=== PATIENT | male | born 1970 | race Caucasian/White ===

== ENCOUNTER 2016-08-07 10:03 | Observation (INO) ==
[2016-08-07 12:00] LABS: Basophils # (Auto) 0.1 K/mcL (0.0-0.3); Basophils % (Auto) 0.4 % (0.0-2.0); Eosinophils # (Auto) 0.2 K/mcL (0.0-0.7); Eosinophils % (Auto) 0.9 % (0.0-7.0); Granulocytes % (Auto) 76.9 % (38.0-78.0); Lymphocytes # (Auto) 2.3 K/mcL (1.5-4.8); Lymphocytes % (Auto) 13.9 % (15.5-49.0); Mean Cell Volume 79.2 fL (80.0-100.0); Mean Corpuscular HGB Conc 33.7 g/dL (31.0-36.0); Mean Corpuscular Hemoglobin 26.7 pg (26.0-34.0); Monocytes # (Auto) 1.3 K/mcL (0.1-0.9); Monocytes % (Auto) 7.9 % (1.0-9.0); Platelet Count 290 K/mcL (140-440); RBC 4.32 M/mcL (4.50-5.90); Red Cell Distribution Width 16.4 % (11.5-14.5)
--- NOTE | 2016-08-07 12:21 | XRay Report ---
CLINICAL INFORMATION: Trauma COMPARISON: None. FINDINGS: Film taken with subtle inspiratory result accentuates the heart size and basal pulmonary vasculature. The heart is mildly enlarged. Mediastinum is normal. Mild patchy airspace disease in both lung bases show slight increase is likely atelectasis. 2.5 are rounded nodular density overlies the left midlung - new from previous study. It is likely rounded atelectasis or pneumonia. No effusions IMPRESSION: Mild cardiomegaly accentuated by suboptimal inspiration. Mild basilar airspace disease is likely atelectasis. There is a 3.5 cm rounded density overlying the left midlung - anterior fourth rib. Suggest standard PA and lateral chest x-ray to evaluate for nodule. Interpreted and Authenticated by: Benigno Foote 08/07/16
[2016-08-07] MEDS ORDERED: VANCOMYCIN 1,000 MG in 0.9 % SODIUM CHLORIDE 250 ML IV ONE (14:28)
[2016-08-07] MEDS ORDERED: cefTRIAXone 1 GM in DEXTROSE 5% IN WATER 50 ML IV ONE (14:28)
[2016-08-07] MEDS ORDERED: cefTRIAXone 1 GM VIAL ONE (14:43)
[2016-08-07] MEDS ORDERED: 0.9 % SODIUM CHLORIDE 1,000 ML IV ONE (15:30)
[2016-08-07 15:32] LABS: Appearance,Urine CLEAR; Bacteria,Urine 0 /hpf (0); Bilirubin,Urine NEG (NEG); Color,Urine YELLOW; Glucose,Urine (UA) NEGATIVE (NEG); Leukocyte Esterase,Urine NEG /uL (NEG); Mucus,Urine FEW /hpf (0); Nitrate,Urine NEG (NEG); Protein,Urine 100 mg/dL (NEG); Specific Gravity,Urine 1.019 (1.000-1.035); Urine Blood 0.03 mg/dL (<0.03); Urine Hyaline Cast 3 /lpf (0-2); Urine RBC 32 /hpf (0-1); Urine Squamous Epithelial Cell < 1 /hpf (0-4); Urine WBC 4 /hpf (0-4); Urobilinogen,Urine NEG (NEG)
[2016-08-07] MEDS ORDERED: traZODone HCL 50 MG TABLET PO PRN (16:19)
[2016-08-07] MEDS ORDERED: IPRATROPIUM/ALBUTEROL 3 ML AMPUL.NEB NEB PRN (16:19)
[2016-08-07] MEDS ORDERED: DEXTROSE 50% 50 ML VIAL IV PRN (16:19)
[2016-08-07] MEDS ORDERED: ACETAMINOPHEN 325 MG TABLET PO PRN (16:19)
[2016-08-07] MEDS ORDERED: POTASSIUM CHLORIDE 20 MEQ PACKET PO PRN (16:19)
[2016-08-07] MEDS ORDERED: guaiFENesin/CODEINE 10 ML UDC PO PRN (16:19)
[2016-08-07] MEDS ORDERED: ONDANSETRON 4 MG/2 ML VIAL IV PRN (16:19)
[2016-08-07] MEDS ORDERED: MAGNESIUM SULFATE 2 GM/50 ML BAG IV PRN (16:19)
[2016-08-07] MEDS: 0.9 % SODIUM CHLORIDE 1,000 ML IV SCH (16:55)
[2016-08-07] MEDS ORDERED: SODIUM CHLORIDE 0.9% IV ONE (17:00)
[2016-08-07] MEDS ORDERED: GENTAMICIN SULFATE IV ONE (17:00)
[2016-08-07] MEDS: INSULIN LISPRO 1 UNIT/0.01 ML UNIT SQ SCH ×2 (17:15→21:25)
--- NOTE | 2016-08-07 17:21 | History and Physical Report ---
DATE OF ADMISSION: 08/07/2016 PRIMARY CARE PHYSICIAN: Ewa Roque MD. REASON FOR ADMISSION: Syncopal episode, weakness and lightheadedness. HISTORY OF CHIEF COMPLAINT: The patient is a 46-year-old diabetic and mentally delayed who receives help from a caregiver 4 to 5 hours a day and has been fairly functional and living alone and managing and has been in his baseline state of health until over the last one week. The patient has noted increasing fever, weakness, chills and had a syncopal episode this morning. Initial workup in the ER was significant for white count over 16,000 and pyuria initial urine dip. Hospitalist Service was consulted in light of deconditioning and high-risk patient in light of complicated UTI and sepsis. At the time of examination, the patient is alert, was able to answer most of the questions. He denies diarrhea, bloody stool, or bloody urine. He further denies weight loss, glandular swelling, ENT symptoms, sick contacts or changes in medications. He denies any precipitating events but endorses to feeling lightheaded, drowsy and a black curtain before the fall. He denies tripping or slipping. He, however, did not lose consciousness or notice any incontinence or seizure-like activity. REVIEW OF SYSTEMS: Ten-point review of system was performed and is negative except the ones discussed above. PAST MEDICAL HISTORY: 1. Obstructive sleep apnea. 2. Morbid obesity. 3. Hypoxia requiring chronic oxygen 4 liters. 4. Diabetes mellitus type 2. 5. Bipolar disorder. 6. Hypertension. 7. Atrial fibrillation. 8. Anticoagulation for CVA prophylaxis. 9. Stasis dermatitis with chronic venous stasis bilateral lymphedema. SOCIAL HISTORY: Active smoker with over 25-tyox-zjaz history of smoking. No history of alcoholism or substance abuse. He receives care from home health services caregiver for 4 to 5 hours a day, lives alone. No family members available. CURRENT MEDICATIONS: List is being verified. 1. Zolpidem 10 mg. 2. Sitagliptin 100 mg. 3. Simvastatin 20 mg. 4. Risperidone 8 mg. 5. Metoprolol 200 mg. 6. Oxybutynin 10 mg. 7. Lisinopril 20 mg. 8. Duloxetine 120 mg. 9. Divalproex extended-release 1000 mg b.i.d. 10. Digoxin 125 mcg. 11. Bupropion 150 mg. 12. Warfarin 6 mg every day alternating with 8 mg Saturday. 13. Spironolactone 25 mg. 14. Furosemide 20 mg. 15. Diltiazem 180 mg b.i.d. 16. Benztropine 0.5 mg b.i.d. FAMILY HISTORY: Reviewed from medical records and noncontributory. The patient unable to provide details. ALLERGIES: 1. PENICILLIN. 2. SULFA. PHYSICAL EXAMINATION: GENERAL: The patient is alert and oriented. BMI 44. Height 6 feet. VITAL SIGNS: Blood pressure 123/80, respiration rate 26, temperature 97.3, pulse 67, sats 94% on 4 liters oxygen nasal cannula. HEENT: Pupils symmetric. Oral cavity is dry. No ear or nose discharge. Head is normocephalic. NECK: No lymphadenopathy. CHEST: S1, S2, irregular rhythm. ESM grade 1. Diminished breath sounds at bases. ABDOMEN: Soft and nontender. LOWER EXTREMITIES: Significant edema, dusky venous changes stasis dermatitis but no cyanosis or clubbing. No joint swelling or erythema. SKIN: No suspicious lesions. PSYCHIATRIC: Alert and cooperative. No anxiety or agitation. NEURO: Moving all four extremities. Limited higher function unremarkable. LABS AND IMAGING: White count 16.8, hemoglobin 11.5, neutrophils 77%, platelets 290. INR 1.9. Sodium 139, potassium 4.4, creatinine 0.9, BUN 9. UA significant for 4 WBCs. Urine cultures pending. X-ray chest: Mild cardiomegaly, basilar airspace disease, 3.5 cm left mid lung density. ASSESSMENT AND PLAN: A 46-year-old with known history of obstructive sleep apnea on oxygen and diabetes admitted with syncopal episode. 1. Syncope. Evaluate with echocardiogram. Admit in telemetry observation. Continue close monitoring. No evidence of hypotension or orthostasis. No evidence of cardiac arrhythmia except for atrial fibrillation, but rate controlled. 2. Systemic inflammatory response syndrome with leukocytosis over 16,800. Continue source evaluation. Empiric antibiotics were instituted, including gentamicin and Rocephin and will deescalate based on culture sensitivity results. 3. Other prior medical issues, including: a. History of atrial fibrillation. Continue digoxin along with anticoagulation on Coumadin for CVA prophylaxis. b. Diabetes mellitus type 2. Continue basal prandial insulin/sitagliptin. c. Hypertension. Continue spironolactone and lisinopril. d. Anxiety disorder. Continue duloxetine. e. Hyperlipidemia. Continue statin. PLAN FOR TODAY: 1. Admit as observation. 2. Telemetry monitoring. 3. Antibiotic coverage. 4. SIRS source evaluation. 5. Syncope workup including echocardiogram and continue telemetry. 6. Preexisting medical condition management as above. Overall high-complexity observation. AA:rosa Job ID: [id number] Doc ID: [id number] Brandan Roque MD [facility]
[2016-08-07 19:35] LABS: Hemoglobin A1C 8.2 % HGB (4.0-6.0)
[2016-08-07] MEDS ORDERED: WARFARIN 3 MG TABLET PO SCH (21:00)
[2016-08-07] MEDS: CYANOCOBALAMIN (VITAMIN B-12) 500 MCG TABLET PO SCH (21:24)
[2016-08-07] MEDS: SENNOSIDES/DOCUSATE SODIUM 1 TAB TABLET PO SCH (21:24)
[2016-08-07] MEDS: HEPARIN 5,000 UNIT/ML VIAL SQ SCH (21:24)
[2016-08-07] MEDS: DOCUSATE SODIUM 100 MG CAPSULE PO SCH (21:24)
[2016-08-07] MEDS: 0.9 % SODIUM CHLORIDE 10 ML SYRINGE IV SCH (21:27)
[2016-08-08] MEDS: 0.9 % SODIUM CHLORIDE 10 ML SYRINGE IV SCH ×3 (04:57→22:35)
[2016-08-08 05:58] LABS: Mean Cell Volume 81.8 fL (80.0-100.0); Mean Corpuscular HGB Conc 32.2 g/dL (31.0-36.0); Mean Corpuscular Hemoglobin 26.3 pg (26.0-34.0); Platelet Count 267 K/mcL (140-440); RBC 4.08 M/mcL (4.50-5.90); Red Cell Distribution Width 17.2 % (11.5-14.5)
[2016-08-08 06:13] LABS: ALT/SGPT 6 U/l (0-40); Albumin 3.1 gm/dL (3.2-5.2); Albumin/Globulin Ratio 0.9 (1.0-2.3); Alkaline Phosphatase 104 U/L (39-117); Bilirubin,Direct < 0.2 mg/dL (0.0-0.3); Blood Urea Nitrogen 10 mg/dl (6-20); Gamma Glutamyl Transpeptidase 32 U/L (8-61); Magnesium 1.4 mg/dL (1.6-2.5); Phosphorous 4.1 mg/dL (2.7-4.5)
[2016-08-08 06:53] LABS: Anisocytosis 2+ (NONE SEEN); Eosinophils % (Manual) 2 % (0-7); Lymphocytes % 17 % (15-49); Monocytes % (Manual) 10 % (1-9); Myelocytes % 1 % (0-0); Platelet Estimate NORMAL (NORMAL); RBC Morphology ABNORM (NORMAL); Segmented Neutrophils % 70 % (38-78)
[2016-08-08] MEDS ORDERED: FLU VACC QS2016-17 36MOS UP/PF 60 MCG/0.5 ML SYRINGE IM ONE (07:45)
[2016-08-08] MEDS: PANTOPRAZOLE 40 MG TABLET PO SCH (07:51)
[2016-08-08] MEDS: INSULIN LISPRO 1 UNIT/0.01 ML UNIT SQ SCH ×4 (07:51→23:01)
[2016-08-08] MEDS: CYANOCOBALAMIN (VITAMIN B-12) 500 MCG TABLET PO SCH ×2 (08:18→20:50)
[2016-08-08] MEDS: sitaGLIPtin 100 MG TABLET PO SCH (08:18)
[2016-08-08] MEDS: MULTIVIT,THER IRON,CA,FA & MIN 1 TABLET PO SCH (08:21)
[2016-08-08] MEDS: FOLIC ACID 1 MG TABLET PO SCH (08:21)
[2016-08-08] MEDS: DOCUSATE SODIUM 100 MG CAPSULE PO SCH ×2 (08:22→20:50)
[2016-08-08] MEDS: HEPARIN 5,000 UNIT/ML VIAL SQ SCH ×2 (08:22→20:50)
--- NOTE | 2016-08-08 09:05 | Emergency Department Note ---
General Adult HPI - General Chief complaint: Fall Stated complaint: Fall this morning, possible syncope, hit head Time Seen by Provider: 08/07/16 10:17 Source: patient, EMS Mode of arrival: EMS Limitations: altered mental status - History of Present Illness HPI Narrative: 46-year-old mentally challenged diabetic male collapsed this morning hitting the back of his head. He is normally somewhat confused and unsteady but he doesn't normally fall. His caregiver gives me some most of the history but was unable from room when he fell from sitting on the bed. No injuries reported loss of consciousness briefly was reported. He is on oxygen 4 L/m 24 hours a day and has been for the last year. Denies fever but does note rhinorrhea and congestion over the last couple weeks - Related Data Home Medications Medication Instructions Recorded Confirmed bupropion HCl XL 150 mg 24 hr 150 mg PO DAILY tab 04/01/15 11/23/15 tablet, extended release digoxin 125 mcg tablet 125 mcg PO DAILY 04/01/15 11/23/15 divalproex ER 500 mg 1,000 mg PO BID tab 04/01/15 11/23/15 tablet,extended release 24 hr duloxetine 60 mg capsule,delayed 120 mg PO QDAY cap 04/01/15 11/23/15 release epinephrine 0.3 mg/0.3 mL 0.3 mg IM PRN PRN 04/01/15 11/23/15 injection, auto-injector lisinopril 20 mg tablet 20 mg PO QDAY 04/01/15 11/23/15 metoprolol succinate ER 200 mg 200 mg PO BID tab 04/01/15 11/23/15 tablet,extended release 24 hr risperidone 4 mg tablet 8 mg PO QHS tab 04/01/15 11/23/15 simvastatin 20 mg tablet 20 mg PO QHS tab 04/01/15 11/23/15 zolpidem 10 mg tablet 10 mg PO HSP PRN 04/01/15 11/23/15 Benztropine [Cogentin] 0.5 mg PO BID 11/23/15 11/23/15 Diltiazem HCl [Cartia Xt] 180 mg PO BID 11/23/15 11/23/15 Warfarin [Coumadin] 6 mg PO SUMOTUTHFRSA 11/23/15 11/23/15 Warfarin [Coumadin] 8 mg PO WE 11/23/15 11/23/15 Previous Rx's Medication Instructions Recorded oxybutynin chloride ER 10 mg 10 mg PO QDAY #30 tab 04/07/15 tablet,extended release 24 hr Clindamycin HCl [Cleocin] 300 mg PO TID #12 capsule 11/26/15 Furosemide [Lasix] 20 mg PO DAILY #30 tablet 11/26/15 Levofloxacin [Levaquin] 750 mg PO DAILY #4 tablet 11/26/15 Spironolactone [Aldactone] 25 mg PO DAILY #30 tablet 11/26/15 sitaGLIPtin [Januvia] 100 mg PO DAILY #60 tablet 11/26/15 Clindamycin HCl [Cleocin] 300 mg PO TID #30 capsule 12/08/15 Levofloxacin [Levaquin] 750 mg PO DAILY #10 tablet 12/08/15 Allergies Allergy/AdvReac Type Severity Reaction Status Date / Time Penicillins Allergy Severe Anaphylaxis Verified 11/23/15 15:08 Sulfa (Sulfonamide Allergy Severe Anaphylaxis Verified 11/23/15 15:08 Antibiotics) sulfamethoxazole Allergy Severe Anaphylaxis Verified 11/23/15 15:08 [From Bactrim] trimethoprim [From Bactrim] Allergy Severe Anaphylaxis Verified 11/23/15 15:08 Review of Systems All systems ED: reviewed and negative except as stated. Past Medical History - Past Medical History Attestation: Yes: The following information was validated with the patient. Medical history: Reports: atrial fibrillation, CHF (iastolic), diabetes, hyperlipidemia, hypertension, other (chronic leg lymphedema, sleep apnea) Psychiatric history: Reports: bipolar - Social History smoking status: Current every day smoker Alcohol use: Reports: None Drug use: Reports: none Physical Exam Obese male no acute distress. Normocephalic/atraumatic. Conjunctiva clear sclerae white and anicteric. No nasal discharge but some audible congestion. Oropharynx is pink and moist. Neck is supple without lymphadenopathy or thyromegaly. Heart is irregularly irregular rhythm. +2 radial pulse. Lungs clear to auscultation bilaterally without wheezes rales rhonchi or respiratory distress. Bilateral +1-2 chronic pedal edema with hyperpigmentation. Alert and oriented but talks very slowly- baseline mentation. Short-term memory issues. I do not see any focal deficits. No tremor dysarthria or facial symmetry. No ataxia Global weakness Course Vital Signs Temperature 97.3 F L 08/07/16 10:05 Pulse Rate 70 08/07/16 10:05 Respiratory Rate 16 08/07/16 10:05 Blood Pressure 118/84 08/07/16 10:05 Pulse Oximetry (%) 94 08/07/16 10:05 Temperature 97.7 F 08/08/16 07:43 Pulse Rate 87 08/08/16 07:44 Respiratory Rate 22 08/08/16 07:43 Blood Pressure 153/91 08/08/16 04:00 Pulse Oximetry (%) 91 08/08/16 07:44 Medical Decision Making - Medical Records Medical records reviewed: Yes I reviewed the patient's medical records. - Lab Data Lab results reviewed: Yes I reviewed the patient's lab results. Result diagrams: 08/08/16 04:50 08/08/16 04:50 Lab Results 08/07/16 08/07/16 08/07/16 Range/Units 11:26 11:26 11:34 WBC 16.8 H (4.5-11.0) K/mcL RBC 4.32 L (4.50-5.90) M/mcL Hgb 11.5 L (13.5-16.5) g/dL Hct 34.2 L (41.0-55.0) % POC Hct 34.0 L (41.0-55.0) % MCV 79.2 L (80.0-100.0) fL MCH 26.7 (26.0-34.0) pg MCHC 33.7 (31.0-36.0) g/dL RDW 16.4 H (11.5-14.5) % Plt Count 290 (140-440) K/mcL MPV 7.1 L (7.4-10.4) fL Gran % 76.9 (38.0-78.0) % Lymph % (Auto) 13.9 L (15.5-49.0) % [place] % (Auto) 7.9 (1.0-9.0) % Eos % (Auto) 0.9 (0.0-7.0) % Baso % (Auto) 0.4 (0.0-2.0) % Gran # 12.9 H (1.8-8.0) K/mcL Lymph # 2.3 (1.5-4.8) K/mcL [place] # 1.3 H (0.1-0.9) K/mcL Eos # 0.2 (0.0-0.7) K/mcL Baso # 0.1 (0.0-0.3) K/mcL PT 22.3 H (11.9-14.5) sec INR 1.9 H (0.9-1.1) POC Sodium 139 (133-145) mmol/L POC Potassium 4.4 (3.3-5.1) mmol/L POC Chloride 98 (96-108) mmol/L POC Total CO2 28 (22-30) mmol/L POC BUN 9 (6-20) mg/dl POC Creatinine 0.9 (0.7-1.2) mg/dl POC Glucose 135 H (70-105) mg/dL Hemoglobin A1c (4.0-6.0) % HGB Estim Average Glucose mg/dL POC WB Ioniz Calcium 1.17 (1.16-1.32) mmol/L Urine Color Urine Appearance Urine pH (5.0-9.0) Ur Specific [place] (1.000-1.035) Urine Protein (NEG) mg/dL Urine Glucose (UA) (NEG) mg/dL Urine Ketones (NEG) mg/dL Urine Occult Blood (<0.03) mg/dL Urine Nitrate (NEG) Urine Bilirubin (NEG) mg/dL Urine Urobilinogen (NEG) mg/dL Ur Leukocyte Esterase (NEG) /uL Urine RBC (0-1) /hpf Urine WBC (0-4) /hpf Ur Squamous Epith Cells (0-4) /hpf Urine Bacteria (0) /hpf Hyaline Casts (0-2) /lpf Urine Mucus (0) /hpf Ur Culture Indicated? 08/07/16 08/07/16 Range/Units 11:34 14:34 WBC (4.5-11.0) K/mcL RBC (4.50-5.90) M/mcL Hgb (13.5-16.5) g/dL Hct (41.0-55.0) % POC Hct (41.0-55.0) % MCV (80.0-100.0) fL MCH (26.0-34.0) pg MCHC (31.0-36.0) g/dL RDW (11.5-14.5) % Plt Count (140-440) K/mcL MPV (7.4-10.4) fL Gran % (38.0-78.0) % Lymph % (Auto) (15.5-49.0) % [place] % (Auto) (1.0-9.0) % Eos % (Auto) (0.0-7.0) % Baso % (Auto) (0.0-2.0) % Gran # (1.8-8.0) K/mcL Lymph # (1.5-4.8) K/mcL [place] # (0.1-0.9) K/mcL Eos # (0.0-0.7) K/mcL Baso # (0.0-0.3) K/mcL PT (11.9-14.5) sec INR (0.9-1.1) POC Sodium (133-145) mmol/L POC Potassium (3.3-5.1) mmol/L POC Chloride (96-108) mmol/L POC Total CO2 (22-30) mmol/L POC BUN (6-20) mg/dl POC Creatinine (0.7-1.2) mg/dl POC Glucose (70-105) mg/dL Hemoglobin A1c 8.2 H (4.0-6.0) % HGB Estim Average Glucose 189 mg/dL POC WB Ioniz Calcium (1.16-1.32) mmol/L Urine Color Yellow Urine Appearance Clear Urine pH 6.0 (5.0-9.0) Ur Specific [place] 1.019 (1.000-1.035) Urine Protein 100 A (NEG) mg/dL Urine Glucose (UA) Negative (NEG) mg/dL Urine Ketones 5/tr A (NEG) mg/dL Urine Occult Blood 0.03 A (<0.03) mg/dL Urine Nitrate Neg (NEG) Urine Bilirubin Neg (NEG) mg/dL Urine Urobilinogen Neg (NEG) mg/dL Ur Leukocyte Esterase Neg (NEG) /uL Urine RBC 32 H (0-1) /hpf Urine WBC 4 (0-4) /hpf Ur Squamous Epith Cells < 1 (0-4) /hpf Urine Bacteria 0 (0) /hpf Hyaline Casts 3 H (0-2) /lpf Urine Mucus Few (0) /hpf Ur Culture Indicated? No rine was straight catheter as he was unable to urinate for us - Radiology Data Radiology results reviewed: Yes I reviewed the patient's radiology results. Chest x-ray without infiltrate. Possible nodule- radiology recommends follow- up 2 view - EKG Data EKG #1 EKG attestation: Yes I reviewed and interpreted this EKG. EKG results narrative: EKG shows atrial fibrillation with a rate of 74 Disposition Clinical Impression: SIRS (systemic inflammatory response syndrome), Syncope and collapse Summary: orthostatics mildly positive but other studies unrevealing as to cause of his leukocytosis. Cultures done and antibiotics started. IV fluids Discussed case with Dr. Coon who agreed to accept patient in transfer for further care and evaluation of syncope and collapse as well as SIRS Disposition: [facility] Condition: Fair
[2016-08-08] MEDS: cefTRIAXone 2 GM in DEXTROSE 5% IN WATER 50 ML IV SCH (09:17)
[2016-08-08] MEDS: THIAMINE 100 MG in 0.9 % SODIUM CHLORIDE 50 ML IV SCH (09:17)
--- NOTE | 2016-08-08 12:12 | Internal Med Progress Note ---
Medical - PN: Subj Patient information: Note initiated : 08/08/16 at 12:12 pm Service Date, if different from initiated Date: [] Patient: Keegan Uribe 46 y/o M admitted on 08/07/16 for Fall This Morning, Possible Syncope, Hit Head. Chief Complaint: [] Interval history: 08/07- patient admitted with systemic inflammatory response syndrome, leukocytosis , syncope. Admitted on telemetry. No infectious etiology identified. On empiric antibiotics. Campbell cultures obtained. 08/08- patient feeling a lot better. Good urine output. No overnight fever chills nausea vomiting or concerns per nursing staff. no family at bedside. Patient agrees for another 24 hours observation. denies active concerns. Denies chest pain shortness of breath - Constitutional Vitals: Vital Signs Temp Pulse Resp BP Pulse Ox 97.6 F 87 20 136/83 90 08/08/16 11:09 08/08/16 07:44 08/08/16 11:09 08/08/16 11:09 08/08/16 11:09 Period Temp Pulse Resp BP Sys/Willis Pulse Ox Last 24 Hr 97.3 F-98.2 F 77-90 16-24 135-153/73-94 90-97 Intake and Output 08/07/16 08/08/16 08/08/16 21:59 05:59 13:59 Intake Total 1890 / 1940 450 / 450 501 / 501 Output Total 1000 / 1000 1000 / 1000 Balance 189 / 0 -550 / -550 -499 / -499 Weight 299 lb Intake & Output: Intake & Output 08/07/16 08/08/16 08/08/16 21:59 05:59 13:59 Intake Total 1890 / 1940 450 / 450 501 / 501 Output Total 1000 / 1000 1000 / 1000 Balance 1890 / 1940 -550 / -550 -499 / -499 Weight 299 lb Intake: IV 1250 / 1250 101 / 101 Sodium Chloride 0.9% 1, 1000 / 1000 000 ml @ Wide Open IV BOLUS ONE Rx#:[id number] Sodium Chloride 0.9% 50 51 / 51 ml @ 50 mls/hr IV DAILY CAROLINE with Vitamin B1 100 mg Rx#:[id number] Sodium Chloride 0.9% 250 250 / 250 ml @ 250 mls/hr IV ONCE ONE with Vancomycin 1,000 mg Rx#:[id number] Dextrose 5% in Water 50 50 / 50 ml @ 100 mls/hr IV Q24H CAROLINE with Rocephin 2 gm Rx #:[id number] Oral 640 / 640 450 / 450 400 / 400 Output: Urine Catheter Amount 1000 / 1000 1000 / 1000 Other: Meal Dinner Breakfast Percent of Meal Consumed 75% 100% Feeding Ability Assist with Tray Set Up Independent General appearance: cooperative, no acute distress Exam: alert oriented nonlabored breathing Nondistended abdomen Foleys draining clear urine no anxiety Medical - PN: Obj Da - Labs CBC & Chem 7: 08/08/16 04:50 08/08/16 04:50 Labs: Abnormal Lab Results 08/08/16 08/08/16 08/08/16 05:50 04:50 04:50 WBC 13.0 H RBC 4.08 L Hgb 10.7 L Hct 33.4 L RDW 17.2 H MPV 6.7 L Monocytes % (Manual) 10 H Myelocytes % 1 H RBC Morphology Abnorm A Anisocytosis 2+ A PT 20.1 H INR 1.7 H Glucose 154 H Magnesium 1.4 L Albumin 3.1 L Albumin/Globulin Ratio 0.9 L Triglycerides 168 H Meds: Medications Acetaminophen (Tylenol) 650 mg PO Q4-6HP PRN PRN Reason: PAIN/FEVER > 101 Albuterol/Ipratropium (Duoneb) 3 ml NEB Q4HP PRN PRN Reason: Shortness Of Breath Cyanocobalamin (Vitamin B-12) 1,000 mcg PO BID [facility] Stop: 08/12/16 09:01 Last Admin: 08/08/16 08:18 Dose: 1,000 mcg Dextrose (Dextrose 50%) 0 ml IV UD PRN PRN Reason: Hypoglycemia Diagnostic Test (Pha) (Accu-Chek) 1 each FS ACHS [facility] Last Admin: 08/08/16 07:50 Dose: 1 each Docusate Sodium (Colace) 100 mg PO BID [facility] Last Admin: 08/08/16 08:22 Dose: 100 mg Folic Acid (Folic Acid) 1 mg PO DAILY [facility] Last Admin: 08/08/16 08:21 Dose: 1 mg Guaifenesin/Codeine Phosphate (Robitussin Ac) 10 ml PO Q4HP PRN PRN Reason: Cough Heparin Sodium (Porcine) (Heparin) 5,000 unit SQ Q12 [facility] Last Admin: 08/08/16 08:22 Dose: 5,000 unit Magnesium Sulfate (Magnesium Sulfate) 2 gm in 50 mls @ 50 mls/hr IV UD PRN PRN Reason: MG = or < 1.7 Sodium Chloride (Sodium Chloride 0.9%) 1,000 mls @ 50 mls/hr IV .Q20H [facility] Stop: 08/10/16 04:18 Last Admin: 08/07/16 16:55 Dose: Not Given Thiamine HCl 100 mg/ Sodium (Chloride) 51 mls @ 50 mls/hr IV DAILY [facility] Stop: 08/10/16 10:02 Last Infusion: 08/08/16 10:37 Dose: Infused Ceftriaxone Sodium 2 gm/ (Dextrose) 50 mls @ 100 mls/hr IV Q24H [facility] Last Infusion: 08/08/16 10:36 Dose: Infused Insulin Human Lispro (Humalog) 0 unit SQ ACHS CAROLINE PRN Reason: Protocol Last Admin: 08/08/16 07:51 Dose: Not Given Iron Carb/Multivit/Filler Room Attendant/Folic Acid (Multivitamin W/Minerals) 1 tab PO DAILY [facility] Last Admin: 08/08/16 08:21 Dose: 1 tab Ondansetron HCl (Zofran) 4 mg IV Q4-6HP PRN PRN Reason: Nausea And Vomiting Pantoprazole Sodium (Protonix) 40 mg PO QAMAC [facility] Last Admin: 08/08/16 07:51 Dose: 40 mg Potassium Chloride (Klor-Con) 40 meq PO DAILYP PRN PRN Reason: K+ < 3.5 Senna/Docusate Sodium (Senna Plus Tablet) 1 tab PO HS [facility] Last Admin: 08/07/16 21:24 Dose: 1 tab Sitagliptin Phosphate (Januvia) 100 mg PO DAILY [facility] Last Admin: 08/08/16 08:18 Dose: 100 mg Sodium Chloride (Saline Flush) 10 ml IV Q8 [facility] Last Admin: 08/08/16 04:57 Dose: 10 ml Trazodone HCl (Desyrel) 50 mg PO HSP PRN PRN Reason: Insomnia Warfarin Sodium (Coumadin) 8 mg PO ONCE@1400 ONE Stop: 08/08/16 14:01 Medical - PN: A/P - Time Spent With Patient Total time spent is greater than 50% in coordination of care (as documented) at patient's floor/unit and/or counseling patient: 15 - 24 minutes (1) SIRS (systemic inflammatory response syndrome) Status: Acute Assessment and plan: * systemic inflammatory response syndrome-clinically improving. White count down from 13.8-13. Cultures negative so far. No etiology identified initiate * Syncope-likely secondary to volume depletion/dehydration. Improving with hydration. No telemetry events. Await echocardiogram to rule out valvular etiology * DM type II on basal prandial insulin * Anxiety disorder on duloxetine/bupropion * A. fib and digoxin/metoprolol * Hypertension on lisinopril/metoprolol/Spironolactone * hyperlipidemia on statin plan * Antibiotic coverage * Telemetry monitoring * pre-existing medical condition management as above * Possible discharge in 24 hours Current Visit: Yes Medical - PN: Qual - Stroke Symptom Onset Unknown: No - VTE Deep Vein Thrombosis/Pulmonary Embolism Present on Admission: Yes
[2016-08-08] MEDS: 0.9 % SODIUM CHLORIDE 1,000 ML IV SCH (12:40)
[2016-08-08] MEDS ORDERED: WARFARIN 4 MG TABLET PO ONE (14:00)
[2016-08-08] MEDS: SENNOSIDES/DOCUSATE SODIUM 1 TAB TABLET PO SCH (20:50)
[2016-08-09] MEDS: 0.9 % SODIUM CHLORIDE 10 ML SYRINGE IV SCH (05:07)
[2016-08-09 05:35] LABS: Mean Cell Volume 82.1 fL (80.0-100.0); Mean Corpuscular HGB Conc 32.1 g/dL (31.0-36.0); Mean Corpuscular Hemoglobin 26.4 pg (26.0-34.0); Platelet Count 247 K/mcL (140-440); RBC 4.19 M/mcL (4.50-5.90); Red Cell Distribution Width 17.1 % (11.5-14.5)
[2016-08-09 06:03] LABS: ALT/SGPT 8 U/l (0-40); Albumin/Globulin Ratio 0.9 (1.0-2.3); Alkaline Phosphatase 114 U/L (39-117); Bilirubin,Direct < 0.2 mg/dL (0.0-0.3); Blood Urea Nitrogen 9 mg/dl (6-20); Gamma Glutamyl Transpeptidase 34 U/L (8-61); Magnesium 1.5 mg/dL (1.6-2.5); Phosphorous 5.1 mg/dL (2.7-4.5); Uric Acid 5.4 mg/dL (2.5-8.0)
[2016-08-09 06:17] LABS: Anisocytosis 1+ (NONE SEEN); Lymphocytes % 22 % (15-49); Monocytes % (Manual) 10 % (1-9); Platelet Estimate NORMAL (NORMAL); RBC Morphology ABN (NORMAL); Segmented Neutrophils % 68 % (38-78)
--- NOTE | 2016-08-09 06:50 | Echocardiogram Report ---
ECHOCARDIOGRAM: 2-D and M-mode echocardiography with cardiac Doppler and color flow imaging were performed with a [employer] Aplio MX. Indication is syncope. Both atria appeared enlarged, the RA mildly so, the LA moderately so. RV and LV cavity size appeared normal. LV wall thickness appeared mildly increased. Systolic performance appeared normal. Estimated ejection fraction is 60%. Aortic root diameter appeared normal. The right appeared sclerotic, notable at age 46. The aortic valve appeared trileaflet and normal. There was no evidence for aortic stenosis or aortic regurgitation by Doppler interrogation. The mitral and tricuspid valves appeared unremarkable. Mitral annular calcification was present. Doppler interrogation of LV inflow disclosed a monophasic spectral dispersion pattern related to absent AV synchrony. There was no evidence for mitral regurgitation. The pulmonic valve was not well visualized. Pulmonary artery acceleration time was difficult to measure. There was no evidence for pulmonic stenosis or pulmonic regurgitation. There was no evidence for tricuspid regurgitation. No intracardiac shunting was appreciated. There was no evidence for pericardial effusion. The IVC was dilated and did not vary with the respiratory cycle indicating raised CVP. Hepatic venous interrogation disclosed ''d'' wave dominance corroborating elevated RA pressure. Atrial fibrillation with a moderate to rapid response was present. CONCLUSION:Aortic root sclerosis. Mild concentric LVH with normal systolic performance. Mitral annular calcification. Moderate LA enlargement. Mild RA enlargement/raised CVP. (See accompanying M-mode and Doppler reports for quantitation.) ECHOCARDIOGRAPHY M-MODE CALCULATIONS: HT: 72'' WT: 299 BSA: 2.53 m2 NORMALS AORTA: AORTIC ROOT 3.3 2.0-3.7 cm LEFT ATRIUM 3.7 1.9-4.0 cm MITRAL VALVE: EXCURSION 2.2 1.9-2.7 cm EPSS 0.4 <0.5 cm LT VENTRICLE: LVID (ED) 5.0 3.5-5.7 cm LVID (ES) 3.8 SEPTAL THICKNESS 1.2 0.6-1.1 cm SEPTAL EXCURSION 0.4 0.3-0.8 cm LVPW THICKNESS 1.2 0.6-1.1 cm LVPW EXCURSION 1.1 0.9-1.4 cm MINOR AXIS FS 2.4 25%-40% RT VENTRICLE: RVID (ED) -- 0.9-2.6 cm(up to 3cm if LLD) QUALITATIVE DOPPLER FLOW STUDIES MITRAL VALVE -- AORTIC VALVE -- TRICUSPID VALVE -- PULMONIC VALVE -- QUANTITATIVE DOPPLER FLOW STUDIES SAMPLE SITES VELOCITIES PEAK PRESSURE VALVE AREA and/or VALVE WINDOW (PEAK,M/SEC) DROP (GRADIENT) PRESSURE HALF-TIME MV (Diastole) 1.1 -- -- MV (Systole) -- -- -- AO (Diastole) -- -- -- AO (Systole) 1.5 -- -- TV (Systole) -- -- -- PV (Systole) 0.8 -- -- PV (Diastole) -- LWG:senthil Job ID: [id number] Doc ID: [id number] Felipe Zhou MD
[2016-08-09] MEDS: PANTOPRAZOLE 40 MG TABLET PO SCH (07:33)
[2016-08-09] MEDS: CYANOCOBALAMIN (VITAMIN B-12) 500 MCG TABLET PO SCH (07:34)
[2016-08-09] MEDS: DOCUSATE SODIUM 100 MG CAPSULE PO SCH (08:03)
[2016-08-09] MEDS: FOLIC ACID 1 MG TABLET PO SCH (08:03)
[2016-08-09] MEDS: MULTIVIT,THER IRON,CA,FA & MIN 1 TABLET PO SCH (08:03)
[2016-08-09] MEDS: HEPARIN 5,000 UNIT/ML VIAL SQ SCH (08:03)
[2016-08-09] MEDS: INSULIN LISPRO 1 UNIT/0.01 ML UNIT SQ SCH (08:04)
[2016-08-09] MEDS: sitaGLIPtin 100 MG TABLET PO SCH (08:09)
[2016-08-09] MEDS: cefTRIAXone 2 GM in DEXTROSE 5% IN WATER 50 ML IV SCH (08:18)
[2016-08-09] MEDS: THIAMINE 100 MG in 0.9 % SODIUM CHLORIDE 50 ML IV SCH (08:23)
--- NOTE | 2016-08-09 09:58 | Discharge Summary ---
Discharge Plan - Patient/Caregiver Discharge Instructions Discharge Summary: DISCHARGE DIAGNOSIS * Systemic inflammatory response syndrome-clinically resolved. No source of infection identified.feels at baseline requesting discharge * Syncope-likely secondary to volume depletion/dehydration. echo unremarkable for valvular etiology. No arrhythmia on telemetry. No further lightheadedness dizziness or symptoms over the last 48 hours. Patient feels and baseline and requesting discharge. * DM type II on basal prandial insulin * Anxiety disorder on duloxetine/bupropion * A. fib and digoxin/metoprolol * Hypertension on lisinopril/metoprolol/Spironolactone * hyperlipidemia on statin Brief hospital course 08/07- patient admitted with systemic inflammatory response syndrome, leukocytosis , syncope. Admitted on telemetry. No infectious etiology identified. On empiric antibiotics. Campbell cultures obtained. 08/08- patient feeling a lot better. Good urine output. No overnight fever chills nausea vomiting or concerns per nursing staff. no family at bedside. Patient agrees for another 24 hours observation. denies active concerns. Denies chest pain shortness of breath 08/09 patient doing well. No overnight events. No concerns per staff. No fever chills nausea vomiting. Feels at baseline without any chest pain shortness of breath and lightheadedness or dizziness. Tolerating physical therapy and diet. Requesting discharge home. Labs and imaging reviewed with no focus of infection identified. Discontinue antibiotics. Activity: as per physical therapy Diet: Regular Diet - Follow up Plan Follow up with: Ewa Roque MD [Primary Care Provider] - 08/15/16 11:35 am Disposition: Home, Self-Care Prognosis: Fair Rehab Potential: Fair I certify that the patient requires SNF services.: No Overall status at discharge: patient is progressing back to baseline
[2016-08-09] MEDS ORDERED: DILTIAZEM 180 MG CAP.XL.24H PO ONE (10:19)
[2016-08-09] MEDS ORDERED: WARFARIN 3 MG TABLET PO ONE (14:00)
== END 2016-08-09 13:00 | disposition home or self-care (01) ==
LOC: ED 10:03 → ICU 10:03
PROVIDERS: ADMIT Internal Medicine; ATTEND Internal Medicine

== ENCOUNTER 2017-02-07 08:27 | Inpatient (IN) ==
[2017-02-07] MEDS ORDERED: 0.9 % SODIUM CHLORIDE 500 ML IV ONE (08:48)
--- NOTE | 2017-02-07 09:08 | Emergency Department Note ---
Weakness HPI - General Chief complaint: Weakness Stated complaint: Weakness Time Seen by Provider: 02/07/17 08:41 Source: EMS Mode of arrival: EMS Limitations: no limitations - History of Present Illness HPI Narrative: Pt is a 46 y/o M who presents today for dehydration. He is mentally delayed, has diabetes and heart failure. He is saying he is weaker than baseline, and that he has not been drinking water lately. He denies increased urinary frequency, burning with urination, but admits to frequent urinary incontinence. - Related Data Home Medications Medication Instructions Recorded Confirmed bupropion HCl XL 150 mg 24 hr 150 mg PO DAILY tab 04/01/15 08/09/16 tablet, extended release digoxin 125 mcg tablet 125 mcg PO DAILY 04/01/15 08/09/16 divalproex ER 500 mg 1,000 mg PO BID tab 04/01/15 08/09/16 tablet,extended release 24 hr duloxetine 60 mg capsule,delayed 120 mg PO QDAY cap 04/01/15 08/09/16 release epinephrine 0.3 mg/0.3 mL 0.3 mg IM PRN PRN 04/01/15 08/09/16 injection, auto-injector lisinopril 20 mg tablet 20 mg PO QDAY 04/01/15 08/09/16 metoprolol succinate ER 200 mg 200 mg PO BID tab 04/01/15 08/09/16 tablet,extended release 24 hr risperidone 4 mg tablet 8 mg PO QHS tab 04/01/15 08/09/16 simvastatin 20 mg tablet 20 mg PO QHS tab 04/01/15 08/09/16 zolpidem 10 mg tablet 10 mg PO HS 04/01/15 08/09/16 Benztropine [Cogentin] 0.5 mg PO BID 11/23/15 08/09/16 Diltiazem HCl [Cartia Xt] 180 mg PO BID 11/23/15 08/09/16 Warfarin [Coumadin] 6 mg PO EMILYTUTHFRSA 11/23/15 08/09/16 Warfarin [Coumadin] 8 mg PO WE 11/23/15 08/09/16 traZODone HCL [Trazodone HCl] 100 mg PO DAILY 02/07/17 02/07/17 Previous Rx's Medication Instructions Recorded oxybutynin chloride ER 10 mg 10 mg PO QDAY #30 tab 04/07/15 tablet,extended release 24 hr sitaGLIPtin [Januvia] 100 mg PO DAILY #60 tablet 11/26/15 Allergies Allergy/AdvReac Type Severity Reaction Status Date / Time Penicillins Allergy Severe Anaphylaxis Verified 02/07/17 08:32 Sulfa (Sulfonamide Allergy Severe Anaphylaxis Verified 02/07/17 08:32 Antibiotics) sulfamethoxazole Allergy Severe Anaphylaxis Verified 02/07/17 08:32 [From Bactrim] trimethoprim [From Bactrim] Allergy Severe Anaphylaxis Verified 02/07/17 08:32 Review of Systems Constitutional: Denies: fever, chills Past Medical History - Past Medical History Medical history: Reports: atrial fibrillation, CHF (iastolic), diabetes, hyperlipidemia, hypertension, other (chronic leg lymphedema, sleep apnea) Psychiatric history: Reports: bipolar - Social History Alcohol use: Reports: None Drug use: Reports: marijuana Physical Exam - General Limitations: no limitations General appearance: alert, other (Poor hygene, obese body habitus, appears much older than stated age) - Head Head exam: atraumatic, normocephalic - Eye Eye exam: Present: normal appearance, PERRL. Absent: scleral icterus, conjunctival injection - ENT ENT exam: mucous membranes dry, other (Lips are starting to crack, ) - Neck Neck exam: Present: trachea midline. Absent: lymphadenopathy - Chest Chest inspection: Present: symmetric chest wall rise - Respiratory Respiratory exam: Present: normal lung sounds bilaterally. Absent: respiratory distress, wheezes - Cardiovascular Cardiovascular exam: Present: tachycardia, irregular rhythm. Absent: systolic murmur, diastolic murmur, rubs, gallop, clicks, JVD - Abdominal Exam Abdominal exam: Present: soft, normal bowel sounds, organomegaly, other Abdominal tenderness: Present: LUQ, LLQ, mild (with deep palpation) - Neurological Exam Neurological exam: Present: alert, oriented X3 - Skin Skin exam: Present: other (Pt skin is dirty, wih excoriations and signs of correction poor hygiene, he has a small ulcer on his left dorsal foot and on his left second toe, both with clean dressings) Course Vital Signs Temperature 96.9 F L 02/07/17 08:28 Pulse Rate 100 H 02/07/17 08:28 Respiratory Rate 14 02/07/17 08:28 Blood Pressure 149/93 02/07/17 08:28 Pulse Oximetry (%) 100 02/07/17 08:28 Temperature 96.9 F L 02/07/17 08:28 Pulse Rate 104 H 02/07/17 13:03 Respiratory Rate 16 02/07/17 13:03 Blood Pressure 110/74 02/07/17 13:01 Pulse Oximetry (%) 100 02/07/17 13:03 Weakness - MDM Narrative Medical decision making narrative: Patient's vitals meet SIRS criteria with white cells elevated as well, his chest x-ray is negative, his urinalysis is equivocal, he is not complaining of abdominal pain, but he is weak, his labs demonstrate inconsistencies in taking his medication and his living conditions are poor. I spoke with the hospitalist who agreed to admit for weakness, and look at placement on discharge. - Lab Data Result diagrams: 02/07/17 08:55 02/07/17 08:55 Lab Results 02/07/17 02/07/17 02/07/17 Range/Units 08:55 08:55 08:55 WBC 15.7 H (4.5-11.0) K/mcL RBC 3.18 L (4.50-5.90) M/mcL Hgb 9.0 L (13.5-16.5) g/dL Hct 26.5 L (41.0-55.0) % MCV 83.2 (80.0-100.0) fL MCH 28.4 (26.0-34.0) pg MCHC 34.1 (31.0-36.0) g/dL RDW 14.4 (11.5-14.5) % Plt Count 254 (140-440) K/mcL MPV 6.7 L (7.4-10.4) fL Gran % 85.3 H (38.0-78.0) % Lymph % (Auto) 7.6 L (15.5-49.0) % [place] % (Auto) 5.9 (1.0-12.0) % Eos % (Auto) 0.3 (0.0-7.0) % Baso % (Auto) 0.9 (0.0-2.0) % Gran # 13.5 H (1.8-8.0) K/mcL Lymph # (Auto) 1.2 L (1.5-4.8) K/mcL [place] # (Auto) 0.9 (0.1-0.9) K/mcL Eos # (Auto) 0 (0.0-0.7) K/mcL Baso # (Auto) 0.1 (0.0-0.3) K/mcL Total Counted Seg Neutrophils % (38-78) % Band Neutrophils % (0-10) % Lymphocytes % (15-49) % Monocytes % (Manual) (1-12) % Platelet Estimate (NORMAL) RBC Morphology (NORMAL) PT (11.9-14.5) sec INR (0.9-1.1) VBG Lactic Acid (0.5-2.2) mmol/L Sodium 130 L (133-145) mmol/L Potassium 4.7 (3.3-5.1) mmol/L Chloride 90 L (96-108) mmol/L Carbon Dioxide 26 (22-30) mmol/L Anion Gap 14.0 (8-16) BUN 21 H (6-20) mg/dl Creatinine 0.7 (0.7-1.2) mg/dl GFR Calculation 113 Glucose 154 H (70-105) mg/dL Calcium 9.2 (8.6-10.4) mg/dl Total Bilirubin 0.4 (0.0-1.0) mg/dL AST 11 (0-37) U/l ALT 7 (0-40) U/l Alkaline Phosphatase 123 H (39-117) U/L NT-Pro-B Natriuret Pep 1127.0 H (0-125) pg/ml Total Protein 7.4 (5.9-8.4) gm/dL Albumin 3.4 (3.2-5.2) gm/dL Globulin 4.0 H (2.2-3.7) gm/dL Albumin/Globulin Ratio 0.9 L (1.0-2.3) Digoxin (0.5-0.8) ng/ml Digoxin Dose Digox Last Dose Time 02/07/17 02/07/17 02/07/17 Range/Units 08:55 08:55 08:55 WBC (4.5-11.0) K/mcL RBC (4.50-5.90) M/mcL Hgb (13.5-16.5) g/dL Hct (41.0-55.0) % MCV (80.0-100.0) fL MCH (26.0-34.0) pg MCHC (31.0-36.0) g/dL RDW (11.5-14.5) % Plt Count (140-440) K/mcL MPV (7.4-10.4) fL Gran % (38.0-78.0) % Lymph % (Auto) (15.5-49.0) % [place] % (Auto) (1.0-12.0) % Eos % (Auto) (0.0-7.0) % Baso % (Auto) (0.0-2.0) % Gran # (1.8-8.0) K/mcL Lymph # (Auto) (1.5-4.8) K/mcL [place] # (Auto) (0.1-0.9) K/mcL Eos # (Auto) (0.0-0.7) K/mcL Baso # (Auto) (0.0-0.3) K/mcL Total Counted 200 Seg Neutrophils % 83 H (38-78) % Band Neutrophils % 1 (0-10) % Lymphocytes % 5 L (15-49) % Monocytes % (Manual) 11 (1-12) % Platelet Estimate Normal (NORMAL) RBC Morphology Normal (NORMAL) PT 93.8 H (11.9-14.5) sec INR 11.4 H* (0.9-1.1) VBG Lactic Acid (0.5-2.2) mmol/L Sodium (133-145) mmol/L Potassium (3.3-5.1) mmol/L Chloride (96-108) mmol/L Carbon Dioxide (22-30) mmol/L Anion Gap (8-16) BUN (6-20) mg/dl Creatinine (0.7-1.2) mg/dl GFR Calculation Glucose (70-105) mg/dL Calcium (8.6-10.4) mg/dl Total Bilirubin (0.0-1.0) mg/dL AST (0-37) U/l ALT (0-40) U/l Alkaline Phosphatase (39-117) U/L NT-Pro-B Natriuret Pep (0-125) pg/ml Total Protein (5.9-8.4) gm/dL Albumin (3.2-5.2) gm/dL Globulin (2.2-3.7) gm/dL Albumin/Globulin Ratio (1.0-2.3) Digoxin < 0.3 L (0.5-0.8) ng/ml Digoxin Dose Not Reportable Digox Last Dose Time Not Reportable 02/07/17 Range/Units 09:10 WBC (4.5-11.0) K/mcL RBC (4.50-5.90) M/mcL Hgb (13.5-16.5) g/dL Hct (41.0-55.0) % MCV (80.0-100.0) fL MCH (26.0-34.0) pg MCHC (31.0-36.0) g/dL RDW (11.5-14.5) % Plt Count (140-440) K/mcL MPV (7.4-10.4) fL Gran % (38.0-78.0) % Lymph % (Auto) (15.5-49.0) % [place] % (Auto) (1.0-12.0) % Eos % (Auto) (0.0-7.0) % Baso % (Auto) (0.0-2.0) % Gran # (1.8-8.0) K/mcL Lymph # (Auto) (1.5-4.8) K/mcL [place] # (Auto) (0.1-0.9) K/mcL Eos # (Auto) (0.0-0.7) K/mcL Baso # (Auto) (0.0-0.3) K/mcL Total Counted Seg Neutrophils % (38-78) % Band Neutrophils % (0-10) % Lymphocytes % (15-49) % Monocytes % (Manual) (1-12) % Platelet Estimate (NORMAL) RBC Morphology (NORMAL) PT (11.9-14.5) sec INR (0.9-1.1) VBG Lactic Acid 1.1 (0.5-2.2) mmol/L Sodium (133-145) mmol/L Potassium (3.3-5.1) mmol/L Chloride (96-108) mmol/L Carbon Dioxide (22-30) mmol/L Anion Gap (8-16) BUN (6-20) mg/dl Creatinine (0.7-1.2) mg/dl GFR Calculation Glucose (70-105) mg/dL Calcium (8.6-10.4) mg/dl Total Bilirubin (0.0-1.0) mg/dL AST (0-37) U/l ALT (0-40) U/l Alkaline Phosphatase (39-117) U/L NT-Pro-B Natriuret Pep (0-125) pg/ml Total Protein (5.9-8.4) gm/dL Albumin (3.2-5.2) gm/dL Globulin (2.2-3.7) gm/dL Albumin/Globulin Ratio (1.0-2.3) Digoxin (0.5-0.8) ng/ml Digoxin Dose Digox Last Dose Time Disposition Pt seen by SENIOR SUSTAINABILITY CONSULTANT/PA only: No Clinical Impression: Elevated INR, Weakness Disposition: Xfer As Inpt ([facility]) Condition: Fair Referrals: Ewa Roque MD [Primary Care Provider] -
[2017-02-07 09:23] LABS: Basophils # (Auto) 0.1 K/mcL (0.0-0.3); Basophils % (Auto) 0.9 % (0.0-2.0); Eosinophils # (Auto) 0 K/mcL (0.0-0.7); Eosinophils % (Auto) 0.3 % (0.0-7.0); Granulocytes % (Auto) 85.3 % (38.0-78.0); Lymphocytes # (Auto) 1.2 K/mcL (1.5-4.8); Lymphocytes % (Auto) 7.6 % (15.5-49.0); Mean Cell Volume 83.2 fL (80.0-100.0); Mean Corpuscular HGB Conc 34.1 g/dL (31.0-36.0); Mean Corpuscular Hemoglobin 28.4 pg (26.0-34.0); Monocytes # (Auto) 0.9 K/mcL (0.1-0.9); Monocytes % (Auto) 5.9 % (1.0-12.0); Platelet Count 254 K/mcL (140-440); RBC 3.18 M/mcL (4.50-5.90); Red Cell Distribution Width 14.4 % (11.5-14.5)
[2017-02-07] MEDS: 0.9 % SODIUM CHLORIDE 1,000 ML IV SCH ×4 (09:44→15:33)
[2017-02-07 09:50] LABS: ALT/SGPT 7 U/l (0-40); Albumin 3.4 gm/dL (3.2-5.2); Albumin/Globulin Ratio 0.9 (1.0-2.3); Alkaline Phosphatase 123 U/L (39-117); Blood Urea Nitrogen 21 mg/dl (6-20)
[2017-02-07 11:31] LABS: Band Neutrophils % 1 % (0-10); Lymphocytes % 5 % (15-49); Monocytes % (Manual) 11 % (1-12); Platelet Estimate NORMAL (NORMAL); RBC Morphology NORMAL (NORMAL); Segmented Neutrophils % 83 % (38-78)
--- NOTE | 2017-02-07 11:47 | XRay Report ---
CLINICAL INFORMATION: Heart failure COMPARISON: None. FINDINGS: Heart size, mediastinum and pulmonary vessels are normal. There is minor bibasilar atelectasis. No effusions. IMPRESSION: No evidence of CHF. Minor bibasilar atelectasis Interpreted and Authenticated by: Benigno Foote 02/07/17
[2017-02-07] MEDS ORDERED: PHYTONADIONE 5 MG TABLET PO ONE (11:54)
[2017-02-07] MEDS ORDERED: LEVOFLOXACIN 750 MG/150 ML BAG IV ONE (13:28)
[2017-02-07 13:30] LABS: Appearance,Urine HAZY; Bacteria,Urine 0 /hpf (0); Bilirubin,Urine NEG (NEG); Color,Urine YELLOW; Glucose,Urine (UA) NEGATIVE (NEG); Leukocyte Esterase,Urine 75 /uL (NEG); Mucus,Urine FEW /hpf (0); Nitrate,Urine NEG (NEG); Protein,Urine 100 mg/dL (NEG); Specific Gravity,Urine 1.019 (1.000-1.035); Urine Blood 0.2 mg/dL (<0.03); Urine RBC 1 /hpf (0-1); Urine Squamous Epithelial Cell 0 /hpf (0-4); Urine WBC 2 /hpf (0-4); Urobilinogen,Urine NEG (NEG)
[2017-02-07] MEDS ORDERED: LEVOFLOXACIN 750 MG/150 ML BAG IV SCH (13:30)
--- NOTE | 2017-02-07 13:47 | Emergency Department Note ---
ED Note Addendum Note Addendum: have examined the patient AND LAB. and discussed diagnosis a nd treatment with patient. Dr Graf contacted and patient to be admitted
[2017-02-07] MEDS ORDERED: ONDANSETRON 4 MG/2 ML VIAL IV ONE (14:26)
[2017-02-07] MEDS ORDERED: NALOXONE HCL 0.4 MG/ML VIAL IV PRN (15:25)
[2017-02-07] MEDS ORDERED: ONDANSETRON 4 MG/2 ML VIAL IV PRN (15:25)
[2017-02-07] MEDS ORDERED: MAGNESIUM HYDROXIDE 30 ML ORAL.SUSP PO PRN (15:25)
[2017-02-07] MEDS: 0.9 % SODIUM CHLORIDE 10 ML SYRINGE IV SCH ×2 (15:34→23:23)
[2017-02-07] MEDS: IPRATROPIUM/ALBUTEROL 3 ML AMPUL.NEB NEB SCH ×3 (16:22→23:27)
--- NOTE | 2017-02-07 16:24 | Internal Med History&Physical ---
Medical - H&P: HPI Patient information: Note initiated : 02/07/17 at 4:19 pm Service Date, if different from initiated Date: [] Patient: Keegan Uribe 46 y/o M admitted on 02/07/17 for Weakness. Chief Complaint: [] History of present illness: Mr. Uribe is a 46 year old Male presents to the ER with complaints of weakness going on for the last 1 day. According to the patient, he woke up this morning and was trying to sit outside, while getting back inside the house. He noted that he was very weak, fell down,and was unable to get up. His friend, therefore, 911 to get into the hospital. According to the patient, he was feeling better yesterday. The patient denies any chest pain, palpitations, admits to having some dizziness, denies any syncope or presyncope , denies any head injury. the patient notes that he has not been drinking very well and he is dehydrated, on probing this question further. He is unable to tell me why he is not drinking enough fluids. the patient admits that he has been having abdominal pain going on for the last 3 days, abdominal pain is predominantly in the epigastric and periumbilical region, nonradiating, sharp in nature worse with going outside in the heat better by coming inside inside the house and drinking cold water. The patient admits to having some nausea but no vomiting. He denies any bleeding from any site I was not able to a certain if he was compliant with his medications, but it seems he is taking some. His Coumadin level was supratherapeutic on presentation. He notes that he was unable to have his last INR check. Because of some confusion with his appointment. 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 He has chronic wounds which are managed by the wound care clinic, In the emergency room, the patient was evaluated. History of rib discomfort was elevated, he had low sodium at 130, this is chronically low for him, INR of 11.4, hemoglobin of 9,his labs are near baseline, except for elevated INR. His digoxin level is less than 0.03. A chest x-ray was reported as negative, urine analysis shows mild leukocyte esterase but no bacteria, or white blood cells. Given that the patient is in very poor living conditions, has an elevated white count, decreased by mouth intake associated with fatigue. He was admitted to the hospital for further evaluation and management. All systems: reviewed and no additional remarkable complaints except as stated ( as per HPI) Medical - H&P: [facility] Medical history: Medical History (Last Updated 02/07/17 @ 13:50 by Pete Krueger) Dehydration (Acute) Acute respiratory failure with hypoxia (Acute) Contusion of right hip (Acute) SIRS (systemic inflammatory response syndrome) (Acute) Syncope and collapse (Acute) Medication side effects (Acute) Leukocytosis (Chronic) Ulcer of lower extremity (Chronic) Edema (Chronic) Hypoxemia (Chronic) Anemia (Chronic) Congestive heart failure (Chronic) Atrial fibrillation (Chronic) Mixed bipolar I disorder (Chronic) Hyperlipidemia (Chronic) Diabetes mellitus type 2, uncontrolled (Chronic) Essential hypertension (Chronic) 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 Mother had some sort of cancer. She does not sure what Social history: lives by himself, was likely in a rehabilitation facility or a halfway in the past. He is an active smoker with [id number] history of smoking. Says he's cut down recently because this to hot outside and smoke. Things to 3 beers a week. Smokes marijuana on a regular basis, likely daily. Denies any other recreational drug use. Medical - H&P: Meds Home Medications Medication Instructions Recorded Confirmed Type bupropion HCl XL 150 mg 24 hr 150 mg PO DAILY tab 04/01/15 02/07/17 History tablet, extended release digoxin 125 mcg tablet 125 mcg PO DAILY 04/01/15 02/07/17 History divalproex ER 500 mg 1,000 mg PO BID tab 04/01/15 02/07/17 History tablet,extended release 24 hr duloxetine 60 mg capsule,delayed 120 mg PO QDAY cap 04/01/15 02/07/17 History release epinephrine 0.3 mg/0.3 mL 0.3 mg IM PRN PRN 10/02/15 08/10/17 History injection, auto-injector lisinopril 20 mg tablet 20 mg PO QDAY 04/01/15 02/07/17 History metoprolol succinate ER 200 mg 200 mg PO BID tab 04/01/15 02/07/17 History tablet,extended release 24 hr risperidone 4 mg tablet 8 mg PO QHS tab 04/01/15 02/07/17 History simvastatin 20 mg tablet 20 mg PO QHS tab 04/01/15 02/07/17 History zolpidem 10 mg tablet 10 mg PO HS 04/01/15 02/07/17 History oxybutynin chloride ER 10 mg 10 mg PO QDAY #30 tab 04/07/15 02/07/17 Rx tablet,extended release 24 hr Benztropine [Cogentin] 0.5 mg PO BID 11/23/15 02/07/17 History Diltiazem HCl [Cartia Xt] 180 mg PO BID 11/23/15 02/07/17 History Warfarin [Coumadin] 6 mg PO SUMOTUWETHFRSA 11/23/15 02/07/17 History Warfarin [Coumadin] 8 mg PO .FRANCOISE 11/23/15 02/07/17 History sitaGLIPtin [Januvia] 100 mg PO DAILY #60 tablet 11/26/15 02/07/17 Rx traZODone HCL [Trazodone HCl] 100 mg PO DAILY 02/07/17 02/07/17 History Allergies Allergy/AdvReac Type Severity Reaction Status Date / Time Penicillins Allergy Severe Anaphylaxis Verified 02/07/17 08:32 Sulfa (Sulfonamide Allergy Severe Anaphylaxis Verified 02/07/17 08:32 Antibiotics) sulfamethoxazole Allergy Severe Anaphylaxis Verified 02/07/17 08:32 [From Bactrim] trimethoprim [From Bactrim] Allergy Severe Anaphylaxis Verified 02/07/17 08:32 Medical - H&P: Exam - Constitutional Vitals: Temp Pulse Resp BP Pulse Ox 97.0 F 118 H 18 142/86 98 02/07/17 15:25 02/07/17 15:00 02/07/17 15:25 02/07/17 15:25 02/07/17 15:25 Exam: GENERAL: The patient is a well-developed, well-nourished in no apparent distress. Is alert and oriented x3.morbidly obese VITAL SIGNS: Reviewed and as noted elsewhere. HEENT: Head is normocephalic and atraumatic. Extraocular muscles are intact. Pupils are equal, round, and reactive to light. Nares appeared normal. Mouth appears any without lesions. Mucous membranes are dry NECK: Normal to inspection, Supple, No lymphadenopathy or thyromegaly. LUNGS: Air entry equal on both sides, no wheezing, crackles or rhonchi noted. No accessory muscles of respiration HEART: Regular rate but tachycardic and rhythm irregular , S1 and S2 heard, no Gallop, S3 or Rub Noted, No Gross murmur heard. ABDOMEN: Soft, Tenderness in the periapical region in the left upper quadrant. Bowel sounds are present, abdomen is large , preventing better exam, o gross organomegaly noted EXTREMITIES: No cyanosis, clubbing, bilateral lower extremity venous stasis, chronic. No evidence of infection. Edema present NEUROLOGIC: Cranial nerves II through XII are grossly intact. Motor and Sensory System Grossly Intact PSYCHIATRIC: patient has flat affect, poor eye contact, speech is slow. SKIN: No ulceration, hronic wound on the left leg. pictures on file. Medical - H&P: Reslt - Labs CBC & Chem 7: 02/07/17 08:55 02/07/17 08:55 Medical - H&P: A/P - Narrative A/P Narrative: a/P SIRS: Etiology uncertain, chest x ray is neg, ua is negative, e does have an elevated white count, he has received levofloxacin in the ER, will check a calcitonin level. Check CT abdomen and pelvis given the history of abdominal pain. Abdominal pain- likely reflux gastritis, treated with Prilosec for now. Await CT scan results. Hypercogulation: on Coumadin. INR supratherapeutic. By mouth vitamin K given in the ER. No evidence of bleed. Monitor. Afib: heart rate elevated, on beta blockers, Cardizem as well as digoxin. Not sure regarding the compliance, resume home meds. Monitor heart rate on telemetry adjustments as necessary HTN: resume home meds Bipolar disorder resume home meds. I'm not sure what the patient's baseline status is but presently does not seem to be aggressive. DM sliding scale insulin for now Chr wound patient follows with the wound care clinic, wounds looked clean, noninfected. Weakness/ Debility: etiology due to poor nutritional status, likely as well as her hydration status. Not sure if infection is playing a role. Get urine drug screen. It seems that the patient is a chronic user of marijuana Anemia: hemoglobin is 9. Given his supratherapeutic INR. Concern for bleed. However, no obvious signs of bleeding. Monitor closely for now. Transfuse if necessary. DVT supratherapeutic INR Diet Cardiac, carb consistent. Medical - H&P: Qual - VTE Deep Vein Thrombosis/Pulmonary Embolism Present on Admission: No
[2017-02-07 16:41] LABS: Amylase 9 U/L (28-100); Lipase 9 U/L (7-60)
[2017-02-07 17:05] LABS: Amphetamine Screen,Urine SUSPECT POSITIVE (NONDETECTED); Benzodiazepines Screen,Urine NONE DETECTED (NONDETECTED); Cocaine Screen,Urine NONE DETECTED (NONDETECTED); Opiate Screen,Urine NONE DETECTED (NONDETECTED); Oxycodone, Urine Screen NONE DETECTED (NONDETECTED)
[2017-02-07] MEDS ORDERED: IOPAMIDOL 100 ML BOTTLE IV ONE (17:45)
[2017-02-07] MEDS ORDERED: PHYTONADIONE 10 MG/ML AMPUL SQ ONE (18:07)
[2017-02-07 18:14] LABS: Ferritin 259.8 ng/ml (30-400)
[2017-02-07] MEDS ORDERED: AZITHROMYCIN 500 MG in DEXTROSE 5% IN WATER 250 ML IV SCH (18:15)
[2017-02-07] MEDS ORDERED: 0.9 % SODIUM CHLORIDE 250 ML IV SCH ×2 (18:15→19:30)
[2017-02-07] MEDS ORDERED: cefTRIAXone 2 GM in DEXTROSE 5% IN WATER 50 ML IV SCH (18:15)
--- NOTE | 2017-02-07 18:16 | Cat Scan Report ---
CLINICAL INFORMATION: Left-sided abdominal pain COMPARISON: None. TECHNIQUE: Following enteric contrast, 80 cc of Isovue-300 were injected intravenously, and 60 seconds later, 2.5 mm helical slices were obtained from the mid heart through the subtrochanteric regions. Following reconstruction, 2.5 mm sagittal, coronal and axial reformatted images were processed and reviewed at bone, lung and soft tissue windows. Five minutes later, 5 mm helical slices were obtained from the mid heart through the kidneys and viewed at soft tissue windows. FINDINGS: Lung bases show small left pleural effusion and minimal patchy infiltrate or atelectasis in both posterior lower lobes. The heart is mildly enlarged and there is extraordinarily heavy fibrofatty calcific plaque within the distal left main and LAD coronary arteries and moderate amount in the right and circumflex coronary arteries. Images through the abdomen show the liver, gallbladder and bile ducts, both kidneys, adrenal glands, spleen pancreas and aorta, including aortic branches, are normal in size, configuration and attenuation without focal lesion. There is a large fluid collection enlarging the left psoas muscle which spans 24 x 9.2 cm. Centrally, there appears to be a 5 cm region of necrosis or cavitation which contains a fluid fluid level with high attenuation fluid layering dependently. Mild edema or phlegmon is seen in the surrounding retroperitoneal soft tissues Stomach, small and large bowel, including the appendix are grossly normal. IMPRESSION: Large fluid collection dominating the entire left iliopsoas muscle the 24 x 9 cm. this could represent a psoas abscess or hemorrhage. Moderate amount of phlegmon or edema is seen in the surrounding retroperitoneal fat Small left and tiny right pleural effusions. Patchy infiltrate or atelectasis posterior lower lobes. Heavy fibrofatty calcific plaque in the coronary arteries. The patient is young age is acknowledged. After discharge, strongly consider CT coronary arteriogram, as an outpatient, to exclude the possibility of occlusion or severe stenosis of the left main and proximal LAD coronary arteries. Interpreted and Authenticated by: Benigno Foote 02/07/17
[2017-02-07 18:21] LABS: Vitamin B12 615.6 pg/ml (243-894)
[2017-02-07 19:07] LABS: Mean Cell Volume 86.2 fL (80.0-100.0); Mean Corpuscular HGB Conc 32.9 g/dL (31.0-36.0); Mean Corpuscular Hemoglobin 28.3 pg (26.0-34.0); Platelet Count 237 K/mcL (140-440)
[2017-02-07] MEDS ORDERED: VANCOMYCIN PER PHARMACY IV SCH (19:22)
[2017-02-07 19:28] LABS: Band Neutrophils % 1 % (0-10); Lymphocytes % 11 % (15-49); Monocytes % (Manual) 6 % (1-12); Platelet Estimate NORMAL (NORMAL); RBC Morphology NORMAL (NORMAL); Segmented Neutrophils % 82 % (38-78)
[2017-02-07] MEDS ORDERED: PIPERACILLIN SODIUM/TAZOBACTAM 3.375 GM in DEXTROSE 5% IN WATER 50 ML IV SCH (19:30)
[2017-02-07 19:43] LABS: Creatine Kinase 457 IU/L (24-195)
[2017-02-07] MEDS ORDERED: VANCOMYCIN 500 MG VIAL ONE (20:46)
[2017-02-07] MEDS: VANCOMYCIN 1,500 MG in 0.9 % SODIUM CHLORIDE 500 ML IV SCH (22:07)
[2017-02-07] MEDS: risperiDONE 1 MG TABLET PO SCH (22:25)
[2017-02-07] MEDS: SIMVASTATIN 20 MG TABLET PO SCH (22:25)
[2017-02-07] MEDS: DILTIAZEM 180 MG CAP.XL.24H PO SCH (22:25)
[2017-02-07] MEDS: BENZTROPINE 1 MG TABLET PO SCH (22:26)
[2017-02-07] MEDS: DIVALPROEX SODIUM 250 MG TAB.ER.24H PO SCH (22:26)
[2017-02-07] MEDS: traZODone HCL 50 MG TABLET PO SCH (22:26)
[2017-02-07] MEDS: ZOLPIDEM 5 MG TABLET PO SCH (22:26)
[2017-02-07] MEDS ORDERED: METOPROLOL TARTRATE 5 MG/5 ML VIAL IV ONE ×2 (23:03→23:22)
[2017-02-07] MEDS: metroNIDAZOLE 500 MG/100 ML BAG IV SCH (23:07)
[2017-02-08] MEDS ORDERED: METOPROLOL TARTRATE 5 MG/5 ML VIAL IV ONE (01:15)
[2017-02-08] MEDS: LEVOFLOXACIN 750 MG/150 ML BAG IV SCH ×2 (01:15→15:00)
[2017-02-08] MEDS: METOPROLOL TARTRATE 5 MG/5 ML VIAL IV SCH (01:16)
[2017-02-08 03:23] LABS: Appearance,Urine HAZY; Bacteria,Urine 0 /hpf (0); Bilirubin,Urine NEG (NEG); Color,Urine YELLOW; Glucose,Urine (UA) 50 mg/dL (NEG); Leukocyte Esterase,Urine 25 /uL (NEG); Mucus,Urine FEW /hpf (0); Nitrate,Urine NEG (NEG); Protein,Urine 100 mg/dL (NEG); Specific Gravity,Urine 1.029 (1.000-1.035); Urine Blood >=1.0 mg/dL (<0.03); Urine Hyaline Cast 5 /lpf (0-2); Urine RBC 38 /hpf (0-1); Urine Squamous Epithelial Cell < 1 /hpf (0-4); Urine Transitional Epi Cells 1 /hpf (0-2); Urine WBC 41 /hpf (0-4); Urobilinogen,Urine NEG (NEG)
[2017-02-08] MEDS: 0.9 % SODIUM CHLORIDE 1,000 ML IV SCH ×3 (03:28→23:05)
[2017-02-08] MEDS: IPRATROPIUM/ALBUTEROL 3 ML AMPUL.NEB NEB SCH ×6 (03:28→22:29)
[2017-02-08 05:55] LABS: Basophils # (Auto) 0.1 K/mcL (0.0-0.3); Basophils % (Auto) 0.4 % (0.0-2.0); Eosinophils # (Auto) 0.1 K/mcL (0.0-0.7); Eosinophils % (Auto) 0.4 % (0.0-7.0); Granulocytes % (Auto) 75.9 % (38.0-78.0); Lymphocytes # (Auto) 0.9 K/mcL (1.5-4.8); Lymphocytes % (Auto) 6.8 % (15.5-49.0); Mean Cell Volume 83.3 fL (80.0-100.0); Mean Corpuscular HGB Conc 33.3 g/dL (31.0-36.0); Mean Corpuscular Hemoglobin 27.8 pg (26.0-34.0); Monocytes # (Auto) 2.2 K/mcL (0.1-0.9); Monocytes % (Auto) 16.5 % (1.0-12.0); Platelet Count 197 K/mcL (140-440); RBC 1.89 M/mcL (4.50-5.90); Red Cell Distribution Width 14.4 % (11.5-14.5)
[2017-02-08 06:21] LABS: Valproic Acid (Depakene) Test 29.4 ug/ml (50.0-100.0)
[2017-02-08 06:27] LABS: ALT/SGPT 10 U/l (0-40); Albumin 2.9 gm/dL (3.2-5.2); Alkaline Phosphatase 83 U/L (39-117); Bilirubin,Direct < 0.2 mg/dL (0.0-0.3); Blood Urea Nitrogen 11 mg/dl (6-20); Gamma Glutamyl Transpeptidase 27 U/L (8-61); Magnesium 1.3 mg/dL (1.6-2.5); Uric Acid 4.1 mg/dL (2.5-8.0)
[2017-02-08] MEDS: DILTIAZEM 180 MG CAP.XL.24H PO SCH ×4 (06:40→22:14)
[2017-02-08] MEDS: METOPROLOL SUCCINATE 50 MG TAB.XL.24H PO SCH ×3 (06:50→22:17)
--- NOTE | 2017-02-08 06:50 | XRay Report ---
CLINICAL INFORMATION: PICC placement COMPARISON: 02/07/2017 FINDINGS: The right PICC line tip overlies the mid right atrium. The heart is mildly enlarged since 11 by suboptimal inspiratory result] rotation and portable technique. Mediastinum and pulmonary vessels are normal. Mild airspace disease involving the left base likely atelectasis. Is also minor atelectasis in the right base which is stable IMPRESSION: Moderate vague airspace disease developing in the left base is more likely atelectasis than infiltrate. Minor right basilar atelectasis - stable PICC line satisfactory position Interpreted and Authenticated by: Benigno Foote 02/08/17
[2017-02-08] MEDS: metroNIDAZOLE 500 MG/100 ML BAG IV SCH ×3 (07:55→22:12)
[2017-02-08] MEDS: VANCOMYCIN 1,500 MG in 0.9 % SODIUM CHLORIDE 500 ML IV SCH ×2 (09:20→20:09)
--- NOTE | 2017-02-08 09:53 | Internal Med Progress Note ---
Medical - PN: Subj Patient information: Note initiated : 02/08/17 at 9:50 am Service Date, if different from initiated Date: [] Patient: Keegan Uribe 46 y/o M admitted on 02/07/17 for Weakness. Chief Complaint: [] Interval history: Mr. Uribe is a 46 year old Male presents to the ER with complaints of weakness going on for the last 1 day. According to the patient, he woke up this morning and was trying to sit outside, while getting back inside the house. He noted that he was very weak, fell down,and was unable to get up. His friend, therefore, 911 to get into the hospital. According to the patient, he was feeling better yesterday. The patient denies any chest pain, palpitations, admits to having some dizziness, denies any syncope or presyncope , denies any head injury. the patient notes that he has not been drinking very well and he is dehydrated, on probing this question further. He is unable to tell me why he is not drinking enough fluids. the patient admits that he has been having abdominal pain going on for the last 3 days, abdominal pain is predominantly in the epigastric and periumbilical region, nonradiating, sharp in nature worse with going outside in the heat better by coming inside inside the house and drinking cold water. The patient admits to having some nausea but no vomiting. He denies any bleeding from any site I was not able to a certain if he was compliant with his medications, but it seems he is taking some. His Coumadin level was supratherapeutic on presentation. He notes that he was unable to have his last INR check. Because of some confusion with his appointment. 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 He has chronic wounds which are managed by the wound care clinic, In the emergency room, the patient was evaluated. History of rib discomfort was elevated, he had low sodium at 130, this is chronically low for him, INR of 11.4, hemoglobin of 9,his labs are near baseline, except for elevated INR. His digoxin level is less than 0.03. A chest x-ray was reported as negative, urine analysis shows mild leukocyte esterase but no bacteria, or white blood cells. Given that the patient is in very poor living conditions, has an elevated white count, decreased by mouth intake associated with fatigue. He was admitted to the hospital for further evaluation and management. 02/08: patient seen and examined, overnight events noted.He was groggy this morning and wanted to sleep, but woke up with verbal commands and obeyed orders answered appropriately, The patient has been tachycardic overnight in A. fib with RVR. His CT scan of the abdomen, pelvis showed a hematoma versus an abscess in the left psoas muscle. The patient has supratherapeutic INR and I think it is most likely for this to be a hematoma and abscess. However, it is difficult to know for sure without aspiration. The patientis on vancomycin, levofloxacin and Flagyl for broad-spectrum coverage. Patient received 4 units of FFP, vitamin K injection, overnight. This morning his hemoglobin was dropped to 5.5. He is to get 3 units of blood. We will recheck his labs after his blood transfusion is finished. The INR this morning is 1.7. Should his hemoglobin continued to drop, we will consult surgery to get an opinion. The patient's drug screen is positive for mphetamine, the patient denies use of any other substances except for marijuana, thinks that it might be released with it. The patient has abdominal pain still, but no other symptoms. He was resting comfortably. He got up PICC line placed last night for better IV access. macias placed. Pertinent ROS: Denies headache, dizziness Denies chest pain, palpitations Denies cough or shortness of breath Present abdominal pain, nausea or vomiting. - Constitutional Vitals: Vital Signs Temp Pulse Resp BP Pulse Ox 98.7 F 144 H 18 151/86 93 02/08/17 07:49 02/08/17 07:05 02/08/17 07:04 02/08/17 07:48 02/08/17 07:49 Period Temp Pulse Resp BP Sys/Willis Pulse Ox Last 24 Hr 97.0 F-98.7 F 103-144 16-18 123-151/75-100 83-100 Intake and Output 02/07/17 02/08/17 02/08/17 21:59 05:59 13:59 Intake Total 1120 / 1120 2582 / 2582 448 / 448 Output Total 1550 / 1550 1550 / 1550 Balance 1120 / 1120 1032 / 1032 -1102 / -1102 Weight 288 lb Intake & Output: Intake & Output 02/07/17 02/08/17 02/08/17 21:59 05:59 13:59 Intake Total 1120 / 1120 2582 / 2582 448 / 448 Output Total 1550 / 1550 1550 / 1550 Balance 1120 / 1120 1032 / 1032 -1102 / -1102 Weight 288 lb Intake: IV 1000 / 1000 1250 / 1250 100 / 100 Sodium Chloride 0.9% 1, 1000 / 1000 1000 / 1000 000 ml @ 150 mls/hr IV . Q6H40M [facility] Rx#:[id number] Oral 120 / 120 Blood Product 1332 / 1332 348 / 348 Output: Void Amount 1550 / 1550 1550 / 1550 Uretheral (Macias) 1550 / 1550 1550 / 1550 Other: Meal Dinner Percent of Meal Consumed 25% Exam: Constitutional; Afebrile, cooperative, alert, not in distress. Eyes- No icterus, No periorbital swelling Ears- Ext ear normal, hearing normal to conversation. Neck- Midline trachea, supple Respiratory system: Air Entry equal on both sides, No crackles or wheezing, no rhonchi. CVS- Rate rhythm regular, S1,S2 heard, no gallop, no rub. Abdomen- Soft abdomen, tenderness in the periumbilical left upper and lumbar region. 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 . Medical - PN: Obj Da - Labs CBC & Chem 7: 02/08/17 04:00 02/08/17 04:00 Labs: Abnormal Lab Results 02/08/17 02/08/17 02/08/17 07:33 04:00 04:00 WBC RBC Hgb Hct RDW MPV Lymph % (Auto) [place] % (Auto) Gran # Lymph # (Auto) [place] # (Auto) Seg Neutrophils % Lymphocytes % PT 20.3 H INR 1.7 H Sodium 132 L Chloride 94 L Creatinine 0.4 L Glucose 163 H Calcium 8.2 L Phosphorus 2.1 L Magnesium 1.3 L Iron TIBC Transferrin % Sat Total Creatine Kinase Total Protein 5.8 L Albumin 2.9 L Folate Urine Protein Urine Glucose (UA) Urine Ketones Urine Occult Blood Ur Leukocyte Esterase Urine RBC Urine WBC Hyaline Casts Valproic Acid 29.4 L 02/08/17 02/08/17 02/07/17 04:00 01:08 18:25 WBC 13.6 H RBC 1.89 L Hgb 5.3 L* Hct 15.7 L* RDW MPV 6.4 L Lymph % (Auto) 6.8 L [place] % (Auto) 16.5 H Gran # 10.3 H Lymph # (Auto) 0.9 L [place] # (Auto) 2.2 H Seg Neutrophils % Lymphocytes % PT INR Sodium Chloride Creatinine Glucose Calcium Phosphorus Magnesium Iron TIBC Transferrin % Sat Total Creatine Kinase 457 H Total Protein Albumin Folate Urine Protein 100 A Urine Glucose (UA) 50 A Urine Ketones 5/tr A Urine Occult Blood >=1.0 A Ur Leukocyte Esterase 25 A Urine RBC 38 H Urine WBC 41 H Hyaline Casts 5 H Valproic Acid 02/07/17 02/07/17 02/07/17 18:25 17:00 17:00 WBC 17.8 H RBC 2.70 L Hgb 7.7 L Hct 23.3 L RDW 15.0 H MPV 6.6 L Lymph % (Auto) [place] % (Auto) Gran # Lymph # (Auto) [place] # (Auto) Seg Neutrophils % 82 H Lymphocytes % 11 L PT INR Sodium Chloride Creatinine Glucose Calcium Phosphorus Magnesium Iron 20 L TIBC 184 L Transferrin % Sat 10 L Total Creatine Kinase Total Protein Albumin Folate 2.8 L Urine Protein Urine Glucose (UA) Urine Ketones Urine Occult Blood Ur Leukocyte Esterase Urine RBC Urine WBC Hyaline Casts Valproic Acid Meds: Medications Acetaminophen (Tylenol) 650 mg PO Q6HP PRN PRN Reason: PAIN/FEVER > 101 Albuterol/Ipratropium (Duoneb) 3 ml NEB Q4HRT [facility] Last Admin: 02/08/17 07:04 Dose: 3 ml Benztropine Mesylate (Cogentin) 0.5 mg PO BID [facility] Last Admin: 02/07/17 22:26 Dose: 0.5 mg Bupropion HCl (Wellbutrin Xl) 150 mg PO DAILY [facility] Digoxin (Lanoxin) 125 mcg PO DAILY@1400 [facility] Diltiazem HCl (Cardizem Cd) 180 mg PO BID [facility] Last Admin: 02/08/17 07:55 Dose: Not Given Divalproex Sodium (Depakote Er) 1,000 mg PO BID [facility] Last Admin: 02/07/17 22:26 Dose: 1,000 mg Duloxetine HCl (Cymbalta) 120 mg PO DAILY [facility] Heparin Sodium (Porcine) (Heparin Flush) 2 ml IV Q12 [facility] Sodium Chloride (Sodium Chloride 0.9%) 1,000 mls @ 150 mls/hr IV .Q6H40M [facility] Stop: 02/08/17 11:24 Last Admin: 02/08/17 05:27 Dose: Not Given Vancomycin HCl 1,500 mg/ (Sodium Chloride) 500 mls @ 333.3 mls/hr IV Q12H [facility] Last Admin: 02/08/17 09:20 Dose: 333 mls/hr Levofloxacin (Levaquin) 750 mg in 150 mls @ 100 mls/hr IV Q24H [facility] Last Infusion: 02/08/17 02:45 Dose: Infused Metronidazole (Flagyl) 500 mg in 100 mls @ 100 mls/hr IV Q8H [facility] Last Infusion: 02/08/17 09:21 Dose: Infused Lisinopril (Zestril) 20 mg PO QDAY [facility] Magnesium Hydroxide (Milk Of Magnesia) 30 ml PO DAILYP PRN PRN Reason: Constipation Metoprolol Succinate (Toprol Xl) 200 mg PO BID [facility] Last Admin: 02/08/17 07:54 Dose: Not Given Naloxone HCl (Narcan) 0.1 mg IV Q2MIN PRN PRN Reason: Opiate Reversal Ondansetron HCl (Zofran) 4 mg IV Q4HP PRN PRN Reason: Nausea And Vomiting Oxybutynin Chloride (Ditropan Xl) 10 mg PO DAILY [facility] Oxycodone/Acetaminophen (Percocet 5-325 Mg) 1 tab PO Q4HP PRN PRN Reason: Pain Risperidone (Risperdal) 8 mg PO HS [facility] Last Admin: 02/07/17 22:25 Dose: 8 mg Simvastatin (Zocor) 20 mg PO QHS [facility] Last Admin: 02/07/17 22:25 Dose: 20 mg Sitagliptin Phosphate (Januvia) 100 mg PO DAILY [facility] Sodium Chloride (Saline Flush) 10 ml IV Q8 [facility] Last Admin: 02/07/17 23:23 Dose: 10 ml Trazodone HCl (Desyrel) 100 mg PO [facility] Last Admin: 02/07/17 22:26 Dose: 100 mg Vancomycin HCl (Vancomycin Per Pharmacy) 1 order IV UD [facility] Zolpidem Tartrate (Ambien) 10 mg PO HS [facility] Last Admin: 02/07/17 22:26 Dose: 10 mg Medical - PN: A/P - Time Spent With Patient Total time spent is greater than 50% in coordination of care (as documented) at patient's floor/unit and/or counseling patient: - Narrative A/P Narrative: A/P SIRS: Etiology uncertain psoas abscess vs reactionary elevation of wbc to hemorrhage, chest x ray is neg, ua is negative, Continue with antibiotics and monitor. Procalcitonin is 0.06, indicating low risk for sepsis. Psoas Hemorrhage vs abscess: Noted on CT yesterday, pt has supratherapeutic INR and hemorrhage is more likely clinically, coverning with antibiotics still. Will consider Draining the fluid once patient is more stable. Consider Surgery consult if condition worsens. Abdominal pain- likely reflux gastritis, treated with Prilosec for now. Await CT scan results. Hypercogulation: on Coumadin. INR supratherapeutic. By mouth vitamin K given in the ER. sq vit k as well as IV FFP given after evidence of psoas bleed. INR today is 1.7 Afib: heart rate elevated, on beta blockers, Cardizem as well as digoxin. Not sure regarding the compliance, resume home meds. Monitor heart rate on telemetry adjustments as necessary, presently will need to correct underlying etiology for tachycardia. will give blood products and monitor. HTN: resume home meds, bp is stable. Bipolar disorder resume home meds. I'm not sure what the patient's baseline status is but presently does not seem to be aggressive. DM sliding scale insulin for now Chr wound patient follows with the wound care clinic, wounds looked clean, noninfected. Weakness/ Debility: etiology due to poor nutritional status, likely as well as her hydration status. Not sure if infection is playing a role. Get urine drug screen. It seems that the patient is a chronic user of marijuana, the patient thinks marijuana is likely laced with amphetamine. Anemia Acute blood loss: Low Hb, due to intraabodminal hemorrhage, Transfuse blood, treat underlying etiology. DVT supratherapeutic INR, on presentation and Ongoing hemorrhage, no heparin. SCD. Diet Cardiac, carb consistent. Medical - PN: Qual - VTE Deep Vein Thrombosis/Pulmonary Embolism Present on Admission: No
[2017-02-08 10:29] LABS: Creatine Kinase 570 IU/L (24-195)
[2017-02-08] MEDS: DIVALPROEX SODIUM 250 MG TAB.ER.24H PO SCH ×2 (10:43→22:14)
[2017-02-08] MEDS: sitaGLIPtin 100 MG TABLET PO SCH (10:44)
[2017-02-08] MEDS: OXYBUTYNIN CHLORIDE 5 MG TAB.XL.24H PO SCH (10:44)
[2017-02-08] MEDS: DULoxetine 30 MG CAPSULE PO SCH (10:45)
[2017-02-08] MEDS: buPROPion 150 MG TAB.XL.24H PO SCH (10:45)
[2017-02-08] MEDS: LISINOPRIL 20 MG TABLET PO SCH (10:45)
[2017-02-08] MEDS: BENZTROPINE 1 MG TABLET PO SCH ×3 (11:44→22:19)
[2017-02-08] MEDS: 0.9 % SODIUM CHLORIDE 10 ML SYRINGE IV SCH ×3 (11:44→22:18)
[2017-02-08 13:42] LABS: Basophils # (Auto) 0 K/mcL (0.0-0.3); Basophils % (Auto) 0.1 % (0.0-2.0); Eosinophils # (Auto) 0 K/mcL (0.0-0.7); Eosinophils % (Auto) 0 % (0.0-7.0); Granulocytes % (Auto) 79.2 % (38.0-78.0); Lymphocytes % (Auto) 6.3 % (15.5-49.0); Mean Cell Volume 87.7 fL (80.0-100.0); Mean Corpuscular HGB Conc 33.2 g/dL (31.0-36.0); Mean Corpuscular Hemoglobin 29.1 pg (26.0-34.0); Monocytes # (Auto) 2.3 K/mcL (0.1-0.9); Monocytes % (Auto) 14.4 % (1.0-12.0); Platelet Count 187 K/mcL (140-440); RBC 2.62 M/mcL (4.50-5.90); Red Cell Distribution Width 14.8 % (11.5-14.5)
[2017-02-08 14:04] LABS: ALT/SGPT 9 U/l (0-40); Albumin 2.7 gm/dL (3.2-5.2); Albumin/Globulin Ratio 0.9 (1.0-2.3); Alkaline Phosphatase 79 U/L (39-117); Bilirubin,Direct 0.3 mg/dL (0.0-0.3); Blood Urea Nitrogen 8 mg/dl (6-20); Gamma Glutamyl Transpeptidase 25 U/L (8-61); Magnesium 1.2 mg/dL (1.6-2.5); Uric Acid 3.6 mg/dL (2.5-8.0)
[2017-02-08] MEDS: DIGOXIN 125 MCG TABLET PO SCH (14:08)
[2017-02-08] MEDS ORDERED: MAGNESIUM SULFATE 32.48 MEQ in DEXTROSE 5% IN WATER 50 ML IV ONE (17:41)
[2017-02-08] MEDS ORDERED: ALTEPLASE 2 MG VIAL IV ONE ×2 (19:48)
[2017-02-08] MEDS ORDERED: MAGNESIUM SULFATE 4 GM/100 ML BAG IV ONE (19:51)
[2017-02-08 19:58] LABS: Basophils # (Auto) 0 K/mcL (0.0-0.3); Basophils % (Auto) 0.1 % (0.0-2.0); Eosinophils # (Auto) 0.1 K/mcL (0.0-0.7); Eosinophils % (Auto) 0.6 % (0.0-7.0); Granulocytes % (Auto) 75.7 % (38.0-78.0); Lymphocytes # (Auto) 1.3 K/mcL (1.5-4.8); Lymphocytes % (Auto) 7.5 % (15.5-49.0); Mean Cell Volume 88.1 fL (80.0-100.0); Mean Corpuscular HGB Conc 32.5 g/dL (31.0-36.0); Mean Corpuscular Hemoglobin 28.7 pg (26.0-34.0); Monocytes # (Auto) 2.7 K/mcL (0.1-0.9); Monocytes % (Auto) 16.1 % (1.0-12.0); Platelet Count 195 K/mcL (140-440); RBC 2.56 M/mcL (4.50-5.90); Red Cell Distribution Width 15.4 % (11.5-14.5)
[2017-02-08] MEDS ORDERED: ALTEPLASE 2 MG VIAL ONE (20:00)
[2017-02-08 20:26] LABS: Blood Urea Nitrogen 9 mg/dl (6-20)
[2017-02-08] MEDS: ZOLPIDEM 5 MG TABLET PO SCH (22:15)
[2017-02-08] MEDS: traZODone HCL 50 MG TABLET PO SCH (22:16)
[2017-02-08] MEDS: SIMVASTATIN 20 MG TABLET PO SCH (22:17)
[2017-02-08] MEDS: risperiDONE 1 MG TABLET PO SCH (22:17)
[2017-02-09] MEDS ORDERED: 0.9 % SODIUM CHLORIDE 500 ML IV ONE (00:48)
[2017-02-09] MEDS: 0.9 % SODIUM CHLORIDE 1,000 ML IV SCH ×2 (02:14→12:25)
[2017-02-09] MEDS: IPRATROPIUM/ALBUTEROL 3 ML AMPUL.NEB NEB SCH ×6 (03:12→22:58)
[2017-02-09] MEDS: metroNIDAZOLE 500 MG/100 ML BAG IV SCH ×3 (05:10→22:30)
[2017-02-09] MEDS: 0.9 % SODIUM CHLORIDE 10 ML SYRINGE IV SCH ×3 (05:46→22:31)
[2017-02-09 06:23] LABS: Basophils # (Auto) 0 K/mcL (0.0-0.3); Basophils % (Auto) 0.2 % (0.0-2.0); Eosinophils # (Auto) 0.1 K/mcL (0.0-0.7); Eosinophils % (Auto) 0.4 % (0.0-7.0); Granulocytes % (Auto) 74.3 % (38.0-78.0); Lymphocytes # (Auto) 1.7 K/mcL (1.5-4.8); Lymphocytes % (Auto) 10.7 % (15.5-49.0); Mean Cell Volume 88.5 fL (80.0-100.0); Mean Corpuscular HGB Conc 32.6 g/dL (31.0-36.0); Mean Corpuscular Hemoglobin 28.8 pg (26.0-34.0); Monocytes # (Auto) 2.3 K/mcL (0.1-0.9); Monocytes % (Auto) 14.4 % (1.0-12.0); Platelet Count 195 K/mcL (140-440); RBC 2.27 M/mcL (4.50-5.90); Red Cell Distribution Width 15.4 % (11.5-14.5)
[2017-02-09] MEDS ORDERED: 0.9 % SODIUM CHLORIDE 250 ML IV SCH (06:30)
[2017-02-09 07:01] LABS: ALT/SGPT 9 U/l (0-40); Albumin 2.3 gm/dL (3.2-5.2); Albumin/Globulin Ratio 0.8 (1.0-2.3); Alkaline Phosphatase 73 U/L (39-117); Bilirubin,Direct 0.2 mg/dL (0.0-0.3); Blood Urea Nitrogen 11 mg/dl (6-20); Gamma Glutamyl Transpeptidase 23 U/L (8-61); Magnesium 1.9 mg/dL (1.6-2.5); Uric Acid 3.6 mg/dL (2.5-8.0)
[2017-02-09] MEDS: BENZTROPINE 1 MG TABLET PO SCH ×2 (08:56→22:26)
[2017-02-09] MEDS: METOPROLOL SUCCINATE 50 MG TAB.XL.24H PO SCH ×2 (08:56→22:27)
[2017-02-09] MEDS: MAGNESIUM OXIDE 400 MG TABLET PO SCH ×2 (08:56→22:28)
[2017-02-09] MEDS: DILTIAZEM 180 MG CAP.XL.24H PO SCH ×2 (08:57→22:26)
[2017-02-09] MEDS: LISINOPRIL 20 MG TABLET PO SCH (08:57)
[2017-02-09] MEDS: OXYBUTYNIN CHLORIDE 5 MG TAB.XL.24H PO SCH (08:57)
[2017-02-09] MEDS: DULoxetine 30 MG CAPSULE PO SCH (08:57)
[2017-02-09] MEDS: buPROPion 150 MG TAB.XL.24H PO SCH (08:57)
[2017-02-09] MEDS: sitaGLIPtin 100 MG TABLET PO SCH (08:57)
--- NOTE | 2017-02-09 09:19 | Internal Med Progress Note ---
Medical - PN: Subj Patient information: Note initiated : 02/09/17 at 9:14 am Service Date, if different from initiated Date: [] Patient: Keegan Uribe 46 y/o M admitted on 02/07/17 for Elevated INR, Weakness. Chief Complaint: [] Interval history: Mr. Uribe is a 46 year old Male presents to the ER with complaints of weakness going on for the last 1 day. According to the patient, he woke up this morning and was trying to sit outside, while getting back inside the house. He noted that he was very weak, fell down,and was unable to get up. His friend, therefore, 911 to get into the hospital. According to the patient, he was feeling better yesterday. The patient denies any chest pain, palpitations, admits to having some dizziness, denies any syncope or presyncope , denies any head injury. the patient notes that he has not been drinking very well and he is dehydrated, on probing this question further. He is unable to tell me why he is not drinking enough fluids. the patient admits that he has been having abdominal pain going on for the last 3 days, abdominal pain is predominantly in the epigastric and periumbilical region, nonradiating, sharp in nature worse with going outside in the heat better by coming inside inside the house and drinking cold water. The patient admits to having some nausea but no vomiting. He denies any bleeding from any site I was not able to a certain if he was compliant with his medications, but it seems he is taking some. His Coumadin level was supratherapeutic on presentation. He notes that he was unable to have his last INR check. Because of some confusion with his appointment. 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 He has chronic wounds which are managed by the wound care clinic, In the emergency room, the patient was evaluated. History of rib discomfort was elevated, he had low sodium at 130, this is chronically low for him, INR of 11.4, hemoglobin of 9,his labs are near baseline, except for elevated INR. His digoxin level is less than 0.03. A chest x-ray was reported as negative, urine analysis shows mild leukocyte esterase but no bacteria, or white blood cells. Given that the patient is in very poor living conditions, has an elevated white count, decreased by mouth intake associated with fatigue. He was admitted to the hospital for further evaluation and management. 02/08: patient seen and examined, overnight events noted.He was groggy this morning and wanted to sleep, but woke up with verbal commands and obeyed orders answered appropriately, The patient has been tachycardic overnight in A. fib with RVR. His CT scan of the abdomen, pelvis showed a hematoma versus an abscess in the left psoas muscle. The patient has supratherapeutic INR and I think it is most likely for this to be a hematoma and abscess. However, it is difficult to know for sure without aspiration. The patientis on vancomycin, levofloxacin and Flagyl for broad-spectrum coverage. Patient received 4 units of FFP, vitamin K injection, overnight. This morning his hemoglobin was dropped to 5.5. He is to get 3 units of blood. We will recheck his labs after his blood transfusion is finished. The INR this morning is 1.7. Should his hemoglobin continued to drop, we will consult surgery to get an opinion. The patient's drug screen is positive for amphetamine, the patient denies use of any other substances except for marijuana, thinks that it might be released with it. The patient has abdominal pain still, but no other symptoms. He was resting comfortably. He got up PICC line placed last night for better IV access. macias placed. 02/09: Pt seen examined, no acute overnight events, hb dropped again this AM, will give another 2 units of PRBC, patient has some soreness in the abdomen, but was sleeping comfortably. Plan of care reviewed with him, explained to him that he has a large blood clot in the one of the big muscles int the abdomen and he needs to be monitored. He will remain bed bound till we can establish stability of the bleed. He denies any left leg weakness or numbness. The Pt will get a repeat CT abdo and pelvis without conterast to evaluaet the bleed. INR is 1.5 this AM He continues to be on broad sepectrum ABX, he also remains of 4L oxygen will get chest X ray again today. Pertinent ROS: Denies headache, dizziness Denies chest pain, palpitations Denies cough or shortness of breath Present abdominal pain, No nausea or vomiting. - Constitutional Vitals: Vital Signs Temp Pulse Resp BP Pulse Ox 98.6 F 107 H 18 111/71 92 02/09/17 04:01 02/09/17 06:47 02/09/17 06:47 02/09/17 05:01 02/09/17 06:47 Period Temp Pulse Resp BP Sys/Willis Pulse Ox Last 24 Hr 97.4 F-98.8 F 79-133 13-20 95-165/49-97 83-100 Intake and Output 02/08/17 02/09/17 02/09/17 21:59 05:59 13:59 Intake Total 550 / 550 1000 / 1000 Output Total 1000 / 1000 300 / 300 Balance -450 / -450 700 / 700 Weight 297 lb 14.4 oz Intake & Output: Intake & Output 02/08/17 02/09/17 02/09/17 21:59 05:59 13:59 Intake Total 550 / 550 1000 / 1000 Output Total 1000 / 1000 300 / 300 Balance -450 / -450 700 / 700 Weight 297 lb 14.4 oz Intake: IV 250 / 250 600 / 600 Sodium Chloride 0.9% 500 500 / 500 ml @ Wide Open IV BOLUS ONE Rx#:[id number] Oral 300 / 300 300 / 300 IV - Manual Only 100 / 100 Output: Urine Catheter Amount 1000 / 1000 300 / 300 Exam: Constitutional; Afebrile, cooperative, sleeps often, morbidly obese, Eyes- No icterus, , No periorbital swelling Ears- Ext ear normal, hearing normal to conversation. Neck- Midline trachea, supple Respiratory system: Air Entry equal on both sides, No crackles or wheezing, no rhonchi. CVS- Rate rhythm regular, S1,S2 heard, no gallop, no rub. Abdomen- Soft, large pannus, tenderness in the left upper and left lumbar region on deep palpation. 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 Medical - PN: Obj Da - Labs CBC & Chem 7: 02/09/17 03:45 02/09/17 03:45 Labs: Abnormal Lab Results 02/09/17 02/09/17 02/09/17 03:45 03:45 03:45 WBC 15.9 H RBC 2.27 L Hgb 6.6 L* Hct 20.1 L* RDW 15.4 H MPV 6.7 L Gran % Lymph % (Auto) 10.7 L Burke % (Auto) 14.4 H Gran # 11.8 H Lymph # (Auto) Burke # (Auto) 2.3 H Seg Neutrophils % Lymphocytes % PT 18.5 H INR 1.5 H Sodium 129 L Chloride 93 L Creatinine 0.5 L Glucose 112 H Calcium 8.1 L Phosphorus 2.2 L Magnesium Iron TIBC Transferrin % Sat Total Creatine Kinase Total Protein 5.2 L Albumin 2.3 L Albumin/Globulin Ratio 0.8 L Folate Urine Protein Urine Glucose (UA) Urine Ketones Urine Occult Blood Ur Leukocyte Esterase Urine RBC Urine WBC Hyaline Casts Valproic Acid 02/08/17 02/08/17 02/08/17 19:05 19:05 13:15 WBC 16.9 H RBC 2.56 L Hgb 7.3 L Hct 22.6 L RDW 15.4 H MPV 6.4 L Gran % Lymph % (Auto) 7.5 L Burke % (Auto) 16.1 H Gran # 12.8 H Lymph # (Auto) 1.3 L Burke # (Auto) 2.7 H Seg Neutrophils % Lymphocytes % PT 19.5 H INR 1.6 H Sodium 131 L Chloride 93 L Creatinine 0.5 L Glucose 162 H Calcium 8.2 L Phosphorus Magnesium Iron TIBC Transferrin % Sat Total Creatine Kinase Total Protein Albumin Albumin/Globulin Ratio Folate Urine Protein Urine Glucose (UA) Urine Ketones Urine Occult Blood Ur Leukocyte Esterase Urine RBC Urine WBC Hyaline Casts Valproic Acid 02/08/17 02/08/17 02/08/17 13:15 13:15 07:33 WBC 15.9 H RBC 2.62 L Hgb 7.6 L Hct 23.0 L RDW 14.8 H MPV 6.3 L Gran % 79.2 H Lymph % (Auto) 6.3 L Burke % (Auto) 14.4 H Gran # 12.6 H Lymph # (Auto) 1.0 L Burke # (Auto) 2.3 H Seg Neutrophils % Lymphocytes % PT 20.3 H INR 1.7 H Sodium 131 L Chloride 93 L Creatinine 0.4 L Glucose 170 H Calcium 8.1 L Phosphorus 2.2 L Magnesium 1.2 L Iron TIBC Transferrin % Sat Total Creatine Kinase Total Protein 5.6 L Albumin 2.7 L Albumin/Globulin Ratio 0.9 L Folate Urine Protein Urine Glucose (UA) Urine Ketones Urine Occult Blood Ur Leukocyte Esterase Urine RBC Urine WBC Hyaline Casts Valproic Acid 02/08/17 02/08/17 02/08/17 04:00 04:00 04:00 WBC RBC Hgb Hct RDW MPV Gran % Lymph % (Auto) Burke % (Auto) Gran # Lymph # (Auto) Burke # (Auto) Seg Neutrophils % Lymphocytes % PT INR Sodium 132 L Chloride 94 L Creatinine 0.4 L Glucose 163 H Calcium 8.2 L Phosphorus 2.1 L Magnesium 1.3 L Iron TIBC Transferrin % Sat Total Creatine Kinase 570 H Total Protein 5.8 L Albumin 2.9 L Albumin/Globulin Ratio Folate Urine Protein Urine Glucose (UA) Urine Ketones Urine Occult Blood Ur Leukocyte Esterase Urine RBC Urine WBC Hyaline Casts Valproic Acid 29.4 L 02/08/17 02/08/17 02/07/17 04:00 01:08 18:25 WBC 13.6 H RBC 1.89 L Hgb 5.3 L* Hct 15.7 L* RDW MPV 6.4 L Gran % Lymph % (Auto) 6.8 L Burke % (Auto) 16.5 H Gran # 10.3 H Lymph # (Auto) 0.9 L Burke # (Auto) 2.2 H Seg Neutrophils % Lymphocytes % PT INR Sodium Chloride Creatinine Glucose Calcium Phosphorus Magnesium Iron TIBC Transferrin % Sat Total Creatine Kinase 457 H Total Protein Albumin Albumin/Globulin Ratio Folate Urine Protein 100 A Urine Glucose (UA) 50 A Urine Ketones 5/tr A Urine Occult Blood >=1.0 A Ur Leukocyte Esterase 25 A Urine RBC 38 H Urine WBC 41 H Hyaline Casts 5 H Valproic Acid 02/07/17 02/07/17 02/07/17 18:25 17:00 17:00 WBC 17.8 H RBC 2.70 L Hgb 7.7 L Hct 23.3 L RDW 15.0 H MPV 6.6 L Gran % Lymph % (Auto) Burke % (Auto) Gran # Lymph # (Auto) Burke # (Auto) Seg Neutrophils % 82 H Lymphocytes % 11 L PT INR Sodium Chloride Creatinine Glucose Calcium Phosphorus Magnesium Iron 20 L TIBC 184 L Transferrin % Sat 10 L Total Creatine Kinase Total Protein Albumin Albumin/Globulin Ratio Folate 2.8 L Urine Protein Urine Glucose (UA) Urine Ketones Urine Occult Blood Ur Leukocyte Esterase Urine RBC Urine WBC Hyaline Casts Valproic Acid Meds: Medications Acetaminophen (Tylenol) 650 mg PO Q6HP PRN PRN Reason: PAIN/FEVER > 101 Albuterol/Ipratropium (Duoneb) 3 ml NEB Q4HRT [facility] Last Admin: 02/09/17 06:46 Dose: 3 ml Benztropine Mesylate (Cogentin) 0.5 mg PO BID [facility] Last Admin: 02/09/17 08:56 Dose: 0.5 mg Bupropion HCl (Wellbutrin Xl) 150 mg PO DAILY [facility] Last Admin: 02/09/17 08:57 Dose: 150 mg Digoxin (Lanoxin) 125 mcg PO DAILY@1400 [facility] Last Admin: 02/08/17 14:08 Dose: 125 mcg Diltiazem HCl (Cardizem Cd) 180 mg PO BID [facility] Last Admin: 02/09/17 08:57 Dose: 180 mg Divalproex Sodium (Depakote Er) 1,000 mg PO BID [facility] Last Admin: 02/08/17 22:14 Dose: 1,000 mg Duloxetine HCl (Cymbalta) 120 mg PO DAILY [facility] Last Admin: 02/09/17 08:57 Dose: 120 mg Heparin Sodium (Porcine) (Heparin Flush) 2 ml IV Q12 [facility] Last Admin: 02/09/17 08:58 Dose: 2 ml Vancomycin HCl 1,500 mg/ (Sodium Chloride) 500 mls @ 333.3 mls/hr IV Q12H [facility] Last Admin: 02/08/17 20:09 Dose: 333 mls/hr Levofloxacin (Levaquin) 750 mg in 150 mls @ 100 mls/hr IV Q24H [facility] Last Infusion: 02/08/17 16:30 Dose: Infused Metronidazole (Flagyl) 500 mg in 100 mls @ 100 mls/hr IV Q8H [facility] Last Admin: 02/09/17 05:10 Dose: 100 mls/hr Sodium Chloride (Sodium Chloride 0.9%) 1,000 mls @ 100 mls/hr IV .Q10H [facility] Stop: 02/10/17 06:59 Last Admin: 02/09/17 02:14 Dose: 100 mls/hr Sodium Chloride (Sodium Chloride 0.9%) 250 mls @ 20 mls/hr IV .[id number] [facility] Stop: 02/09/17 18:59 Last Admin: 02/09/17 07:32 Dose: 20 mls/hr Lisinopril (Zestril) 20 mg PO QDAY [facility] Last Admin: 02/09/17 08:57 Dose: 20 mg Magnesium Hydroxide (Milk Of Magnesia) 30 ml PO DAILYP PRN PRN Reason: Constipation Magnesium Oxide (Magnesium Oxide) 400 mg PO BID [facility] Last Admin: 02/09/17 08:56 Dose: 400 mg Metoprolol Succinate (Toprol Xl) 200 mg PO BID [facility] Last Admin: 02/09/17 08:56 Dose: 200 mg Naloxone HCl (Narcan) 0.1 mg IV Q2MIN PRN PRN Reason: Opiate Reversal Ondansetron HCl (Zofran) 4 mg IV Q4HP PRN PRN Reason: Nausea And Vomiting Last Admin: 02/09/17 06:53 Dose: 4 mg Oxybutynin Chloride (Ditropan Xl) 10 mg PO DAILY [facility] Last Admin: 02/09/17 08:57 Dose: 10 mg Oxycodone/Acetaminophen (Percocet 5-325 Mg) 1 tab PO Q4HP PRN PRN Reason: Pain Risperidone (Risperdal) 8 mg PO HS [facility] Last Admin: 02/08/17 22:17 Dose: 8 mg Simvastatin (Zocor) 20 mg PO QHS [facility] Last Admin: 02/08/17 22:17 Dose: 20 mg Sitagliptin Phosphate (Januvia) 100 mg PO DAILY [facility] Last Admin: 02/09/17 08:57 Dose: 100 mg Sodium Chloride (Saline Flush) 10 ml IV Q8 [facility] Last Admin: 02/09/17 05:46 Dose: 10 ml Trazodone HCl (Desyrel) 100 mg PO [facility] Last Admin: 02/08/17 22:16 Dose: 100 mg Vancomycin HCl (Vancomycin Per Pharmacy) 1 order IV UD [facility] Zolpidem Tartrate (Ambien) 10 mg PO [facility] Last Admin: 02/08/17 22:15 Dose: Not Given Medical - PN: A/P - Time Spent With Patient Total time spent is greater than 50% in coordination of care (as documented) at patient's floor/unit and/or counseling patient: - Narrative A/P Narrative: A/P SIRS: Etiology uncertain psoas abscess vs reactionary elevation of wbc to hemorrhage, chest x ray is neg, ua is negative, Continue with antibiotics and monitor. Procalcitonin is 0.06, indicating low risk for sepsis. Will consider a aspiration of psoas muscle once pt is stable to see if this is the source of infection. Psoas Hemorrhage vs abscess: pain still there, still seems like he is dropping his hb, will get repeat CT Hypercogulation:on coumadin INR 11.4 on admission, 1.5 today, not sure if he is a good candidate for coumadin management given his mental health issue and substance abuse and non compliance Afib: heart rate elevated, but now back to normal levels, on his home does of meds, monitor, HTN: resumed home meds, bp is stable. Bipolar disorder resume home meds. I'm not sure what the patient's baseline status is but presently does not seem to be aggressive. Continue his home doses of meds. DM sliding scale insulin for now Chr wound patient follows with the wound care clinic, wounds looked clean, noninfected. Weakness/ Debility: etiology due to poor nutritional status, likely as well as her hydration status. PT, bed bound status for now given psoas hemorrhage. Anemia Acute blood loss: Low Hb, due to intraabodminal hemorrhage, Transfuse blood, to keep hb > 7.0 DVT supratherapeutic INR, on presentation and Ongoing hemorrhage, no heparin. SCD. Diet Cardiac, carb consistent. Medical - PN: Qual - VTE Deep Vein Thrombosis/Pulmonary Embolism Present on Admission: No
[2017-02-09] MEDS: DIVALPROEX SODIUM 250 MG TAB.ER.24H PO SCH ×2 (10:55→22:27)
[2017-02-09] MEDS: LEVOFLOXACIN 750 MG/150 ML BAG IV SCH (10:55)
[2017-02-09] MEDS: VANCOMYCIN 1,500 MG in 0.9 % SODIUM CHLORIDE 500 ML IV SCH ×2 (10:56→21:04)
--- NOTE | 2017-02-09 13:04 | XRay Report ---
CLINICAL INFORMATION: Hypoxia COMPARISON: 02/07/2017 FINDINGS: PICC line in stable satisfactory position. The heart is mildly enlarged - slightly increased. Mediastinum is unremarkable. Pulmonary vessels are normal. Moderate right and small left pleural effusions developed. Moderate right and small left basilar infiltrate or atelectasis has also developed. IMPRESSION: Moderate right and small left pleural effusion with airspace disease bilaterally compatible with atelectasis or early aspiration Interpreted and Authenticated by: Benigno Foote 02/09/17
--- NOTE | 2017-02-09 14:10 | Cat Scan Report ---
CLINICAL INFORMATION: Follow left psoas hematoma in the patient's coagulation COMPARISON: Abdomen and pelvic CT from two days prior - 02/07/2017. TECHNIQUE: 2.5 mm helical slices were obtained from the mid heart through the subtrochanteric regions. Following reconstruction, 2.5 mm sagittal, coronal and axial reformatted images were processed and reviewed at bone, lung and soft tissue windows. FINDINGS: The large central hematoma involving the entire left iliopsoas muscle shows slight increase in size. In addition, there is now moderate hemorrhage throughout the retroperitoneum, but predominantly in (centimeters region. Small amounts of simple appearing free fluid are now seen in mesenteric cavity - perihepatic region. Moderate bilateral simple pleural effusions have developed with moderate atelectasis in both posterior lower lobes. Visualized heart is mildly enlarged The noncontrasted gallbladder and bile ducts, liver, both kidneys, adrenal glands, spleen, pancreas and aorta are normal. Stomach, small and large bowel are grossly normal. Images through the pelvis show Graham catheter in satisfactory position within urinary bladder lumen. Bladder is collapsed, but grossly normal. Prostate is normal. Bone windows show bilateral sacroiliitis - more severe on the right. IMPRESSION: Moderate hemorrhage within the left iliopsoas muscle spanning 19 x 5 cm. Slight increase in size since the comparison study two days prior. Retroperitoneal hemorrhage, predominantly in the left paraspinous region, has also increased modestly. A small amount of free fluid in the mesenteric cavity, predominantly in the perihepatic region, is new. Moderate bilateral pleural effusions and atelectasis in both posterior lower lobes - new Moderate bilateral sacroiliitis - more severe on the right side unchanged Interpreted and Authenticated by: Benigno Foote 02/09/17
[2017-02-09] MEDS: DIGOXIN 125 MCG TABLET PO SCH (15:04)
[2017-02-09] MEDS: ACETAMINOPHEN 325 MG TABLET PO PRN (15:37)
[2017-02-09 19:32] LABS: Basophils # (Auto) 0 K/mcL (0.0-0.3); Basophils % (Auto) 0.2 % (0.0-2.0); Eosinophils # (Auto) 0 K/mcL (0.0-0.7); Eosinophils % (Auto) 0.2 % (0.0-7.0); Granulocytes % (Auto) 78.4 % (38.0-78.0); Lymphocytes # (Auto) 1.2 K/mcL (1.5-4.8); Lymphocytes % (Auto) 7.3 % (15.5-49.0); Mean Cell Volume 88.9 fL (80.0-100.0); Mean Corpuscular HGB Conc 32.9 g/dL (31.0-36.0); Mean Corpuscular Hemoglobin 29.2 pg (26.0-34.0); Monocytes # (Auto) 2.4 K/mcL (0.1-0.9); Monocytes % (Auto) 13.9 % (1.0-12.0); Platelet Count 211 K/mcL (140-440); RBC 2.69 M/mcL (4.50-5.90); Red Cell Distribution Width 15.5 % (11.5-14.5)
[2017-02-09 20:55] LABS: ALT/SGPT 11 U/l (0-40); Albumin 2.4 gm/dL (3.2-5.2); Albumin/Globulin Ratio 0.8 (1.0-2.3); Alkaline Phosphatase 84 U/L (39-117); Bilirubin,Direct 0.3 mg/dL (0.0-0.3); Blood Urea Nitrogen 18 mg/dl (6-20); Gamma Glutamyl Transpeptidase 28 U/L (8-61); Magnesium 1.7 mg/dL (1.6-2.5)
[2017-02-09] MEDS: ZOLPIDEM 5 MG TABLET PO SCH (22:14)
[2017-02-09] MEDS: risperiDONE 1 MG TABLET PO SCH (22:26)
[2017-02-09] MEDS: NEUTRA PHOS 1 PACKET PO SCH (22:27)
[2017-02-09] MEDS: SIMVASTATIN 20 MG TABLET PO SCH (22:29)
[2017-02-09] MEDS: traZODone HCL 50 MG TABLET PO SCH (22:29)
[2017-02-10] MEDS: 0.9 % SODIUM CHLORIDE 1,000 ML IV SCH (03:31)
[2017-02-10] MEDS: IPRATROPIUM/ALBUTEROL 3 ML AMPUL.NEB NEB SCH ×6 (03:43→22:24)
[2017-02-10 05:00] LABS: Basophils # (Auto) 0 K/mcL (0.0-0.3); Basophils % (Auto) 0.1 % (0.0-2.0); Eosinophils # (Auto) 0.1 K/mcL (0.0-0.7); Eosinophils % (Auto) 0.8 % (0.0-7.0); Granulocytes % (Auto) 75.8 % (38.0-78.0); Lymphocytes # (Auto) 1.6 K/mcL (1.5-4.8); Lymphocytes % (Auto) 9.5 % (15.5-49.0); Mean Cell Volume 90.1 fL (80.0-100.0); Mean Corpuscular HGB Conc 32.5 g/dL (31.0-36.0); Mean Corpuscular Hemoglobin 29.3 pg (26.0-34.0); Monocytes # (Auto) 2.3 K/mcL (0.1-0.9); Monocytes % (Auto) 13.8 % (1.0-12.0); Platelet Count 202 K/mcL (140-440); RBC 2.47 M/mcL (4.50-5.90); Red Cell Distribution Width 15.7 % (11.5-14.5)
[2017-02-10 05:25] LABS: ALT/SGPT 11 U/l (0-40); Albumin 2.2 gm/dL (3.2-5.2); Albumin/Globulin Ratio 0.8 (1.0-2.3); Alkaline Phosphatase 107 U/L (39-117); Bilirubin,Direct 0.2 mg/dL (0.0-0.3); Blood Urea Nitrogen 22 mg/dl (6-20); Gamma Glutamyl Transpeptidase 31 U/L (8-61); Magnesium 1.8 mg/dL (1.6-2.5); Uric Acid 4.3 mg/dL (2.5-8.0)
[2017-02-10] MEDS: metroNIDAZOLE 500 MG/100 ML BAG IV SCH ×3 (05:30→22:22)
[2017-02-10] MEDS: DULoxetine 30 MG CAPSULE PO SCH (08:14)
[2017-02-10] MEDS: BENZTROPINE 1 MG TABLET PO SCH ×2 (08:14→22:19)
[2017-02-10] MEDS: sitaGLIPtin 100 MG TABLET PO SCH (08:15)
[2017-02-10] MEDS: buPROPion 150 MG TAB.XL.24H PO SCH (08:15)
[2017-02-10] MEDS: MAGNESIUM OXIDE 400 MG TABLET PO SCH ×2 (08:15→22:19)
[2017-02-10] MEDS: OXYBUTYNIN CHLORIDE 5 MG TAB.XL.24H PO SCH (08:15)
[2017-02-10] MEDS: DIVALPROEX SODIUM 250 MG TAB.ER.24H PO SCH ×2 (08:15→22:20)
[2017-02-10] MEDS: DILTIAZEM 180 MG CAP.XL.24H PO SCH ×2 (08:16→22:12)
[2017-02-10] MEDS: 0.9 % SODIUM CHLORIDE 10 ML SYRINGE IV SCH ×3 (08:16→22:22)
[2017-02-10] MEDS: LISINOPRIL 20 MG TABLET PO SCH (08:17)
[2017-02-10] MEDS: NEUTRA PHOS 1 PACKET PO SCH ×2 (08:17→22:12)
[2017-02-10] MEDS: METOPROLOL SUCCINATE 50 MG TAB.XL.24H PO SCH ×2 (08:17→22:20)
[2017-02-10] MEDS: VANCOMYCIN 1,500 MG in 0.9 % SODIUM CHLORIDE 500 ML IV SCH ×2 (08:26→20:44)
[2017-02-10] MEDS: LEVOFLOXACIN 750 MG/150 ML BAG IV SCH (10:18)
[2017-02-10] MEDS ORDERED: FUROSEMIDE 20 MG/2 ML VIAL IV ONE ×2 (13:21→13:36)
[2017-02-10] MEDS: DIGOXIN 125 MCG TABLET PO SCH (13:27)
[2017-02-10] MEDS ORDERED: FUROSEMIDE 40 MG/4 ML VIAL IV ONE ×2 (21:01→23:03)
--- NOTE | 2017-02-10 21:19 | Internal Med Progress Note ---
Medical - PN: Subj Patient information: Note initiated : 02/10/17 at 9:15 pm Service Date, if different from initiated Date: [] Patient: Keegan Uribe 46 y/o M admitted on 02/07/17 for Elevated INR, Weakness. Interval history: Mr. Uribe is a 46 year old Male presents to the ER with complaints of weakness going on for the last 1 day. According to the patient, he woke up this morning and was trying to sit outside, while getting back inside the house. He noted that he was very weak, fell down,and was unable to get up. His friend, therefore, 911 to get into the hospital. According to the patient, he was feeling better yesterday. The patient denies any chest pain, palpitations, admits to having some dizziness, denies any syncope or presyncope , denies any head injury. the patient notes that he has not been drinking very well and he is dehydrated, on probing this question further. He is unable to tell me why he is not drinking enough fluids. the patient admits that he has been having abdominal pain going on for the last 3 days, abdominal pain is predominantly in the epigastric and periumbilical region, nonradiating, sharp in nature worse with going outside in the heat better by coming inside inside the house and drinking cold water. The patient admits to having some nausea but no vomiting. He denies any bleeding from any site I was not able to a certain if he was compliant with his medications, but it seems he is taking some. His Coumadin level was supratherapeutic on presentation. He notes that he was unable to have his last INR check. Because of some confusion with his appointment. 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 He has chronic wounds which are managed by the wound care clinic, In the emergency room, the patient was evaluated. History of rib discomfort was elevated, he had low sodium at 130, this is chronically low for him, INR of 11.4, hemoglobin of 9,his labs are near baseline, except for elevated INR. His digoxin level is less than 0.03. A chest x-ray was reported as negative, urine analysis shows mild leukocyte esterase but no bacteria, or white blood cells. Given that the patient is in very poor living conditions, has an elevated white count, decreased by mouth intake associated with fatigue. He was admitted to the hospital for further evaluation and management. 02/08: patient seen and examined, overnight events noted.He was groggy this morning and wanted to sleep, but woke up with verbal commands and obeyed orders answered appropriately, The patient has been tachycardic overnight in A. fib with RVR. His CT scan of the abdomen, pelvis showed a hematoma versus an abscess in the left psoas muscle. The patient has supratherapeutic INR and I think it is most likely for this to be a hematoma and abscess. However, it is difficult to know for sure without aspiration. The patientis on vancomycin, levofloxacin and Flagyl for broad-spectrum coverage. Patient received 4 units of FFP, vitamin K injection, overnight. This morning his hemoglobin was dropped to 5.5. He is to get 3 units of blood. We will recheck his labs after his blood transfusion is finished. The INR this morning is 1.7. Should his hemoglobin continued to drop, we will consult surgery to get an opinion. The patient's drug screen is positive for amphetamine, the patient denies use of any other substances except for marijuana, thinks that it might be released with it. The patient has abdominal pain still, but no other symptoms. He was resting comfortably. He got up PICC line placed last night for better IV access. macias placed. 02/09: Pt seen examined, no acute overnight events, hb dropped again this AM, will give another 2 units of PRBC, patient has some soreness in the abdomen, but was sleeping comfortably. Plan of care reviewed with him, explained to him that he has a large blood clot in the one of the big muscles int the abdomen and he needs to be monitored. He will remain bed bound till we can establish stability of the bleed. He denies any left leg weakness or numbness. The Pt will get a repeat CT abdo and pelvis without conterast to evaluaet the bleed. INR is 1.5 this AM He continues to be on broad sepectrum ABX, he also remains of 4L oxygen will get chest X ray again today. 02/10: Urine output is been low. Received 20 mg of IV Lasix earlier today with minimal response. Intake has been much greater than output. Developing edema and his hands, as well as lower extremities. On 6 L nasal cannula to maintain sats. Patient complaining of some abdominal pain, though it has improved since 2 days ago. Appetite is improving, starting to eat. - Constitutional Vitals: Vital Signs Temp Pulse Resp BP Pulse Ox 98.8 F 86 36 H 116/72 92 02/10/17 20:00 02/10/17 19:49 02/10/17 20:00 02/10/17 20:00 02/10/17 20:00 Period Temp Pulse Resp BP Sys/Willis Pulse Ox Last 24 Hr 97.4 F-98.8 F 77-86 18-36 81-117/44-72 84-98 Intake and Output 02/10/17 02/10/17 02/10/17 05:59 13:59 21:59 Intake Total 1880 / 1880 1750 / 1750 620 / 620 Output Total 110 / 110 150 / 150 Balance 1770 / 1770 1750 / 1750 470 / 470 Weight 307 lb 1.6 oz Patient Weight 02/11/17 05:59 Weight 307 lb 1.6 oz Intake & Output: Intake & Output 02/10/17 02/10/17 02/10/17 05:59 13:59 21:59 Intake Total 1880 / 1880 1750 / 1750 620 / 620 Output Total 110 / 110 150 / 150 Balance 1770 / 1770 1750 / 1750 470 / 470 Weight 307 lb 1.6 oz Intake: IV 1600 / 1600 1750 / 1750 100 / 100 Sodium Chloride 0.9% 1, 1000 / 1000 000 ml @ 100 mls/hr IV . Q10H [facility] Rx#:[id number] Vancomycin 1,500 mg In 500 / 500 500 / 500 Sodium Chloride 0.9% 500 ml @ 333.3 mls/hr IV Q12H [facility] Rx#:[id number] Oral 280 / 280 520 / 520 Output: Urine Catheter Amount 110 / 110 150 / 150 Other: Meal snack Breakfast Percent of Meal Consumed 100% Refused Feeding Ability Total Assistance - Additional findings Additional findings: General: Uncomfortable man sitting up in bed, awake and alert Chest: Diminished at bases, no accessory muscle use Cardiovascular: Irregularly irregular Abdomen: Obese, soft, mild lower quadrant tenderness. Bowel sounds are present Musculoskeletal: Nonpitting edema in the hands, 2+ lower extremity edema Neurologic: Patient is alert, oriented hospital, does not seem to fully grasp situation. Moves all extremities but is generally weak. Medical - PN: Obj Da - Labs CBC & Chem 7: 02/10/17 12:45 02/10/17 03:50 Labs: Abnormal Lab Results 02/10/17 02/10/17 02/10/17 12:45 12:45 03:58 WBC RBC Hgb 7.3 L Hct 22.0 L RDW MPV Gran % Lymph % (Auto) Cooper % (Auto) Gran # Lymph # (Auto) Cooper # (Auto) PT 16.4 H INR 1.3 H Sodium Chloride BUN Creatinine Glucose Calcium Phosphorus Magnesium Total Creatine Kinase Total Protein Albumin Albumin/Globulin Ratio Urine Protein Urine Glucose (UA) Urine Ketones Urine Occult Blood Ur Leukocyte Esterase Urine RBC Urine WBC Hyaline Casts Valproic Acid 02/10/17 02/10/17 02/09/17 03:50 03:50 19:45 WBC 16.4 H RBC 2.47 L Hgb 7.2 L Hct 22.3 L RDW 15.7 H MPV 6.5 L Gran % Lymph % (Auto) 9.5 L Cooper % (Auto) 13.8 H Gran # 12.4 H Lymph # (Auto) Cooper # (Auto) 2.3 H PT INR Sodium 128 L Chloride 93 L BUN 22 H Creatinine 1.3 H Glucose 120 H 113 H Calcium 8.0 L 8.1 L Phosphorus 2.5 L Magnesium Total Creatine Kinase Total Protein 5.1 L 5.3 L Albumin 2.2 L 2.4 L Albumin/Globulin Ratio 0.8 L 0.8 L Urine Protein Urine Glucose (UA) Urine Ketones Urine Occult Blood Ur Leukocyte Esterase Urine RBC Urine WBC Hyaline Casts Valproic Acid 02/09/17 02/09/17 02/09/17 18:32 03:45 03:45 WBC 17.1 H RBC 2.69 L Hgb 7.9 L Hct 23.9 L RDW 15.5 H MPV 6.4 L Gran % 78.4 H Lymph % (Auto) 7.3 L Cooper % (Auto) 13.9 H Gran # 13.4 H Lymph # (Auto) 1.2 L Cooper # (Auto) 2.4 H PT 18.5 H INR 1.5 H Sodium 129 L Chloride 93 L BUN Creatinine 0.5 L Glucose 112 H Calcium 8.1 L Phosphorus 2.2 L Magnesium Total Creatine Kinase Total Protein 5.2 L Albumin 2.3 L Albumin/Globulin Ratio 0.8 L Urine Protein Urine Glucose (UA) Urine Ketones Urine Occult Blood Ur Leukocyte Esterase Urine RBC Urine WBC Hyaline Casts Valproic Acid 02/09/17 02/08/17 02/08/17 03:45 19:05 19:05 WBC 15.9 H 16.9 H RBC 2.27 L 2.56 L Hgb 6.6 L* 7.3 L Hct 20.1 L* 22.6 L RDW 15.4 H 15.4 H MPV 6.7 L 6.4 L Gran % Lymph % (Auto) 10.7 L 7.5 L Cooper % (Auto) 14.4 H 16.1 H Gran # 11.8 H 12.8 H Lymph # (Auto) 1.3 L Cooper # (Auto) 2.3 H 2.7 H PT INR Sodium 131 L Chloride 93 L BUN Creatinine 0.5 L Glucose 162 H Calcium 8.2 L Phosphorus Magnesium Total Creatine Kinase Total Protein Albumin Albumin/Globulin Ratio Urine Protein Urine Glucose (UA) Urine Ketones Urine Occult Blood Ur Leukocyte Esterase Urine RBC Urine WBC Hyaline Casts Valproic Acid 02/08/17 02/08/17 02/08/17 13:15 13:15 13:15 WBC 15.9 H RBC 2.62 L Hgb 7.6 L Hct 23.0 L RDW 14.8 H MPV 6.3 L Gran % 79.2 H Lymph % (Auto) 6.3 L Cooper % (Auto) 14.4 H Gran # 12.6 H Lymph # (Auto) 1.0 L Cooper # (Auto) 2.3 H PT 19.5 H INR 1.6 H Sodium 131 L Chloride 93 L BUN Creatinine 0.4 L Glucose 170 H Calcium 8.1 L Phosphorus 2.2 L Magnesium 1.2 L Total Creatine Kinase Total Protein 5.6 L Albumin 2.7 L Albumin/Globulin Ratio 0.9 L Urine Protein Urine Glucose (UA) Urine Ketones Urine Occult Blood Ur Leukocyte Esterase Urine RBC Urine WBC Hyaline Casts Valproic Acid 02/08/17 02/08/17 02/08/17 07:33 04:00 04:00 WBC RBC Hgb Hct RDW MPV Gran % Lymph % (Auto) Cooper % (Auto) Gran # Lymph # (Auto) Cooper # (Auto) PT 20.3 H INR 1.7 H Sodium Chloride BUN Creatinine Glucose Calcium Phosphorus Magnesium Total Creatine Kinase 570 H Total Protein Albumin Albumin/Globulin Ratio Urine Protein Urine Glucose (UA) Urine Ketones Urine Occult Blood Ur Leukocyte Esterase Urine RBC Urine WBC Hyaline Casts Valproic Acid 29.4 L 02/08/17 02/08/17 02/08/17 04:00 04:00 01:08 WBC 13.6 H RBC 1.89 L Hgb 5.3 L* Hct 15.7 L* RDW MPV 6.4 L Gran % Lymph % (Auto) 6.8 L Cooper % (Auto) 16.5 H Gran # 10.3 H Lymph # (Auto) 0.9 L Cooper # (Auto) 2.2 H PT INR Sodium 132 L Chloride 94 L BUN Creatinine 0.4 L Glucose 163 H Calcium 8.2 L Phosphorus 2.1 L Magnesium 1.3 L Total Creatine Kinase Total Protein 5.8 L Albumin 2.9 L Albumin/Globulin Ratio Urine Protein 100 A Urine Glucose (UA) 50 A Urine Ketones 5/tr A Urine Occult Blood >=1.0 A Ur Leukocyte Esterase 25 A Urine RBC 38 H Urine WBC 41 H Hyaline Casts 5 H Valproic Acid Meds: Medications Acetaminophen (Tylenol) 650 mg PO Q6HP PRN PRN Reason: PAIN/FEVER > 101 Last Admin: 02/09/17 15:37 Dose: 650 mg Albuterol/Ipratropium (Duoneb) 3 ml NEB Q4HRT [facility] Last Admin: 02/10/17 19:47 Dose: 3 ml Benztropine Mesylate (Cogentin) 0.5 mg PO BID [facility] Last Admin: 02/10/17 08:14 Dose: 0.5 mg Bupropion HCl (Wellbutrin Xl) 150 mg PO DAILY [facility] Last Admin: 02/10/17 08:15 Dose: 150 mg Digoxin (Lanoxin) 125 mcg PO DAILY@1400 [facility] Last Admin: 02/10/17 13:27 Dose: 125 mcg Diltiazem HCl (Cardizem Cd) 180 mg PO BID [facility] Last Admin: 02/10/17 08:16 Dose: Not Given Divalproex Sodium (Depakote Er) 1,000 mg PO BID [facility] Last Admin: 02/10/17 08:15 Dose: 1,000 mg Duloxetine HCl (Cymbalta) 120 mg PO DAILY [facility] Last Admin: 02/10/17 08:14 Dose: 120 mg Furosemide (Lasix) 40 mg IV ONCE ONE Stop: 02/10/17 21:02 Heparin Sodium (Porcine) (Heparin Flush) 2 ml IV Q12 [facility] Last Admin: 02/10/17 08:16 Dose: 2 ml Vancomycin HCl 1,500 mg/ (Sodium Chloride) 500 mls @ 333.3 mls/hr IV Q12H [facility] Last Admin: 02/10/17 20:44 Dose: 333 mls/hr Levofloxacin (Levaquin) 750 mg in 150 mls @ 100 mls/hr IV Q24H [facility] Last Infusion: 02/10/17 11:50 Dose: Infused Metronidazole (Flagyl) 500 mg in 100 mls @ 100 mls/hr IV Q8H [facility] Last Infusion: 02/10/17 15:00 Dose: Infused Lisinopril (Zestril) 20 mg PO QDAY [facility] Last Admin: 02/10/17 08:17 Dose: Not Given Magnesium Hydroxide (Milk Of Magnesia) 30 ml PO DAILYP PRN PRN Reason: Constipation Magnesium Oxide (Magnesium Oxide) 400 mg PO BID [facility] Last Admin: 02/10/17 08:15 Dose: 400 mg Metoprolol Succinate (Toprol Xl) 200 mg PO BID [facility] Last Admin: 02/10/17 08:17 Dose: Not Given Naloxone HCl (Narcan) 0.1 mg IV Q2MIN PRN PRN Reason: Opiate Reversal Ondansetron HCl (Zofran) 4 mg IV Q4HP PRN PRN Reason: Nausea And Vomiting Last Admin: 02/09/17 06:53 Dose: 4 mg Oxybutynin Chloride (Ditropan Xl) 10 mg PO DAILY [facility] Last Admin: 02/10/17 08:15 Dose: 10 mg Oxycodone/Acetaminophen (Percocet 5-325 Mg) 1 tab PO Q4HP PRN PRN Reason: Pain Potassium/Phosphorus/Sodium (Neutra Phos) 1 packet PO BID [facility] Last Admin: 02/10/17 08:17 Dose: 1 packet Risperidone (Risperdal) 8 mg PO HS [facility] Last Admin: 02/09/17 22:26 Dose: 8 mg Simvastatin (Zocor) 20 mg PO QHS [facility] Last Admin: 02/09/17 22:29 Dose: 20 mg Sitagliptin Phosphate (Januvia) 100 mg PO DAILY [facility] Last Admin: 02/10/17 08:15 Dose: 100 mg Sodium Chloride (Saline Flush) 10 ml IV Q8 [facility] Last Admin: 02/10/17 13:28 Dose: 10 ml Trazodone HCl (Desyrel) 100 mg PO HS [facility] Last Admin: 02/09/17 22:29 Dose: 100 mg Vancomycin HCl (Vancomycin Per Pharmacy) 1 order IV UD [facility] Zolpidem Tartrate (Ambien) 10 mg PO [facility] Last Admin: 02/09/17 22:14 Dose: Not Given Medical - PN: A/P - Narrative A/P Narrative: SIRS: Cultures all remain negative, possible inflammatory response to psoas hemorrhage, though cannot fully rule out so as abscess. Pro-calcitonin of 0.06 suggest low risk of sepsis. Plan: Continue antibiotics, consider aspiration of psoas muscle to rule out infection if it remains stable. Hypercoagulable state secondary to warfarin toxicity, INR 11.4 on admission. After FFP and vitamin K, INR 1.3 today. May not be good candidate for long- term warfarin use, would consider changing to NOAC. Psoas and retroperitoneal hemorrhages secondary to hypercoagulable state. Continue to follow hemoglobin, transfuse as necessary. Acute blood loss anemia secondary to retroperitoneal and psoas hemorrhages. Status post total 5 units packed red blood cells Plan: Continue to trend hemoglobin Renal insufficiency, creatinine creeping upward, 1.3 today. Urine output is decreased. He is volume overloaded, has had significantly greater in and out. Plan: Further trial of diuretic. Atrial fibrillation with RVR presentation. Rate control improved with correction of acute blood loss anemia. Plan: Continue rate controlling meds as blood pressure allows. Hypertension. Blood pressures were low this morning. Medications held. Improving this afternoon. Continue to hold meds for low blood pressure, trial of diuresis. Bipolar disorder. Also some notations of traumatic brain injury, cannot be confirmed. Plan: Continue home medications Type 2 diabetes. Continue diabetic diet, sliding scale insulin Weakness and debility. Etiology felt secondary to poor nutritional status and initial hydration status. He is now bedbound due to to the hemorrhage. DVT prophylaxis: SCD only given hemorrhage and supratherapeutic INR Medical - PN: Qual - VTE Deep Vein Thrombosis/Pulmonary Embolism Present on Admission: No
[2017-02-10] MEDS: ZOLPIDEM 5 MG TABLET PO SCH (22:10)
[2017-02-10] MEDS: risperiDONE 1 MG TABLET PO SCH (22:20)
[2017-02-10] MEDS: traZODone HCL 50 MG TABLET PO SCH (22:20)
[2017-02-10] MEDS: SIMVASTATIN 20 MG TABLET PO SCH (22:20)
[2017-02-11] MEDS: IPRATROPIUM/ALBUTEROL 3 ML AMPUL.NEB NEB SCH ×6 (03:02→22:53)
[2017-02-11] MEDS: metroNIDAZOLE 500 MG/100 ML BAG IV SCH ×3 (05:31→21:29)
[2017-02-11 06:41] LABS: Basophils # (Auto) 0 K/mcL (0.0-0.3); Basophils % (Auto) 0.2 % (0.0-2.0); Eosinophils # (Auto) 0.1 K/mcL (0.0-0.7); Eosinophils % (Auto) 0.5 % (0.0-7.0); Granulocytes % (Auto) 82.2 % (38.0-78.0); Lymphocytes # (Auto) 1.2 K/mcL (1.5-4.8); Lymphocytes % (Auto) 6.3 % (15.5-49.0); Mean Cell Volume 89.4 fL (80.0-100.0); Mean Corpuscular HGB Conc 33.3 g/dL (31.0-36.0); Mean Corpuscular Hemoglobin 29.8 pg (26.0-34.0); Monocytes # (Auto) 2.1 K/mcL (0.1-0.9); Monocytes % (Auto) 10.8 % (1.0-12.0); Platelet Count 295 K/mcL (140-440); RBC 2.93 M/mcL (4.50-5.90); Red Cell Distribution Width 15.7 % (11.5-14.5)
[2017-02-11] MEDS: 0.9 % SODIUM CHLORIDE 10 ML SYRINGE IV SCH ×4 (06:49→21:31)
[2017-02-11 07:31] LABS: ALT/SGPT 11 U/l (0-40); Albumin 2.3 gm/dL (3.2-5.2); Albumin/Globulin Ratio 0.7 (1.0-2.3); Alkaline Phosphatase 97 U/L (39-117); Bilirubin,Direct 0.3 mg/dL (0.0-0.3); Blood Urea Nitrogen 37 mg/dl (6-20); Gamma Glutamyl Transpeptidase 33 U/L (8-61); Magnesium 1.8 mg/dL (1.6-2.5); Uric Acid 5.8 mg/dL (2.5-8.0)
[2017-02-11] MEDS ORDERED: FUROSEMIDE 100 MG/10 ML VIAL IV ONE ×2 (07:53→10:50)
[2017-02-11] MEDS: VANCOMYCIN 1,500 MG in 0.9 % SODIUM CHLORIDE 500 ML IV SCH ×2 (09:06→21:12)
[2017-02-11] MEDS: BENZTROPINE 1 MG TABLET PO SCH ×2 (09:07→21:29)
[2017-02-11] MEDS: sitaGLIPtin 100 MG TABLET PO SCH (09:08)
[2017-02-11] MEDS: METOPROLOL SUCCINATE 50 MG TAB.XL.24H PO SCH ×2 (09:08→21:29)
[2017-02-11] MEDS: MAGNESIUM OXIDE 400 MG TABLET PO SCH (09:08)
[2017-02-11] MEDS: DILTIAZEM 180 MG CAP.XL.24H PO SCH ×2 (09:08→21:29)
[2017-02-11] MEDS: DIVALPROEX SODIUM 250 MG TAB.ER.24H PO SCH ×2 (09:08→21:28)
[2017-02-11] MEDS: NEUTRA PHOS 1 PACKET PO SCH (09:08)
[2017-02-11] MEDS: DULoxetine 30 MG CAPSULE PO SCH (09:09)
[2017-02-11] MEDS: buPROPion 150 MG TAB.XL.24H PO SCH (09:09)
[2017-02-11] MEDS: OXYBUTYNIN CHLORIDE 5 MG TAB.XL.24H PO SCH (09:09)
[2017-02-11] MEDS: LISINOPRIL 20 MG TABLET PO SCH (09:10)
[2017-02-11] MEDS: LEVOFLOXACIN 750 MG/150 ML BAG IV SCH (10:47)
--- NOTE | 2017-02-11 11:37 | XRay Report ---
HISTORY: Reason for Exam:evaluate for pulmonary edema FINDINGS: Lung volumes are small due to poor inspiration. There is generalized haziness in the lung parenchyma bilaterally. At least some of this is due to small bilateral layering pleural effusions. There may be superimposed pneumonia or edema in both lungs. Air bronchograms are seen in the medial basal segment of the right lower lobe. The heart is mild to moderately enlarged but magnified by portable technique and poor inspiration. Right-sided PICC line is well-positioned in the right atrium. Stomach is distended with gas. Comparison with the prior exam from 02/09/17 shows an enlarging left-sided pleural effusion causing increasing haziness in the left thorax IMPRESSION: Small but enlarging left-sided pleural effusion Atelectasis or pneumonia in both lung bases. Superimposed congestive heart failure cannot be excluded. Interpreted and Authenticated by: Alex Uribe 02/11/17
--- NOTE | 2017-02-11 12:52 | Ultrasound Report ---
History: Follow-up left-sided retroperitoneal hemorrhage and renal failure Findings: There is a large amount of bowel gas. This prevented us from evaluating the left-sided retroperitoneal hemorrhage which was documented on the CT scan done on 02/09/17. There are pockets of free fluid around the right kidney. The larger measures 2.8 x 5.5 cm. The right kidney measures 6.3 x 7.1 x 4.2 cm and the left kidney is 6.0 x 8.6 x 15.4 cm. The cortex is normal in thickness and echogenicity bilaterally. There is no evidence of hydronephrosis or calculus in either kidney area a 1.1 x 1.2 cm cyst is present in the middle third of the left kidney. The graft the urinary bladder is decompressed by Graham catheter. We are unable to document flow urine through either ureter into the bladder. Impression: Anatomically normal kidneys Nonvisualization of the left side retroperitoneal hemorrhage due to overlying bowel gas Small pockets of free fluid adjacent to the right kidney Interpreted and Authenticated by: Alex Uribe 02/11/17
[2017-02-11] MEDS: DIGOXIN 125 MCG TABLET PO SCH (14:05)
[2017-02-11] MEDS ORDERED: DEXTROSE 31 GM ORAL.SUSP PO PRN (19:19)
[2017-02-11] MEDS ORDERED: DEXTROSE 50% 50 ML VIAL IV PRN (19:19)
[2017-02-11 19:57] LABS: Appearance,Urine CLOUDY; Bacteria,Urine 0 /hpf (0); Bilirubin,Urine NEG (NEG); Color,Urine YELLOW; Glucose,Urine (UA) NEGATIVE (NEG); Leukocyte Esterase,Urine 500 /uL (NEG); Mucus,Urine FEW /hpf (0); Nitrate,Urine NEG (NEG); Protein,Urine 30 mg/dL (NEG); Specific Gravity,Urine 1.016 (1.000-1.035); Urine Blood 0.03 mg/dL (<0.03); Urine Hyaline Cast 7 /lpf (0-2); Urine RBC 33 /hpf (0-1); Urine Squamous Epithelial Cell 0 /hpf (0-4); Urine WBC > 182 /hpf (0-4); Urobilinogen,Urine NEG (NEG)
--- NOTE | 2017-02-11 20:35 | Internal Med Progress Note ---
Medical - PN: Subj Patient information: Note initiated : 02/11/17 at 8:32 pm Service Date, if different from initiated Date: [] Patient: Keegan Uribe 46 y/o M admitted on 02/07/17 for Elevated INR, Weakness. Chief Complaint: [f/u SIRS, coagulopathy] Interval history: Mr. Uribe is a 46 year old Male presents to the ER with complaints of weakness going on for the last 1 day. According to the patient, he woke up this morning and was trying to sit outside, while getting back inside the house. He noted that he was very weak, fell down,and was unable to get up. His friend, therefore, 911 to get into the hospital. According to the patient, he was feeling better yesterday. The patient denies any chest pain, palpitations, admits to having some dizziness, denies any syncope or presyncope , denies any head injury. the patient notes that he has not been drinking very well and he is dehydrated, on probing this question further. He is unable to tell me why he is not drinking enough fluids. the patient admits that he has been having abdominal pain going on for the last 3 days, abdominal pain is predominantly in the epigastric and periumbilical region, nonradiating, sharp in nature worse with going outside in the heat better by coming inside inside the house and drinking cold water. The patient admits to having some nausea but no vomiting. He denies any bleeding from any site I was not able to a certain if he was compliant with his medications, but it seems he is taking some. His Coumadin level was supratherapeutic on presentation. He notes that he was unable to have his last INR check. Because of some confusion with his appointment. 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 He has chronic wounds which are managed by the wound care clinic, In the emergency room, the patient was evaluated. History of rib discomfort was elevated, he had low sodium at 130, this is chronically low for him, INR of 11.4, hemoglobin of 9,his labs are near baseline, except for elevated INR. His digoxin level is less than 0.03. A chest x-ray was reported as negative, urine analysis shows mild leukocyte esterase but no bacteria, or white blood cells. Given that the patient is in very poor living conditions, has an elevated white count, decreased by mouth intake associated with fatigue. He was admitted to the hospital for further evaluation and management. 02/08: patient seen and examined, overnight events noted.He was groggy this morning and wanted to sleep, but woke up with verbal commands and obeyed orders answered appropriately, The patient has been tachycardic overnight in A. fib with RVR. His CT scan of the abdomen, pelvis showed a hematoma versus an abscess in the left psoas muscle. The patient has supratherapeutic INR and I think it is most likely for this to be a hematoma and abscess. However, it is difficult to know for sure without aspiration. The patientis on vancomycin, levofloxacin and Flagyl for broad-spectrum coverage. Patient received 4 units of FFP, vitamin K injection, overnight. This morning his hemoglobin was dropped to 5.5. He is to get 3 units of blood. We will recheck his labs after his blood transfusion is finished. The INR this morning is 1.7. Should his hemoglobin continued to drop, we will consult surgery to get an opinion. The patient's drug screen is positive for amphetamine, the patient denies use of any other substances except for marijuana, thinks that it might be released with it. The patient has abdominal pain still, but no other symptoms. He was resting comfortably. He got up PICC line placed last night for better IV access. macias placed. 02/09: Pt seen examined, no acute overnight events, hb dropped again this AM, will give another 2 units of PRBC, patient has some soreness in the abdomen, but was sleeping comfortably. Plan of care reviewed with him, explained to him that he has a large blood clot in the one of the big muscles int the abdomen and he needs to be monitored. He will remain bed bound till we can establish stability of the bleed. He denies any left leg weakness or numbness. The Pt will get a repeat CT abdo and pelvis without conterast to evaluaet the bleed. INR is 1.5 this AM He continues to be on broad sepectrum ABX, he also remains of 4L oxygen will get chest X ray again today. 02/10: Urine output is been low. Received 20 mg of IV Lasix earlier today with minimal response. Intake has been much greater than output. Developing edema and his hands, as well as lower extremities. On 6 L nasal cannula to maintain sats. Patient complaining of some abdominal pain, though it has improved since 2 days ago. Appetite is improving, starting to eat. 02/11: Urinalysis remains low. Did have some response to 80 mg dose of furosemide. Creatinine elevated. Clinically the patient states he feels he is finally starting to feel better. No left-sided abdominal pain. Appetite is improving. - Constitutional Vitals: Vital Signs Temp Pulse Resp BP Pulse Ox 98.1 F 103 H 20 86/52 94 02/11/17 20:11 02/11/17 19:09 02/11/17 20:11 02/11/17 20:11 02/11/17 20:11 Period Temp Pulse Resp BP Sys/Willis Pulse Ox Last 24 Hr 97.2 F-98.1 F 103-122 12-26 86-118/52-75 92-95 Intake and Output 02/11/17 02/11/17 02/11/17 05:59 13:59 21:59 Intake Total 960 / 960 1270 / 1270 Output Total 500 / 500 300 / 300 Balance 460 / 460 1270 / 1270 -300 / -300 Weight 312 lb 3.2 oz Patient Weight 02/12/17 05:59 Weight 312 lb 3.2 oz Intake & Output: Intake & Output 02/11/17 02/11/17 02/11/17 05:59 13:59 21:59 Intake Total 960 / 960 1270 / 1270 Output Total 500 / 500 300 / 300 Balance 460 / 460 1270 / 1270 -300 / -300 Weight 312 lb 3.2 oz Intake: IV 600 / 600 750 / 750 Vancomycin 1,500 mg In 500 / 500 500 / 500 Sodium Chloride 0.9% 500 ml @ 333.3 mls/hr IV Q12H [facility] Rx#:[id number] Oral 360 / 360 520 / 520 Output: Urine Catheter Amount 500 / 500 300 / 300 Other: Meal Lunch Percent of Meal Consumed 50% Feeding Ability Needs Supervision # Bowel Movements 0 - Additional findings Additional findings: General: Awake, alert, in bed, talkative and in no acute distress Chest: Diminished at bases bilaterally, few crackles, no wheezes Cardiovascular: Irregularly irregular, nonpitting upper extremity edema, 2+ lower extremity edema Abdomen: Obese, soft, no left sided tenderness. Active bowel sounds Musculoskeletal: Left lower extremity foot wound dressed Neuro: Alert, oriented to person and place and situation. Generally weak. Medical - PN: Obj Da - Labs CBC & Chem 7: 02/11/17 03:50 02/11/17 03:50 Labs: Abnormal Lab Results 02/11/17 02/11/17 02/11/17 19:25 03:50 03:50 WBC RBC Hgb Hct RDW MPV Gran % Lymph % (Auto) [place] % (Auto) Gran # Lymph # (Auto) [place] # (Auto) PT 16.4 H INR 1.3 H Sodium Chloride 94 L BUN 37 H Creatinine 2.5 H Glucose Calcium Phosphorus 4.6 H Total Protein 5.6 L Albumin 2.3 L Albumin/Globulin Ratio 0.7 L Urine Protein 30 A Urine Occult Blood 0.03 A Ur Leukocyte Esterase 500 A Urine RBC 33 H Urine WBC > 182 H Hyaline Casts 7 H 02/11/17 02/10/17 02/10/17 03:50 19:55 12:45 WBC 19.5 H RBC 2.93 L Hgb 8.7 L 7.9 L 7.3 L Hct 26.2 L 24.2 L RDW 15.7 H MPV 6.4 L Gran % 82.2 H Lymph % (Auto) 6.3 L [place] % (Auto) Gran # 16.1 H Lymph # (Auto) 1.2 L [place] # (Auto) 2.1 H PT INR Sodium Chloride BUN Creatinine Glucose Calcium Phosphorus Total Protein Albumin Albumin/Globulin Ratio Urine Protein Urine Occult Blood Ur Leukocyte Esterase Urine RBC Urine WBC Hyaline Casts 02/10/17 02/10/17 02/10/17 12:45 03:58 03:50 WBC RBC Hgb Hct 22.0 L RDW MPV Gran % Lymph % (Auto) [place] % (Auto) Gran # Lymph # (Auto) [place] # (Auto) PT 16.4 H INR 1.3 H Sodium Chloride BUN 22 H Creatinine 1.3 H Glucose 120 H Calcium 8.0 L Phosphorus Total Protein 5.1 L Albumin 2.2 L Albumin/Globulin Ratio 0.8 L Urine Protein Urine Occult Blood Ur Leukocyte Esterase Urine RBC Urine WBC Hyaline Casts 02/10/17 02/09/17 02/09/17 03:50 19:45 18:32 WBC 16.4 H 17.1 H RBC 2.47 L 2.69 L Hgb 7.2 L 7.9 L Hct 22.3 L 23.9 L RDW 15.7 H 15.5 H MPV 6.5 L 6.4 L Gran % 78.4 H Lymph % (Auto) 9.5 L 7.3 L [place] % (Auto) 13.8 H 13.9 H Gran # 12.4 H 13.4 H Lymph # (Auto) 1.2 L [place] # (Auto) 2.3 H 2.4 H PT INR Sodium 128 L Chloride 93 L BUN Creatinine Glucose 113 H Calcium 8.1 L Phosphorus 2.5 L Total Protein 5.3 L Albumin 2.4 L Albumin/Globulin Ratio 0.8 L Urine Protein Urine Occult Blood Ur Leukocyte Esterase Urine RBC Urine WBC Hyaline Casts 02/09/17 02/09/17 02/09/17 03:45 03:45 03:45 WBC 15.9 H RBC 2.27 L Hgb 6.6 L* Hct 20.1 L* RDW 15.4 H MPV 6.7 L Gran % Lymph % (Auto) 10.7 L [place] % (Auto) 14.4 H Gran # 11.8 H Lymph # (Auto) [place] # (Auto) 2.3 H PT 18.5 H INR 1.5 H Sodium 129 L Chloride 93 L BUN Creatinine 0.5 L Glucose 112 H Calcium 8.1 L Phosphorus 2.2 L Total Protein 5.2 L Albumin 2.3 L Albumin/Globulin Ratio 0.8 L Urine Protein Urine Occult Blood Ur Leukocyte Esterase Urine RBC Urine WBC Hyaline Casts Meds: Medications Acetaminophen (Tylenol) 650 mg PO Q6HP PRN PRN Reason: PAIN/FEVER > 101 Last Admin: 02/09/17 15:37 Dose: 650 mg Albuterol/Ipratropium (Duoneb) 3 ml NEB Q4HRT [facility] Last Admin: 02/11/17 19:02 Dose: 3 ml Benztropine Mesylate (Cogentin) 0.5 mg PO BID [facility] Last Admin: 02/11/17 09:07 Dose: 0.5 mg Bupropion HCl (Wellbutrin Xl) 150 mg PO DAILY [facility] Last Admin: 02/11/17 09:09 Dose: 150 mg Dextrose (Dextrose 50%) 0 ml IV UD PRN PRN Reason: Hypoglycemia Diagnostic Test (Pha) (Accu-Chek) 1 each FS [facility] Digoxin (Lanoxin) 125 mcg PO DAILY@1400 [facility] Last Admin: 02/11/17 14:05 Dose: 125 mcg Diltiazem HCl (Cardizem Cd) 180 mg PO BID [facility] Last Admin: 02/11/17 09:08 Dose: 180 mg Divalproex Sodium (Depakote Er) 1,000 mg PO BID [facility] Last Admin: 02/11/17 09:08 Dose: 1,000 mg Duloxetine HCl (Cymbalta) 120 mg PO DAILY [facility] Last Admin: 02/11/17 09:09 Dose: 120 mg Glucose (Insta-Glucose) 15 gm PO PRN PRN PRN Reason: Hypoglycemia Heparin Sodium (Porcine) (Heparin Flush) 2 ml IV Q12 [facility] Last Admin: 02/11/17 09:09 Dose: 2 ml Vancomycin HCl 1,500 mg/ (Sodium Chloride) 500 mls @ 333.3 mls/hr IV Q12H [facility] Last Infusion: 02/11/17 11:27 Dose: Infused Levofloxacin (Levaquin) 750 mg in 150 mls @ 100 mls/hr IV Q24H [facility] Last Infusion: 02/11/17 12:20 Dose: Infused Metronidazole (Flagyl) 500 mg in 100 mls @ 100 mls/hr IV Q8H [facility] Last Admin: 02/11/17 14:05 Dose: 100 mls/hr Insulin Human Lispro (Humalog) 0 unit SQ [facility] PRN Reason: Protocol Lisinopril (Zestril) 20 mg PO QDAY [facility] Last Admin: 02/11/17 09:10 Dose: Not Given Metoprolol Succinate (Toprol Xl) 200 mg PO BID [facility] Last Admin: 02/11/17 09:08 Dose: 200 mg Naloxone HCl (Narcan) 0.1 mg IV Q2MIN PRN PRN Reason: Opiate Reversal Ondansetron HCl (Zofran) 4 mg IV Q4HP PRN PRN Reason: Nausea And Vomiting Last Admin: 02/09/17 06:53 Dose: 4 mg Oxybutynin Chloride (Ditropan Xl) 10 mg PO DAILY [facility] Last Admin: 02/11/17 09:09 Dose: 10 mg Oxycodone/Acetaminophen (Percocet 5-325 Mg) 1 tab PO Q4HP PRN PRN Reason: Pain Risperidone (Risperdal) 8 mg PO HS [facility] Last Admin: 02/10/17 22:20 Dose: 8 mg Simvastatin (Zocor) 20 mg PO QHS [facility] Last Admin: 02/10/17 22:20 Dose: 20 mg Sitagliptin Phosphate (Januvia) 100 mg PO DAILY [facility] Last Admin: 02/11/17 09:08 Dose: 100 mg Sodium Chloride (Saline Flush) 10 ml IV Q8 [facility] Last Admin: 02/11/17 14:05 Dose: 10 ml Trazodone HCl (Desyrel) 100 mg PO HS [facility] Last Admin: 02/10/17 22:20 Dose: 100 mg Vancomycin HCl (Vancomycin Per Pharmacy) 1 order IV UD [facility] Zolpidem Tartrate (Ambien) 10 mg PO [facility] Last Admin: 02/10/17 22:10 Dose: Not Given - Impressions Renal ultrasound Impression: Anatomically normal kidneys. Nonvisualization of the left side retroperitoneal hemorrhage due to overlying bowel gas Small pockets of free fluid adjacent to the right kidney Medical - PN: A/P - Narrative A/P Narrative: SIRS: White count remains elevated, though not febrile. Cultures are negative. Differential remains inflammatory response from iliopsoas hemorrhage. Low calcitonin of 0.06 reassuring for low risk of sepsis Plan: Continue antibiotics, depending upon renal function will consider aspiration of iliopsoas fluid to rule out Acute renal failure. Creatinine up to 2.5 today. Urine output responded somewhat to IV furosemide, not quite as edematous today. May represent ATN from contrast exposure or from hypoperfusion in the setting of profound anemia when his hemoglobin dropped to 5.5. Plan: Supportive care, diuresis as able, nephrology consultation Retroperitoneal and iliopsoas hemorrhages. Secondary to hypercoagulable state of presentation. Hemoglobin is rising currently. Plan: Follow blood counts, transfuse as needed Hypercoagulable state as a toxicity of warfarin. INR 11.4 at arrival. Resolved with INR normalizing. Plan: Hold anticoagulation, may need to consider NOAC in convalescence for stroke prophylaxis Atrial fibrillation with RVR presentation. Generally rate controlled with medications. Plan: Continue rate control Hypertension. Blood pressures normalized. Were transiently low yesterday morning. Plan: Hold blood pressure medications for hypotension. Bipolar disorder. Interactive and in good spirits today. Plan: Continue home medications Type 2 diabetes. Appetite is picking up. Plan: Continue with ADA diet, insulin therapy Weakness and debility, likely secondary to poor nutritional status and acute medical illness. Hemorrhage is stable. Plan: Okay to work with physical therapy. DVT prophylaxis: SCDs only. Medical - PN: Qual - VTE Deep Vein Thrombosis/Pulmonary Embolism Present on Admission: No
--- NOTE | 2017-02-11 20:37 | Nephrology Consult Note ---
History of Present Illness - Reason for Consult Patient information: Note initiated : 02/11/17 at 8:37 pm Service Date, if different from initiated Date: [] Patient: Keegan Uribe 46 y/o M admitted on 02/07/17 for Elevated INR, Weakness. Chief Complaint: [] Consult date: 02/11/17 acute renal failure Requesting physician: Lillie Thompson - Chief Complaint Acute Renal Failure - History of Present Illness 46 years old male admitted on 02/07/17, with generalized weakness and fall at home. He has h/o Afib, was on Coumadin, noted to have supratherapeutic INR up to 11 at time of admission. He had CT scan abdomen/pelvis 02/07/2017 with iv contrast show left psoas hematoma. His renal function was normal on presentation , SCr 0.7. He has remained hypotensive in last 48 hours and was noted to have rising serum creatinine and oliguria. SCr was 2.5 mg/dl today. He has been empirically treated for possible sepsis but has has no lab data to suggest systemic infection. Last serum vancomycin level was 11.4. He was on Lisinopril that was stopped. Mg supplement, MOM and Neutraphos were also stopped in am today. He has received Lasix 20 mg iv, 40 mg iv, then 80 mg iv and was given an additional dose of 80 mg iv earlier this afternoon. Urine output has been marginal. UA on 02/07/17 showed SG 1019, pH 5, 1+ proteinuria, trace hematuria. Renal sonogram today showed small right kidney, no urinary obstruction. Chest xray done initially showed small bilateral pleural effusions. Chest xray today showed increased left pleural effusion. Echocardiogram done today - report is pending. Patient reported feeling "unwell" but did not report any specific complaints. Review of Systems ROS unobtainable: other (patient denied any systemic symptoms) Past History Past medical history: Dehydration (Acute) Acute respiratory failure with hypoxia (Acute) Contusion of right hip (Acute) SIRS (systemic inflammatory response syndrome) (Acute) Syncope and collapse (Acute) Medication side effects (Acute) Leukocytosis (Chronic) Ulcer of lower extremity (Chronic) Edema (Chronic) Hypoxemia (Chronic) Anemia (Chronic) Congestive heart failure (Chronic) Atrial fibrillation (Chronic) Mixed bipolar I disorder (Chronic) Hyperlipidemia (Chronic) Diabetes mellitus type 2, uncontrolled (Chronic) Essential hypertension (Chronic) senior care current use of anticoagulant therapy (Chronic) Nocturia (Chronic) Injuries, multiple (Chronic) Local skin infection (Chronic) Polyuria (Chronic) Urinary incontinence (Chronic) Back pain (Chronic) Insomnia (Chronic) Obstructive sleep apnea chronic hypoxia Medications and Allergies Home Medications Medication Instructions Recorded Confirmed Type bupropion HCl XL 150 mg 24 hr 150 mg PO DAILY tab 04/01/15 02/07/17 History tablet, extended release digoxin 125 mcg tablet 125 mcg PO DAILY 04/01/15 02/07/17 History divalproex ER 500 mg 1,000 mg PO BID tab 04/01/15 02/07/17 History tablet,extended release 24 hr duloxetine 60 mg capsule,delayed 120 mg PO QDAY cap 04/01/15 02/07/17 History release epinephrine 0.3 mg/0.3 mL 0.3 mg IM PRN PRN 04/01/15 02/07/17 History injection, auto-injector lisinopril 20 mg tablet 20 mg PO QDAY 04/01/15 02/07/17 History metoprolol succinate ER 200 mg 200 mg PO BID tab 04/01/15 02/07/17 History tablet,extended release 24 hr risperidone 4 mg tablet 8 mg PO QHS tab 04/01/15 02/07/17 History simvastatin 20 mg tablet 20 mg PO QHS tab 04/01/15 02/07/17 History zolpidem 10 mg tablet 10 mg PO HS 04/01/15 02/07/17 History oxybutynin chloride ER 10 mg 10 mg PO QDAY #30 tab 04/07/15 02/07/17 Rx tablet,extended release 24 hr RX: Benztropine [Cogentin] 0.5 mg PO BID 11/23/15 02/07/17 History RX: Diltiazem HCl [Cartia Xt] 180 mg PO BID 11/23/15 02/07/17 History RX: Warfarin [Coumadin] 6 mg PO SUMOTUWETHFRSA 11/23/15 02/07/17 History RX: Warfarin [Coumadin] 8 mg PO .FRANCOISE 11/23/15 02/07/17 History RX: sitaGLIPtin [Januvia] 100 mg PO DAILY #60 tablet 11/26/15 02/07/17 Rx traZODone HCL [Trazodone HCl] 100 mg PO DAILY 02/07/17 02/07/17 History Allergies Allergy/AdvReac Type Severity Reaction Status Date / Time Penicillins Allergy Severe Anaphylaxis Verified 02/07/17 08:32 Sulfa (Sulfonamide Allergy Severe Anaphylaxis Verified 02/07/17 08:32 Antibiotics) sulfamethoxazole Allergy Severe Anaphylaxis Verified 02/07/17 08:32 [From Bactrim] trimethoprim [From Bactrim] Allergy Severe Anaphylaxis Verified 02/07/17 08:32 Exam - Vital Signs Vital signs: Temp Pulse Resp BP Pulse Ox 98.1 F 103 H 20 86/52 94 02/11/17 20:11 02/11/17 19:09 02/11/17 20:11 02/11/17 20:11 02/11/17 20:11 Results - Lab Results 02/11/17 03:50 02/11/17 03:50 Most recent lab results Calcium 8.6 mg/dl (8.6-10.4) 02/11/17 03:50 Phosphorus 4.6 mg/dL (2.7-4.5) H 02/11/17 03:50 Magnesium 1.8 mg/dL (1.6-2.5) 02/11/17 03:50 Assessment and Plan (1) Acute renal failure ARF / PATRICIA: oliguric, likely ATN (ischemic / nephrotoxic) in setting of recent iv contrast exposure and hypotension. Poor response to iv loop diuretics. He has atrophic right kidney if measurements on sonogram are reportedly correctly. At present, no indication for dialysis. Diet will be changed to renal. Agree with stopping Lisinopril. Follow BMP, echo report, intake / urine output Status: Acute
[2017-02-11] MEDS: SIMVASTATIN 20 MG TABLET PO SCH (21:29)
[2017-02-11] MEDS: risperiDONE 1 MG TABLET PO SCH (21:29)
[2017-02-11] MEDS: ZOLPIDEM 5 MG TABLET PO SCH (21:29)
[2017-02-11] MEDS: traZODone HCL 50 MG TABLET PO SCH (21:29)
[2017-02-11] MEDS: ACETAMINOPHEN 325 MG TABLET PO PRN (21:30)
[2017-02-11] MEDS: INSULIN LISPRO 1 UNIT/0.01 ML UNIT SQ SCH (21:33)
[2017-02-12] MEDS: IPRATROPIUM/ALBUTEROL 3 ML AMPUL.NEB NEB SCH ×6 (03:26→22:52)
[2017-02-12] MEDS: metroNIDAZOLE 500 MG/100 ML BAG IV SCH ×3 (05:10→22:00)
[2017-02-12 06:20] LABS: Basophils # (Auto) 0 K/mcL (0.0-0.3); Basophils % (Auto) 0 % (0.0-2.0); Eosinophils # (Auto) 0.2 K/mcL (0.0-0.7); Eosinophils % (Auto) 0.9 % (0.0-7.0); Granulocytes % (Auto) 78.7 % (38.0-78.0); Lymphocytes # (Auto) 1.2 K/mcL (1.5-4.8); Lymphocytes % (Auto) 6.5 % (15.5-49.0); Mean Cell Volume 89.8 fL (80.0-100.0); Mean Corpuscular HGB Conc 32.8 g/dL (31.0-36.0); Mean Corpuscular Hemoglobin 29.4 pg (26.0-34.0); Monocytes # (Auto) 2.5 K/mcL (0.1-0.9); Monocytes % (Auto) 13.9 % (1.0-12.0); Platelet Count 281 K/mcL (140-440); RBC 2.64 M/mcL (4.50-5.90)
[2017-02-12] MEDS: 0.9 % SODIUM CHLORIDE 10 ML SYRINGE IV SCH ×4 (07:32→22:00)
[2017-02-12] MEDS: INSULIN LISPRO 1 UNIT/0.01 ML UNIT SQ SCH ×4 (07:32→21:00)
[2017-02-12] MEDS: VANCOMYCIN 1,500 MG in 0.9 % SODIUM CHLORIDE 500 ML IV SCH (07:35)
[2017-02-12 07:42] LABS: ALT/SGPT 9 U/l (0-40); Albumin 2.3 gm/dL (3.2-5.2); Albumin/Globulin Ratio 0.7 (1.0-2.3); Alkaline Phosphatase 97 U/L (39-117); Bilirubin,Direct 0.3 mg/dL (0.0-0.3); Blood Urea Nitrogen 54 mg/dl (6-20); Gamma Glutamyl Transpeptidase 33 U/L (8-61); Magnesium 1.8 mg/dL (1.6-2.5); Uric Acid 6.5 mg/dL (2.5-8.0)
[2017-02-12] MEDS: LISINOPRIL 20 MG TABLET PO SCH (09:03)
[2017-02-12] MEDS: DILTIAZEM 180 MG CAP.XL.24H PO SCH ×2 (09:03→21:00)
[2017-02-12] MEDS: METOPROLOL SUCCINATE 50 MG TAB.XL.24H PO SCH ×2 (09:03→21:00)
[2017-02-12] MEDS ORDERED: FUROSEMIDE 100 MG/10 ML VIAL IV ONE (09:19)
--- NOTE | 2017-02-12 09:27 | Nephrology Progress Note ---
Subjective Patient information: Note initiated : 02/12/17 at 9:25 am Service Date, if different from initiated Date: [] Patient: Keegan Uribe a 46 y/o M admitted on 02/07/17 for Elevated INR, Weakness. Chief Complaint: [] Principal diagnosis: PATRICIA / ARF, oliguria, fluid overload Interval history: Keegan did not report any complaints. His breathing is shallow. Recorded urine output has been borderline, about 400 ml over last 24 hours. ABG did not show acidosis, pO2 was 67. Objective - Vital Signs Vital signs: Vital Signs Temp Pulse Pulse Resp BP Pulse Ox 02/12/17 07:52 92 H 02/12/17 07:49 92 02/12/17 07:44 92 H 24 H 92 02/12/17 07:25 92 H 24 H 02/12/17 07:17 97.4 F 89/58 91 02/12/17 05:45 92 02/12/17 04:47 91 02/12/17 04:38 70 L 02/12/17 04:30 93 02/12/17 04:19 99.7 F H 36 H 93/63 92 02/12/17 03:57 87 L 02/12/17 00:08 99.2 F H 36 H 95/47 93 02/11/17 23:21 86 L 02/11/17 23:00 82 24 H 02/11/17 20:51 109/74 88 L 02/11/17 20:50 88 L 02/11/17 20:19 86/52 94 02/11/17 20:17 128/114 94 02/11/17 20:11 98.1 F 20 86/52 94 02/11/17 19:31 95 H 92 02/11/17 19:09 103 H 24 H 02/11/17 19:03 92 02/11/17 16:17 117/66 92 02/11/17 16:16 97.6 F 20 117/66 93 02/11/17 15:21 109 H 24 H 02/11/17 15:15 94 02/11/17 12:13 97/69 93 02/11/17 12:09 97.2 F 20 97/69 93 Intake and Output 02/11/17 02/12/17 02/12/17 21:59 05:59 13:59 Intake Total 600 / 600 900 / 900 Output Total 300 / 300 100 / 100 Balance 300 / 300 800 / 800 Intake: IV 100 / 100 600 / 600 Vancomycin 1,500 mg In 500 / 500 Sodium Chloride 0.9% 500 ml @ 333.3 mls/hr IV Q12H [facility] Rx#:[id number] Oral 500 / 500 300 / 300 Output: Urine Catheter Amount 300 / 300 100 / 100 Other: Meal Dinner Percent of Meal Consumed 0% # Bowel Movements 0 # of times incontinent of 1 Bowels Weight 312 lb 3.2 oz Intake & Output: Intake & Output 02/11/17 02/12/17 02/12/17 21:59 05:59 13:59 Intake Total 600 / 600 900 / 900 Output Total 300 / 300 100 / 100 Balance 300 / 300 800 / 800 Weight 312 lb 3.2 oz Intake: IV 100 / 100 600 / 600 Vancomycin 1,500 mg In 500 / 500 Sodium Chloride 0.9% 500 ml @ 333.3 mls/hr IV Q12H [facility] Rx#:[id number] Oral 500 / 500 300 / 300 Output: Urine Catheter Amount 300 / 300 100 / 100 Other: Meal Dinner Percent of Meal Consumed 0% # Bowel Movements 0 # of times incontinent of 1 Bowels - Lab 02/12/17 03:55 02/12/17 03:55 Most recent lab results Calcium 8.4 mg/dl (8.6-10.4) L 02/12/17 03:55 Phosphorus 6.0 mg/dL (2.7-4.5) H* 02/12/17 03:55 Magnesium 1.8 mg/dL (1.6-2.5) 02/12/17 03:55 Assessment and Plan (1) Acute renal failure PATRICIA / ATN: nephrotoxic / ischemic in setting of iv contrast exposure and hypotension. Borderline urine output, SCr upto 3.2 today, serum potassium is upper normal limit. Clinically less edematous today. Still has high oxygen requirements. He likely has hypoventilation syndrome, + pleural effusions. CXR yesterday did not show pulmonary edema. Repeat chest xray today. He will receive Lasix 80 mg iv once. I have discussed with Dr. Thompson and iv Vancomycin will be discontinued, Levaquin will be changed to 500 mg iv q48 hrs, Flagyl to 500 mg iv q12h, stop Januvia. Hyponatremia is mild, hyperphosphatemia due to renal failure - no indication for phosphate binders at present. We will try Midodrine for his low-normal BP. Follow intake / output, follow BMP Status: Acute
[2017-02-12] MEDS: DULoxetine 30 MG CAPSULE PO SCH (09:35)
[2017-02-12] MEDS: buPROPion 150 MG TAB.XL.24H PO SCH (09:36)
[2017-02-12] MEDS: BENZTROPINE 1 MG TABLET PO SCH ×2 (09:36→21:00)
--- NOTE | 2017-02-12 10:21 | XRay Report ---
HISTORY: Reason for Exam:hypoxia- evaluate for pulmonary edema FINDINGS: Lung volumes are small due to poor inspiration. There is a generalized alveolar opacity throughout the left lung with milder involvement around the right lower hilum and above the right diaphragm. Small left-sided pleural effusion is present. The heart is moderately enlarged but magnified by poor inspiration and portable technique. Right-sided PICC line remains well-positioned. Moderate amount of gas is seen in the stomach. There has been little change since 02/11/17. IMPRESSION: Persistent bilateral infiltrates, left worse than right. This could be due to a combination of atelectasis, pulmonary edema and pneumonia. Interpreted and Authenticated by: Alex Uribe 02/12/17
[2017-02-12] MEDS: MIDODRINE 5 MG TABLET PO SCH ×2 (12:12→17:30)
[2017-02-12] MEDS: DIVALPROEX SODIUM 250 MG TAB.ER.24H PO SCH ×2 (14:00→21:00)
[2017-02-12] MEDS: OXYBUTYNIN CHLORIDE 5 MG TAB.XL.24H PO SCH (14:00)
[2017-02-12] MEDS: DIGOXIN 125 MCG TABLET PO SCH (16:13)
[2017-02-12] MEDS: LEVOFLOXACIN 750 MG/150 ML BAG IV SCH (16:35)
[2017-02-12] MEDS: sitaGLIPtin 100 MG TABLET PO SCH (16:35)
--- NOTE | 2017-02-12 18:58 | Internal Med Progress Note ---
Medical - PN: Subj Patient information: Note initiated : 02/12/17 at 6:55 pm Service Date, if different from initiated Date: [] Patient: Keegan Uribe 46 y/o M admitted on 02/07/17 for Elevated INR, Weakness. Chief Complaint: [f/u hemorrhage, PATRICIA] Interval history: Mr. Uribe is a 46 year old Male presents to the ER with complaints of weakness going on for the last 1 day. According to the patient, he woke up this morning and was trying to sit outside, while getting back inside the house. He noted that he was very weak, fell down,and was unable to get up. His friend, therefore, 911 to get into the hospital. According to the patient, he was feeling better yesterday. The patient denies any chest pain, palpitations, admits to having some dizziness, denies any syncope or presyncope , denies any head injury. the patient notes that he has not been drinking very well and he is dehydrated, on probing this question further. He is unable to tell me why he is not drinking enough fluids. the patient admits that he has been having abdominal pain going on for the last 3 days, abdominal pain is predominantly in the epigastric and periumbilical region, nonradiating, sharp in nature worse with going outside in the heat better by coming inside inside the house and drinking cold water. The patient admits to having some nausea but no vomiting. He denies any bleeding from any site I was not able to a certain if he was compliant with his medications, but it seems he is taking some. His Coumadin level was supratherapeutic on presentation. He notes that he was unable to have his last INR check. Because of some confusion with his appointment. 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 He has chronic wounds which are managed by the wound care clinic, In the emergency room, the patient was evaluated. History of rib discomfort was elevated, he had low sodium at 130, this is chronically low for him, INR of 11.4, hemoglobin of 9,his labs are near baseline, except for elevated INR. His digoxin level is less than 0.03. A chest x-ray was reported as negative, urine analysis shows mild leukocyte esterase but no bacteria, or white blood cells. Given that the patient is in very poor living conditions, has an elevated white count, decreased by mouth intake associated with fatigue. He was admitted to the hospital for further evaluation and management. 02/08: patient seen and examined, overnight events noted.He was groggy this morning and wanted to sleep, but woke up with verbal commands and obeyed orders answered appropriately, The patient has been tachycardic overnight in A. fib with RVR. His CT scan of the abdomen, pelvis showed a hematoma versus an abscess in the left psoas muscle. The patient has supratherapeutic INR and I think it is most likely for this to be a hematoma and abscess. However, it is difficult to know for sure without aspiration. The patientis on vancomycin, levofloxacin and Flagyl for broad-spectrum coverage. Patient received 4 units of FFP, vitamin K injection, overnight. This morning his hemoglobin was dropped to 5.5. He is to get 3 units of blood. We will recheck his labs after his blood transfusion is finished. The INR this morning is 1.7. Should his hemoglobin continued to drop, we will consult surgery to get an opinion. The patient's drug screen is positive for amphetamine, the patient denies use of any other substances except for marijuana, thinks that it might be released with it. The patient has abdominal pain still, but no other symptoms. He was resting comfortably. He got up PICC line placed last night for better IV access. macias placed. 02/09: Pt seen examined, no acute overnight events, hb dropped again this AM, will give another 2 units of PRBC, patient has some soreness in the abdomen, but was sleeping comfortably. Plan of care reviewed with him, explained to him that he has a large blood clot in the one of the big muscles int the abdomen and he needs to be monitored. He will remain bed bound till we can establish stability of the bleed. He denies any left leg weakness or numbness. The Pt will get a repeat CT abdo and pelvis without conterast to evaluaet the bleed. INR is 1.5 this AM He continues to be on broad sepectrum ABX, he also remains of 4L oxygen will get chest X ray again today. 02/10: Urine output is been low. Received 20 mg of IV Lasix earlier today with minimal response. Intake has been much greater than output. Developing edema and his hands, as well as lower extremities. On 6 L nasal cannula to maintain sats. Patient complaining of some abdominal pain, though it has improved since 2 days ago. Appetite is improving, starting to eat. 02/11: Urine output remains low. Did have some response to 80 mg dose of furosemide. Creatinine elevated. Clinically the patient states he feels he is finally starting to feel better. No left-sided abdominal pain. Appetite is improving. 02/12: No specific complaints this morning. Abdominal pain remains resolved. Does have shortness of breath. No cough or sputum production. Oxygen demands went up overnight. Has hypoxic respiratory failure. During the day, repeat radiograph showed pulmonary edema. Nephrology arranged transport to [facility] for dialysis catheter placement. Plans for hemodialysis this evening. D/W Dr. Gupta. - Constitutional Vitals: Vital Signs Temp Pulse Resp BP Pulse Ox 98.0 F 103 H 20 112/70 90 02/12/17 16:00 02/12/17 09:55 02/12/17 16:00 02/12/17 16:00 02/12/17 16:00 Period Temp Pulse Resp BP Sys/Willis Pulse Ox Last 24 Hr 97.4 F-99.7 F 82-103 20-36 86-128/47-114 70-94 Intake and Output 02/12/17 02/12/17 02/12/17 05:59 13:59 21:59 Intake Total 900 / 900 100 / 100 Output Total 100 / 100 200 / 200 Balance 800 / 800 100 / 100 -200 / -200 Weight 312 lb 3.2 oz Patient Weight 02/13/17 05:59 Weight 312 lb 3.2 oz Intake & Output: Intake & Output 02/12/17 02/12/17 02/12/17 05:59 13:59 21:59 Intake Total 900 / 900 100 / 100 Output Total 100 / 100 200 / 200 Balance 800 / 800 100 / 100 -200 / -200 Weight 312 lb 3.2 oz Intake: IV 600 / 600 100 / 100 Vancomycin 1,500 mg In 500 / 500 Sodium Chloride 0.9% 500 ml @ 333.3 mls/hr IV Q12H [facility] Rx#:[id number] Oral 300 / 300 Output: Urine Catheter Amount 100 / 100 200 / 200 Other: # of times incontinent of 1 1 Bowels - Additional findings Additional findings: General: A little more lethargic this morning Chest: Tubular breath sounds at left greater than right base with some rales. Cardiovascular: Irregularly irregular Abdomen: Obese, soft, no left-sided tenderness Extremities: Decreased nonpitting edema in the upper extremities. Decreased edema in the lower extremities, skin definition/wrinkling now apparent. Neuro: Alert but not as talkative, remains oriented, generally weak. Medical - PN: Obj Da - Labs CBC & Chem 7: 02/12/17 03:55 02/12/17 03:55 Labs: Abnormal Lab Results 02/12/17 02/12/17 02/12/17 10:09 03:55 03:55 WBC RBC Hgb Hct RDW MPV Gran % Lymph % (Auto) Baldwin % (Auto) Gran # Lymph # (Auto) Baldwin # (Auto) PT INR Sodium 131 L Chloride 92 L BUN 54 H Creatinine 3.2 H Glucose 113 H Calcium 8.4 L Phosphorus 6.0 H* Troponin T 0.04 H* NT-Pro-B Natriuret Pep 5682.0 H Total Protein 5.4 L Albumin 2.3 L Albumin/Globulin Ratio 0.7 L Urine Protein Urine Occult Blood Ur Leukocyte Esterase Urine RBC Urine WBC Hyaline Casts 02/12/17 02/12/17 02/11/17 03:55 03:55 19:25 WBC 17.9 H RBC 2.64 L Hgb 7.8 L Hct 23.7 L RDW 16.0 H MPV 6.3 L Gran % 78.7 H Lymph % (Auto) 6.5 L Baldwin % (Auto) 13.9 H Gran # 14.1 H Lymph # (Auto) 1.2 L Baldwin # (Auto) 2.5 H PT 17.7 H INR 1.4 H Sodium Chloride BUN Creatinine Glucose Calcium Phosphorus Troponin T NT-Pro-B Natriuret Pep Total Protein Albumin Albumin/Globulin Ratio Urine Protein 30 A Urine Occult Blood 0.03 A Ur Leukocyte Esterase 500 A Urine RBC 33 H Urine WBC > 182 H Hyaline Casts 7 H 02/11/17 02/11/17 02/11/17 03:50 03:50 03:50 WBC 19.5 H RBC 2.93 L Hgb 8.7 L Hct 26.2 L RDW 15.7 H MPV 6.4 L Gran % 82.2 H Lymph % (Auto) 6.3 L Baldwin % (Auto) Gran # 16.1 H Lymph # (Auto) 1.2 L Baldwin # (Auto) 2.1 H PT 16.4 H INR 1.3 H Sodium Chloride 94 L BUN 37 H Creatinine 2.5 H Glucose Calcium Phosphorus 4.6 H Troponin T NT-Pro-B Natriuret Pep Total Protein 5.6 L Albumin 2.3 L Albumin/Globulin Ratio 0.7 L Urine Protein Urine Occult Blood Ur Leukocyte Esterase Urine RBC Urine WBC Hyaline Casts 02/10/17 02/10/17 02/10/17 19:55 12:45 12:45 WBC RBC Hgb 7.9 L 7.3 L Hct 24.2 L 22.0 L RDW MPV Gran % Lymph % (Auto) Baldwin % (Auto) Gran # Lymph # (Auto) Baldwin # (Auto) PT INR Sodium Chloride BUN Creatinine Glucose Calcium Phosphorus Troponin T NT-Pro-B Natriuret Pep Total Protein Albumin Albumin/Globulin Ratio Urine Protein Urine Occult Blood Ur Leukocyte Esterase Urine RBC Urine WBC Hyaline Casts 02/10/17 02/10/17 02/10/17 03:58 03:50 03:50 WBC 16.4 H RBC 2.47 L Hgb 7.2 L Hct 22.3 L RDW 15.7 H MPV 6.5 L Gran % Lymph % (Auto) 9.5 L Baldwin % (Auto) 13.8 H Gran # 12.4 H Lymph # (Auto) Baldwin # (Auto) 2.3 H PT 16.4 H INR 1.3 H Sodium Chloride BUN 22 H Creatinine 1.3 H Glucose 120 H Calcium 8.0 L Phosphorus Troponin T NT-Pro-B Natriuret Pep Total Protein 5.1 L Albumin 2.2 L Albumin/Globulin Ratio 0.8 L Urine Protein Urine Occult Blood Ur Leukocyte Esterase Urine RBC Urine WBC Hyaline Casts 02/09/17 02/09/17 19:45 18:32 WBC 17.1 H RBC 2.69 L Hgb 7.9 L Hct 23.9 L RDW 15.5 H MPV 6.4 L Gran % 78.4 H Lymph % (Auto) 7.3 L Baldwin % (Auto) 13.9 H Gran # 13.4 H Lymph # (Auto) 1.2 L Baldwin # (Auto) 2.4 H PT INR Sodium 128 L Chloride 93 L BUN Creatinine Glucose 113 H Calcium 8.1 L Phosphorus 2.5 L Troponin T NT-Pro-B Natriuret Pep Total Protein 5.3 L Albumin 2.4 L Albumin/Globulin Ratio 0.8 L Urine Protein Urine Occult Blood Ur Leukocyte Esterase Urine RBC Urine WBC Hyaline Casts Meds: Medications Acetaminophen (Tylenol) 650 mg PO Q6HP PRN PRN Reason: PAIN/FEVER > 101 Last Admin: 02/11/17 21:30 Dose: 650 mg Albuterol/Ipratropium (Duoneb) 3 ml NEB Q4HRT [facility] Last Admin: 02/12/17 15:42 Dose: Not Given Benztropine Mesylate (Cogentin) 0.5 mg PO BID [facility] Last Admin: 02/12/17 09:36 Dose: 0.5 mg Bupropion HCl (Wellbutrin Xl) 150 mg PO DAILY [facility] Last Admin: 02/12/17 09:36 Dose: 150 mg Dextrose (Dextrose 50%) 0 ml IV UD PRN PRN Reason: Hypoglycemia Diagnostic Test (Pha) (Accu-Chek) 1 each FS ACHS [facility] Last Admin: 02/12/17 12:10 Dose: 1 each Digoxin (Lanoxin) 125 mcg PO DAILY@1400 [facility] Last Admin: 02/12/17 16:13 Dose: Not Given Diltiazem HCl (Cardizem Cd) 180 mg PO BID [facility] Last Admin: 02/12/17 09:03 Dose: 180 mg Divalproex Sodium (Depakote Er) 1,000 mg PO BID [facility] Last Admin: 02/12/17 14:00 Dose: 1,000 mg Duloxetine HCl (Cymbalta) 120 mg PO DAILY [facility] Last Admin: 02/12/17 09:35 Dose: 120 mg Glucose (Insta-Glucose) 15 gm PO PRN PRN PRN Reason: Hypoglycemia Heparin Sodium (Porcine) (Heparin Flush) 2 ml IV Q12 [facility] Last Admin: 02/12/17 09:35 Dose: 2 ml Metronidazole (Flagyl) 500 mg in 100 mls @ 100 mls/hr IV Q8H [facility] Last Admin: 02/12/17 16:13 Dose: Not Given Levofloxacin (Levaquin) 500 mg in 100 mls @ 100 mls/hr IV Q48H [facility] Insulin Human Lispro (Humalog) 0 unit SQ ACHS [facility] PRN Reason: Protocol Last Admin: 02/12/17 12:14 Dose: Not Given Metoprolol Succinate (Toprol Xl) 200 mg PO BID [facility] Last Admin: 02/12/17 09:03 Dose: 200 mg Midodrine (Midodrine Hcl) 10 mg PO TID@0800,1200,1700 [facility] Last Admin: 02/12/17 12:12 Dose: 10 mg Naloxone HCl (Narcan) 0.1 mg IV Q2MIN PRN PRN Reason: Opiate Reversal Ondansetron HCl (Zofran) 4 mg IV Q4HP PRN PRN Reason: Nausea And Vomiting Last Admin: 02/09/17 06:53 Dose: 4 mg Oxybutynin Chloride (Ditropan Xl) 10 mg PO DAILY [facility] Last Admin: 02/12/17 14:00 Dose: 10 mg Oxycodone/Acetaminophen (Percocet 5-325 Mg) 1 tab PO Q4HP PRN PRN Reason: Pain Risperidone (Risperdal) 8 mg PO HS [facility] Last Admin: 02/11/17 21:29 Dose: 8 mg Simvastatin (Zocor) 20 mg PO QHS [facility] Last Admin: 02/11/17 21:29 Dose: 20 mg Sodium Chloride (Saline Flush) 10 ml IV Q8 [facility] Last Admin: 02/12/17 16:14 Dose: Not Given Trazodone HCl (Desyrel) 100 mg PO [facility] Last Admin: 02/11/17 21:29 Dose: 100 mg Zolpidem Tartrate (Ambien) 10 mg PO [facility] Last Admin: 02/11/17 21:29 Dose: 10 mg - Imaging and cardiology Chest x-ray Status: image reviewed by me Additional comments: IMPRESSION: Persistent bilateral infiltrates, left worse than right. This could be due to a combination of atelectasis, pulmonary edema and pneumonia. Medical - PN: A/P - Time Spent With Patient Total time spent is greater than 50% in coordination of care (as documented) at patient's floor/unit and/or counseling patient: Greater than 35 minutes - Narrative A/P Narrative: Acute renal failure. Creatinine rising again today. Urine output marginal, some response IV furosemide. Less extremity edema, but remains with total body volume overload with pulmonary edema and worsening respiratory failure. Suspect ATN from contrast exposure or from hypoperfusion in the setting of profound anemia when his hemoglobin dropped to 5.5. Plan: HD catheter placed, for HD later today. Redose antibiotics, stop vancomycin. d/w Dr. Gupta. SIRS: White count remains elevated, stable. No fever. Cultures are negative. Suspect inflammatory response from iliopsoas and retroperitoneal hemorrhage. Low calcitonin of 0.06 reassuring. Plan: Stop vancomycin, renally dose levofloxacin to 500 mg q48h, next dose 8/ 17 AM and metronidazole to Q12hr. If fever, consider aspiration of iliopsoas fluid to rule out abscess Retroperitoneal and iliopsoas hemorrhages. Secondary to hypercoagulable state at presentation. Hemoglobin down a bit, but stable from Saturday.. Plan: Follow blood counts, transfuse as needed Hypercoagulable state as a toxicity of warfarin. INR 11.4 at arrival. Resolved with INR normalizing. Plan: Hold anticoagulation, may need to consider NOAC in convalescence for stroke prophylaxis Atrial fibrillation with RVR presentation. Generally rate controlled with medications. Plan: Continue rate control as able, depending upon BP Hypertension. Blood pressures normalized/running low at times. Plan: Hold blood pressure medications for hypotension. Bipolar disorder. Stable. Plan: Continue home medications Type 2 diabetes. Appetite is picking up. Plan: Continue with renal diet, insulin therapy; stop Januvia Weakness and debility, likely secondary to poor nutritional status and acute medical illness. Hemorrhage is stable. Plan: Okay to work with physical therapy when procedures completed. DVT prophylaxis: SCDs only. Medical - PN: Qual - VTE Deep Vein Thrombosis/Pulmonary Embolism Present on Admission: No
[2017-02-12] MEDS: SIMVASTATIN 20 MG TABLET PO SCH (21:00)
[2017-02-12] MEDS: traZODone HCL 50 MG TABLET PO SCH (21:00)
[2017-02-12] MEDS: risperiDONE 1 MG TABLET PO SCH (21:00)
[2017-02-12] MEDS: ZOLPIDEM 5 MG TABLET PO SCH (21:00)
[2017-02-13] MEDS: IPRATROPIUM/ALBUTEROL 3 ML AMPUL.NEB NEB SCH ×6 (02:55→23:00)
[2017-02-13] MEDS: metroNIDAZOLE 500 MG/100 ML BAG IV SCH ×2 (06:02→22:22)
[2017-02-13] MEDS: 0.9 % SODIUM CHLORIDE 10 ML SYRINGE IV SCH ×3 (06:03→22:08)
[2017-02-13 07:18] LABS: ALT/SGPT 6 U/l (0-40); Albumin 2.2 gm/dL (3.2-5.2); Albumin/Globulin Ratio 0.6 (1.0-2.3); Alkaline Phosphatase 81 U/L (39-117); Bilirubin,Direct 0.3 mg/dL (0.0-0.3); Blood Urea Nitrogen 59 mg/dl (6-20); Gamma Glutamyl Transpeptidase 29 U/L (8-61); Uric Acid 6.2 mg/dL (2.5-8.0)
[2017-02-13 07:54] LABS: Basophils # (Auto) 0 K/mcL (0.0-0.3); Basophils % (Auto) 0.1 % (0.0-2.0); Eosinophils # (Auto) 0 K/mcL (0.0-0.7); Eosinophils % (Auto) 0.1 % (0.0-7.0); Granulocytes % (Auto) 69.1 % (38.0-78.0); Lymphocytes # (Auto) 0.6 K/mcL (1.5-4.8); Lymphocytes % (Auto) 6.4 % (15.5-49.0); Mean Cell Volume 89.6 fL (80.0-100.0); Mean Corpuscular Hemoglobin 29.5 pg (26.0-34.0); Monocytes # (Auto) 2.4 K/mcL (0.1-0.9); Monocytes % (Auto) 24.3 % (1.0-12.0); Platelet Count 251 K/mcL (140-440); RBC 2.56 M/mcL (4.50-5.90); Red Cell Distribution Width 15.8 % (11.5-14.5)
[2017-02-13] MEDS: INSULIN LISPRO 1 UNIT/0.01 ML UNIT SQ SCH ×4 (08:00→22:07)
--- NOTE | 2017-02-13 10:07 | XRay Report ---
HISTORY: Reason for Exam:Respiratory failure, pulmonary edema FINDINGS: Patient is developing moderate consolidation in the right middle and right lower lobe. This is become worse since 02/12/17 and could be a combination of atelectasis and pneumonia. In the left lung there is a generalized alveolar infiltrate with the greatest consolidation in the medial portion of the left lower lobe. Air bronchograms are present in the medial basal segment. The infiltrate in the left side has improved since chest today. There is relative sparing of the upper lobes. The heart is moderately enlarged. There is a dual lumen catheter placed the right internal jugular vein into the superior vena cava. No pneumothorax is present and there is no widening of the mediastinum. IMPRESSION: Worsening atelectasis or pneumonia in the right lower lobe and improving generalized infiltrates throughout the left lung. There may be superimposed congestive heart failure and pulmonary edema. No complication following central line placement Interpreted and Authenticated by: Alex Uribe 02/13/17
[2017-02-13] MEDS: MIDODRINE 5 MG TABLET PO SCH ×3 (10:42→17:05)
[2017-02-13] MEDS: DILTIAZEM 180 MG CAP.XL.24H PO SCH ×3 (10:42→22:06)
[2017-02-13] MEDS: BENZTROPINE 1 MG TABLET PO SCH ×2 (10:42→22:07)
[2017-02-13] MEDS: DULoxetine 30 MG CAPSULE PO SCH ×2 (10:43→15:16)
[2017-02-13] MEDS: OXYBUTYNIN CHLORIDE 5 MG TAB.XL.24H PO SCH ×2 (10:43→15:12)
[2017-02-13] MEDS: DIVALPROEX SODIUM 250 MG TAB.ER.24H PO SCH ×3 (10:43→22:07)
[2017-02-13] MEDS: METOPROLOL SUCCINATE 50 MG TAB.XL.24H PO SCH ×2 (10:44→22:08)
[2017-02-13] MEDS: buPROPion 150 MG TAB.XL.24H PO SCH (10:44)
--- NOTE | 2017-02-13 12:58 | Nephrology Progress Note ---
Subjective Patient information: Note initiated : 02/13/17 at 12:55 pm Service Date, if different from initiated Date: [] Patient: Keegan Uribe a 46 y/o M admitted on 02/07/17 for Elevated INR, Weakness. Chief Complaint: [] Principal diagnosis: PATRICIA / ARF, oliguria, fluid overload Interval history: Keegan had dialysis with 1.2 liters ultrafiltration yesterday. Tunnelled HD catheter was placed at [facility] yesterday by IR. Chest xray done yesterday showed pulmonary edema in the setting of oliguria and poor response to diuretics. He has face mask now, on high FiO2. Objective - Vital Signs Vital signs: Vital Signs Temp Pulse Pulse Resp BP Pulse Ox 02/13/17 12:41 91 H 112/75 02/13/17 12:25 85 106/95 02/13/17 12:11 94 H 111/67 02/13/17 12:01 91 H 109/66 02/13/17 11:48 97.1 F 84 24 H 108/65 88 L 02/13/17 10:39 90 27 H 02/13/17 10:35 100 H 27 H 92 02/13/17 10:08 89 21 92 02/13/17 10:01 88 26 H 108/75 93 02/13/17 09:38 100 H 27 H 92 02/13/17 09:01 100 H 22 118/74 94 02/13/17 08:01 98.0 F 98 H 18 102/55 89 L 02/13/17 07:20 94 H 36 H 92 02/13/17 07:15 94 H 36 H 92 02/13/17 07:10 92 H 36 H 02/13/17 07:02 98 H 27 H 104/56 90 02/13/17 06:01 88 30 H 98/60 91 02/13/17 05:01 70 29 H 96/59 91 02/13/17 05:00 89 33 H 91 02/13/17 04:21 93 H 30 H 90 02/13/17 04:01 98.0 F 86 25 H 93/54 92 02/13/17 03:00 82 31 H 109/70 91 02/13/17 02:01 81 27 H 100/76 90 02/13/17 01:28 87 28 H 91 02/13/17 01:01 92 H 36 H 100/69 91 02/13/17 01:00 88 33 H 91 02/13/17 00:27 93 H 31 H 91 02/13/17 00:21 93 H 29 H 91 02/13/17 00:10 86 L 02/13/17 00:01 97.4 F 108/76 86 L 02/13/17 00:00 87 L 02/12/17 23:55 88 L 02/12/17 23:50 86 L 02/12/17 23:45 85 L 02/12/17 23:40 82 L 02/12/17 23:31 97/70 85 L 02/12/17 23:25 85 L 02/12/17 23:20 82 L 02/12/17 23:15 81 L 02/12/17 23:12 90 26 H 02/12/17 23:10 80 L 02/12/17 23:05 83 L 02/12/17 23:01 106/63 84 L 02/12/17 23:00 87 L 02/12/17 22:31 105/59 91 02/12/17 22:16 87/59 92 02/12/17 22:01 88/51 90 02/12/17 21:47 98/54 91 02/12/17 21:39 93/56 91 02/12/17 21:34 88/43 90 02/12/17 21:31 91/52 89 L 02/12/17 21:25 97.1 F 89 88/43 02/12/17 21:17 91 H 107/88 02/12/17 21:16 107/88 89 L 02/12/17 21:12 97/51 02/12/17 21:07 85 97/51 02/12/17 21:01 82/60 92 02/12/17 20:55 80 82/60 02/12/17 20:52 90/52 91 02/12/17 20:48 85 90/52 02/12/17 20:46 86/52 91 02/12/17 20:41 89/48 90 02/12/17 20:31 86/48 90 02/12/17 20:27 85 86/68 02/12/17 20:22 98/60 90 02/12/17 20:17 83 98/60 02/12/17 20:16 85/51 90 02/12/17 20:07 91 02/12/17 20:05 87/54 91 02/12/17 20:01 91/52 90 02/12/17 20:00 80 87/54 02/12/17 19:50 98/64 90 02/12/17 19:46 98/63 91 02/12/17 19:45 95 H 98/64 02/12/17 19:37 100/56 90 02/12/17 19:36 96.4 F L 80 100/56 02/12/17 19:31 94/52 92 02/12/17 19:26 95/60 88 L 02/12/17 19:16 91/61 83 L 02/12/17 19:14 90 26 H 02/12/17 19:11 97.5 F 16 102/64 90 02/12/17 19:08 90 02/12/17 19:03 102/64 90 02/12/17 18:40 94 H 92 02/12/17 17:59 108/72 85 L 02/12/17 17:58 81/58 82 L 02/12/17 16:00 98.0 F 20 112/70 90 02/12/17 15:12 112/70 Intake and Output 02/12/17 02/13/17 02/13/17 21:59 05:59 13:59 Intake Total 100 / 100 0 / 0 Output Total 8613 / 8613 100 / 100 3907 / 3907 Balance -8613 / -8613 0 / 0 -3907 / -3907 Intake: IV 100 / 100 Oral 0 / 0 Output: Urine Catheter Amount 200 / 200 100 / 100 Hemodialysis UF 8413 / 8413 3907 / 3907 Other: # Bowel Movements 1 # of times incontinent of 1 1 Bowels Weight 313 lb 11.2 oz Intake & Output: Intake & Output 02/12/17 02/13/17 02/13/17 21:59 05:59 13:59 Intake Total 100 / 100 0 / 0 Output Total 8613 / 8613 100 / 100 3907 / 3907 Balance -8613 / -8613 0 / 0 -3907 / -3907 Weight 313 lb 11.2 oz Intake: IV 100 / 100 Oral 0 / 0 Output: Urine Catheter Amount 200 / 200 100 / 100 Hemodialysis UF 8413 / 8413 3907 / 3907 Other: # Bowel Movements 1 # of times incontinent of 1 1 Bowels - Lab 02/13/17 04:00 02/13/17 04:00 Most recent lab results Calcium 8.3 mg/dl (8.6-10.4) L 02/13/17 04:00 Phosphorus 5.2 mg/dL (2.7-4.5) H 02/13/17 04:00 Magnesium 2.0 mg/dL (1.6-2.5) 02/13/17 04:00 Assessment and Plan (1) Acute renal failure PATRICIA / ATN: nephrotoxic / ischemic in setting of iv contrast exposure and hypotension. Oliguric. BP better on Midodrine. Plan to do dialysis for 3 hrs in am today with upto 3 liters UF as tolerated keeping SBP > 90 mmHg. Follow intake / output, follow BMP. Check anti HCV, HbsAg Status: Acute
[2017-02-13 13:09] LABS: Hepatitis B Surface Antigen NEGATIVE (NEGATIVE); Hepatitis C Virus Antibody NON REACTIVE (NEGATIVE)
[2017-02-13] MEDS: DIGOXIN 125 MCG TABLET PO SCH (14:57)
--- NOTE | 2017-02-13 15:58 | Internal Med Progress Note ---
Medical - PN: Subj Patient information: Note initiated : 02/13/17 at 3:42 pm Service Date, if different from initiated Date: [] Patient: Keegan Uribe 46 y/o M admitted on 02/07/17 for Elevated INR, Weakness. Chief Complaint: [f/u ARF, retroperitoneal/iliopsoas hematoma] Interval history: Mr. Uribe is a 46 year old Male presents to the ER with complaints of weakness going on for the last 1 day. According to the patient, he woke up this morning and was trying to sit outside, while getting back inside the house. He noted that he was very weak, fell down,and was unable to get up. His friend, therefore, 911 to get into the hospital. According to the patient, he was feeling better yesterday. The patient denies any chest pain, palpitations, admits to having some dizziness, denies any syncope or presyncope , denies any head injury. the patient notes that he has not been drinking very well and he is dehydrated, on probing this question further. He is unable to tell me why he is not drinking enough fluids. the patient admits that he has been having abdominal pain going on for the last 3 days, abdominal pain is predominantly in the epigastric and periumbilical region, nonradiating, sharp in nature worse with going outside in the heat better by coming inside inside the house and drinking cold water. The patient admits to having some nausea but no vomiting. He denies any bleeding from any site I was not able to a certain if he was compliant with his medications, but it seems he is taking some. His Coumadin level was supratherapeutic on presentation. He notes that he was unable to have his last INR check. Because of some confusion with his appointment. 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 He has chronic wounds which are managed by the wound care clinic, In the emergency room, the patient was evaluated. History of rib discomfort was elevated, he had low sodium at 130, this is chronically low for him, INR of 11.4, hemoglobin of 9,his labs are near baseline, except for elevated INR. His digoxin level is less than 0.03. A chest x-ray was reported as negative, urine analysis shows mild leukocyte esterase but no bacteria, or white blood cells. Given that the patient is in very poor living conditions, has an elevated white count, decreased by mouth intake associated with fatigue. He was admitted to the hospital for further evaluation and management. 02/08: patient seen and examined, overnight events noted.He was groggy this morning and wanted to sleep, but woke up with verbal commands and obeyed orders answered appropriately, The patient has been tachycardic overnight in A. fib with RVR. His CT scan of the abdomen, pelvis showed a hematoma versus an abscess in the left psoas muscle. The patient has supratherapeutic INR and I think it is most likely for this to be a hematoma and abscess. However, it is difficult to know for sure without aspiration. The patientis on vancomycin, levofloxacin and Flagyl for broad-spectrum coverage. Patient received 4 units of FFP, vitamin K injection, overnight. This morning his hemoglobin was dropped to 5.5. He is to get 3 units of blood. We will recheck his labs after his blood transfusion is finished. The INR this morning is 1.7. Should his hemoglobin continued to drop, we will consult surgery to get an opinion. The patient's drug screen is positive for amphetamine, the patient denies use of any other substances except for marijuana, thinks that it might be released with it. The patient has abdominal pain still, but no other symptoms. He was resting comfortably. He got up PICC line placed last night for better IV access. macias placed. 02/09: Pt seen examined, no acute overnight events, hb dropped again this AM, will give another 2 units of PRBC, patient has some soreness in the abdomen, but was sleeping comfortably. Plan of care reviewed with him, explained to him that he has a large blood clot in the one of the big muscles int the abdomen and he needs to be monitored. He will remain bed bound till we can establish stability of the bleed. He denies any left leg weakness or numbness. The Pt will get a repeat CT abdo and pelvis without conterast to evaluaet the bleed. INR is 1.5 this AM He continues to be on broad sepectrum ABX, he also remains of 4L oxygen will get chest X ray again today. 02/10: Urine output is been low. Received 20 mg of IV Lasix earlier today with minimal response. Intake has been much greater than output. Developing edema and his hands, as well as lower extremities. On 6 L nasal cannula to maintain sats. Patient complaining of some abdominal pain, though it has improved since 2 days ago. Appetite is improving, starting to eat. 02/11: Urine output remains low. Did have some response to 80 mg dose of furosemide. Creatinine elevated. Clinically the patient states he feels he is finally starting to feel better. No left-sided abdominal pain. Appetite is improving. 02/12: No specific complaints this morning. Abdominal pain remains resolved. Does have shortness of breath. No cough or sputum production. Oxygen demands went up overnight. Has hypoxic respiratory failure. During the day, repeat radiograph showed pulmonary edema. Nephrology arranged transport to [facility] for dialysis catheter placement. Plans for hemodialysis this evening. D/W Dr. Gutpa. 02/13: Had worsening hypoxic respiratory failure last night, required BiPAP overnight. This morning had large loose bowel movement. Underwent hemodialysis , 2 L ultrafiltration. Tolerated well. Still requiring 11 LPM on oxygen mask to maintain saturations. Poor appetite. Is going to take oral meds now that dialysis is finished. Had a care conference. [facility] may be able to provide ongoing care for renal failure and respiratory failure once he is stabilized in a few days. Creatinine stable today, Hb remaining in 7 range. Midodrine to keep up BP. - Constitutional Vitals: Vital Signs Temp Pulse Resp BP Pulse Ox 97.1 F 96 H 18 103/65 88 L 02/13/17 11:48 02/13/17 15:05 02/13/17 15:05 02/13/17 13:56 02/13/17 11:48 Period Temp Pulse Resp BP Sys/Willis Pulse Ox Last 24 Hr 96.4 F-98.0 F 70-103 16-36 81-118/43-95 80-94 Intake and Output 02/13/17 02/13/17 02/13/17 05:59 13:59 21:59 Intake Total 100 / 100 0 / 0 Output Total 100 / 100 53466 / 36027 Balance 0 / 0 -32229 / -68437 Intake & Output: Intake & Output 02/13/17 02/13/17 02/13/17 05:59 13:59 21:59 Intake Total 100 / 100 0 / 0 Output Total 100 / 100 23204 / 60703 Balance 0 / 0 -08295 / - Intake: IV 100 / 100 Oral 0 / 0 Output: Urine Catheter Amount 100 / 100 Hemodialysis UF Other: # Bowel Movements 1 # of times incontinent of 1 Bowels Medical - PN: Obj Da - Labs CBC & Chem 7: 02/13/17 04:00 02/13/17 04:00 Labs: Abnormal Lab Results 02/13/17 02/13/17 02/13/17 04:00 04:00 04:00 WBC RBC 2.56 L Hgb 7.6 L Hct 22.9 L RDW 15.8 H MPV 6.3 L Gran % Lymph % (Auto) 6.4 L [place] % (Auto) 24.3 H Gran # Lymph # (Auto) 0.6 L [place] # (Auto) 2.4 H PT 17.6 H INR 1.4 H Sodium Chloride BUN 59 H Creatinine 3.3 H Glucose 110 H Calcium 8.3 L Phosphorus 5.2 H Troponin T NT-Pro-B Natriuret Pep Total Protein 5.6 L Albumin 2.2 L Albumin/Globulin Ratio 0.6 L Urine Protein Urine Occult Blood Ur Leukocyte Esterase Urine RBC Urine WBC Hyaline Casts 02/12/17 02/12/17 02/12/17 10:09 03:55 03:55 WBC RBC Hgb Hct RDW MPV Gran % Lymph % (Auto) [place] % (Auto) Gran # Lymph # (Auto) [place] # (Auto) PT INR Sodium 131 L Chloride 92 L BUN 54 H Creatinine 3.2 H Glucose 113 H Calcium 8.4 L Phosphorus 6.0 H* Troponin T 0.04 H* NT-Pro-B Natriuret Pep 5682.0 H Total Protein 5.4 L Albumin 2.3 L Albumin/Globulin Ratio 0.7 L Urine Protein Urine Occult Blood Ur Leukocyte Esterase Urine RBC Urine WBC Hyaline Casts 02/12/17 02/12/17 02/11/17 03:55 03:55 19:25 WBC 17.9 H RBC 2.64 L Hgb 7.8 L Hct 23.7 L RDW 16.0 H MPV 6.3 L Gran % 78.7 H Lymph % (Auto) 6.5 L [place] % (Auto) 13.9 H Gran # 14.1 H Lymph # (Auto) 1.2 L [place] # (Auto) 2.5 H PT 17.7 H INR 1.4 H Sodium Chloride BUN Creatinine Glucose Calcium Phosphorus Troponin T NT-Pro-B Natriuret Pep Total Protein Albumin Albumin/Globulin Ratio Urine Protein 30 A Urine Occult Blood 0.03 A Ur Leukocyte Esterase 500 A Urine RBC 33 H Urine WBC > 182 H Hyaline Casts 7 H 02/11/17 02/11/17 02/11/17 03:50 03:50 03:50 WBC 19.5 H RBC 2.93 L Hgb 8.7 L Hct 26.2 L RDW 15.7 H MPV 6.4 L Gran % 82.2 H Lymph % (Auto) 6.3 L [place] % (Auto) Gran # 16.1 H Lymph # (Auto) 1.2 L [place] # (Auto) 2.1 H PT 16.4 H INR 1.3 H Sodium Chloride 94 L BUN 37 H Creatinine 2.5 H Glucose Calcium Phosphorus 4.6 H Troponin T NT-Pro-B Natriuret Pep Total Protein 5.6 L Albumin 2.3 L Albumin/Globulin Ratio 0.7 L Urine Protein Urine Occult Blood Ur Leukocyte Esterase Urine RBC Urine WBC Hyaline Casts 02/10/17 19:55 WBC RBC Hgb 7.9 L Hct 24.2 L RDW MPV Gran % Lymph % (Auto) [place] % (Auto) Gran # Lymph # (Auto) [place] # (Auto) PT INR Sodium Chloride BUN Creatinine Glucose Calcium Phosphorus Troponin T NT-Pro-B Natriuret Pep Total Protein Albumin Albumin/Globulin Ratio Urine Protein Urine Occult Blood Ur Leukocyte Esterase Urine RBC Urine WBC Hyaline Casts Meds: Medications Acetaminophen (Tylenol) 650 mg PO Q6HP PRN PRN Reason: PAIN/FEVER > 101 Last Admin: 02/11/17 21:30 Dose: 650 mg Albuterol/Ipratropium (Duoneb) 3 ml NEB Q4HRT [facility] Last Admin: 02/13/17 15:01 Dose: 3 ml Benztropine Mesylate (Cogentin) 0.5 mg PO BID [facility] Last Admin: 02/13/17 10:42 Dose: Not Given Bupropion HCl (Wellbutrin Xl) 150 mg PO DAILY [facility] Last Admin: 02/13/17 10:44 Dose: Not Given Dextrose (Dextrose 50%) 0 ml IV UD PRN PRN Reason: Hypoglycemia Diagnostic Test (Pha) (Accu-Chek) 1 each FS ACHS [facility] Last Admin: 02/13/17 12:13 Dose: 1 each Digoxin (Lanoxin) 125 mcg PO DAILY@1400 [facility] Last Admin: 02/13/17 14:57 Dose: 125 mcg Diltiazem HCl (Cardizem Cd) 180 mg PO BID [facility] Last Admin: 02/13/17 11:18 Dose: 180 mg Divalproex Sodium (Depakote Er) 1,000 mg PO BID [facility] Last Admin: 02/13/17 15:14 Dose: 1,000 mg Duloxetine HCl (Cymbalta) 120 mg PO DAILY [facility] Last Admin: 02/13/17 15:16 Dose: 120 mg Glucose (Insta-Glucose) 15 gm PO PRN PRN PRN Reason: Hypoglycemia Heparin Sodium (Porcine) (Heparin Flush) 2 ml IV Q12 [facility] Last Admin: 02/13/17 12:12 Dose: 2 ml Levofloxacin (Levaquin) 500 mg in 100 mls @ 100 mls/hr IV Q48H [facility] Metronidazole (Flagyl) 500 mg in 100 mls @ 100 mls/hr IV Q12H [facility] Insulin Human Lispro (Humalog) 0 unit SQ [facility] PRN Reason: Protocol Last Admin: 02/13/17 12:20 Dose: Not Given Metoprolol Succinate (Toprol Xl) 200 mg PO BID [facility] Last Admin: 02/13/17 10:44 Dose: Not Given Midodrine (Midodrine Hcl) 10 mg PO TID@0800,1200,1700 [facility] Last Admin: 02/13/17 11:18 Dose: 10 mg Naloxone HCl (Narcan) 0.1 mg IV Q2MIN PRN PRN Reason: Opiate Reversal Ondansetron HCl (Zofran) 4 mg IV Q4HP PRN PRN Reason: Nausea And Vomiting Last Admin: 02/09/17 06:53 Dose: 4 mg Oxybutynin Chloride (Ditropan Xl) 10 mg PO DAILY [facility] Last Admin: 02/13/17 15:12 Dose: 10 mg Oxycodone/Acetaminophen (Percocet 5-325 Mg) 1 tab PO Q4HP PRN PRN Reason: Pain Risperidone (Risperdal) 8 mg PO HS [facility] Last Admin: 02/12/17 21:00 Dose: Not Given Simvastatin (Zocor) 20 mg PO QHS [facility] Last Admin: 02/12/17 21:00 Dose: Not Given Sodium Chloride (Saline Flush) 10 ml IV Q8 [facility] Last Admin: 02/13/17 14:57 Dose: 10 ml Trazodone HCl (Desyrel) 100 mg PO [facility] Last Admin: 02/12/17 21:00 Dose: Not Given Zolpidem Tartrate (Ambien) 10 mg PO [facility] Last Admin: 02/12/17 21:00 Dose: Not Given - Impressions Echocardiogram The left ventricle is normal in size. There is mild to moderate concentric LVH. Calculated ejection fraction equals 62%. Medical - PN: A/P - Narrative A/P Narrative: Acute renal failure with volume overload. Dialysis catheter placed yesterday afternoon, only able to tolerate 1.2 L of ultrafiltration yesterday. Creatinine stable. Urine output remains marginal. Even with dialysis, experienced worsening respiratory failure. Suspect ATN from contrast exposure or from hypoperfusion in the setting of profound anemia when his hemoglobin dropped to 5.5. Plan: Continue with dialysis and ultrafiltration. Continue with renally dosed antibiotics Acute hypoxic respiratory failure. Worsened last night. Required BiPAP. Some improvement after ultrafiltration today. Still with evidence of pulmonary edema on radiograph. Plan: Continue BiPAP as needed, supplemental oxygen SIRS: White count normalized today. No fever and cultures were negative. Suspect inflammatory response from iliopsoas and retroperitoneal hemorrhage. Low calcitonin of 0.06 reassuring. On antibiotics to cover for abdominal pathogens given severity of illness. Plan: Renally dose levofloxacin to 500 mg q48h, next dose 8/17 AM and metronidazole to Q12hr. If fever, consider aspiration of iliopsoas fluid to rule out abscess Marginally abnormal troponin 0.04. Do not suspect ACS, may some some demand ischemia, vs. poor renal clearance of marker. Retroperitoneal and iliopsoas hemorrhages. Secondary to hypercoagulable state at presentation. Hemoglobin remains in the 7 range. Plan: Follow blood counts, transfuse as needed Hypercoagulable state as a toxicity of warfarin. INR 11.4 at arrival. Resolved with INR normalizing. Plan: Hold anticoagulation, may need to consider NOAC in convalescence for stroke prophylaxis Atrial fibrillation with RVR presentation. Generally rate controlled now. Plan: Continue rate control as able, depending upon BP Hypertension. Blood pressures normalized/running low at times. Plan: Hold blood pressure medications for hypotension. Bipolar disorder. Stable. Plan: Continue home medications Type 2 diabetes. Plan: Continue with renal diet, insulin therapy; stop Januvia Weakness and debility, likely secondary to poor nutritional status and acute medical illness. Hemorrhage is stable. Plan: Okay to work with physical therapy when stable otherwise. DVT prophylaxis: SCDs only. Medical - PN: Qual - VTE Deep Vein Thrombosis/Pulmonary Embolism Present on Admission: No
[2017-02-13] MEDS: ZOLPIDEM 5 MG TABLET PO SCH (22:06)
[2017-02-13] MEDS: traZODone HCL 50 MG TABLET PO SCH (22:07)
[2017-02-13] MEDS: SIMVASTATIN 20 MG TABLET PO SCH (22:08)
[2017-02-13] MEDS: risperiDONE 1 MG TABLET PO SCH (22:08)
[2017-02-14] MEDS: 0.9 % SODIUM CHLORIDE 10 ML SYRINGE IV SCH ×3 (04:15→21:09)
[2017-02-14] MEDS: IPRATROPIUM/ALBUTEROL 3 ML AMPUL.NEB NEB SCH ×6 (04:17→23:06)
[2017-02-14 05:41] LABS: ALT/SGPT 6 U/l (0-40); Albumin 2.1 gm/dL (3.2-5.2); Albumin/Globulin Ratio 0.7 (1.0-2.3); Alkaline Phosphatase 74 U/L (39-117); Bilirubin,Direct 0.2 mg/dL (0.0-0.3); Blood Urea Nitrogen 59 mg/dl (6-20); Gamma Glutamyl Transpeptidase 28 U/L (8-61)
[2017-02-14 05:59] LABS: Basophils # (Auto) 0 K/mcL (0.0-0.3); Basophils % (Auto) 0.3 % (0.0-2.0); Eosinophils # (Auto) 0 K/mcL (0.0-0.7); Eosinophils % (Auto) 0.5 % (0.0-7.0); Granulocytes % (Auto) 66.9 % (38.0-78.0); Lymphocytes # (Auto) 0.8 K/mcL (1.5-4.8); Lymphocytes % (Auto) 10.5 % (15.5-49.0); Mean Cell Volume 89.1 fL (80.0-100.0); Mean Corpuscular HGB Conc 32.8 g/dL (31.0-36.0); Mean Corpuscular Hemoglobin 29.2 pg (26.0-34.0); Monocytes # (Auto) 1.7 K/mcL (0.1-0.9); Monocytes % (Auto) 21.8 % (1.0-12.0); Platelet Count 223 K/mcL (140-440); RBC 2.39 M/mcL (4.50-5.90)
[2017-02-14] MEDS: INSULIN LISPRO 1 UNIT/0.01 ML UNIT SQ SCH ×4 (08:11→21:07)
--- NOTE | 2017-02-14 08:18 | XRay Report ---
HISTORY: Reason for Exam:respiratory failure FINDINGS: There are bilateral alveolar infiltrates in the mid and lower lung booker bilaterally. There has been moderate improvement in the right middle and lower lobes since yesterday. Patient is developing a thick band of discoid atelectasis above the right diaphragm. The heart is mildly enlarged. Support tubes are well-positioned. No pneumothorax is present. IMPRESSION: Bilateral pulmonary infiltrates with improvement in the right lower thorax Interpreted and Authenticated by: Alex Uribe 02/14/17
[2017-02-14] MEDS: MIDODRINE 5 MG TABLET PO SCH ×3 (09:35→17:50)
[2017-02-14] MEDS: DILTIAZEM 180 MG CAP.XL.24H PO SCH ×2 (09:35→21:06)
[2017-02-14] MEDS: DULoxetine 30 MG CAPSULE PO SCH (09:57)
[2017-02-14] MEDS: BENZTROPINE 1 MG TABLET PO SCH ×2 (09:57→21:07)
[2017-02-14] MEDS: DIVALPROEX SODIUM 250 MG TAB.ER.24H PO SCH ×2 (09:58→21:07)
[2017-02-14] MEDS ORDERED: 0.9 % SODIUM CHLORIDE 250 ML IV SCH (10:00)
--- NOTE | 2017-02-14 10:49 | Internal Med Progress Note ---
Medical - PN: Subj Patient information: Note initiated : 02/14/17 at 10:46 am Service Date, if different from initiated Date: [] Patient: Keegan Uribe 46 y/o M admitted on 02/07/17 for Elevated INR, Weakness. Chief Complaint: [f/u respiratory failure, renal failure] Interval history: Mr. Uribe is a 46 year old Male presents to the ER with complaints of weakness going on for the last 1 day. According to the patient, he woke up this morning and was trying to sit outside, while getting back inside the house. He noted that he was very weak, fell down,and was unable to get up. His friend, therefore, 911 to get into the hospital. According to the patient, he was feeling better yesterday. The patient denies any chest pain, palpitations, admits to having some dizziness, denies any syncope or presyncope , denies any head injury. the patient notes that he has not been drinking very well and he is dehydrated, on probing this question further. He is unable to tell me why he is not drinking enough fluids. the patient admits that he has been having abdominal pain going on for the last 3 days, abdominal pain is predominantly in the epigastric and periumbilical region, nonradiating, sharp in nature worse with going outside in the heat better by coming inside inside the house and drinking cold water. The patient admits to having some nausea but no vomiting. He denies any bleeding from any site I was not able to a certain if he was compliant with his medications, but it seems he is taking some. His Coumadin level was supratherapeutic on presentation. He notes that he was unable to have his last INR check. Because of some confusion with his appointment. 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 He has chronic wounds which are managed by the wound care clinic, In the emergency room, the patient was evaluated. History of rib discomfort was elevated, he had low sodium at 130, this is chronically low for him, INR of 11.4, hemoglobin of 9,his labs are near baseline, except for elevated INR. His digoxin level is less than 0.03. A chest x-ray was reported as negative, urine analysis shows mild leukocyte esterase but no bacteria, or white blood cells. Given that the patient is in very poor living conditions, has an elevated white count, decreased by mouth intake associated with fatigue. He was admitted to the hospital for further evaluation and management. 02/08: patient seen and examined, overnight events noted.He was groggy this morning and wanted to sleep, but woke up with verbal commands and obeyed orders answered appropriately, The patient has been tachycardic overnight in A. fib with RVR. His CT scan of the abdomen, pelvis showed a hematoma versus an abscess in the left psoas muscle. The patient has supratherapeutic INR and I think it is most likely for this to be a hematoma and abscess. However, it is difficult to know for sure without aspiration. The patientis on vancomycin, levofloxacin and Flagyl for broad-spectrum coverage. Patient received 4 units of FFP, vitamin K injection, overnight. This morning his hemoglobin was dropped to 5.5. He is to get 3 units of blood. We will recheck his labs after his blood transfusion is finished. The INR this morning is 1.7. Should his hemoglobin continued to drop, we will consult surgery to get an opinion. The patient's drug screen is positive for amphetamine, the patient denies use of any other substances except for marijuana, thinks that it might be released with it. The patient has abdominal pain still, but no other symptoms. He was resting comfortably. He got up PICC line placed last night for better IV access. macias placed. 02/09: Pt seen examined, no acute overnight events, hb dropped again this AM, will give another 2 units of PRBC, patient has some soreness in the abdomen, but was sleeping comfortably. Plan of care reviewed with him, explained to him that he has a large blood clot in the one of the big muscles int the abdomen and he needs to be monitored. He will remain bed bound till we can establish stability of the bleed. He denies any left leg weakness or numbness. The Pt will get a repeat CT abdo and pelvis without conterast to evaluaet the bleed. INR is 1.5 this AM He continues to be on broad sepectrum ABX, he also remains of 4L oxygen will get chest X ray again today. 02/10: Urine output is been low. Received 20 mg of IV Lasix earlier today with minimal response. Intake has been much greater than output. Developing edema and his hands, as well as lower extremities. On 6 L nasal cannula to maintain sats. Patient complaining of some abdominal pain, though it has improved since 2 days ago. Appetite is improving, starting to eat. 02/11: Urine output remains low. Did have some response to 80 mg dose of furosemide. Creatinine elevated. Clinically the patient states he feels he is finally starting to feel better. No left-sided abdominal pain. Appetite is improving. 02/12: No specific complaints this morning. Abdominal pain remains resolved. Does have shortness of breath. No cough or sputum production. Oxygen demands went up overnight. Has hypoxic respiratory failure. During the day, repeat radiograph showed pulmonary edema. Nephrology arranged transport to [facility] for dialysis catheter placement. Plans for hemodialysis this evening. D/W Dr. Gupta. 02/13: Had worsening hypoxic respiratory failure last night, required BiPAP overnight. This morning had large loose bowel movement. Underwent hemodialysis , 2 L ultrafiltration. Tolerated well. Still requiring 11 LPM on oxygen mask to maintain saturations. Poor appetite. Is going to take oral meds now that dialysis is finished. Had a care conference. [facility] may be able to provide ongoing care for renal failure and respiratory failure once he is stabilized in a few days. Creatinine stable today, Hb remaining in 7 range. Midodrine to keep up BP. 02/14: Dialysis today, plan is to try to get further, 3-4 liters today during dialysis. yesterday afternoon, after dialysis and getting his morning meds late , went back on BiPAP, became less responsive overnight. Vitals were stable, was maintained on BiPAP, opened eyes arouses to deep rub. ABG showed compensation. This morning, has become progressively more alert, responding to voice and light touch now. Plan is to continue dialysis and BiPAP support. Hemoglobin drifted down to 7.0, we'll transfuse 2 further units of packed red blood cells. Continues to have loose stools, C. difficile was negative. Continues to use midodrine for blood pressure. - Constitutional Vitals: Vital Signs Temp Pulse Resp BP Pulse Ox 97.6 F 57 L 20 124/64 96 02/14/17 10:30 02/14/17 10:40 02/14/17 08:55 02/14/17 10:40 02/14/17 10:28 Period Temp Pulse Resp BP Sys/Willis Pulse Ox Last 24 Hr 96.9 F-97.6 F 57-107 16-26 100-125/55-95 85-99 Intake and Output 02/13/17 02/14/17 02/14/17 21:59 05:59 13:59 Intake Total 360 / 360 100 / 100 Output Total 2400 / 2400 250 / 250 Balance -2040 / -2040 -150 / -150 Weight 298 lb 12.8 oz Intake & Output: Intake & Output 02/13/17 02/14/17 02/14/17 21:59 05:59 13:59 Intake Total 360 / 360 100 / 100 Output Total 2400 / 2400 250 / 250 Balance -2040 / -2040 -150 / -150 Weight 298 lb 12.8 oz Intake: IV 100 / 100 Oral 360 / 360 Output: Urine Catheter Amount 225 / 225 170 / 170 Stool 275 / 275 80 / 80 Hemodialysis UF 1900 / 1900 Other: # Bowel Movements 1 - Additional findings Additional findings: General: Laying in bed, responds to sternal touch and voice opens eyes. This is improved during the morning. Chest: Tubular breath sounds on left, rales on right Cardiovascular irregularly irregular, 1+ lower extremity edema, but improved Abdomen: Obese, soft, no apparent tenderness Neuro: Arouses to voice and touch Medical - PN: Obj Da - Labs CBC & Chem 7: 02/14/17 03:57 02/14/17 03:57 Labs: Abnormal Lab Results 02/14/17 02/14/17 02/14/17 03:57 03:57 03:57 WBC RBC 2.39 L Hgb 7.0 L* Hct 21.3 L RDW 16.0 H MPV 6.1 L Gran % Lymph % (Auto) 10.5 L [place] % (Auto) 21.8 H Gran # Lymph # (Auto) 0.8 L [place] # (Auto) 1.7 H PT 16.8 H INR 1.3 H Sodium Chloride BUN 59 H Creatinine 2.9 H Glucose Calcium 8.2 L Phosphorus Troponin T NT-Pro-B Natriuret Pep Total Protein 5.3 L Albumin 2.1 L Albumin/Globulin Ratio 0.7 L Urine Protein Urine Occult Blood Ur Leukocyte Esterase Urine RBC Urine WBC Hyaline Casts 02/13/17 02/13/17 02/13/17 04:00 04:00 04:00 WBC RBC 2.56 L Hgb 7.6 L Hct 22.9 L RDW 15.8 H MPV 6.3 L Gran % Lymph % (Auto) 6.4 L [place] % (Auto) 24.3 H Gran # Lymph # (Auto) 0.6 L [place] # (Auto) 2.4 H PT 17.6 H INR 1.4 H Sodium Chloride BUN 59 H Creatinine 3.3 H Glucose 110 H Calcium 8.3 L Phosphorus 5.2 H Troponin T NT-Pro-B Natriuret Pep Total Protein 5.6 L Albumin 2.2 L Albumin/Globulin Ratio 0.6 L Urine Protein Urine Occult Blood Ur Leukocyte Esterase Urine RBC Urine WBC Hyaline Casts 02/12/17 02/12/17 02/12/17 10:09 03:55 03:55 WBC RBC Hgb Hct RDW MPV Gran % Lymph % (Auto) [place] % (Auto) Gran # Lymph # (Auto) [place] # (Auto) PT INR Sodium 131 L Chloride 92 L BUN 54 H Creatinine 3.2 H Glucose 113 H Calcium 8.4 L Phosphorus 6.0 H* Troponin T 0.04 H* NT-Pro-B Natriuret Pep 5682.0 H Total Protein 5.4 L Albumin 2.3 L Albumin/Globulin Ratio 0.7 L Urine Protein Urine Occult Blood Ur Leukocyte Esterase Urine RBC Urine WBC Hyaline Casts 02/12/17 02/12/17 02/11/17 03:55 03:55 19:25 WBC 17.9 H RBC 2.64 L Hgb 7.8 L Hct 23.7 L RDW 16.0 H MPV 6.3 L Gran % 78.7 H Lymph % (Auto) 6.5 L [place] % (Auto) 13.9 H Gran # 14.1 H Lymph # (Auto) 1.2 L [place] # (Auto) 2.5 H PT 17.7 H INR 1.4 H Sodium Chloride BUN Creatinine Glucose Calcium Phosphorus Troponin T NT-Pro-B Natriuret Pep Total Protein Albumin Albumin/Globulin Ratio Urine Protein 30 A Urine Occult Blood 0.03 A Ur Leukocyte Esterase 500 A Urine RBC 33 H Urine WBC > 182 H Hyaline Casts 7 H Meds: Medications Acetaminophen (Tylenol) 650 mg PO Q6HP PRN PRN Reason: PAIN/FEVER > 101 Last Admin: 02/11/17 21:30 Dose: 650 mg Albuterol/Ipratropium (Duoneb) 3 ml NEB Q4HRT [facility] Last Admin: 02/14/17 06:56 Dose: 3 ml Benztropine Mesylate (Cogentin) 0.5 mg PO BID [facility] Last Admin: 02/14/17 09:57 Dose: Not Given Bupropion HCl (Wellbutrin Xl) 150 mg PO DAILY [facility] Last Admin: 02/13/17 10:44 Dose: Not Given Calcium Acetate (Phoslo) 667 mg PO TIDCC [facility] Dextrose (Dextrose 50%) 0 ml IV UD PRN PRN Reason: Hypoglycemia Diagnostic Test (Pha) (Accu-Chek) 1 each FS ACHS [facility] Last Admin: 02/14/17 08:11 Dose: 1 each Digoxin (Lanoxin) 125 mcg PO DAILY@1400 [facility] Last Admin: 02/13/17 14:57 Dose: 125 mcg Diltiazem HCl (Cardizem Cd) 180 mg PO BID [facility] Last Admin: 02/14/17 09:35 Dose: 180 mg Divalproex Sodium (Depakote Er) 1,000 mg PO BID [facility] Last Admin: 02/14/17 09:58 Dose: Not Given Duloxetine HCl (Cymbalta) 120 mg PO DAILY [facility] Last Admin: 02/14/17 09:57 Dose: Not Given Glucose (Insta-Glucose) 15 gm PO PRN PRN PRN Reason: Hypoglycemia Heparin Sodium (Porcine) (Heparin Flush) 2 ml IV Q12 [facility] Last Admin: 02/13/17 22:22 Dose: 2 ml Levofloxacin (Levaquin) 500 mg in 100 mls @ 100 mls/hr IV Q48H [facility] Metronidazole (Flagyl) 500 mg in 100 mls @ 100 mls/hr IV Q12H [facility] Last Infusion: 02/13/17 23:40 Dose: Infused Sodium Chloride (Sodium Chloride 0.9%) 250 mls @ 20 mls/hr IV .[id number] [facility] Stop: 02/14/17 22:29 Insulin Human Lispro (Humalog) 0 unit SQ [facility] PRN Reason: Protocol Last Admin: 02/14/17 08:11 Dose: Not Given Metoprolol Succinate (Toprol Xl) 200 mg PO BID [facility] Last Admin: 02/13/17 22:08 Dose: Not Given Midodrine (Midodrine Hcl) 10 mg PO TID@0800,1200,1700 [facility] Last Admin: 02/14/17 09:35 Dose: 10 mg Naloxone HCl (Narcan) 0.1 mg IV Q2MIN PRN PRN Reason: Opiate Reversal Ondansetron HCl (Zofran) 4 mg IV Q4HP PRN PRN Reason: Nausea And Vomiting Last Admin: 02/09/17 06:53 Dose: 4 mg Oxybutynin Chloride (Ditropan Xl) 10 mg PO DAILY [facility] Last Admin: 02/13/17 15:12 Dose: 10 mg Oxycodone/Acetaminophen (Percocet 5-325 Mg) 1 tab PO Q4HP PRN PRN Reason: Pain Risperidone (Risperdal) 8 mg PO [facility] Last Admin: 02/13/17 22:08 Dose: Not Given Simvastatin (Zocor) 20 mg PO QHS [facility] Last Admin: 02/13/17 22:08 Dose: Not Given Sodium Chloride (Saline Flush) 10 ml IV Q8 [facility] Last Admin: 02/14/17 04:15 Dose: 10 ml Trazodone HCl (Desyrel) 100 mg PO [facility] Last Admin: 02/13/17 22:07 Dose: Not Given Zolpidem Tartrate (Ambien) 10 mg PO [facility] Last Admin: 02/13/17 22:06 Dose: Not Given Medical - PN: A/P - Narrative A/P Narrative: Acute renal failure with volume overload. Tolerated 1.2 L ultrafiltration 2 days ago, 1.8 L yesterday. Urine output still inadequate. Etiology is suspected ATN from contrast exposure and hypoperfusion in the setting of profound anemia when his hemoglobin dropped to 5.5. Still with volume overload and pulmonary edema leading to respiratory failure, plan to further ultrafilter today to improve respiratory dynamics. Plan: Continue with dialysis and ultrafiltration. Continue with renally dosed antibiotics Acute hypoxic respiratory failure. Continues to require BiPAP, had some mild improvement after ultrafiltration yesterday. Suspect will have further improvement with further volume filtration today during dialysis. Radiograph with some improvement. Plan: Continue BiPAP as needed, supplemental oxygen Encephalopathy. Patient became minimally arousable overnight, is improved today. Could be combination of renal failure along with medications. He is improving this morning. Plan: Continue to monitor Hypercoagulable state as a toxicity of warfarin. INR 11.4 at arrival. Resolved with INR normalizing. Plan: Hold anticoagulation, may need to consider NOAC in convalescence for stroke prophylaxis Retroperitoneal and iliopsoas hemorrhages. Secondary to hypercoagulable state at presentation. Received FFP and vitamin K at presentation. He received 3 units packed red cells for hemoglobin of 5.5, subsequently 2 further units on Saturday. Now hemoglobin drifted down to 7, will transfuse 2 further units with dialysis today. Plan: Follow blood counts. SIRS: White count normalized yesterday. No fever and cultures were negative. Suspect inflammatory response from iliopsoas and retroperitoneal hemorrhage. Low calcitonin of 0.06 reassuring. On antibiotics to cover for abdominal pathogens given severity of illness. Plan: Renally dose levofloxacin to 500 mg q48h, next dose 8/ AM and metronidazole to Q12hr. If fever, consider aspiration of iliopsoas fluid to rule out abscess Marginally abnormal troponin 0.04. Do not suspect ACS, may some some demand ischemia, vs. poor renal clearance of marker. Atrial fibrillation with RVR presentation. Generally rate controlled now. Plan: Continue rate control as able, depending upon BP Hypertension. Blood pressures normalized/running low at times. Plan: Hold blood pressure medications for hypotension. Bipolar disorder. Stable. Plan: Continue home medications as able to take Type 2 diabetes. Plan: Continue with renal diet, insulin therapy; stop Januvia Weakness and debility, likely secondary to poor nutritional status and acute medical illness. Hemorrhage is stable. Plan: Okay to work with physical therapy when stable otherwise. DVT prophylaxis: SCDs only. Disposition: Patient in serious condition, however hemodialysis/ultrafiltration and BiPAP support for respiratory failure can be provided at this facility. Hopefully these will continue to improve over the next few days with further volume reduction. Anticipating return of renal function. This point the services can't be provided at this critical access Hospital. Once stable, consider transfer to [facility]. They are aware of his case. Medical - PN: Qual - VTE Deep Vein Thrombosis/Pulmonary Embolism Present on Admission: No
--- NOTE | 2017-02-14 12:31 | Nephrology Progress Note ---
Subjective Patient information: Note initiated : 02/14/17 at 12:29 pm Service Date, if different from initiated Date: [] Patient: Keegan Uribe a 46 y/o M admitted on 02/07/17 for Elevated INR, Weakness. Chief Complaint: [] Principal diagnosis: PATRICIA / ARF, oliguria, fluid overload Interval history: Keegan is on BiPAP. He appears more awake and responsive today. Urine output has not been recorded accurately. He had dialysis with 1.9 liters UF yesterday. No intradialytic hypotension. Objective - Vital Signs Vital signs: Vital Signs Temp Pulse Pulse Pulse Resp BP Pulse Ox 02/14/17 12:15 86 99 02/14/17 12:10 85 93/70 02/14/17 12:01 97.4 F 68 14 93/70 96 02/14/17 11:58 85 99/61 96 02/14/17 11:51 81 95/51 02/14/17 11:44 71 95/51 97 02/14/17 11:43 78 84/57 97 02/14/17 11:38 85 95/51 96 02/14/17 11:28 93 H 107/80 95 02/14/17 11:20 85 107/80 02/14/17 11:13 85 24 H 108/73 95 02/14/17 11:11 75 96 02/14/17 11:08 60 108/73 02/14/17 11:01 87 111/80 96 02/14/17 10:58 86 110/80 96 02/14/17 10:52 59 L 124/64 02/14/17 10:43 82 108/77 96 02/14/17 10:40 57 L 114/76 02/14/17 10:30 97.6 F 88 120/78 02/14/17 10:28 89 120/78 96 02/14/17 10:23 79 114/76 95 02/14/17 10:01 85 114/78 93 02/14/17 09:01 86 108/74 96 02/14/17 08:55 75 20 95 02/14/17 08:01 85 100/75 97 02/14/17 08:00 84 96 02/14/17 07:14 88 16 97 02/14/17 07:12 88 16 02/14/17 07:10 86 16 98 02/14/17 07:01 81 116/69 99 02/14/17 06:01 86 124/76 98 02/14/17 05:01 91 H 123/78 97 02/14/17 04:46 93 H 18 02/14/17 04:25 83 99 02/14/17 04:23 93 H 18 99 02/14/17 04:01 88 125/78 97 02/14/17 03:01 81 120/70 98 02/14/17 02:34 85 18 98 02/14/17 02:30 95 H 98 02/14/17 02:01 79 111/77 97 02/14/17 01:01 68 119/76 97 02/14/17 00:01 83 124/69 98 02/13/17 23:36 77 120/69 97 02/13/17 23:11 86 19 94 02/13/17 23:02 86 19 02/13/17 22:01 78 121/72 95 02/13/17 21:46 94 H 25 H 96 02/13/17 21:26 70 25 H 96 02/13/17 21:00 64 110/66 96 02/13/17 20:02 96.9 F L 93 H 24 H 113/75 95 02/13/17 20:01 84 113/75 95 02/13/17 19:26 94 H 24 H 02/13/17 19:24 88 26 H 96 02/13/17 19:01 80 102/55 94 02/13/17 18:01 108/60 02/13/17 17:01 91 H 109/67 87 L 02/13/17 16:21 102 H 22 85 L 02/13/17 16:01 94 H 114/70 89 L 02/13/17 16:00 97.2 F 02/13/17 15:05 96 H 18 02/13/17 15:01 101 H 106/66 86 L 02/13/17 14:08 94 H 111/69 88 L 02/13/17 14:01 106 H 103/65 88 L 02/13/17 13:56 97 H 103/65 02/13/17 13:46 102 H 109/71 89 L 02/13/17 13:45 103 H 109/71 02/13/17 13:41 92 H 109/71 02/13/17 13:31 87 106/69 89 L 02/13/17 13:25 102 H 110/69 02/13/17 13:16 99 H 103/58 89 L 02/13/17 13:12 94 H 103/58 02/13/17 13:02 66 109/69 87 L 02/13/17 13:01 93 H 107/75 86 L 02/13/17 12:56 87 109/69 02/13/17 12:47 93 H 112/75 90 02/13/17 12:41 91 H 112/75 02/13/17 12:31 100 H 106/95 90 Intake and Output 02/13/17 02/14/17 02/14/17 21:59 05:59 13:59 Intake Total 360 / 360 100 / 100 Output Total 2400 / 2400 250 / 250 Balance -2040 / -2040 -150 / -150 Intake: IV 100 / 100 Oral 360 / 360 Output: Urine Catheter Amount 225 / 225 170 / 170 Stool 275 / 275 80 / 80 Hemodialysis UF 1900 / 1900 Other: # Bowel Movements 1 Weight 298 lb 12.8 oz Intake & Output: Intake & Output 02/13/17 02/14/17 02/14/17 21:59 05:59 13:59 Intake Total 360 / 360 100 / 100 Output Total 2400 / 2400 250 / 250 Balance -2040 / -2040 -150 / -150 Weight 298 lb 12.8 oz Intake: IV 100 / 100 Oral 360 / 360 Output: Urine Catheter Amount 225 / 225 170 / 170 Stool 275 / 275 80 / 80 Hemodialysis UF 1900 / 1900 Other: # Bowel Movements 1 - Lab 02/14/17 03:57 02/14/17 03:57 Most recent lab results Calcium 8.2 mg/dl (8.6-10.4) L 02/14/17 03:57 Phosphorus 3.8 mg/dL (2.7-4.5) 02/14/17 03:57 Magnesium 2.0 mg/dL (1.6-2.5) 02/14/17 03:57 Assessment and Plan (1) Acute renal failure PATRICIA / ATN: nephrotoxic / ischemic in setting of iv contrast exposure and hypotension. Oliguric. BP better on Midodrine. Plan to do dialysis for 4 hrs today with up to 3-4 liters UF as tolerated keeping SBP > 90 mmHg. HbsAg ane anti-HCV were negative. Hgb 7.0 today to receive 1 unit of blood today - discussed with Dr. Thompson. Started on Phoslo for hyperphosphatemia.Follow intake / output, follow BMP. Baseline SCr 0.7 on 02-07-17 Status: Acute
[2017-02-14] MEDS: metroNIDAZOLE 500 MG/100 ML BAG IV SCH ×2 (13:00→21:05)
[2017-02-14] MEDS: LEVOFLOXACIN 500 MG/100 ML BAG IV SCH (13:00)
[2017-02-14] MEDS: buPROPion 150 MG TAB.XL.24H PO SCH (14:59)
[2017-02-14] MEDS: OXYBUTYNIN CHLORIDE 5 MG TAB.XL.24H PO SCH (14:59)
[2017-02-14] MEDS: METOPROLOL SUCCINATE 50 MG TAB.XL.24H PO SCH ×2 (14:59→21:06)
[2017-02-14] MEDS: DIGOXIN 125 MCG TABLET PO SCH (17:50)
[2017-02-14] MEDS: CALCIUM ACETATE 667 MG CAPSULE PO SCH ×2 (17:50→18:01)
[2017-02-14] MEDS: ZOLPIDEM 5 MG TABLET PO SCH (20:58)
[2017-02-14] MEDS: traZODone HCL 50 MG TABLET PO SCH (20:59)
[2017-02-14] MEDS: risperiDONE 1 MG TABLET PO SCH (20:59)
[2017-02-14] MEDS: SIMVASTATIN 20 MG TABLET PO SCH (21:06)
[2017-02-15] MEDS: IPRATROPIUM/ALBUTEROL 3 ML AMPUL.NEB NEB SCH ×6 (02:49→23:03)
[2017-02-15 06:03] LABS: Blood Urea Nitrogen 50 mg/dl (6-20)
[2017-02-15] MEDS: 0.9 % SODIUM CHLORIDE 10 ML SYRINGE IV SCH ×3 (09:00→22:01)
[2017-02-15] MEDS: MIDODRINE 5 MG TABLET PO SCH ×3 (09:01→17:23)
[2017-02-15] MEDS: INSULIN LISPRO 1 UNIT/0.01 ML UNIT SQ SCH ×4 (09:01→21:37)
[2017-02-15] MEDS: BENZTROPINE 1 MG TABLET PO SCH ×2 (09:02→21:39)
[2017-02-15] MEDS: DILTIAZEM 180 MG CAP.XL.24H PO SCH ×2 (09:02→21:39)
[2017-02-15] MEDS: DULoxetine 30 MG CAPSULE PO SCH (09:02)
[2017-02-15] MEDS: CALCIUM ACETATE 667 MG CAPSULE PO SCH ×3 (09:02→17:23)
[2017-02-15] MEDS: METOPROLOL SUCCINATE 50 MG TAB.XL.24H PO SCH ×2 (09:03→21:39)
[2017-02-15] MEDS: buPROPion 150 MG TAB.XL.24H PO SCH (09:03)
[2017-02-15] MEDS: metroNIDAZOLE 500 MG/100 ML BAG IV SCH ×2 (09:03→21:39)
[2017-02-15] MEDS: OXYBUTYNIN CHLORIDE 5 MG TAB.XL.24H PO SCH (09:03)
[2017-02-15] MEDS: DIVALPROEX SODIUM 250 MG TAB.ER.24H PO SCH ×2 (09:04→21:40)
[2017-02-15] MEDS ORDERED: ALTEPLASE 2 MG VIAL IV ONE (10:57)
--- NOTE | 2017-02-15 11:56 | Internal Med Progress Note ---
Medical - PN: Subj Patient information: Note initiated : 02/15/17 at 11:56 am Patient: Keegan Uribe 46 y/o M admitted on 02/07/17 for Elevated INR, Weakness. Interval history: February 07, 2017: History of present illness: Mr. Uribe is a 46 year old Male presents to the ER with complaints of weakness going on for the last 1 day. According to the patient, he woke up this morning and was trying to sit outside , while getting back inside the house. He noted that he was very weak, fell down,and was unable to get up. His friend, therefore, 911 to get into the hospital. According to the patient, he was feeling better yesterday. The patient denies any chest pain, palpitations, admits to having some dizziness, denies any syncope or presyncope, denies any head injury. the patient notes that he has not been drinking very well and he is dehydrated, on probing this question further. He is unable to tell me why he is not drinking enough fluids. the patient admits that he has been having abdominal pain going on for the last 3 days, abdominal pain is predominantly in the epigastric and periumbilical region, nonradiating, sharp in nature worse with going outside in the heat better by coming inside inside the house and drinking cold water. The patient admits to having some nausea but no vomiting. He denies any bleeding from any site I was not able to a certain if he was compliant with his medications, but it seems he is taking some. His Coumadin level was supratherapeutic on presentation. He notes that he was unable to have his last INR check. Because of some confusion with his appointment. 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 He has chronic wounds which are managed by the wound care clinic, 02/08: patient seen and examined, overnight events noted.He was groggy this morning and wanted to sleep, but woke up with verbal commands and obeyed orders answered appropriately, The patient has been tachycardic overnight in A. fib with RVR. His CT scan of the abdomen, pelvis showed a hematoma versus an abscess in the left psoas muscle. The patient has supratherapeutic INR and I think it is most likely for this to be a hematoma and abscess. However, it is difficult to know for sure without aspiration. The patientis on vancomycin, levofloxacin and Flagyl for broad-spectrum coverage. Patient received 4 units of FFP, vitamin K injection, overnight. This morning his hemoglobin was dropped to 5.5. He is to get 3 units of blood. We will recheck his labs after his blood transfusion is finished. The INR this morning is 1.7. Should his hemoglobin continued to drop, we will consult surgery to get an opinion. The patient's drug screen is positive for amphetamine, the patient denies use of any other substances except for marijuana, thinks that it might be released with it. The patient has abdominal pain still, but no other symptoms. He was resting comfortably. He got up PICC line placed last night for better IV access. macias placed. 02/09: Pt seen examined, no acute overnight events, hb dropped again this AM, will give another 2 units of PRBC, patient has some soreness in the abdomen, but was sleeping comfortably. Plan of care reviewed with him, explained to him that he has a large blood clot in the one of the big muscles int the abdomen and he needs to be monitored. He will remain bed bound till we can establish stability of the bleed. He denies any left leg weakness or numbness. The Pt will get a repeat CT abdo and pelvis without conterast to evaluaet the bleed. INR is 1.5 this AM He continues to be on broad sepectrum ABX, he also remains of 4L oxygen will get chest X ray again today. 02/10: Urine output is been low. Received 20 mg of IV Lasix earlier today with minimal response. Intake has been much greater than output. Developing edema and his hands, as well as lower extremities. On 6 L nasal cannula to maintain sats. Patient complaining of some abdominal pain, though it has improved since 2 days ago. Appetite is improving, starting to eat. 02/11: Urine output remains low. Did have some response to 80 mg dose of furosemide. Creatinine elevated. Clinically the patient states he feels he is finally starting to feel better. No left-sided abdominal pain. Appetite is improving. 02/12: No specific complaints this morning. Abdominal pain remains resolved. Does have shortness of breath. No cough or sputum production. Oxygen demands went up overnight. Has hypoxic respiratory failure. During the day, repeat radiograph showed pulmonary edema. Nephrology arranged transport to [facility] for dialysis catheter placement. Plans for hemodialysis this evening. D/W Dr. Gupta. 02/13: Had worsening hypoxic respiratory failure last night, required BiPAP overnight. This morning had large loose bowel movement. Underwent hemodialysis , 2 L ultrafiltration. Tolerated well. Still requiring 11 LPM on oxygen mask to maintain saturations. Poor appetite. Is going to take oral meds now that dialysis is finished. Had a care conference. [facility] may be able to provide ongoing care for renal failure and respiratory failure once he is stabilized in a few days. Creatinine stable today, Hb remaining in 7 range. Midodrine to keep up BP. 02/14: Dialysis today, plan is to try to get further, 3-4 liters today during dialysis. yesterday afternoon, after dialysis and getting his morning meds late , went back on BiPAP, became less responsive overnight. Vitals were stable, was maintained on BiPAP, opened eyes arouses to deep rub. ABG showed compensation. This morning, has become progressively more alert, responding to voice and light touch now. Plan is to continue dialysis and BiPAP support. Hemoglobin drifted down to 7.0, we'll transfuse 2 further units of packed red blood cells. Continues to have loose stools, C. difficile was negative. Continues to use midodrine for blood pressure. February 15: Today, the patient is awake and alert. Has no Particular complaints. Denies subjective or chills, chest pain or shortness of breath, abdominal pain, nausea or vomiting. He initially said he thought he had been constipated, but I note he has a rectal catheter in place for diarrhea. -This patient has known developmental delay, and is a poor historian. -He was weaned off BiPAP to oxygen by nasal cannula today, and seems to be tolerating that. -He continues on dialysis with volume overload, while keeping an eye on low blood pressures. - Constitutional Vitals: Vital Signs Temp Pulse Resp BP Pulse Ox 97.6 F 102 H 20 137/92 92 02/15/17 04:01 02/15/17 11:39 02/15/17 10:36 02/15/17 08:01 02/15/17 11:39 Period Temp Pulse Resp BP Sys/Willis Pulse Ox Last 24 Hr 96.0 F-97.8 F 63-104 11-25 93-157/59-107 90-100 Intake and Output 02/14/17 02/15/17 02/15/17 21:59 05:59 13:59 Intake Total 1045 / 1045 600 / 600 Output Total 3205 / 3205 225 / 225 500 / 500 Balance -2160 / -2160 -225 / -225 100 / 100 Weight 293 lb 6.4 oz Intake & Output: Intake & Output 02/14/17 02/15/17 02/15/17 21:59 05:59 13:59 Intake Total 1045 / 1045 600 / 600 Output Total 3205 / 3205 225 / 225 500 / 500 Balance -2160 / -2160 -225 / -225 100 / 100 Weight 293 lb 6.4 oz Intake: IV 100 / 100 100 / 100 Oral 600 / 600 500 / 500 Blood Product 345 / 345 Output: Urine Catheter Amount 225 / 225 225 / 225 Stool 500 / 500 Hemodialysis UF 2980 / 2980 Other: Meal Nourishment/Supplement Breakfast Percent of Meal Consumed 100% 75% Feeding Ability Total Assistance The patient is awake, but not a very good historian. Neck is supple without obvious JVD or lymphadenopathy. Cardiac exam shows an irregularly irregular rhythm. Lung exam shows fairly recent breath sounds at the bases, with crackles above. No wheezing is noted. Abdomen is quite obese, but soft and nontender. Macias catheter is draining dark yellow urine, which is somewhat cloudy. Rectal catheter is draining fairly loose stools. Extremities show stasis dermatitis, and trace pitting edema. Medical - PN: Obj Da - Labs CBC & Chem 7: 02/15/17 08:03 02/15/17 03:35 Labs: Abnormal Lab Results 02/15/17 02/15/17 02/14/17 08:03 03:35 03:57 RBC Hgb 9.3 L Hct 27.8 L RDW MPV Lymph % (Auto) Mckenzie % (Auto) Lymph # (Auto) Mckenzie # (Auto) PT 16.8 H INR 1.3 H BUN 50 H Creatinine 2.3 H Glucose Calcium 7.9 L Phosphorus Total Protein Albumin Albumin/Globulin Ratio 02/14/17 02/14/17 02/13/17 03:57 03:57 04:00 RBC 2.39 L Hgb 7.0 L* Hct 21.3 L RDW 16.0 H MPV 6.1 L Lymph % (Auto) 10.5 L Mckenzie % (Auto) 21.8 H Lymph # (Auto) 0.8 L Mckenzie # (Auto) 1.7 H PT INR BUN 59 H 59 H Creatinine 2.9 H 3.3 H Glucose 110 H Calcium 8.2 L 8.3 L Phosphorus 5.2 H Total Protein 5.3 L 5.6 L Albumin 2.1 L 2.2 L Albumin/Globulin Ratio 0.7 L 0.6 L 02/13/17 02/13/17 04:00 04:00 RBC 2.56 L Hgb 7.6 L Hct 22.9 L RDW 15.8 H MPV 6.3 L Lymph % (Auto) 6.4 L Mckenzie % (Auto) 24.3 H Lymph # (Auto) 0.6 L Mckenzie # (Auto) 2.4 H PT 17.6 H INR 1.4 H BUN Creatinine Glucose Calcium Phosphorus Total Protein Albumin Albumin/Globulin Ratio February 14: X-ray shows bilateral pulmonary infiltrates with improvement in the right lower thorax. February 13: ABG on BiPAP, 70% FiO2: PH 7.38, CO2 48, PO2 73, bicarb 28, O2 saturation 95% C. difficile screen is negative. Urine culture is negative. February 07: MRSA screen is negative. Next Blood cultures are negative. February 12: Echocardiogram: Mild to moderate LVH, with ejection fraction 62%. Mild biatrial enlargement. Left pleural effusion. Meds: Medications Acetaminophen (Tylenol) 650 mg PO Q6HP PRN PRN Reason: PAIN/FEVER > 101 Last Admin: 02/11/17 21:30 Dose: 650 mg Albuterol/Ipratropium (Duoneb) 3 ml NEB Q4HRT PENDING SALE TO [facility] Last Admin: 02/15/17 10:28 Dose: 3 ml Benztropine Mesylate (Cogentin) 0.5 mg PO BID PENDING SALE TO [facility] Last Admin: 02/15/17 09:02 Dose: 0.5 mg Bupropion HCl (Wellbutrin Xl) 150 mg PO DAILY PENDING S[facility] TO [facility] Last Admin: 02/15/17 09:03 Dose: 150 mg Calcium Acetate (Phoslo) 667 mg PO TIDCC PENDING SALE TO [facility] Last Admin: 02/15/17 09:02 Dose: 667 mg Dextrose (Dextrose 50%) 0 ml IV UD PRN PRN Reason: Hypoglycemia Diagnostic Test (Pha) (Accu-Chek) 1 each FS ACHS [facility] S[facility] Last Admin: 02/15/17 09:00 Dose: 1 each Digoxin (Lanoxin) 125 mcg PO DAILY@1400 PEND[facility] S[facility] TO [facility] Last Admin: 02/14/17 17:50 Dose: 125 mcg Diltiazem HCl (Cardizem Cd) 180 mg PO BID [facility]END[facility] S[facility] Last Admin: 02/15/17 09:02 Dose: 180 mg Divalproex Sodium (Depakote Er) 1,000 mg PO BID [facility] Last Admin: 02/15/17 09:04 Dose: Not Given Duloxetine HCl (Cymbalta) 120 mg PO DAILY [facility] Last Admin: 02/15/17 09:02 Dose: 120 mg Glucose (Insta-Glucose) 15 gm PO PRN PRN PRN Reason: Hypoglycemia Heparin Sodium (Porcine) (Heparin Flush) 2 ml IV Q12 [facility] Last Admin: 02/15/17 09:03 Dose: 2 ml Levofloxacin (Levaquin) 500 mg in 100 mls @ 100 mls/hr IV Q48H [facility] Last Admin: 02/14/17 13:00 Dose: 100 mls/hr Metronidazole (Flagyl) 500 mg in 100 mls @ 100 mls/hr IV Q12H [facility] Last Admin: 02/15/17 09:03 Dose: 100 mls/hr Insulin Human Lispro (Humalog) 0 unit SQ [facility] PRN Reason: Protocol Last Admin: 02/15/17 09:01 Dose: Not Given Metoprolol Succinate (Toprol Xl) 200 mg PO BID [facility] Last Admin: 02/15/17 09:03 Dose: 200 mg Midodrine (Midodrine Hcl) 10 mg PO TID@0800,1200,1700 [facility] Last Admin: 02/15/17 09:01 Dose: 10 mg Naloxone HCl (Narcan) 0.1 mg IV Q2MIN PRN PRN Reason: Opiate Reversal Ondansetron HCl (Zofran) 4 mg IV Q4HP PRN PRN Reason: Nausea And Vomiting Last Admin: 02/09/17 06:53 Dose: 4 mg Oxybutynin Chloride (Ditropan Xl) 10 mg PO DAILY [facility] Last Admin: 02/15/17 09:03 Dose: 10 mg Oxycodone/Acetaminophen (Percocet 5-325 Mg) 1 tab PO Q4HP PRN PRN Reason: Pain Risperidone (Risperdal) 8 mg PO [facility] Last Admin: 02/14/17 20:59 Dose: Not Given Simvastatin (Zocor) 20 mg PO QHS [facility] Last Admin: 02/14/17 21:06 Dose: 20 mg Sodium Chloride (Saline Flush) 10 ml IV Q8 [facility] Last Admin: 02/15/17 09:00 Dose: 10 ml Trazodone HCl (Desyrel) 100 mg PO [facility] Last Admin: 02/14/17 20:59 Dose: Not Given Zolpidem Tartrate (Ambien) 10 mg PO [facility] Last Admin: 02/14/17 20:58 Dose: Not Given Medical - PN: A/P - Time Spent With Patient Total time spent is greater than 50% in coordination of care (as documented) at patient's floor/unit and/or counseling patient: 25 - 35 minutes - Narrative A/P Narrative: #1. Renal. Acute renal failure with volume overload. -Patient continues with slow recovery, and is requiring ongoing dialysis. Managed by nephrology. Is probably still somewhat volume overloaded. #2. Acute hypoxic respiratory failure. -Was weaned off of BiPAP this morning, and seems to be tolerating oxygen by nasal cannula. #3. Neurologic. Encephalopathy. Improved. #4. Over anticoagulation. Warfarin is on hold, INR has normalized. Resume some type of stroke prophylaxis once hemoglobin is clearly stable. Plan: Hold anticoagulation, may need to consider NOAC in convalescence for stroke prophylaxis -Retroperitoneal and iliopsoas hemorrhages. Secondary to elevated INR at presentation. Received FFP and vitamin K at presentation. He received 3 units packed red cells for hemoglobin of 5.5, subsequently 2 further units on Saturday. And another 2 units yesterday. Hemoglobin looks better today. Plan: Follow blood counts. #5. SIRS: White count normalized yesterday. No fever and cultures were negative. Suspect inflammatory response from iliopsoas and retroperitoneal hemorrhage. Low calcitonin of 0.06 reassuring. On antibiotics to cover for abdominal pathogens given severity of illness. Plan: Renally dose levofloxacin to 500 mg q48h, next dose 8/17 AM and metronidazole to Q12hr. If fever, consider aspiration of iliopsoas fluid to rule out abscess #6. Hernia. -Marginally abnormal troponin 0.04. Do not suspect ACS, may some some demand ischemia, vs. poor renal clearance of marker. -Atrial fibrillation with RVR presentation. Generally rate controlled now. Plan: Continue rate control as able, depending upon BP -Hypertension. Blood pressures normalized/running low at times. Plan: Hold blood pressure medications for hypotension. #7. Psychiatric. -Bipolar disorder. Stable. -Patient also has known developmental delay, requiring caregivers to help with his long-term care. Clearly he was not taking his medications appropriately at home, and may need long-term placement to manage his high risk medications. #8. Endocrine. Type 2 diabetes. Plan: Continue with renal diet, insulin therapy; stop Januvia #9. Weakness and debility, likely secondary to poor nutritional status and acute medical illness. Hemorrhage is stable. Plan: Okay to work with physical therapy when stable otherwise. #10. DVT prophylaxis: SCDs only. Disposition: . Anticipating return of renal function. . Once stable, consider transfer to [facility]. They are aware of his case. Medical - PN: Qual - VTE Deep Vein Thrombosis/Pulmonary Embolism Present on Admission: No
--- NOTE | 2017-02-15 14:29 | Nephrology Progress Note ---
Subjective Patient information: Note initiated : 02/15/17 at 2:27 pm Service Date, if different from initiated Date: [] Patient: Keegan Uribe a 46 y/o M admitted on 02/07/17 for Elevated INR, Weakness. Chief Complaint: [] Principal diagnosis: PATRICIA / ARF, oliguria, fluid overload Interval history: Keegan reported better, no c/o dyspnea but he was hypoxic when NC O2 was dropped to 2 l/min. SCr is 2.3 today, but urine out put is marginal still. SCr down 2.3 , likely representation of clearance due to dialysis over last few days Objective - Vital Signs Vital signs: Vital Signs Temp Pulse Resp BP Pulse Ox 02/15/17 12:01 87 127/83 92 02/15/17 12:00 97.4 F 24 H 02/15/17 11:39 102 H 92 02/15/17 10:36 80 20 02/15/17 09:15 90 18 90 02/15/17 08:12 93 H 24 H 98 02/15/17 08:01 91 H 137/92 97 02/15/17 08:00 94 02/15/17 07:20 93 H 24 H 98 02/15/17 04:01 97.6 F 137/93 98 02/15/17 03:12 95 H 22 98 02/15/17 00:52 82 23 H 95 02/15/17 00:08 85 97 02/15/17 00:01 97.6 F 22 130/88 96 02/14/17 23:12 101 H 25 H 93 02/14/17 23:09 102 H 18 02/14/17 22:00 99 H 24 H 94 02/14/17 20:28 100 H 92 02/14/17 20:08 97.8 F 104 H 22 126/74 93 02/14/17 20:00 93 02/14/17 19:25 93 02/14/17 19:24 86 18 02/14/17 19:01 93 H 123/77 93 02/14/17 18:01 81 132/85 96 02/14/17 17:01 88 121/68 100 02/14/17 16:05 88 100 02/14/17 16:01 89 127/78 100 02/14/17 16:00 97.8 F 22 02/14/17 15:12 89 11 L 99 02/14/17 15:11 88 15 02/14/17 15:00 75 120/74 100 02/14/17 14:33 74 122/86 100 Intake and Output 02/15/17 02/15/17 02/15/17 05:59 13:59 21:59 Intake Total 600 / 600 Output Total 225 / 225 500 / 500 Balance -225 / -225 100 / 100 Intake: IV 100 / 100 Oral 500 / 500 Output: Urine Catheter Amount 225 / 225 Stool 500 / 500 Other: Meal Breakfast Percent of Meal Consumed 75% Intake & Output: Intake & Output 02/15/17 02/15/17 02/15/17 05:59 13:59 21:59 Intake Total 600 / 600 Output Total 225 / 225 500 / 500 Balance -225 / -225 100 / 100 Intake: IV 100 / 100 Oral 500 / 500 Output: Urine Catheter Amount 225 / 225 Stool 500 / 500 Other: Meal Breakfast Percent of Meal Consumed 75% - Lab 02/15/17 08:03 02/15/17 03:35 Most recent lab results Calcium 7.9 mg/dl (8.6-10.4) L 02/15/17 03:35 Phosphorus 3.8 mg/dL (2.7-4.5) 02/14/17 03:57 Magnesium 2.0 mg/dL (1.6-2.5) 02/14/17 03:57 Assessment and Plan (1) Acute renal failure PATRICIA / ATN: nephrotoxic / ischemic in setting of iv contrast exposure and hypotension. Oliguric. BP better on Midodrine. Plan to do dialysis for 2.5 hrs today with up to 2-2.5 liters UF as tolerated keeping SBP > 90 mmHg. HbsAg ane anti-HCV were negative. Hgb imroved s/p blood transfusion, follow intake / urine out put output, follow BMP. Baseline SCr 0.7 on 02-07-17 Status: Acute
[2017-02-15] MEDS: DIGOXIN 125 MCG TABLET PO SCH (15:02)
[2017-02-15] MEDS: ZOLPIDEM 5 MG TABLET PO SCH (21:36)
[2017-02-15] MEDS: risperiDONE 1 MG TABLET PO SCH (21:37)
[2017-02-15] MEDS: traZODone HCL 50 MG TABLET PO SCH (21:37)
[2017-02-15] MEDS: SIMVASTATIN 20 MG TABLET PO SCH (21:39)
[2017-02-16] MEDS: IPRATROPIUM/ALBUTEROL 3 ML AMPUL.NEB NEB SCH ×3 (02:50→11:17)
[2017-02-16] MEDS: 0.9 % SODIUM CHLORIDE 10 ML SYRINGE IV SCH ×3 (05:46→21:06)
[2017-02-16 06:05] LABS: Basophils # (Auto) 0 K/mcL (0.0-0.3); Basophils % (Auto) 0.1 % (0.0-2.0); Eosinophils # (Auto) 0.2 K/mcL (0.0-0.7); Granulocytes % (Auto) 75.6 % (38.0-78.0); Lymphocytes # (Auto) 1.8 K/mcL (1.5-4.8); Lymphocytes % (Auto) 9.7 % (15.5-49.0); Mean Cell Volume 88.8 fL (80.0-100.0); Mean Corpuscular HGB Conc 33.2 g/dL (31.0-36.0); Mean Corpuscular Hemoglobin 29.5 pg (26.0-34.0); Monocytes # (Auto) 2.6 K/mcL (0.1-0.9); Monocytes % (Auto) 13.6 % (1.0-12.0); Platelet Count 230 K/mcL (140-440); RBC 3.01 M/mcL (4.50-5.90); Red Cell Distribution Width 16.3 % (11.5-14.5)
[2017-02-16 06:22] LABS: Blood Urea Nitrogen 53 mg/dl (6-20)
[2017-02-16] MEDS: INSULIN LISPRO 1 UNIT/0.01 ML UNIT SQ SCH ×4 (07:56→20:40)
[2017-02-16] MEDS: OXYBUTYNIN CHLORIDE 5 MG TAB.XL.24H PO SCH (08:32)
[2017-02-16] MEDS: CALCIUM ACETATE 667 MG CAPSULE PO SCH ×3 (08:32→17:58)
[2017-02-16] MEDS: buPROPion 150 MG TAB.XL.24H PO SCH (08:33)
[2017-02-16] MEDS: METOPROLOL SUCCINATE 50 MG TAB.XL.24H PO SCH ×2 (08:33→20:39)
[2017-02-16] MEDS: MIDODRINE 5 MG TABLET PO SCH ×3 (08:34→18:00)
[2017-02-16] MEDS: DIVALPROEX SODIUM 250 MG TAB.ER.24H PO SCH ×2 (08:34→20:38)
[2017-02-16] MEDS: DULoxetine 30 MG CAPSULE PO SCH (08:34)
[2017-02-16] MEDS: DILTIAZEM 180 MG CAP.XL.24H PO SCH ×2 (08:35→20:37)
[2017-02-16] MEDS: BENZTROPINE 1 MG TABLET PO SCH ×2 (08:38→20:40)
[2017-02-16] MEDS: metroNIDAZOLE 500 MG/100 ML BAG IV SCH ×2 (08:39→20:40)
--- NOTE | 2017-02-16 09:52 | Nephrology Progress Note ---
Subjective Patient information: Note initiated : 02/16/17 at 9:49 am Service Date, if different from initiated Date: [] Patient: Keegan Uribe a 46 y/o M admitted on 02/07/17 for Elevated INR, Weakness. Chief Complaint: [] Principal diagnosis: PATRICIA / ARF, oliguria, fluid overload Interval history: Keegan is much more awake and alert today. He had clotting in the dialyzer system yesterday (does not get heparin at dialysis due psoas hematoma), HD was abbreviated with only 1.2 L UF. O2 requirement is 4 L/min, previously he was on BiPAP and up to 10 L /min. Urine output has not been recorded. Objective - Vital Signs Vital signs: Vital Signs Temp Pulse Resp BP Pulse Ox 02/16/17 07:32 76 28 H 02/16/17 07:31 90 28 H 02/16/17 04:01 97.2 F 82 32 H 121/71 97 02/16/17 00:01 97.0 F 88 126/78 99 02/15/17 23:06 95 H 99 02/15/17 23:05 96 H 27 H 02/15/17 21:39 98.4 F 84 120/77 02/15/17 21:02 81 91 02/15/17 21:01 87 119/80 91 02/15/17 20:46 84 116/77 94 02/15/17 20:31 82 120/77 90 02/15/17 20:16 84 117/80 89 L 02/15/17 20:05 83 104/72 87 L 02/15/17 20:01 97.5 F 85 20 82/56 89 L 02/15/17 19:55 85 104/72 02/15/17 19:46 102 H 114/71 93 02/15/17 19:45 85 114/71 02/15/17 19:31 94 H 105/74 93 02/15/17 19:30 88 105/74 02/15/17 19:22 97.5 F 85 115/76 02/15/17 19:16 88 115/76 94 02/15/17 19:08 80 18 92 02/15/17 19:01 87 115/75 90 02/15/17 18:46 89 119/71 91 02/15/17 17:28 83 92 02/15/17 16:35 98.6 F 77 20 120/63 91 02/15/17 15:18 94 02/15/17 15:10 79 15 02/15/17 12:01 87 127/83 92 02/15/17 12:00 97.4 F 24 H 02/15/17 11:39 102 H 92 02/15/17 10:36 80 20 Intake and Output 02/15/17 02/16/17 02/16/17 21:59 05:59 13:59 Intake Total 1000 / 1000 280 / 280 Output Total 1476 / 1476 300 / 300 Balance -476 / -476 -20 / -20 Intake: IV 550 / 550 100 / 100 Oral 450 / 450 180 / 180 Output: Urine Catheter Amount 250 / 250 300 / 300 Hemodialysis UF 1226 / 1226 Other: Weight 295 lb 4.8 oz Intake & Output: Intake & Output 02/15/17 02/16/17 02/16/17 21:59 05:59 13:59 Intake Total 1000 / 1000 280 / 280 Output Total 1476 / 1476 300 / 300 Balance -476 / -476 -20 / -20 Weight 295 lb 4.8 oz Intake: IV 550 / 550 100 / 100 Oral 450 / 450 180 / 180 Output: Urine Catheter Amount 250 / 250 300 / 300 Hemodialysis UF 1226 / 1226 - Lab 02/16/17 03:35 02/16/17 03:35 Most recent lab results Calcium 8.1 mg/dl (8.6-10.4) L 02/16/17 03:35 Phosphorus 3.8 mg/dL (2.7-4.5) 02/14/17 03:57 Magnesium 2.0 mg/dL (1.6-2.5) 02/14/17 03:57 Assessment and Plan (1) Acute renal failure PATRICIA / ATN: nephrotoxic / ischemic in setting of iv contrast exposure and hypotension. Oliguric. BP better on Midodrine. No dialysis today. Follow urine out put, BMP Baseline SCr 0.7 on 02-07-17 Status: Acute
[2017-02-16] MEDS ORDERED: FUROSEMIDE 100 MG/10 ML VIAL IV ONE (09:55)
[2017-02-16] MEDS: LEVOFLOXACIN 500 MG/100 ML BAG IV SCH (12:05)
--- NOTE | 2017-02-16 12:37 | Internal Med Progress Note ---
Medical - PN: Subj Patient information: Note initiated : 02/16/17 at 12:37 pm Patient: Keegan Uribe 46 y/o M admitted on 02/07/17 for Elevated INR, Weakness. Interval history: February 07, 2017: History of present illness: Mr. Uribe is a 46 year old Male presents to the ER with complaints of weakness going on for the last 1 day. According to the patient, he woke up this morning and was trying to sit outside , while getting back inside the house. He noted that he was very weak, fell down,and was unable to get up. His friend, therefore, 911 to get into the hospital. According to the patient, he was feeling better yesterday. The patient denies any chest pain, palpitations, admits to having some dizziness, denies any syncope or presyncope, denies any head injury. the patient notes that he has not been drinking very well and he is dehydrated, on probing this question further. He is unable to tell me why he is not drinking enough fluids. the patient admits that he has been having abdominal pain going on for the last 3 days, abdominal pain is predominantly in the epigastric and periumbilical region, nonradiating, sharp in nature worse with going outside in the heat better by coming inside inside the house and drinking cold water. The patient admits to having some nausea but no vomiting. He denies any bleeding from any site I was not able to a certain if he was compliant with his medications, but it seems he is taking some. His Coumadin level was supratherapeutic on presentation. He notes that he was unable to have his last INR check. Because of some confusion with his appointment. 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 He has chronic wounds which are managed by the wound care clinic, 02/08: patient seen and examined, overnight events noted.He was groggy this morning and wanted to sleep, but woke up with verbal commands and obeyed orders answered appropriately, The patient has been tachycardic overnight in A. fib with RVR. His CT scan of the abdomen, pelvis showed a hematoma versus an abscess in the left psoas muscle. The patient has supratherapeutic INR and I think it is most likely for this to be a hematoma and abscess. However, it is difficult to know for sure without aspiration. The patientis on vancomycin, levofloxacin and Flagyl for broad-spectrum coverage. Patient received 4 units of FFP, vitamin K injection, overnight. This morning his hemoglobin was dropped to 5.5. He is to get 3 units of blood. We will recheck his labs after his blood transfusion is finished. The INR this morning is 1.7. Should his hemoglobin continued to drop, we will consult surgery to get an opinion. The patient's drug screen is positive for amphetamine, the patient denies use of any other substances except for marijuana, thinks that it might be released with it. The patient has abdominal pain still, but no other symptoms. He was resting comfortably. He got up PICC line placed last night for better IV access. macias placed. 02/09: Pt seen examined, no acute overnight events, hb dropped again this AM, will give another 2 units of PRBC, patient has some soreness in the abdomen, but was sleeping comfortably. Plan of care reviewed with him, explained to him that he has a large blood clot in the one of the big muscles int the abdomen and he needs to be monitored. He will remain bed bound till we can establish stability of the bleed. He denies any left leg weakness or numbness. The Pt will get a repeat CT abdo and pelvis without conterast to evaluaet the bleed. INR is 1.5 this AM He continues to be on broad sepectrum ABX, he also remains of 4L oxygen will get chest X ray again today. 02/10: Urine output is been low. Received 20 mg of IV Lasix earlier today with minimal response. Intake has been much greater than output. Developing edema and his hands, as well as lower extremities. On 6 L nasal cannula to maintain sats. Patient complaining of some abdominal pain, though it has improved since 2 days ago. Appetite is improving, starting to eat. 02/11: Urine output remains low. Did have some response to 80 mg dose of furosemide. Creatinine elevated. Clinically the patient states he feels he is finally starting to feel better. No left-sided abdominal pain. Appetite is improving. 02/12: No specific complaints this morning. Abdominal pain remains resolved. Does have shortness of breath. No cough or sputum production. Oxygen demands went up overnight. Has hypoxic respiratory failure. During the day, repeat radiograph showed pulmonary edema. Nephrology arranged transport to [facility] for dialysis catheter placement. Plans for hemodialysis this evening. D/W Dr. Gupta. 02/13: Had worsening hypoxic respiratory failure last night, required BiPAP overnight. This morning had large loose bowel movement. Underwent hemodialysis , 2 L ultrafiltration. Tolerated well. Still requiring 11 LPM on oxygen mask to maintain saturations. Poor appetite. Is going to take oral meds now that dialysis is finished. Had a care conference. [facility] may be able to provide ongoing care for renal failure and respiratory failure once he is stabilized in a few days. Creatinine stable today, Hb remaining in 7 range. Midodrine to keep up BP. 02/14: Dialysis today, plan is to try to get further, 3-4 liters today during dialysis. yesterday afternoon, after dialysis and getting his morning meds late , went back on BiPAP, became less responsive overnight. Vitals were stable, was maintained on BiPAP, opened eyes arouses to deep rub. ABG showed compensation. This morning, has become progressively more alert, responding to voice and light touch now. Plan is to continue dialysis and BiPAP support. Hemoglobin drifted down to 7.0, we'll transfuse 2 further units of packed red blood cells. Continues to have loose stools, C. difficile was negative. Continues to use midodrine for blood pressure. February 15: Today, the patient is awake and alert. Has no Particular complaints. Denies subjective or chills, chest pain or shortness of breath, abdominal pain, nausea or vomiting. He initially said he thought he had been constipated, but I note he has a rectal catheter in place for diarrhea. -This patient has known developmental delay, and is a poor historian. -He was weaned off BiPAP to oxygen by nasal cannula today, and seems to be tolerating that. -He continues on dialysis with volume overload, while keeping an eye on low blood pressures. February 16: The patient did go back on BiPAP overnight, to maintain his O2 saturations. He continues to have episodes where he becomes rather tachypneic, with fairly shallow breathing, but denies any distress. His white blood cell count did bump up quite a bit today, for uncertain reasons. He reports he does have a cough, which is nonproductive. He otherwise denies fever chills, chest pain or palpitations, shortness of breath. He denies abdominal pain, nausea or vomiting or diarrhea. He continues to have somewhat loose stools, and still has a rectal catheter. Macias catheter is draining very dark yellow urine. -They had some difficulties with his catheter clotting yesterday, but did eventually do dialysis and remove about 1 L of fluids. -The patient continues with an unusual affect, and history is likely unreliable. -He continues quite weak, and has not been out of bed yet, as he has trouble even sitting up in bed. -Coumadin continues to be held, as it is not clear that his H and H will remain stable yet. He does have chronic atrial fibrillation, and is at increased risk for blood clots. - Constitutional Vitals: Vital Signs Temp Pulse Resp BP Pulse Ox 97.2 F 84 20 118/69 94 02/16/17 12:01 02/16/17 12:32 02/16/17 12:01 02/16/17 12:01 02/16/17 12:32 Period Temp Pulse Resp BP Sys/Willis Pulse Ox Last 24 Hr 97.0 F-98.6 F 76-102 15-32 82-126/56-81 87-99 Intake and Output 02/15/17 02/16/17 02/16/17 21:59 05:59 13:59 Intake Total 1000 / 1000 280 / 280 Output Total 1476 / 1476 300 / 300 200 / 200 Balance -476 / -476 -20 / -20 -200 / -200 Weight 295 lb 4.8 oz Intake & Output: Intake & Output 02/15/17 02/16/17 02/16/17 21:59 05:59 13:59 Intake Total 1000 / 1000 280 / 280 Output Total 1476 / 1476 300 / 300 200 / 200 Balance -476 / -476 -20 / -20 -200 / -200 Weight 295 lb 4.8 oz Intake: IV 550 / 550 100 / 100 Oral 450 / 450 180 / 180 Output: Urine Catheter Amount 250 / 250 300 / 300 200 / 200 Hemodialysis UF 1226 / 1226 He remains afebrile. Heart rates are ranging from 84-102. Respiratory rate is ranging from 20-32. O2 saturation was 94% on BiPAP with 3 L O2 this morning, and is now 94% on 3 L nasal cannula. Weight peaked at 313 pounds, and then dropped to 293 pounds yesterday, and today is reading at 295 pounds On exam, he is a markedly overweight who continues to appear rather sleepy. Affect is unusual. Neck is supple without obvious lymphadenopathy or JVD. Cardiac exam shows an irregular rhythm, with a controlled rate. Lungs: It is difficult to get a good exam as he is unable to sit up easily. He has decreased breath sounds at the bases, but lungs are fairly clear above, and quite clear anteriorly. No wheezes or rhonchi are noted. Abdomen: Is soft and nontender, with normal bowel sounds. Extremities: He has mild edema, and significant chronic stasis dermatitis. Neurologic: Patient continues somewhat lethargic and generally quite weak. Exam appears nonfocal. Medical - PN: Obj Da - Labs CBC & Chem 7: 02/16/17 03:35 02/16/17 03:35 Labs: Abnormal Lab Results 02/16/17 02/16/17 02/15/17 03:35 03:35 08:03 WBC 18.9 H RBC 3.01 L Hgb 8.9 L 9.3 L Hct 26.7 L 27.8 L RDW 16.3 H MPV 6.4 L Lymph % (Auto) 9.7 L Levy % (Auto) 13.6 H Gran # 14.3 H Lymph # (Auto) Levy # (Auto) 2.6 H PT INR BUN 53 H Creatinine 2.1 H Glucose 106 H Calcium 8.1 L Total Protein Albumin Albumin/Globulin Ratio 02/15/17 02/14/17 02/14/17 03:35 03:57 03:57 WBC RBC Hgb Hct RDW MPV Lymph % (Auto) Levy % (Auto) Gran # Lymph # (Auto) Levy # (Auto) PT 16.8 H INR 1.3 H BUN 50 H 59 H Creatinine 2.3 H 2.9 H Glucose Calcium 7.9 L 8.2 L Total Protein 5.3 L Albumin 2.1 L Albumin/Globulin Ratio 0.7 L 02/14/17 03:57 WBC RBC 2.39 L Hgb 7.0 L* Hct 21.3 L RDW 16.0 H MPV 6.1 L Lymph % (Auto) 10.5 L Levy % (Auto) 21.8 H Gran # Lymph # (Auto) 0.8 L Levy # (Auto) 1.7 H PT INR BUN Creatinine Glucose Calcium Total Protein Albumin Albumin/Globulin Ratio February 16: Chest x-ray: Formal report is still pending, but to my reading shows probable right middle lobe/right lower lobe infiltrate, and possible mild pulmonary vascular congestion as well. February 14: X-ray shows bilateral pulmonary infiltrates with improvement in the right lower thorax. February 13: ABG on BiPAP, 70% FiO2: PH 7.38, CO2 48, PO2 73, bicarb 28, O2 saturation 95% C. difficile screen is negative. Urine culture is negative. February 12: Echocardiogram: Mild to moderate LVH, with ejection fraction 62%. Mild biatrial enlargement. Left pleural effusion. February 07: MRSA screen is negative. Blood cultures are negative. Meds: Medications Acetaminophen (Tylenol) 650 mg PO Q6HP PRN PRN Reason: PAIN/FEVER > 101 Last Admin: 02/11/17 21:30 Dose: 650 mg Albuterol/Ipratropium (Duoneb) 3 ml NEB Q4HRT [facility] Last Admin: 02/16/17 11:17 Dose: 3 ml Benztropine Mesylate (Cogentin) 0.5 mg PO BID [facility] Last Admin: 02/16/17 08:38 Dose: 0.5 mg Bupropion HCl (Wellbutrin Xl) 150 mg PO DAILY [facility] Last Admin: 02/16/17 08:33 Dose: 150 mg Calcium Acetate (Phoslo) 667 mg PO TIDCC [facility] Last Admin: 02/16/17 08:32 Dose: 667 mg Dextrose (Dextrose 50%) 0 ml IV UD PRN PRN Reason: Hypoglycemia Diagnostic Test (Pha) (Accu-Chek) 1 each FS ACHS [facility] Last Admin: 02/16/17 12:28 Dose: 1 each Digoxin (Lanoxin) 125 mcg PO DAILY@1400 [facility] Last Admin: 02/15/17 15:02 Dose: 125 mcg Diltiazem HCl (Cardizem Cd) 180 mg PO BID [facility] Last Admin: 02/16/17 08:35 Dose: 180 mg Divalproex Sodium (Depakote Er) 1,000 mg PO BID [facility] Last Admin: 02/16/17 08:34 Dose: 1,000 mg Duloxetine HCl (Cymbalta) 120 mg PO DAILY [facility] Last Admin: 02/16/17 08:34 Dose: 120 mg Glucose (Insta-Glucose) 15 gm PO PRN PRN PRN Reason: Hypoglycemia Heparin Sodium (Porcine) (Heparin Flush) 2 ml IV Q12 [facility] Last Admin: 02/16/17 08:35 Dose: 2 ml Heparin Sodium (Porcine) (Heparin) 5,000 unit SQ Q12 [facility] Levofloxacin (Levaquin) 500 mg in 100 mls @ 100 mls/hr IV Q48H [facility] Last Admin: 02/16/17 12:05 Dose: 100 mls/hr Metronidazole (Flagyl) 500 mg in 100 mls @ 100 mls/hr IV Q12H [facility] Last Admin: 02/16/17 08:39 Dose: 100 mls/hr Insulin Human Lispro (Humalog) 0 unit SQ ACHS [facility] PRN Reason: Protocol Last Admin: 02/16/17 07:56 Dose: Not Given Metoprolol Succinate (Toprol Xl) 200 mg PO BID [facility] Last Admin: 02/16/17 08:33 Dose: 200 mg Midodrine (Midodrine Hcl) 10 mg PO TID@0800,1200,1700 [facility] Last Admin: 02/16/17 08:34 Dose: 10 mg Naloxone HCl (Narcan) 0.1 mg IV Q2MIN PRN PRN Reason: Opiate Reversal Ondansetron HCl (Zofran) 4 mg IV Q4HP PRN PRN Reason: Nausea And Vomiting Last Admin: 02/09/17 06:53 Dose: 4 mg Oxybutynin Chloride (Ditropan Xl) 10 mg PO DAILY [facility] Last Admin: 02/16/17 08:32 Dose: 10 mg Oxycodone/Acetaminophen (Percocet 5-325 Mg) 1 tab PO Q4HP PRN PRN Reason: Pain Risperidone (Risperdal) 8 mg PO HS [facility] Last Admin: 02/15/17 21:37 Dose: Not Given Simvastatin (Zocor) 20 mg PO QHS [facility] Last Admin: 02/15/17 21:39 Dose: 20 mg Sodium Chloride (Saline Flush) 10 ml IV Q8 [facility] Last Admin: 02/16/17 05:46 Dose: 10 ml Trazodone HCl (Desyrel) 100 mg PO [facility] Last Admin: 02/15/17 21:37 Dose: Not Given Zolpidem Tartrate (Ambien) 10 mg PO [facility] Last Admin: 02/15/17 21:36 Dose: Not Given Medical - PN: A/P - Time Spent With Patient Total time spent is greater than 50% in coordination of care (as documented) at patient's floor/unit and/or counseling patient: 25 - 35 minutes - Narrative A/P Narrative: #1. Renal. Acute renal failure with volume overload. -Patient continues with slow recovery, and is requiring ongoing dialysis. Managed by nephrology. Is probably still somewhat volume overloaded. #2. Pulmonary. Acute hypoxic respiratory failure. -Is supported with BiPAP at night, and able to be weaned to oxygen by nasal cannula during the day now. -For uncertain reasons, he continues to have periods of tachypnea, without subjective shortness of breath. O2 requirements in general are trending downward. Chest x-ray is worrisome for new right lower lobe process. Vancomycin was added today, to be sure he is covered for healthcare associated pneumonia. He continues also on Levaquin and Flagyl. #3. Neurologic. Encephalopathy. Improved. #4. Over anticoagulation. Warfarin is on hold, INR has normalized. H&H are just a bit lower today. Resume some type of stroke prophylaxis once hemoglobin is clearly stable. Plan: Hold anticoagulation, may need to consider NOAC in convalescence for stroke prophylaxis -Retroperitoneal and iliopsoas hemorrhages. Secondary to elevated INR at presentation. Received FFP and vitamin K at presentation. He received 3 units packed red cells for hemoglobin of 5.5, subsequently 2 further units on Saturday. Plus another 2 units. Hemoglobin slightly lower today. Repeat in the morning. Plan: Follow blood counts. #5. Infectious disease. SIRS: White count normalized 2 days ago, but then bumped up again today.. No fever and cultures were negative. Plan: Renally dose levofloxacin to 500 mg q48h, next dose 8 AM and metronidazole to Q12hr. -Chest x-ray pending. If develops other signs of infection with uncertain source, consider looking at so as fluid collections again, as possible source of abscess. #6. Hernia. -Marginally abnormal troponin 0.04. Do not suspect ACS, may some some demand ischemia, vs. poor renal clearance of marker. -Atrial fibrillation with RVR presentation. Generally rate controlled now. Plan: Continue rate control as able, depending upon BP -Hypertension. Blood pressures normalized/running low at times. Plan: Hold blood pressure medications for hypotension. #7. Psychiatric. -Bipolar disorder. Stable. -Patient also has known developmental delay, requiring caregivers to help with his long-term care. Clearly he was not taking his medications appropriately at home, and may need long-term placement to manage his high risk medications. #8. Endocrine. Type 2 diabetes. Accu-Cheks ranging from 108-146. Plan: Continue with renal diet, insulin therapy; stop Januvia #9. Weakness and debility, likely secondary to poor nutritional status and acute medical illness. Hemorrhage is stable. Plan: Okay to work with physical therapy . #10. DVT prophylaxis: SCDs only. Subcu heparin added today. I would like to resume Coumadin for stroke prophylaxis, once H and H are clearly stable. Disposition: . Anticipating return of renal function. . Once stable, consider transfer to [facility]. They are aware of his case. Medical - PN: Qual - VTE Deep Vein Thrombosis/Pulmonary Embolism Present on Admission: No
[2017-02-16] MEDS ORDERED: ALBUTEROL SULFATE 2.5 MG/3 ML NEBULIZER NEB PRN (14:50)
[2017-02-16] MEDS: DIGOXIN 125 MCG TABLET PO SCH (15:32)
--- NOTE | 2017-02-16 15:33 | XRay Report ---
HISTORY: Reason for Exam:leukocytosis, tachypnea FINDINGS: There is a moderate-sized alveolar infiltrate in the right lower lobe with a milder left lower lobe alveolar infiltrate. There may be a small right-sided pleural effusion. The right-sided infiltrate has become worse since 02/14/17. The heart is enlarged. The stomach has become more distended with gas. The central venous line remains well-positioned. IMPRESSION: Worsening right lower lobe infiltrate. It is not as consolidated as it was on 02/13/17. Interpreted and Authenticated by: Alex Uribe 02/16/17
[2017-02-16] MEDS: ALBUTEROL SULFATE 2.5 MG/3 ML NEBULIZER NEB SCH (19:12)
[2017-02-16] MEDS: SIMVASTATIN 20 MG TABLET PO SCH (20:37)
[2017-02-16] MEDS: ZOLPIDEM 5 MG TABLET PO SCH (20:38)
[2017-02-16] MEDS: oxyCODONE/APAP 5/325MG TABLET PO PRN (20:38)
[2017-02-16] MEDS: HEPARIN 5,000 UNIT/ML VIAL SQ SCH (20:39)
[2017-02-16] MEDS: risperiDONE 1 MG TABLET PO SCH (20:41)
[2017-02-16] MEDS: traZODone HCL 50 MG TABLET PO SCH (20:41)
[2017-02-17] MEDS: ALBUTEROL SULFATE 2.5 MG/3 ML NEBULIZER NEB SCH ×4 (01:36→19:26)
[2017-02-17] MEDS: 0.9 % SODIUM CHLORIDE 10 ML SYRINGE IV SCH ×3 (05:31→21:16)
[2017-02-17 05:49] LABS: Basophils # (Auto) 0.1 K/mcL (0.0-0.3); Basophils % (Auto) 0.2 % (0.0-2.0); Eosinophils # (Auto) 0.3 K/mcL (0.0-0.7); Eosinophils % (Auto) 1.6 % (0.0-7.0); Granulocytes % (Auto) 75.3 % (38.0-78.0); Lymphocytes # (Auto) 2.1 K/mcL (1.5-4.8); Mean Cell Volume 88.9 fL (80.0-100.0); Mean Corpuscular HGB Conc 33.9 g/dL (31.0-36.0); Mean Corpuscular Hemoglobin 30.1 pg (26.0-34.0); Monocytes # (Auto) 2.7 K/mcL (0.1-0.9); Monocytes % (Auto) 12.9 % (1.0-12.0); Platelet Count 255 K/mcL (140-440); RBC 2.86 M/mcL (4.50-5.90)
[2017-02-17 06:16] LABS: ALT/SGPT < 5 U/l (0-40); Albumin 1.9 gm/dL (3.2-5.2); Albumin/Globulin Ratio 0.6 (1.0-2.3); Alkaline Phosphatase 84 U/L (39-117); Bilirubin,Direct 0.3 mg/dL (0.0-0.3); Blood Urea Nitrogen 60 mg/dl (6-20); Gamma Glutamyl Transpeptidase 35 U/L (8-61); Magnesium 1.5 mg/dL (1.6-2.5); Uric Acid 6.1 mg/dL (2.5-8.0)
[2017-02-17] MEDS: DILTIAZEM 180 MG CAP.XL.24H PO SCH ×2 (08:24→20:06)
[2017-02-17] MEDS: MIDODRINE 5 MG TABLET PO SCH ×3 (08:24→17:36)
[2017-02-17] MEDS: oxyCODONE/APAP 5/325MG TABLET PO PRN ×2 (08:24→20:05)
[2017-02-17] MEDS: CALCIUM ACETATE 667 MG CAPSULE PO SCH ×3 (08:24→17:36)
[2017-02-17] MEDS: DULoxetine 30 MG CAPSULE PO SCH (08:24)
[2017-02-17] MEDS: buPROPion 150 MG TAB.XL.24H PO SCH (08:25)
[2017-02-17] MEDS: METOPROLOL SUCCINATE 50 MG TAB.XL.24H PO SCH ×2 (08:25→20:06)
[2017-02-17] MEDS: INSULIN LISPRO 1 UNIT/0.01 ML UNIT SQ SCH ×4 (08:26→20:24)
[2017-02-17] MEDS: BENZTROPINE 1 MG TABLET PO SCH ×2 (08:48→20:05)
[2017-02-17] MEDS: metroNIDAZOLE 500 MG/100 ML BAG IV SCH ×2 (08:50→20:04)
[2017-02-17] MEDS: OXYBUTYNIN CHLORIDE 5 MG TAB.XL.24H PO SCH (09:05)
[2017-02-17] MEDS: DIVALPROEX SODIUM 250 MG TAB.ER.24H PO SCH ×2 (09:05→20:05)
--- NOTE | 2017-02-17 10:07 | Nephrology Progress Note ---
Subjective Patient information: Note initiated : 02/17/17 at 10:05 am Service Date, if different from initiated Date: [] Patient: Keegan Uribe a 46 y/o M admitted on 02/07/17 for Elevated INR, Weakness. Chief Complaint: [] Principal diagnosis: PATRICIA / ARF, oliguria, fluid overload Interval history: Keegan stated that he feels "much better" today. He is still on 4L O2 via NC. He has episodes of tachypnea without feeling short of breath. Due to concern about hospital acquired pneumonia, he was started on iv vancomycin. He was on iv vancomycin for first few days of this hospitalization as well. Urine output has not be accurately recorded. SCr is at 2.3. BP remains stable. Objective - Vital Signs Vital signs: Vital Signs Temp Pulse Resp BP Pulse Ox 02/17/17 09:18 59 L 26 H 02/17/17 09:17 60 26 H 90 02/17/17 08:00 97.6 F 28 H 115/59 89 L 02/17/17 04:01 97.8 F 77 26 H 123/71 92 02/17/17 03:57 90 126/74 90 02/17/17 01:44 82 24 H 02/17/17 00:01 97.4 F 88 122/82 94 02/16/17 22:01 74 111/67 92 02/16/17 20:00 66 119/63 88 L 02/16/17 19:51 85 90 02/16/17 19:49 98.4 F 86 20 133/82 90 02/16/17 19:18 84 26 H 02/16/17 19:13 90 02/16/17 19:12 90 02/16/17 18:11 91 H 90 02/16/17 18:01 99 H 139/95 90 02/16/17 16:21 104 H 128/85 90 02/16/17 16:18 96 H 90 02/16/17 14:01 97.6 F 90 20 133/80 94 02/16/17 12:32 84 94 02/16/17 12:01 97.2 F 102 H 20 118/69 95 02/16/17 11:18 91 H 26 H Intake and Output 02/16/17 02/17/17 02/17/17 21:59 05:59 13:59 Intake Total 300 / 300 480 / 480 Output Total 700 / 700 550 / 550 Balance -400 / -400 -70 / -70 Intake: IV 100 / 100 Oral 200 / 200 480 / 480 Output: Urine Catheter Amount 700 / 700 550 / 550 Stool 0 / 0 Other: Weight 294 lb 1.6 oz Intake & Output: Intake & Output 02/16/17 02/17/17 02/17/17 21:59 05:59 13:59 Intake Total 300 / 300 480 / 480 Output Total 700 / 700 550 / 550 Balance -400 / -400 -70 / -70 Weight 294 lb 1.6 oz Intake: IV 100 / 100 Oral 200 / 200 480 / 480 Output: Urine Catheter Amount 700 / 700 550 / 550 Stool 0 / 0 - Lab 02/17/17 03:45 02/17/17 03:45 Most recent lab results Calcium 8.3 mg/dl (8.6-10.4) L 02/17/17 03:45 Phosphorus 2.9 mg/dL (2.7-4.5) 02/17/17 03:45 Magnesium 1.5 mg/dL (1.6-2.5) L 02/17/17 03:45 Assessment and Plan (1) Acute renal failure PATRICIA / ATN: nephrotoxic / ischemic in setting of iv contrast exposure and hypotension. Oliguric. BP better on Midodrine. No dialysis today, plan for HD tomorrow am. Follow urine out put, BMP, serum vancomycin trough level. Baseline SCr 0.7 on 02-07-17 Status: Acute
--- NOTE | 2017-02-17 11:10 | Internal Med Progress Note ---
Medical - PN: Subj Patient information: Note initiated : 02/17/17 at 11:10 am Patient: Keegan Uribe 46 y/o M admitted on 02/07/17 for Elevated INR, Weakness. Interval history: February 07, 2017: History of present illness: Mr. Uribe is a 46 year old Male presents to the ER with complaints of weakness going on for the last 1 day. According to the patient, he woke up this morning and was trying to sit outside , while getting back inside the house. He noted that he was very weak, fell down,and was unable to get up. His friend, therefore, 911 to get into the hospital. According to the patient, he was feeling better yesterday. The patient denies any chest pain, palpitations, admits to having some dizziness, denies any syncope or presyncope, denies any head injury. the patient notes that he has not been drinking very well and he is dehydrated, on probing this question further. He is unable to tell me why he is not drinking enough fluids. the patient admits that he has been having abdominal pain going on for the last 3 days, abdominal pain is predominantly in the epigastric and periumbilical region, nonradiating, sharp in nature worse with going outside in the heat better by coming inside inside the house and drinking cold water. The patient admits to having some nausea but no vomiting. He denies any bleeding from any site I was not able to a certain if he was compliant with his medications, but it seems he is taking some. His Coumadin level was supratherapeutic on presentation. He notes that he was unable to have his last INR check. Because of some confusion with his appointment. 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 He has chronic wounds which are managed by the wound care clinic, 02/08: patient seen and examined, overnight events noted.He was groggy this morning and wanted to sleep, but woke up with verbal commands and obeyed orders answered appropriately, The patient has been tachycardic overnight in A. fib with RVR. His CT scan of the abdomen, pelvis showed a hematoma versus an abscess in the left psoas muscle. The patient has supratherapeutic INR and I think it is most likely for this to be a hematoma and abscess. However, it is difficult to know for sure without aspiration. The patientis on vancomycin, levofloxacin and Flagyl for broad-spectrum coverage. Patient received 4 units of FFP, vitamin K injection, overnight. This morning his hemoglobin was dropped to 5.5. He is to get 3 units of blood. We will recheck his labs after his blood transfusion is finished. The INR this morning is 1.7. Should his hemoglobin continued to drop, we will consult surgery to get an opinion. The patient's drug screen is positive for amphetamine, the patient denies use of any other substances except for marijuana, thinks that it might be released with it. The patient has abdominal pain still, but no other symptoms. He was resting comfortably. He got up PICC line placed last night for better IV access. macias placed. 02/09: Pt seen examined, no acute overnight events, hb dropped again this AM, will give another 2 units of PRBC, patient has some soreness in the abdomen, but was sleeping comfortably. Plan of care reviewed with him, explained to him that he has a large blood clot in the one of the big muscles int the abdomen and he needs to be monitored. He will remain bed bound till we can establish stability of the bleed. He denies any left leg weakness or numbness. The Pt will get a repeat CT abdo and pelvis without conterast to evaluaet the bleed. INR is 1.5 this AM He continues to be on broad sepectrum ABX, he also remains of 4L oxygen will get chest X ray again today. 02/10: Urine output is been low. Received 20 mg of IV Lasix earlier today with minimal response. Intake has been much greater than output. Developing edema and his hands, as well as lower extremities. On 6 L nasal cannula to maintain sats. Patient complaining of some abdominal pain, though it has improved since 2 days ago. Appetite is improving, starting to eat. 02/11: Urine output remains low. Did have some response to 80 mg dose of furosemide. Creatinine elevated. Clinically the patient states he feels he is finally starting to feel better. No left-sided abdominal pain. Appetite is improving. 02/12: No specific complaints this morning. Abdominal pain remains resolved. Does have shortness of breath. No cough or sputum production. Oxygen demands went up overnight. Has hypoxic respiratory failure. During the day, repeat radiograph showed pulmonary edema. Nephrology arranged transport to [facility] for dialysis catheter placement. Plans for hemodialysis this evening. D/W Dr. Gupta. 02/13: Had worsening hypoxic respiratory failure last night, required BiPAP overnight. This morning had large loose bowel movement. Underwent hemodialysis , 2 L ultrafiltration. Tolerated well. Still requiring 11 LPM on oxygen mask to maintain saturations. Poor appetite. Is going to take oral meds now that dialysis is finished. Had a care conference. [facility] may be able to provide ongoing care for renal failure and respiratory failure once he is stabilized in a few days. Creatinine stable today, Hb remaining in 7 range. Midodrine to keep up BP. 02/14: Dialysis today, plan is to try to get further, 3-4 liters today during dialysis. yesterday afternoon, after dialysis and getting his morning meds late , went back on BiPAP, became less responsive overnight. Vitals were stable, was maintained on BiPAP, opened eyes arouses to deep rub. ABG showed compensation. This morning, has become progressively more alert, responding to voice and light touch now. Plan is to continue dialysis and BiPAP support. Hemoglobin drifted down to 7.0, we'll transfuse 2 further units of packed red blood cells. Continues to have loose stools, C. difficile was negative. Continues to use midodrine for blood pressure. February 15: Today, the patient is awake and alert. Has no Particular complaints. Denies subjective or chills, chest pain or shortness of breath, abdominal pain, nausea or vomiting. He initially said he thought he had been constipated, but I note he has a rectal catheter in place for diarrhea. -This patient has known developmental delay, and is a poor historian. -He was weaned off BiPAP to oxygen by nasal cannula today, and seems to be tolerating that. -He continues on dialysis with volume overload, while keeping an eye on low blood pressures. February 16: The patient did go back on BiPAP overnight, to maintain his O2 saturations. He continues to have episodes where he becomes rather tachypneic, with fairly shallow breathing, but denies any distress. His white blood cell count did bump up quite a bit today, for uncertain reasons. He reports he does have a cough, which is nonproductive. He otherwise denies fever chills, chest pain or palpitations, shortness of breath. He denies abdominal pain, nausea or vomiting or diarrhea. He continues to have somewhat loose stools, and still has a rectal catheter. Macias catheter is draining very dark yellow urine. -They had some difficulties with his catheter clotting yesterday, but did eventually do dialysis and remove about 1 L of fluids. -The patient continues with an unusual affect, and history is likely unreliable. -He continues quite weak, and has not been out of bed yet, as he has trouble even sitting up in bed. -Coumadin continues to be held, as it is not clear that his H and H will remain stable yet. He does have chronic atrial fibrillation, and is at increased risk for blood clots. February 17: Today, the patient states he feels better. He says he has only minimal cough and continues to deny shortness of breath. He denies fevers and chills. He apparently did not want to use the BiPAP last night, and was able to maintain his O2 saturations just with oxygen via nasal cannula. He otherwise denies fever chills, chest pain or palpitations, abdominal pain, nausea or vomiting. Nurses say he has minimal diarrhea at this time, but rectal catheter is still in place. Macias catheter is draining very dark urine. - Constitutional Vitals: Vital Signs Temp Pulse Resp BP Pulse Ox 97.6 F 59 L 26 H 115/59 90 02/17/17 08:00 02/17/17 09:18 02/17/17 09:18 02/17/17 08:00 02/17/17 09:17 Period Temp Pulse Resp BP Sys/Willis Pulse Ox Last 24 Hr 97.2 F-98.4 F 59-104 20-28 111-139/59-95 88-95 Intake and Output 02/16/17 02/17/17 02/17/17 21:59 05:59 13:59 Intake Total 300 / 300 480 / 480 Output Total 700 / 700 550 / 550 Balance -400 / -400 -70 / -70 Weight 294 lb 1.6 oz Intake & Output: Intake & Output 02/16/17 02/17/17 02/17/17 21:59 05:59 13:59 Intake Total 300 / 300 480 / 480 Output Total 700 / 700 550 / 550 Balance -400 / -400 -70 / -70 Weight 294 lb 1.6 oz Intake: IV 100 / 100 Oral 200 / 200 480 / 480 Output: Urine Catheter Amount 700 / 700 550 / 550 Stool 0 / 0 Respiratory rate ranges from 20-28, O2 sats ranged from 89-92% on 4 L nasal cannula Urine output was 1450 mL overnight. He continues with an unusual affect. He is in no acute distress, sitting in bed , watching TV and eating breakfast. Neck shows no obvious JVD or lymphadenopathy. Cardiac exam shows an irregularly irregular rhythm with controlled rate. Lungs: He has decreased breath sounds at the right base, but no obvious rhonchi or crackles. Left lung booker are clear. Abdomen is obese, but soft and nontender. Bowel sounds are active. Extremities: Show about 1+ edema, with severe chronic stasis dermatitis. Neurologic exam is grossly nonfocal, but history does appear a bit unreliable. Patient continues to be quite weak, and has so far not been able to get out of bed even with assistance. Medical - PN: Obj Da - Labs CBC & Chem 7: 02/17/17 03:45 02/17/17 03:45 Labs: Abnormal Lab Results 02/17/17 02/17/17 02/16/17 03:45 03:45 03:35 WBC 21.2 H 18.9 H RBC 2.86 L 3.01 L Hgb 8.6 L 8.9 L Hct 25.4 L 26.7 L RDW 16.0 H 16.3 H MPV 6.3 L 6.4 L Lymph % (Auto) 10.0 L 9.7 L Hopkins % (Auto) 12.9 H 13.6 H Gran # 15.9 H 14.3 H Hopkins # (Auto) 2.7 H 2.6 H BUN 60 H Creatinine 2.3 H Glucose Calcium 8.3 L Magnesium 1.5 L Total Protein 5.2 L Albumin 1.9 L Albumin/Globulin Ratio 0.6 L Triglycerides 170 H 02/16/17 02/15/17 02/15/17 03:35 08:03 03:35 WBC RBC Hgb 9.3 L Hct 27.8 L RDW MPV Lymph % (Auto) Hopkins % (Auto) Gran # Hopkins # (Auto) BUN 53 H 50 H Creatinine 2.1 H 2.3 H Glucose 106 H Calcium 8.1 L 7.9 L Magnesium Total Protein Albumin Albumin/Globulin Ratio Triglycerides February 16: Chest x-ray: Moderate sized alveolar infiltrate in the right lower lobe with milder left lower lobe infiltrate and possible small right-sided pleural effusion. Right-sided infiltrate is worse compared with February 14. Stomach is more distended with gas. February 14: X-ray shows bilateral pulmonary infiltrates with improvement in the right lower thorax. February 13: ABG on BiPAP, 70% FiO2: PH 7.38, CO2 48, PO2 73, bicarb 28, O2 saturation 95% C. difficile screen is negative. Urine culture is negative. February 12: Echocardiogram: Mild to moderate LVH, with ejection fraction 62%. Mild biatrial enlargement. Left pleural effusion. February 07: MRSA screen is negative. Blood cultures are negative. Meds: Medications Acetaminophen (Tylenol) 650 mg PO Q6HP PRN PRN Reason: PAIN/FEVER > 101 Last Admin: 02/11/17 21:30 Dose: 650 mg Albuterol Sulfate (Ventolin) 2.5 mg NEB Q6HRT [facility] Last Admin: 02/17/17 09:16 Dose: 2.5 mg Albuterol Sulfate (Ventolin) 2.5 mg NEB Q3HP PRN PRN Reason: Shortness Of Breath Benztropine Mesylate (Cogentin) 0.5 mg PO BID [facility] Last Admin: 02/17/17 08:48 Dose: 0.5 mg Bupropion HCl (Wellbutrin Xl) 150 mg PO DAILY [facility] Last Admin: 02/17/17 08:25 Dose: 150 mg Calcium Acetate (Phoslo) 667 mg PO TIDCC [facility] Last Admin: 02/17/17 08:24 Dose: 667 mg Dextrose (Dextrose 50%) 0 ml IV UD PRN PRN Reason: Hypoglycemia Diagnostic Test (Pha) (Accu-Chek) 1 each FS ACHS [facility] Last Admin: 02/17/17 08:26 Dose: 1 each Digoxin (Lanoxin) 125 mcg PO DAILY@1400 [facility] Last Admin: 02/16/17 15:32 Dose: 125 mcg Diltiazem HCl (Cardizem Cd) 180 mg PO BID [facility] Last Admin: 02/17/17 08:24 Dose: 180 mg Divalproex Sodium (Depakote Er) 1,000 mg PO BID [facility] Last Admin: 02/16/17 20:38 Dose: 1,000 mg Duloxetine HCl (Cymbalta) 120 mg PO DAILY [facility] Last Admin: 02/17/17 08:24 Dose: 120 mg Glucose (Insta-Glucose) 15 gm PO PRN PRN PRN Reason: Hypoglycemia Heparin Sodium (Porcine) (Heparin Flush) 2 ml IV Q12 [facility] Last Admin: 02/17/17 08:23 Dose: 2 ml Heparin Sodium (Porcine) (Heparin) 5,000 unit SQ Q12 [facility] Last Admin: 02/16/17 20:39 Dose: 5,000 unit Levofloxacin (Levaquin) 500 mg in 100 mls @ 100 mls/hr IV Q48H [facility] Last Admin: 02/16/17 12:05 Dose: 100 mls/hr Metronidazole (Flagyl) 500 mg in 100 mls @ 100 mls/hr IV Q12H [facility] Last Admin: 02/17/17 08:50 Dose: 100 mls/hr Insulin Human Lispro (Humalog) 0 unit SQ ACHS [facility] PRN Reason: Protocol Last Admin: 02/17/17 08:26 Dose: Not Given Metoprolol Succinate (Toprol Xl) 200 mg PO BID [facility] Last Admin: 02/17/17 08:25 Dose: 200 mg Midodrine (Midodrine Hcl) 10 mg PO TID@0800,1200,1700 [facility] Last Admin: 02/17/17 08:24 Dose: 10 mg Naloxone HCl (Narcan) 0.1 mg IV Q2MIN PRN PRN Reason: Opiate Reversal Ondansetron HCl (Zofran) 4 mg IV Q4HP PRN PRN Reason: Nausea And Vomiting Last Admin: 02/09/17 06:53 Dose: 4 mg Oxybutynin Chloride (Ditropan Xl) 10 mg PO DAILY [facility] Last Admin: 02/16/17 08:32 Dose: 10 mg Oxycodone/Acetaminophen (Percocet 5-325 Mg) 1 tab PO Q4HP PRN PRN Reason: Pain Last Admin: 02/17/17 08:24 Dose: 1 tab Risperidone (Risperdal) 8 mg PO HS [facility] Last Admin: 02/16/17 20:41 Dose: Not Given Simvastatin (Zocor) 20 mg PO QHS [facility] Last Admin: 02/16/17 20:37 Dose: 20 mg Sodium Chloride (Saline Flush) 10 ml IV Q8 [facility] Last Admin: 02/17/17 05:31 Dose: 10 ml Trazodone HCl (Desyrel) 100 mg PO [facility] Last Admin: 02/16/17 20:41 Dose: Not Given Zolpidem Tartrate (Ambien) 10 mg PO [facility] Last Admin: 02/16/17 20:38 Dose: 10 mg Medical - PN: A/P - Time Spent With Patient Total time spent is greater than 50% in coordination of care (as documented) at patient's floor/unit and/or counseling patient: 25 - 35 minutes - Narrative A/P Narrative: #1. Renal. Acute renal failure with volume overload. -Patient continues with slow recovery, and is requiring ongoing dialysis. Managed by nephrology. Is probably still somewhat volume overloaded, but did diurese after IV Lasix yesterday.. #2. Pulmonary. Acute hypoxic respiratory failure. He was able to oxygenate without BiPAP last night, so appears to be improving. -For uncertain reasons, he continues to have periods of tachypnea, without subjective shortness of breath. Chest x-ray shows bilateral lower lobe infiltrates. Vancomycin was added to his Levaquin plus Flagyl. White blood cell count is higher today, but I am hoping we will see a decline by tomorrow. . #3. Neurologic. Encephalopathy. Improved. #4. Over anticoagulation. Warfarin is on hold, INR has normalized. H&H are just a bit lower again today. Resume some type of stroke prophylaxis once hemoglobin is clearly stable. Plan: Hold anticoagulation, may need to consider NOAC in convalescence for stroke prophylaxis -Retroperitoneal and iliopsoas hemorrhages. Secondary to elevated INR at presentation. Received FFP and vitamin K at presentation. He received 3 units packed red cells for hemoglobin of 5.5, subsequently 2 further units on Saturday. Plus another 2 units. Hemoglobin slightly lower today. Repeat in the morning. #5. Infectious disease. SIRS: White count normalized 2 days ago, but then bumped up again yesterday and today.. No fever and cultures were negative. Continue renally dose levofloxacin to 500 mg q48h, and metronidazole to Q12hr. If develops other signs of infection with uncertain source, consider looking at so as fluid collections again, as possible source of abscess. #6. Hernia. -Marginally abnormal troponin 0.04. Do not suspect ACS, may some some demand ischemia, vs. poor renal clearance of marker. -Atrial fibrillation with RVR presentation. Generally rate controlled now. Plan: Continue rate control as able, depending upon BP -Hypertension. Blood pressures normalized/running low at times. Plan: Hold blood pressure medications for hypotension. #7. Psychiatric. -Bipolar disorder. Stable. -Patient also has known developmental delay, requiring caregivers to help with his long-term care. Clearly he was not taking his medications appropriately at home, and may need long-term placement to manage his high risk medications. #8. Endocrine. Type 2 diabetes. Accu-Cheks ranging from 108-146. Plan: Continue with renal diet, insulin therapy; stop Januvia #9. Weakness and debility, likely secondary to poor nutritional status and acute medical illness. Hemorrhage is stable. Plan: Okay to work with physical therapy . #10. DVT prophylaxis: SCDs only. Subcu heparin added today. I would like to resume Coumadin for stroke prophylaxis, once H and H are clearly stable. Disposition: . Anticipating return of renal function. . Once stable, consider transfer to [facility]. They are aware of his case. Medical - PN: Qual - VTE Deep Vein Thrombosis/Pulmonary Embolism Present on Admission: No
[2017-02-17] MEDS: HEPARIN 5,000 UNIT/ML VIAL SQ SCH ×2 (13:34→20:05)
[2017-02-17] MEDS: DIGOXIN 125 MCG TABLET PO SCH (13:37)
[2017-02-17] MEDS ORDERED: MAGNESIUM SULFATE 2 GM/50 ML BAG IV ONE (15:39)
[2017-02-17] MEDS: traZODone HCL 50 MG TABLET PO SCH (20:06)
[2017-02-17] MEDS: risperiDONE 1 MG TABLET PO SCH (20:06)
[2017-02-17] MEDS: ZOLPIDEM 5 MG TABLET PO SCH (20:06)
[2017-02-17] MEDS: SIMVASTATIN 20 MG TABLET PO SCH (20:06)
[2017-02-18] MEDS: ALBUTEROL SULFATE 2.5 MG/3 ML NEBULIZER NEB SCH ×4 (00:59→19:22)
[2017-02-18 04:37] LABS: Basophils # (Auto) 0.1 K/mcL (0.0-0.3); Basophils % (Auto) 0.4 % (0.0-2.0); Eosinophils # (Auto) 0.3 K/mcL (0.0-0.7); Eosinophils % (Auto) 1.2 % (0.0-7.0); Granulocytes % (Auto) 79.2 % (38.0-78.0); Lymphocytes # (Auto) 1.9 K/mcL (1.5-4.8); Lymphocytes % (Auto) 7.1 % (15.5-49.0); Mean Cell Volume 89.1 fL (80.0-100.0); Mean Corpuscular HGB Conc 33.1 g/dL (31.0-36.0); Mean Corpuscular Hemoglobin 29.5 pg (26.0-34.0); Monocytes # (Auto) 3.2 K/mcL (0.1-0.9); Monocytes % (Auto) 12.1 % (1.0-12.0); Platelet Count 280 K/mcL (140-440); RBC 2.87 M/mcL (4.50-5.90); Red Cell Distribution Width 15.9 % (11.5-14.5)
[2017-02-18 05:03] LABS: ALT/SGPT < 5 U/l (0-40); Albumin 2.2 gm/dL (3.2-5.2); Albumin/Globulin Ratio 0.7 (1.0-2.3); Alkaline Phosphatase 82 U/L (39-117); Bilirubin,Direct 0.3 mg/dL (0.0-0.3); Blood Urea Nitrogen 68 mg/dl (6-20); Gamma Glutamyl Transpeptidase 60 U/L (8-61); Magnesium 1.8 mg/dL (1.6-2.5); Uric Acid 7.1 mg/dL (2.5-8.0)
[2017-02-18] MEDS: 0.9 % SODIUM CHLORIDE 10 ML SYRINGE IV SCH ×3 (05:34→20:47)
[2017-02-18] MEDS: cefTRIAXone 1 GM in DEXTROSE 5% IN WATER 50 ML IV SCH (09:10)
[2017-02-18] MEDS: BENZTROPINE 1 MG TABLET PO SCH ×2 (09:30→20:45)
[2017-02-18] MEDS: INSULIN LISPRO 1 UNIT/0.01 ML UNIT SQ SCH ×4 (09:44→20:45)
[2017-02-18] MEDS: METOPROLOL SUCCINATE 50 MG TAB.XL.24H PO SCH ×2 (09:45→20:44)
[2017-02-18] MEDS: buPROPion 150 MG TAB.XL.24H PO SCH (09:45)
[2017-02-18] MEDS: DULoxetine 30 MG CAPSULE PO SCH (09:45)
[2017-02-18] MEDS: OXYBUTYNIN CHLORIDE 5 MG TAB.XL.24H PO SCH (09:45)
[2017-02-18] MEDS: MIDODRINE 5 MG TABLET PO SCH ×3 (09:46→17:27)
[2017-02-18] MEDS: DILTIAZEM 180 MG CAP.XL.24H PO SCH ×2 (09:46→20:44)
[2017-02-18] MEDS: CALCIUM ACETATE 667 MG CAPSULE PO SCH ×3 (09:46→17:27)
[2017-02-18] MEDS: DIVALPROEX SODIUM 250 MG TAB.ER.24H PO SCH ×2 (09:46→20:52)
[2017-02-18] MEDS: HEPARIN 5,000 UNIT/ML VIAL SQ SCH ×2 (09:47→20:46)
[2017-02-18] MEDS: metroNIDAZOLE 500 MG/100 ML BAG IV SCH ×2 (09:47→20:45)
--- NOTE | 2017-02-18 09:50 | Internal Med Progress Note ---
Medical - PN: Subj Patient information: Note initiated : 02/18/17 at 9:50 am Patient: Keegan Uribe 46 y/o M admitted on 02/07/17 for Elevated INR, Weakness. Interval history: February 07, 2017: History of present illness: Mr. Uribe is a 46 year old Male presents to the ER with complaints of weakness going on for the last 1 day. According to the patient, he woke up this morning and was trying to sit outside , while getting back inside the house. He noted that he was very weak, fell down,and was unable to get up. His friend, therefore, 911 to get into the hospital. According to the patient, he was feeling better yesterday. The patient denies any chest pain, palpitations, admits to having some dizziness, denies any syncope or presyncope, denies any head injury. the patient notes that he has not been drinking very well and he is dehydrated, on probing this question further. He is unable to tell me why he is not drinking enough fluids. the patient admits that he has been having abdominal pain going on for the last 3 days, abdominal pain is predominantly in the epigastric and periumbilical region, nonradiating, sharp in nature worse with going outside in the heat better by coming inside inside the house and drinking cold water. The patient admits to having some nausea but no vomiting. He denies any bleeding from any site I was not able to a certain if he was compliant with his medications, but it seems he is taking some. His Coumadin level was supratherapeutic on presentation. He notes that he was unable to have his last INR check. Because of some confusion with his appointment. Overall, the patient is a very poor history specification consultant, likely due to his mental health condition. He has chronic wounds which are managed by the wound care clinic, 02/08: patient seen and examined, overnight events noted.He was groggy this morning and wanted to sleep, but woke up with verbal commands and obeyed orders answered appropriately, The patient has been tachycardic overnight in A. fib with RVR. His CT scan of the abdomen, pelvis showed a hematoma versus an abscess in the left psoas muscle. The patient has supratherapeutic INR and I think it is most likely for this to be a hematoma and abscess. However, it is difficult to know for sure without aspiration. The patientis on vancomycin, levofloxacin and Flagyl for broad-spectrum coverage. Patient received 4 units of FFP, vitamin K injection, overnight. This morning his hemoglobin was dropped to 5.5. He is to get 3 units of blood. We will recheck his labs after his blood transfusion is finished. The INR this morning is 1.7. Should his hemoglobin continued to drop, we will consult surgery to get an opinion. The patient's drug screen is positive for amphetamine, the patient denies use of any other substances except for marijuana, thinks that it might be released with it. The patient has abdominal pain still, but no other symptoms. He was resting comfortably. He got up PICC line placed last night for better IV access. macias placed. 02/09: Pt seen examined, no acute overnight events, hb dropped again this AM, will give another 2 units of PRBC, patient has some soreness in the abdomen, but was sleeping comfortably. Plan of care reviewed with him, explained to him that he has a large blood clot in the one of the big muscles int the abdomen and he needs to be monitored. He will remain bed bound till we can establish stability of the bleed. He denies any left leg weakness or numbness. The Pt will get a repeat CT abdo and pelvis without conterast to evaluaet the bleed. INR is 1.5 this AM He continues to be on broad sepectrum ABX, he also remains of 4L oxygen will get chest X ray again today. 02/10: Urine output is been low. Received 20 mg of IV Lasix earlier today with minimal response. Intake has been much greater than output. Developing edema and his hands, as well as lower extremities. On 6 L nasal cannula to maintain sats. Patient complaining of some abdominal pain, though it has improved since 2 days ago. Appetite is improving, starting to eat. 02/11: Urine output remains low. Did have some response to 80 mg dose of furosemide. Creatinine elevated. Clinically the patient states he feels he is finally starting to feel better. No left-sided abdominal pain. Appetite is improving. 02/12: No specific complaints this morning. Abdominal pain remains resolved. Does have shortness of breath. No cough or sputum production. Oxygen demands went up overnight. Has hypoxic respiratory failure. During the day, repeat radiograph showed pulmonary edema. Nephrology arranged transport to [facility] for dialysis catheter placement. Plans for hemodialysis this evening. D/W Dr. Gupta. 02/13: Had worsening hypoxic respiratory failure last night, required BiPAP overnight. This morning had large loose bowel movement. Underwent hemodialysis , 2 L ultrafiltration. Tolerated well. Still requiring 11 LPM on oxygen mask to maintain saturations. Poor appetite. Is going to take oral meds now that dialysis is finished. Had a care conference. [facility] may be able to provide ongoing care for renal failure and respiratory failure once he is stabilized in a few days. Creatinine stable today, Hb remaining in 7 range. Midodrine to keep up BP. 02/14: Dialysis today, plan is to try to get further, 3-4 liters today during dialysis. yesterday afternoon, after dialysis and getting his morning meds late , went back on BiPAP, became less responsive overnight. Vitals were stable, was maintained on BiPAP, opened eyes arouses to deep rub. ABG showed compensation. This morning, has become progressively more alert, responding to voice and light touch now. Plan is to continue dialysis and BiPAP support. Hemoglobin drifted down to 7.0, we'll transfuse 2 further units of packed red blood cells. Continues to have loose stools, C. difficile was negative. Continues to use midodrine for blood pressure. February 15: Today, the patient is awake and alert. Has no Particular complaints. Denies subjective or chills, chest pain or shortness of breath, abdominal pain, nausea or vomiting. He initially said he thought he had been constipated, but I note he has a rectal catheter in place for diarrhea. -This patient has known developmental delay, and is a poor historian. -He was weaned off BiPAP to oxygen by nasal cannula today, and seems to be tolerating that. -He continues on dialysis with volume overload, while keeping an eye on low blood pressures. February 16: The patient did go back on BiPAP overnight, to maintain his O2 saturations. He continues to have episodes where he becomes rather tachypneic, with fairly shallow breathing, but denies any distress. His white blood cell count did bump up quite a bit today, for uncertain reasons. He reports he does have a cough, which is nonproductive. He otherwise denies fever chills, chest pain or palpitations, shortness of breath. He denies abdominal pain, nausea or vomiting or diarrhea. He continues to have somewhat loose stools, and still has a rectal catheter. Macias catheter is draining very dark yellow urine. -They had some difficulties with his catheter clotting yesterday, but did eventually do dialysis and remove about 1 L of fluids. -The patient continues with an unusual affect, and history is likely unreliable. -He continues quite weak, and has not been out of bed yet, as he has trouble even sitting up in bed. -Coumadin continues to be held, as it is not clear that his H and H will remain stable yet. He does have chronic atrial fibrillation, and is at increased risk for blood clots. February 17: Today, the patient states he feels better. He says he has only minimal cough and continues to deny shortness of breath. He denies fevers and chills. He apparently did not want to use the BiPAP last night, and was able to maintain his O2 saturations just with oxygen via nasal cannula. He otherwise denies fever chills, chest pain or palpitations, abdominal pain, nausea or vomiting. Nurses say he has minimal diarrhea at this time, but rectal catheter is still in place. Macias catheter is draining very dark urine. February 18: Today, the patient's white blood cell count continues to climb, for uncertain reasons. The patient continues to deny fever or chills, chest pain or palpitations, shortness of breath or cough, abdominal or flank pain, nausea or vomiting, diarrhea or constipation. Urine output did slow down overnight, without Lasix.. Renal function looks worse today. - Constitutional Vitals: Vital Signs Temp Pulse Resp BP Pulse Ox 98.2 F 80 28 H 115/75 94 02/18/17 04:01 02/18/17 07:38 02/18/17 07:38 02/18/17 04:01 02/18/17 07:36 Period Temp Pulse Resp BP Sys/Willis Pulse Ox Last 24 Hr 97.4 F-98.2 F 57-82 22-30 100-151/52-84 86-97 Intake and Output 02/17/17 02/18/17 02/18/17 21:59 05:59 13:59 Intake Total 200 / 200 460 / 460 Output Total 450 / 450 300 / 300 Balance -250 / -250 160 / 160 Weight 296 lb 1.6 oz Intake & Output: Intake & Output 02/17/17 02/18/17 02/18/17 21:59 05:59 13:59 Intake Total 200 / 200 460 / 460 Output Total 450 / 450 300 / 300 Balance -250 / -250 160 / 160 Weight 296 lb 1.6 oz Intake: IV 200 / 200 100 / 100 Oral 360 / 360 Output: Urine Catheter Amount 450 / 450 300 / 300 O2 saturation is 90-92% on 3 L nasal cannula. Respiratory rate varies from 20- 28. The patient is awake and alert, but continues to be slow to respond to most questions. He is in no acute distress. Neck shows no obvious JVD or lymphadenopathy. Cardiac exam is irregularly irregular, with controlled rate. Lung exam: He continues to have decreased breath sounds throughout, and has markedly diminished breath sounds at both bases. Anterior lung booker are clear. Wheezing or rhonchi are noted. Abdomen: Is quite obese, but soft and nontender. I cannot elicit any abdominal pain or flank pain. Bowel sounds are active. Extremities: Show chronic stasis dermatitis, but fairly minimal dependent edema. Neurologic exam: Patient continues to exhibit developmental delay, and history appears fairly unreliable. Motor exam is grossly nonfocal. Medical - PN: Obj Da - Labs CBC & Chem 7: 02/18/17 03:48 02/18/17 03:48 Labs: Abnormal Lab Results 02/18/17 02/18/17 02/17/17 03:48 03:48 03:45 WBC 26.6 H 21.2 H RBC 2.87 L 2.86 L Hgb 8.5 L 8.6 L Hct 25.6 L 25.4 L RDW 15.9 H 16.0 H MPV 6.2 L 6.3 L Gran % 79.2 H Lymph % (Auto) 7.1 L 10.0 L Camas % (Auto) 12.1 H 12.9 H Gran # 21.0 H 15.9 H Camas # (Auto) 3.2 H 2.7 H BUN 68 H Creatinine 2.5 H Glucose 106 H Calcium 8.3 L Magnesium Lactate Dehydrogenase 295 H Total Protein 5.4 L Albumin 2.2 L Albumin/Globulin Ratio 0.7 L Triglycerides 02/17/17 02/16/17 02/16/17 03:45 03:35 03:35 WBC 18.9 H RBC 3.01 L Hgb 8.9 L Hct 26.7 L RDW 16.3 H MPV 6.4 L Gran % Lymph % (Auto) 9.7 L Camas % (Auto) 13.6 H Gran # 14.3 H Camas # (Auto) 2.6 H BUN 60 H 53 H Creatinine 2.3 H 2.1 H Glucose 106 H Calcium 8.3 L 8.1 L Magnesium 1.5 L Lactate Dehydrogenase Total Protein 5.2 L Albumin 1.9 L Albumin/Globulin Ratio 0.6 L Triglycerides 170 H February 17: Repeat screen for C. difficile remains negative. Next Blood cultures from February 16 are negative so far February 16: Chest x-ray: Moderate sized alveolar infiltrate in the right lower lobe with milder left lower lobe infiltrate and possible small right-sided pleural effusion. Right-sided infiltrate is worse compared with February 14. Stomach is more distended with gas. February 14: X-ray shows bilateral pulmonary infiltrates with improvement in the right lower thorax. February 13: ABG on BiPAP, 70% FiO2: PH 7.38, CO2 48, PO2 73, bicarb 28, O2 saturation 95% C. difficile screen is negative. Urine culture is negative. February 12: Echocardiogram: Mild to moderate LVH, with ejection fraction 62%. Mild biatrial enlargement. Left pleural effusion. February 07: MRSA screen is negative. Blood cultures are negative. Meds: Medications Acetaminophen (Tylenol) 650 mg PO Q6HP PRN PRN Reason: PAIN/FEVER > 101 Last Admin: 02/11/17 21:30 Dose: 650 mg Albuterol Sulfate (Ventolin) 2.5 mg NEB Q6HRT [facility] Last Admin: 02/18/17 07:36 Dose: 2.5 mg Albuterol Sulfate (Ventolin) 2.5 mg NEB Q3HP PRN PRN Reason: Shortness Of Breath Benztropine Mesylate (Cogentin) 0.5 mg PO BID [facility] Last Admin: 02/17/17 20:05 Dose: 0.5 mg Bupropion HCl (Wellbutrin Xl) 150 mg PO DAILY [facility] Last Admin: 02/17/17 08:25 Dose: 150 mg Calcium Acetate (Phoslo) 667 mg PO TIDCC [facility] Last Admin: 02/17/17 17:36 Dose: 667 mg Dextrose (Dextrose 50%) 0 ml IV UD PRN PRN Reason: Hypoglycemia Diagnostic Test (Pha) (Accu-Chek) 1 each FS ACHS [facility] Last Admin: 02/17/17 20:24 Dose: 1 each Digoxin (Lanoxin) 125 mcg PO DAILY@1400 [facility] Last Admin: 02/17/17 13:37 Dose: 125 mcg Diltiazem HCl (Cardizem Cd) 180 mg PO BID [facility] Last Admin: 02/17/17 20:06 Dose: 180 mg Divalproex Sodium (Depakote Er) 1,000 mg PO BID [facility] Last Admin: 02/17/17 20:05 Dose: 1,000 mg Duloxetine HCl (Cymbalta) 120 mg PO DAILY [facility] Last Admin: 02/17/17 08:24 Dose: 120 mg Glucose (Insta-Glucose) 15 gm PO PRN PRN PRN Reason: Hypoglycemia Heparin Sodium (Porcine) (Heparin Flush) 2 ml IV Q12 [facility] Last Admin: 02/17/17 20:05 Dose: 2 ml Heparin Sodium (Porcine) (Heparin) 5,000 unit SQ Q12 [facility] Last Admin: 02/17/17 20:05 Dose: 5,000 unit Metronidazole (Flagyl) 500 mg in 100 mls @ 100 mls/hr IV Q12H [facility] Last Infusion: 02/18/17 03:49 Dose: Infused Ceftriaxone Sodium 1 gm/ (Dextrose) 50 mls @ 100 mls/hr IV DAILY [facility] Insulin Human Lispro (Humalog) 0 unit SQ ACHS [facility] PRN Reason: Protocol Last Admin: 02/17/17 20:24 Dose: Not Given Metoprolol Succinate (Toprol Xl) 200 mg PO BID [facility] Last Admin: 02/17/17 20:06 Dose: 200 mg Midodrine (Midodrine Hcl) 10 mg PO TID@0800,1200,1700 [facility] Last Admin: 02/17/17 17:36 Dose: 10 mg Naloxone HCl (Narcan) 0.1 mg IV Q2MIN PRN PRN Reason: Opiate Reversal Ondansetron HCl (Zofran) 4 mg IV Q4HP PRN PRN Reason: Nausea And Vomiting Last Admin: 02/09/17 06:53 Dose: 4 mg Oxybutynin Chloride (Ditropan Xl) 10 mg PO DAILY [facility] Last Admin: 02/17/17 09:05 Dose: 10 mg Oxycodone/Acetaminophen (Percocet 5-325 Mg) 1 tab PO Q4HP PRN PRN Reason: Pain Last Admin: 02/17/17 20:05 Dose: 1 tab Risperidone (Risperdal) 8 mg PO [facility] Last Admin: 02/17/17 20:06 Dose: Not Given Simvastatin (Zocor) 20 mg PO QHS [facility] Last Admin: 02/17/17 20:06 Dose: 20 mg Sodium Chloride (Saline Flush) 10 ml IV Q8 [facility] Last Admin: 02/18/17 05:34 Dose: 10 ml Trazodone HCl (Desyrel) 100 mg PO [facility] Last Admin: 02/17/17 20:06 Dose: 100 mg Warfarin Sodium (Coumadin Per Pharmacy) 1 order PO DAILY@1400 [facility] Zolpidem Tartrate (Ambien) 10 mg PO [facility] Last Admin: 02/17/17 20:06 Dose: 10 mg Medical - PN: A/P - Time Spent With Patient Total time spent is greater than 50% in coordination of care (as documented) at patient's floor/unit and/or counseling patient: Greater than 35 minutes - Narrative A/P Narrative: #1. Renal. Acute renal failure with volume overload. -Patient continues with slow recovery, and is requiring ongoing dialysis. Managed by nephrology. Is probably still somewhat volume overloaded, but did diurese after IV Lasix the day before yesterday. I believe he will undergo dialysis again today. #2. Pulmonary. Acute hypoxic respiratory failure. He was able to oxygenate without BiPAP last night, so appears to be improving. -For uncertain reasons, he continues to have periods of tachypnea, without subjective shortness of breath. Chest x-ray shows bilateral lower lobe infiltrates. Vancomycin was added to his Levaquin plus Flagyl. White blood cell count continues to worsen, again without obvious source. He denies any symptoms to speak of, of pneumonia, or other infection. He did have a known psoas hematoma, so we will recheck a CT scan to be sure there are no signs of abscess. -Update: CT report shows marked improvement in psoas hematoma, but shows dense consolidation at the right base, suggestive of mucus plugging. We will ask respiratory therapy about a trial of chest percussion therapy, and or Mucomyst nebulizer treatments. . #3. Neurologic. Encephalopathy. Improved. #4. Over anticoagulation. Warfarin is on hold, INR has normalized. -H&H are stable today. I would like to restart his warfarin today. Continue to monitor. Plan: Hold anticoagulation, may need to consider NOAC in convalescence for stroke prophylaxis (-Retroperitoneal and iliopsoas hemorrhages. Secondary to elevated INR at presentation. Received FFP and vitamin K at presentation. He received 3 units packed red cells for hemoglobin of 5.5, subsequently 2 further units on Saturday. Plus another 2 units.) #5. Infectious disease. SIRS: White count normalized 2 days ago, but then bumped up again yesterday and today.. No fever and cultures were negative. Continue renally dose levofloxacin to 500 mg q48h, and metronidazole to Q12hr. vancomycin added. #6. Hernia. -Marginally abnormal troponin 0.04. Do not suspect ACS, may some some demand ischemia, vs. poor renal clearance of marker. -Atrial fibrillation with RVR presentation. Generally rate controlled now. Plan: Continue rate control as able, depending upon BP -Hypertension. Blood pressures normalized/running low at times. Plan: Hold blood pressure medications for hypotension. #7. Psychiatric. -Bipolar disorder. Stable. -Patient also has known developmental delay, requiring caregivers to help with his long-term care. Clearly he was not taking his medications appropriately at home, and may need long-term placement to manage his high risk medications. #8. Endocrine. Type 2 diabetes. Accu-Cheks ranging from 108-146. Plan: Continue with renal diet, insulin therapy; stop Januvia #9. Weakness and debility, likely secondary to poor nutritional status and acute medical illness. Hemorrhage is stable. Plan: Okay to work with physical therapy . #10. DVT prophylaxis: SCDs only. Subcu heparin added.. I would like to resume Coumadin for stroke prophylaxis, Disposition: . Anticipating return of renal function. . Once stable, consider transfer to [facility]. They are aware of his case. Medical - PN: Qual - VTE Deep Vein Thrombosis/Pulmonary Embolism Present on Admission: No
[2017-02-18] MEDS ORDERED: WARFARIN 3 MG TABLET PO ONE (14:00)
[2017-02-18] MEDS: DIGOXIN 125 MCG TABLET PO SCH (14:30)
--- NOTE | 2017-02-18 16:01 | Cat Scan Report ---
CLINICAL INFORMATION: Follow left psoas hematoma - inpatient on anticoagulation COMPARISON: Abdomen and pelvic CT from over one week prior 02/09/2017 TECHNIQUE: 2.5 mm helical slices were obtained from the mid heart through the subtrochanteric regions. Following reconstruction, 2.5 mm sagittal, coronal and axial reformatted images were processed and reviewed at bone, lung and soft tissue windows. FINDINGS: Moderate bilateral pleural effusions and dense consolidated atelectasis of both lower and right middle lobes has progressed modestly. The heart is mildly enlarged, but unchanged Images should the abdomen show the noncontrasted gallbladder and bile ducts, liver, both kidneys, adrenal glands, spleen, pancreas and aorta to be normal. The hematoma throughout the belly of the left iliopsoas muscle has decreased markedly since previous exam. The hematoma now spans 3.5 cm in transverse dimension and 16 cm in longitudinal dimension. The hemorrhage in the surrounding retroperitoneal fat has almost resolved. Free fluid in the mesenteric cavity as decreased with now with only a small amount in the right paracolic gutter. Stomach, small and large bowel are otherwise normal. Graham catheter is in satisfactory position within the bladder. The prostate is normal. Bone windows show bilateral sacroiliitis - as previously seen IMPRESSION: 1. Marked interval improvement in left psoas hematoma - now less than one third of its original size. The hemorrhage in the adjacent left retroperitoneal fat and free intraperitoneal fluid has also merely resolved. 2. Dense consolidation atelectasis of both lower and right middle lobes with moderate bilateral pleural fusions - slight progression. Mucous plugging is suspected. 3. Bilateral sacroiliitis Interpreted and Authenticated by: Benigno Foote 02/18/17
[2017-02-18] MEDS ORDERED: ALTEPLASE 2 MG VIAL IV ONE (16:21)
[2017-02-18] MEDS: traZODone HCL 50 MG TABLET PO SCH (20:44)
[2017-02-18] MEDS: SIMVASTATIN 20 MG TABLET PO SCH (20:44)
[2017-02-18] MEDS: ZOLPIDEM 5 MG TABLET PO SCH (20:44)
[2017-02-18] MEDS: risperiDONE 1 MG TABLET PO SCH (21:11)
[2017-02-19] MEDS: ALBUTEROL SULFATE 2.5 MG/3 ML NEBULIZER NEB SCH ×4 (02:03→19:25)
[2017-02-19 05:14] LABS: Basophils # (Auto) 0 K/mcL (0.0-0.3); Basophils % (Auto) 0 % (0.0-2.0); Eosinophils # (Auto) 0.4 K/mcL (0.0-0.7); Eosinophils % (Auto) 1.6 % (0.0-7.0); Granulocytes % (Auto) 77.8 % (38.0-78.0); Lymphocytes # (Auto) 2.2 K/mcL (1.5-4.8); Lymphocytes % (Auto) 8.3 % (15.5-49.0); Mean Cell Volume 89.7 fL (80.0-100.0); Mean Corpuscular HGB Conc 32.9 g/dL (31.0-36.0); Mean Corpuscular Hemoglobin 29.5 pg (26.0-34.0); Monocytes # (Auto) 3.3 K/mcL (0.1-0.9); Monocytes % (Auto) 12.3 % (1.0-12.0); Platelet Count 302 K/mcL (140-440)
[2017-02-19 05:30] LABS: ALT/SGPT < 5 U/l (0-40); Albumin 2.1 gm/dL (3.2-5.2); Albumin/Globulin Ratio 0.6 (1.0-2.3); Alkaline Phosphatase 88 U/L (39-117); Bilirubin,Direct 0.3 mg/dL (0.0-0.3); Blood Urea Nitrogen 64 mg/dl (6-20); Gamma Glutamyl Transpeptidase 40 U/L (8-61); Magnesium 1.8 mg/dL (1.6-2.5)
[2017-02-19] MEDS: 0.9 % SODIUM CHLORIDE 10 ML SYRINGE IV SCH ×2 (06:07→14:02)
[2017-02-19] MEDS: CALCIUM ACETATE 667 MG CAPSULE PO SCH ×2 (09:23→14:02)
[2017-02-19] MEDS: DULoxetine 30 MG CAPSULE PO SCH (09:23)
[2017-02-19] MEDS: METOPROLOL SUCCINATE 50 MG TAB.XL.24H PO SCH (09:24)
[2017-02-19] MEDS: DILTIAZEM 180 MG CAP.XL.24H PO SCH (09:24)
[2017-02-19] MEDS: BENZTROPINE 1 MG TABLET PO SCH (09:24)
[2017-02-19] MEDS: MIDODRINE 5 MG TABLET PO SCH ×2 (09:24→14:01)
[2017-02-19] MEDS: HEPARIN 5,000 UNIT/ML VIAL SQ SCH (09:24)
[2017-02-19] MEDS: buPROPion 150 MG TAB.XL.24H PO SCH (09:24)
[2017-02-19] MEDS: INSULIN LISPRO 1 UNIT/0.01 ML UNIT SQ SCH ×2 (09:25→14:01)
[2017-02-19] MEDS: OXYBUTYNIN CHLORIDE 5 MG TAB.XL.24H PO SCH (09:25)
[2017-02-19] MEDS: DIVALPROEX SODIUM 250 MG TAB.ER.24H PO SCH (09:25)
[2017-02-19] MEDS: metroNIDAZOLE 500 MG/100 ML BAG IV SCH (09:26)
[2017-02-19] MEDS: cefTRIAXone 1 GM in DEXTROSE 5% IN WATER 50 ML IV SCH (09:26)
[2017-02-19] MEDS ORDERED: FUROSEMIDE 100 MG/10 ML VIAL IV ONE (10:28)
--- NOTE | 2017-02-19 13:40 | Nephrology Progress Note ---
Subjective Patient information: Note initiated : 02/19/17 at 1:37 pm Service Date, if different from initiated Date: [] Patient: Keegan Uribe a 46 y/o M admitted on 02/07/17 for Elevated INR, Weakness. Chief Complaint: [] Principal diagnosis: PATRICIA / ARF, oliguria, fluid overload Interval history: Keegan reported feeling well. He denied dyspnea. Dialysis was aborted yesterday after he had clotting despite use of citrate soln. He remains on 3L O2 via NC, no reported hypoxia overnight. Sub-optimal response to iv Lasix 100 mg given in am today. reportedly, he has been accepted at [facility] in [place] (with dialysis available) and is awaiting bed placement. CT scan w/o contrast showed improvement in left psoas hematoma Objective - Vital Signs Vital signs: Vital Signs Temp Pulse Resp BP Pulse Ox 02/19/17 12:46 93 02/19/17 12:10 97.6 F 121/80 91 02/19/17 11:12 90 02/19/17 09:20 79 26 H 02/19/17 09:19 81 26 H 93 02/19/17 08:14 98.9 F 20 132/112 93 02/19/17 08:00 91 02/19/17 04:09 97.8 F 18 120/66 93 02/18/17 23:57 97.2 F 18 129/73 93 02/18/17 20:05 97.7 F 16 112/69 93 02/18/17 19:34 93 02/18/17 19:28 69 24 H 02/18/17 19:23 94 02/18/17 19:22 90 02/18/17 18:01 121/80 02/18/17 16:01 120/78 02/18/17 15:44 116/69 02/18/17 15:38 70 116/69 02/18/17 15:35 113/65 02/18/17 15:29 73 117/76 02/18/17 15:16 110/61 02/18/17 15:09 72 110/61 02/18/17 14:59 124/74 02/18/17 14:55 76 124/74 02/18/17 14:45 123/69 02/18/17 14:43 75 123/69 02/18/17 14:36 97.5 F 51 L 111/67 85 L 02/18/17 13:38 67 26 H Intake and Output 02/18/17 02/19/17 02/19/17 21:59 05:59 13:59 Intake Total 340 / 340 100 / 100 Output Total 3400 / 3400 250 / 250 Balance -3060 / -3060 -150 / -150 Intake: IV 100 / 100 Oral 240 / 240 100 / 100 Output: Urine Catheter Amount 400 / 400 250 / 250 Hemodialysis UF 3000 / 3000 Other: # Bowel Movements 0 # of times incontinent of 1 Bowels Weight 295 lb 8 oz Intake & Output: Intake & Output 02/18/17 02/19/17 02/19/17 21:59 05:59 13:59 Intake Total 340 / 340 100 / 100 Output Total 3400 / 3400 250 / 250 Balance -3060 / -3060 -150 / -150 Weight 295 lb 8 oz Intake: IV 100 / 100 Oral 240 / 240 100 / 100 Output: Urine Catheter Amount 400 / 400 250 / 250 Hemodialysis UF 3000 / 3000 Other: # Bowel Movements 0 # of times incontinent of 1 Bowels - Lab 02/19/17 04:00 02/19/17 04:00 Most recent lab results Calcium 8.1 mg/dl (8.6-10.4) L 02/19/17 04:00 Phosphorus 4.3 mg/dL (2.7-4.5) 02/19/17 04:00 Magnesium 1.8 mg/dL (1.6-2.5) 02/19/17 04:00 Assessment and Plan (1) Acute renal failure PATRICIA / ATN: nephrotoxic / ischemic in setting of iv contrast exposure and hypotension. Oliguric. Plan for dialysis in [place] today, follow urine out put, BMP , serum vancomycin trough level. Baseline SCr 0.7 on 02-07-17 Status: Acute
[2017-02-19] MEDS ORDERED: WARFARIN 3 MG TABLET PO SCH (14:00)
[2017-02-19] MEDS: DIGOXIN 125 MCG TABLET PO SCH (14:01)
--- NOTE | 2017-02-19 17:02 | Discharge Summary ---
Medical - DS: Prov Patient information: Note initiated : 02/19/17 at 5:00 pm Patient: Keegan Uribe 46 y/o M admitted on 02/07/17 for Elevated INR, Weakness. Date of admission: 02/07/17 14:40 Discharge date: 02/19/17 Primary care physician: Ewa Roque, phone number [phone] Admitting clinician: Doug Graf Consults: 02/11/17 09:26 Consult to Physician [CONS] Routine Comment: Consulting Provider: Rod Gupta staff nurse anesthetist Reason For Exam: Physician to Consult Attending physician on discharge: Izabel Suggs Medical - DS: Meds - Discharge Medications Prescriptions: metroNIDAZOLE [Flagyl] 500 mg IV Q12H #1 bag Vancomycin Per Pharmacy 1 order IV ONCE #1 miscell Active and Home Medications: Discharge medications: Vancomycin, renal dosing, per pharmacy Rocephin 1 g IV every 24 hours Metronidazole, 500 mg IV every 12 hours, renal dosing Albuterol nebs 2.5 mg every 6 hours scheduled, Albuterol nebs 2.5 mg every 3 hours as needed O2 0-5 L via nasal cannula, with or without BiPAP, to keep saturations above 92% Cogentin 0.5 mg p.o. twice daily Wellbutrin 150 mg p.o. daily Depakote 1000 mg p.o. twice daily Cymbalta 120 mg daily Trazodone 100 mg p.o. nightly Risperdal 8 mg p.o. nightly Ambien 10 mg p.o. nightly as needed Calcium acetate 667 mg p.o. 3 times daily with meals Glucose tabs as needed Low-dose insulin sliding scale before meals and at bedtime Digoxin 0.125 mg daily Lasix 100 mg IV once Diltiazem 180 mg p.o. twice daily Metoprolol 200 mg p.o. twice daily Zocor 20 mg p.o. nightly Midodrine 10 mg p.o. 3 times daily Naloxone 0.1 mg IV every 2 minutes as needed Percocet 1 tab every 4 hours as needed Zofran 4 mg IV every 4 hours as needed Oxybutynin 10 mg p.o. daily Heparin 5000 units subcu every 12 hours Warfarin 6 mg, or as directed, every afternoon Tylenol 650 mg every 6 hours as needed Previous home Medications bupropion HCl XL 150 mg 24 hr tablet, extended release 150 mg PO DAILY tab 08/15 [History Confirmed 02/07/17 Last Taken Unknown] digoxin 125 mcg tablet 125 mcg PO DAILY 04/01/15 [History Confirmed 02/07/17 Last Taken Unknown] divalproex ER 500 mg tablet,extended release 24 hr 1,000 mg PO BID tab [History Confirmed 02/07/17 Last Taken Unknown] duloxetine 60 mg capsule,delayed release 120 mg PO QDAY cap 04/01/15 [History Confirmed 02/07/17 Last Taken Unknown] epinephrine 0.3 mg/0.3 mL injection, auto-injector 0.3 mg IM PRN PRN 04/01/15 [ History Confirmed 02/07/17 Last Taken Unknown] lisinopril 20 mg tablet 20 mg PO QDAY 04/01/15 [History Confirmed 02/07/17 Last Taken Unknown] metoprolol succinate ER 200 mg tablet,extended release 24 hr 200 mg PO BID tab 04/01/15 [History Confirmed 02/07/17 Last Taken Unknown] risperidone 4 mg tablet 8 mg PO QHS tab 04/01/15 [History Confirmed 02/07/17 Last Taken Unknown] simvastatin 20 mg tablet 20 mg PO QHS tab 04/01/15 [History Confirmed 02/07/17 Last Taken Unknown] zolpidem 10 mg tablet 10 mg PO HS 04/01/15 [History Confirmed 02/07/17 Last Taken Unknown] oxybutynin chloride ER 10 mg tablet,extended release 24 hr 10 mg PO QDAY #30 tab 04/07/15 [Rx Confirmed 02/07/17 Last Taken Unknown] Benztropine [Cogentin] 0.5 mg PO BID 11/23/15 [History Confirmed 02/07/17 Last Taken Unknown] Diltiazem HCl [Cartia Xt] 180 mg PO BID 11/23/15 [History Confirmed 02/07/17 Last Taken Unknown] Warfarin [Coumadin] 6 mg PO SUMOTUWETHFRSA 11/23/15 [History Confirmed 02/07/17 Last Taken Unknown] Warfarin [Coumadin] 8 mg PO .FRANCOISE 11/23/15 [History Confirmed 02/07/17 Last Taken Unknown] sitaGLIPtin [Januvia] 100 mg PO DAILY #60 tablet 11/26/15 [Rx Confirmed Last Taken Unknown] traZODone HCL [Trazodone HCl] 100 mg PO DAILY 02/07/17 [History Confirmed Last Taken Unknown] Medical - DS: Hosp Hospital course: Mr. Uribe is a 46 year old M February 07, 2017: History of present illness: Mr. Uribe is a 46 year old Male presents to the ER with complaints of weakness going on for the last 1 day. According to the patient, he woke up this morning and was trying to sit outside , while getting back inside the house. He noted that he was very weak, fell down,and was unable to get up. His friend, therefore, 911 to get into the hospital. According to the patient, he was feeling better yesterday. The patient denies any chest pain, palpitations, admits to having some dizziness, denies any syncope or presyncope, denies any head injury. the patient notes that he has not been drinking very well and he is dehydrated, on probing this question further. He is unable to tell me why he is not drinking enough fluids. the patient admits that he has been having abdominal pain going on for the last 3 days, abdominal pain is predominantly in the epigastric and periumbilical region, nonradiating, sharp in nature worse with going outside in the heat better by coming inside inside the house and drinking cold water. The patient admits to having some nausea but no vomiting. He denies any bleeding from any site I was not able to a certain if he was compliant with his medications, but it seems he is taking some. His Coumadin level was supratherapeutic on presentation. He notes that he was unable to have his last INR check. Because of some confusion with his appointment. 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 He has chronic wounds which are managed by the wound care clinic, 02/08: patient seen and examined, overnight events noted.He was groggy this morning and wanted to sleep, but woke up with verbal commands and obeyed orders answered appropriately, The patient has been tachycardic overnight in A. fib with RVR. His CT scan of the abdomen, pelvis showed a hematoma versus an abscess in the left psoas muscle. The patient has supratherapeutic INR and I think it is most likely for this to be a hematoma and abscess. However, it is difficult to know for sure without aspiration. The patientis on vancomycin, levofloxacin and Flagyl for broad-spectrum coverage. Patient received 4 units of FFP, vitamin K injection, overnight. This morning his hemoglobin was dropped to 5.5. He is to get 3 units of blood. We will recheck his labs after his blood transfusion is finished. The INR this morning is 1.7. Should his hemoglobin continued to drop, we will consult surgery to get an opinion. The patient's drug screen is positive for amphetamine, the patient denies use of any other substances except for marijuana, thinks that it might be released with it. The patient has abdominal pain still, but no other symptoms. He was resting comfortably. He got up PICC line placed last night for better IV access. macias placed. 02/09: Pt seen examined, no acute overnight events, hb dropped again this AM, will give another 2 units of PRBC, patient has some soreness in the abdomen, but was sleeping comfortably. Plan of care reviewed with him, explained to him that he has a large blood clot in the one of the big muscles int the abdomen and he needs to be monitored. He will remain bed bound till we can establish stability of the bleed. He denies any left leg weakness or numbness. The Pt will get a repeat CT abdo and pelvis without conterast to evaluaet the bleed. INR is 1.5 this AM He continues to be on broad sepectrum ABX, he also remains of 4L oxygen will get chest X ray again today. 02/10: Urine output is been low. Received 20 mg of IV Lasix earlier today with minimal response. Intake has been much greater than output. Developing edema and his hands, as well as lower extremities. On 6 L nasal cannula to maintain sats. Patient complaining of some abdominal pain, though it has improved since 2 days ago. Appetite is improving, starting to eat. 02/11: Urine output remains low. Did have some response to 80 mg dose of furosemide. Creatinine elevated. Clinically the patient states he feels he is finally starting to feel better. No left-sided abdominal pain. Appetite is improving. 02/12: No specific complaints this morning. Abdominal pain remains resolved. Does have shortness of breath. No cough or sputum production. Oxygen demands went up overnight. Has hypoxic respiratory failure. During the day, repeat radiograph showed pulmonary edema. Nephrology arranged transport to [facility] for dialysis catheter placement. Plans for hemodialysis this evening. D/W Dr. Gupta. 02/13: Had worsening hypoxic respiratory failure last night, required BiPAP overnight. This morning had large loose bowel movement. Underwent hemodialysis , 2 L ultrafiltration. Tolerated well. Still requiring 11 LPM on oxygen mask to maintain saturations. Poor appetite. Is going to take oral meds now that dialysis is finished. Had a care conference. [facility] may be able to provide ongoing care for renal failure and respiratory failure once he is stabilized in a few days. Creatinine stable today, Hb remaining in 7 range. Midodrine to keep up BP. 02/14: Dialysis today, plan is to try to get further, 3-4 liters today during dialysis. yesterday afternoon, after dialysis and getting his morning meds late , went back on BiPAP, became less responsive overnight. Vitals were stable, was maintained on BiPAP, opened eyes arouses to deep rub. ABG showed compensation. This morning, has become progressively more alert, responding to voice and light touch now. Plan is to continue dialysis and BiPAP support. Hemoglobin drifted down to 7.0, we'll transfuse 2 further units of packed red blood cells. Continues to have loose stools, C. difficile was negative. Continues to use midodrine for blood pressure. February 15: Today, the patient is awake and alert. Has no Particular complaints. Denies subjective or chills, chest pain or shortness of breath, abdominal pain, nausea or vomiting. He initially said he thought he had been constipated, but I note he has a rectal catheter in place for diarrhea. -This patient has known developmental delay, and is a poor historian. -He was weaned off BiPAP to oxygen by nasal cannula today, and seems to be tolerating that. -He continues on dialysis with volume overload, while keeping an eye on low blood pressures. February 16: The patient did go back on BiPAP overnight, to maintain his O2 saturations. He continues to have episodes where he becomes rather tachypneic, with fairly shallow breathing, but denies any distress. His white blood cell count did bump up quite a bit today, for uncertain reasons. He reports he does have a cough, which is nonproductive. He otherwise denies fever chills, chest pain or palpitations, shortness of breath. He denies abdominal pain, nausea or vomiting or diarrhea. He continues to have somewhat loose stools, and still has a rectal catheter. Macias catheter is draining very dark yellow urine. -They had some difficulties with his catheter clotting yesterday, but did eventually do dialysis and remove about 1 L of fluids. -The patient continues with an unusual affect, and history is likely unreliable. -He continues quite weak, and has not been out of bed yet, as he has trouble even sitting up in bed. -Coumadin continues to be held, as it is not clear that his H and H will remain stable yet. He does have chronic atrial fibrillation, and is at increased risk for blood clots. February 17: Today, the patient states he feels better. He says he has only minimal cough and continues to deny shortness of breath. He denies fevers and chills. He apparently did not want to use the BiPAP last night, and was able to maintain his O2 saturations just with oxygen via nasal cannula. He otherwise denies fever chills, chest pain or palpitations, abdominal pain, nausea or vomiting. Nurses say he has minimal diarrhea at this time, but rectal catheter is still in place. Macias catheter is draining very dark urine. February 18: Today, the patient's white blood cell count continues to climb, for uncertain reasons. The patient continues to deny fever or chills, chest pain or palpitations, shortness of breath or cough, abdominal or flank pain, nausea or vomiting, diarrhea or constipation. Urine output did slow down overnight, without Lasix.. Renal function looks worse today. February 19: Hospital course: -Patient was admitted with weakness, significant retroperitoneal bleed, hypotension, supratherapeutic Coumadin level. Probable medication noncompliance. He was transfused numerous units of packed red blood cells, and Coumadin was held. H and H have finally stabilized at around 8 and 26. -He continues with atrial fibrillation, and Coumadin was resumed yesterday, but is still subtherapeutic. He is on low-dose heparin for DVT prophylaxis. -Patient developed acute renal failure, probably due to a combination of hypotension and CT dye. Renal function has not yet recovered, and he has been receiving intermittent dialysis under the guidance of nephrology. Over the last couple of days he has had some response to IV Lasix. -Patient also developed bilateral lower lobe pneumonia. He has been extraordinarily weak, and has been essentially bedbound since admission. He has a very weak cough. CT scan of his abdomen yesterday showed dense lower lobe consolidation and atelectasis, with probable mucous plugs. Today, 3 or 4 physical therapist were able to get him to sit up on the side of his bed, so that we could accomplish chest percussion therapy. He also was able to cooperate with Acapella device. He cannot seem to manage incentive spirometer very well. He is intermittently supported, mainly at night, with BiPAP, as well as 0-5 L of oxygen. He has been maintaining O2 saturations well. White blood cell count has continued to climb, for uncertain reasons. I believe he was initially treated with Rocephin and Zithromax, and then changed to Levaquin and Flagyl. Vancomycin was ordered a couple of days ago to add to gram- positive coverage. Levaquin was changed to Rocephin yesterday, in case of negative coverage was not exactly as needed. Cultures have been unrevealing. -Patient does have known underlying developmental delay, and also carries a diagnosis of bipolar disorder. My understanding is he does live in his own home , but has caregivers that check on him regularly. Prior to admission he was able to ambulate. At this time, we are not sure that he is capable of managing his own medications as an outpatient, and he may need to look at long-term placement. -Type 2 diabetes. Januvia was held. Continued carbohydrate consistent diet, and insulin sliding scale. -The patient has been severely weak since arrival, and we have had very minimal luck getting him mobilized, although the last 2 days he has been more willing to work with physical therapy. We have sent information on to an [facility], as the patient may require long-term inpatient recovery at some point Today, the patient denies any complaints, but as usual has a fairly flat affect and is slow to respond to most questions. On exam: Heart rate is ranging from 64-96, respiratory rate ranges 16-26, shallow. O2 saturation is 90-93% on 3 L nasal cannula. He is afebrile. Blood pressure 121/ 80 Weight is currently 295 pounds, down 1 pound from yesterday. He was 288 pounds on admission, and had a peak weight of 313 pounds. Neck is supple without obvious JVD. Cardiac exam shows an irregularly irregular rhythm, without murmurs. Lungs: Have rather markedly decreased breath sounds at the bases, with a few crackles above the right base, and are fairly clear above that. I do not hear rhonchi or wheezes. Abdomen: Is markedly obese and protuberant, but otherwise soft and nontender. Bowel sounds are active. Rectal tube was removed this morning, as he has very minimal very loose stool. C. difficile has been negative. Macias catheter continues to drain dark yellow urine. Extremities: He has chronic stasis dermatitis, but fairly minimal dependent edema at this time. Neurologic: The patient has a fairly unusual affect, and his baseline is a little unclear. He moves all extremities equally, but it has significant generalized weakness. A/P Narrative: #1. Renal. Acute renal failure with volume overload. -Patient continues with slow recovery, and is requiring ongoing dialysis. Managed by nephrology. Is probably still somewhat volume overloaded, but did diurese after IV Lasix the day before yesterday. He did undergo dialysis today as well. #2. Pulmonary. Acute hypoxic respiratory failure. He was able to oxygenate without BiPAP last night, so appears to be improving oxygenation, but unfortunately continues to have periods of tachypnea without subjective shortness of breath. He tends to breathe very shallowly. So far is not really been able to cooperate with incentive spirometry. Today chest percussion therapy and an Acapella device were started, and he is more cooperative with those. However, white blood cell count continues to climb. Also, as it was doing discharge medications, it appears that he is not currently on vancomycin. I cannot tell what happened to the original order, so it is not clear that he has received this over the last couple of days. White blood cell count continues to worsen, again without obvious source. He denies any symptoms to speak of, of pneumonia, or other infection. He did have a known psoas hematoma, so CT scan was rechecked yesterday, which shows that the hematoma is about one third of its original size. - CT report shows marked improvement in psoas hematoma, but shows dense consolidation at the right base, suggestive of mucus plugging. . #3. Neurologic. Encephalopathy. Improved. #4. Over anticoagulation. He has been off Coumadin since admission on February 07, 2017. However, given his long-standing A. fib and bedbound status, I felt it was necessary to resume anticoagulation therapy to prevent both DVT and stroke. Coumadin was resumed yesterday. Warfarin is on hold, INR has normalized. -H&H are stable today. Continue to monitor. - may need to consider NOAC in convalescence for stroke prophylaxis (-Retroperitoneal and iliopsoas hemorrhages. Secondary to elevated INR at presentation. Received FFP and vitamin K at presentation. He received 3 units packed red cells for hemoglobin of 5.5, subsequently 2 further units on Saturday. Plus another 2 units.) #5. Infectious disease. SIRS: White count normalized 2 days ago, but then bumped up again yesterday and today.. No fever and cultures were negative. CT scan shows continued bilateral lower lobe pneumonia. Continue renally dosed Rocephin, and metronidazole to Q12hr. vancomycin added. #6. Cardiac. -Marginally abnormal troponin 0.04. Do not suspect ACS, may some some demand ischemia, vs. poor renal clearance of marker. -Atrial fibrillation with RVR presentation. Generally rate controlled now. Continue current medications. Plan: Continue rate control as able, depending upon BP -Hypertension. Blood pressures normalized/running low at times. He is on both his usual blood pressure and rate control medications, as well as midodrine. It may be worth discontinuing or cutting down 1 of the rate control drugs. Plan: Hold blood pressure medications for hypotension. #7. Psychiatric. -Bipolar disorder. Stable. -Patient also has known developmental delay, requiring caregivers to help with his long-term care. Clearly he was not taking his medications appropriately at home, and may need long-term placement to manage his high risk medications. #8. Endocrine. Type 2 diabetes. Accu-Cheks ranging from 93-109. Plan: Continue with renal diet, insulin therapy; stopped Januvia #9. Weakness and debility, likely secondary to poor nutritional status and acute medical illness. Hemorrhage is stable. Plan: Okay to work with physical therapy . #10. DVT prophylaxis: SCDs only. Subcu heparin added.. resume Coumadin for stroke prophylaxis, 11. CODE STATUS: Full code. Primary contact is his mother, Nataliia Uribe, phone number [phone]. His secondary contact is Hollie Hong, phone number [phone], sister. 12. Reported history of current tobacco use. Disposition: . Anticipating return of renal function. . The patient has continued to have climbing white blood cell count, and dense lower lobe pneumonias, which do not seem to be improving. At this time it appears his needs exceed the range of services offered [facility]. A channel marketing specialist was contacted at [facility], and has graciously accepted the patient in transfer, for higher level of care, pulmonary consultation, infectious disease consult, and ongoing nephrology management. Patient will be transferred later today. Approximately 45 minutes was spent today, reviewing the patient's test results, interviewing and examining the patient, reviewing plan of care with our team, and reviewing his case with both nephrology here, and with pulmonary at [facility]. Discharge diagnosis: Retroperitoneal bleed. Acute renal failure secondary to hypotension and IV Secondary discharge diagnosis: Acute renal failure. Bilateral pneumonia with respiratory failure, hypoxic. Developmental delay and bipolar disorder. Type 2 diabetes - Time Spent with Patient Total time spent providing and/or coordinating discharge services: Medical - DS: Exam - Constitutional Vitals: Vital Signs Temp Pulse Resp BP Pulse Ox 02/19/17 16:50 97.3 F 66 108/53 02/19/17 16:33 97.8 F 02/19/17 15:28 117/61 02/19/17 14:16 74 26 H 02/19/17 12:46 93 02/19/17 12:10 97.6 F 121/80 91 02/19/17 11:12 90 02/19/17 09:20 79 26 H 02/19/17 09:19 81 26 H 93 02/19/17 08:14 98.9 F 20 132/112 93 02/19/17 08:00 91 02/19/17 04:09 97.8 F 18 120/66 93 02/18/17 23:57 97.2 F 18 129/73 93 02/18/17 20:05 97.7 F 16 112/69 93 02/18/17 19:34 93 02/18/17 19:28 69 24 H 02/18/17 19:23 94 02/18/17 19:22 90 02/18/17 18:01 121/80 Intake and Output 02/19/17 02/19/17 02/19/17 05:59 13:59 21:59 Intake Total 100 / 100 100 / 100 Output Total 250 / 250 900 / 900 Balance -150 / -150 -800 / -800 Intake: IV 100 / 100 Oral 100 / 100 Output: Urine Catheter Amount 250 / 250 900 / 900 Other: # of times incontinent of 2 Bowels Medical - DS: Data Labs on day of discharge: Labs from last 24 hours 02/19/17 02/19/17 02/19/17 04:00 04:00 04:00 WBC 26.9 H RBC 2.70 L Hgb 8.0 L Hct 24.2 L MCV 89.7 MCH 29.5 MCHC 32.9 RDW 16.0 H Plt Count 302 MPV 6.3 L Gran % 77.8 Lymph % (Auto) 8.3 L Cataño % (Auto) 12.3 H Eos % (Auto) 1.6 Baso % (Auto) 0 Gran # 20.9 H Lymph # (Auto) 2.2 Cataño # (Auto) 3.3 H Eos # (Auto) 0.4 Baso # (Auto) 0 Differential Comment Y PT 16.4 H INR 1.3 H Sodium 131 L Potassium 4.0 Chloride 96 Carbon Dioxide 25 Anion Gap 10.0 BUN 64 H Creatinine 2.3 H GFR Calculation 33 Glucose 85 Uric Acid 7.0 Calcium 8.1 L Phosphorus 4.3 Magnesium 1.8 Total Bilirubin 0.5 Direct Bilirubin 0.3 GGT 40 AST 8 ALT < 5 Alkaline Phosphatase 88 Lactate Dehydrogenase 261 H Total Protein 5.4 L Albumin 2.1 L Globulin 3.3 Albumin/Globulin Ratio 0.6 L Triglycerides 142 Preliminary micro results at discharge 02/16/17 12:53 Blood Culture - Preliminary Blood 02/16/17 13:03 Blood Culture - Preliminary Blood February 19: Pro time is 16, with an INR of 1.3 February 17: Repeat screen for C. difficile remains negative. Blood cultures from February 16 are negative so far February 18: CT of the abdomen without contrast shows marked interval improvement in the left psoas hematoma, now less than one third of its original size. Hemorrhage in the adjacent left retroperitoneal fat has resolved. Dense consolidation and atelectasis of both lower and right middle lobes with moderate bilateral pleural effusions, slight progression. Mucus plugging is suspected. Bilateral sacroiliitis. February 16: Chest x-ray: Moderate sized alveolar infiltrate in the right lower lobe with milder left lower lobe infiltrate and possible small right-sided pleural effusion. Right-sided infiltrate is worse compared with February 14. Stomach is more distended with gas. February 14: X-ray shows bilateral pulmonary infiltrates with improvement in the right lower thorax. February 13: ABG on BiPAP, 70% FiO2: PH 7.38, CO2 48, PO2 73, bicarb 28, O2 saturation 95% C. difficile screen is negative. Urine culture is negative. February 12: Echocardiogram: Mild to moderate LVH, with ejection fraction 62%. Mild biatrial enlargement. Left pleural effusion. Troponin was elevated at 0.04 ProBNP was elevated at 5682 February 07: MRSA screen is negative. Blood cultures are negative. Medical - DS: A/P - Patient/Caregiver Discharge Instructions Activity: as per physical therapy Diet: Renal/Consistent Carbs Prescriptions: metroNIDAZOLE [Flagyl] 500 mg IV Q12H #1 bag Vancomycin Per Pharmacy 1 order IV ONCE #1 miscell - Follow up Plan Follow up with: Ewa Roque MD [Primary Care Provider] - Disposition: [facility] Prognosis: Fair Rehab Potential: Fair Overall status at discharge: patient is progressing back to baseline Medical - DS: Qual - VTE Deep Vein Thrombosis/Pulmonary Embolism Present on Admission: No
== END 2017-02-19 19:50 | disposition short-term general hospital (02) | DRG 813 ==
LOC: ED 08:27 → SUATTDRO 14:40 → ICU 14:40
PROVIDERS: ADMIT Internal Medicine; ATTEND Internal Medicine

== ENCOUNTER 2017-03-20 11:38 | Observation (INO) ==
--- NOTE | 2017-03-20 12:24 | XRay Report ---
CLINICAL INFORMATION: Weakness COMPARISON: 02/21/2017 FINDINGS: Moderate cardiomegaly is unchanged. Mediastinum and pulmonary vessels are normal. There is mild atelectasis in the inferior right lower lobe. Small region of atelectasis noted in the posterior left lower lobe. Small bilateral pleural effusions IMPRESSION: Subsegmental bilateral lower lobe atelectasis and small bilateral pleural effusions Interpreted and Authenticated by: Benigno Foote 03/20/17
--- NOTE | 2017-03-20 12:38 | Emergency Department Note ---
Weakness HPI - General Chief complaint: Weakness Stated complaint: Decline in condition Time Seen by Provider: 03/20/17 11:44 Source: EMS Mode of arrival: EMS - History of Present Illness HPI Narrative: 46-year-old male who was admitted at [facility] 02/07-02/19 developed a hematoma in his abdominal muscles required transfusions. Developed renal failure. 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 The family is been trying to get him into [facility] were to meet with Dr. Roque yesterday but they missed that appointment. Himself has no complaints patient does have a low disorder. And mentally challenged. Denies any urinary symptoms of urgency frequency dysuria. Denies chest pain no shortness of breath. He just states that they need help him out of bed taking him to the bathroom and eating. human services assistant has been contacted when he was admitted he did have a home in his abdomen required fusions.. elieved to be some compliance problems with his medications. - Related Data Home Medications Medication Instructions Recorded Confirmed bupropion HCl XL 150 mg 24 hr 150 mg PO DAILY tab 04/01/15 02/07/17 tablet, extended release digoxin 125 mcg tablet 125 mcg PO DAILY 04/01/15 02/07/17 divalproex ER 500 mg 1,000 mg PO BID tab 04/01/15 02/07/17 tablet,extended release 24 hr duloxetine 60 mg capsule,delayed 120 mg PO QDAY cap 04/01/15 02/07/17 release epinephrine 0.3 mg/0.3 mL 0.3 mg IM PRN PRN 04/01/15 02/07/17 injection, auto-injector metoprolol succinate ER 200 mg 200 mg PO BID tab 04/01/15 02/07/17 tablet,extended release 24 hr risperidone 4 mg tablet 8 mg PO QHS tab 04/01/15 02/07/17 simvastatin 20 mg tablet 20 mg PO QHS tab 04/01/15 02/07/17 zolpidem 10 mg tablet 10 mg PO HS 04/01/15 02/07/17 Benztropine [Cogentin] 0.5 mg PO BID 11/23/15 02/07/17 Diltiazem HCl [Cartia Xt] 180 mg PO BID 11/23/15 02/07/17 traZODone HCL [Trazodone HCl] 100 mg PO DAILY 02/07/17 02/07/17 Previous Rx's Medication Instructions Recorded oxybutynin chloride ER 10 mg 10 mg PO QDAY #30 tab 04/07/15 tablet,extended release 24 hr 0.9 % Sodium Chloride [Saline 10 ml IV Q8 02/19/17 Flush] Accu-Chek 1 each FS ACHS strip 02/19/17 Acetaminophen [Tylenol] 650 mg PO Q6HP PRN tablet 02/19/17 Albuterol Sulfate [Ventolin] 2.5 mg NEB Q3HP PRN 02/19/17 Albuterol Sulfate [Ventolin] 2.5 mg NEB Q6HRT 02/19/17 Calcium Acetate [Phoslo] 667 mg PO TIDCC capsule 02/19/17 Dextrose [Insta-Glucose] 15 gm PO PRN PRN 02/19/17 Heparin 5,000 unit SQ Q12 vial 02/19/17 Heparin Flush 2 ml IV Q12 02/19/17 Insulin Lispro [Humalog] See Protocol SQ ACHS unit 02/19/17 Midodrine [Midodrine HCl] 10 mg PO TID@0800,1200,1700 tablet 02/19/17 Naloxone HCl [Narcan] 0.1 mg IV Q2MIN PRN vial 02/19/17 Ondansetron [Zofran] 4 mg IV Q4HP PRN vial 02/19/17 Vancomycin Per Pharmacy 1 order IV ONCE #1 miscell 02/19/17 Warfarin [Coumadin] 6 mg PO DAILY@1400 tablet 02/19/17 cefTRIAXone [Rocephin] 1 gm IV DAILY vial 02/19/17 metroNIDAZOLE [Flagyl] 500 mg IV Q12H #1 bag 02/19/17 oxyCODONE/APAP [Percocet 5-325 mg] 1 tab PO Q4HP PRN tablet 02/19/17 Allergies Allergy/AdvReac Type Severity Reaction Status Date / Time Penicillins Allergy Severe Anaphylaxis Verified 02/07/17 08:32 Sulfa (Sulfonamide Allergy Severe Anaphylaxis Verified 02/07/17 08:32 Antibiotics) sulfamethoxazole Allergy Severe Anaphylaxis Verified 02/07/17 08:32 [From Bactrim] trimethoprim [From Bactrim] Allergy Severe Anaphylaxis Verified 02/07/17 08:32 Review of Systems All systems ED: reviewed and negative except as stated. Constitutional: Denies: fever, chills Eyes: Denies: eye pain ENT ED: Denies: ear pain Cardiovascular: Denies: chest pain Respiratory: Denies: cough Gastrointestinal: Denies: abdominal pain, nausea Genitourinary: Denies: urgency, dysuria Musculoskeletal: Denies: back pain Integumentary: Denies: rash Neurological: Denies: headache, weakness Psychiatric: Denies: anxiety Endocrine: Denies: fatigue Hematological/Lymphatic: Denies: easy bleeding Allergic/Immunologic: Denies: facial swelling Past Medical History - Past Medical History Medical history: Reports: atrial fibrillation, CHF (iastolic), diabetes, hyperlipidemia, hypertension, other (chronic leg lymphedema, sleep apnea) Psychiatric history: Reports: bipolar Family history: Reports: non-contributory - Social History smoking status: Current every day smoker Alcohol use: Reports: None Drug use: Reports: marijuana Physical Exam - General Limitations: no limitations General appearance: alert - Head Head exam: atraumatic - Eye Eye exam: Present: normal appearance, PERRL - ENT ENT exam: normal exam, normal oropharynx, mucous membranes moist - Neck Neck exam: Present: normal inspection, full ROM. Absent: trachea midline - Chest Chest inspection: Present: normal inspection, symmetric chest wall rise. Absent : tenderness - Respiratory Respiratory exam: Present: normal lung sounds bilaterally. Absent: respiratory distress, wheezes - Cardiovascular Cardiovascular exam: Present: regular rate, normal rhythm - Abdominal Exam Abdominal exam: Present: soft. Absent: distention, tenderness - Extremities Exam Extremities exam: Present: normal inspection, full ROM. Absent: tenderness - Back Exam Back exam: Present: normal inspection, full ROM. Absent: tenderness - Neurological Exam Neurological exam: Present: alert, oriented X3, CN II-XII intact - Psychiatric Psychiatric exam: Present: normal affect, normal mood - Skin Skin exam: Present: warm, dry, intact Course Vital Signs Pulse Rate 85 03/20/17 11:39 Respiratory Rate 20 03/20/17 11:39 Blood Pressure 123/93 03/20/17 11:39 Pulse Oximetry (%) 97 03/20/17 11:39 Pulse Rate 63 03/20/17 16:46 Respiratory Rate 15 03/20/17 16:46 Blood Pressure 118/78 03/20/17 16:46 Pulse Oximetry (%) 100 03/20/17 16:46 Weakness - MDM Narrative Medical decision making narrative: pt will be acdepted at correction per sociasl worker. Pt admitted for weakness, anemia - Lab Data Result diagrams: 03/20/17 12:26 03/20/17 12:26 Lab Results 03/20/17 03/20/17 03/20/17 Range/Units 12:23 12:26 12:26 WBC 11.3 H (4.5-11.0) K/mcL RBC 3.00 L (4.50-5.90) M/mcL Hgb 8.7 L (13.5-16.5) g/dL Hct 26.2 L (41.0-55.0) % MCV 87.3 (80.0-100.0) fL MCH 29.1 (26.0-34.0) pg MCHC 33.3 (31.0-36.0) g/dL RDW 15.8 H (11.5-14.5) % Plt Count 212 (140-440) K/mcL MPV 6.3 L (7.4-10.4) fL Gran % 69.7 (38.0-78.0) % Lymph % (Auto) 16.0 (15.5-49.0) % [place]ook[place] % (Auto) 10.4 (1.0-12.0) % Eos % (Auto) 3.6 (0.0-7.0) % Baso % (Auto) 0.3 (0.0-2.0) % Gran # 7.9 (1.8-8.0) K/mcL Lymph # (Auto) 1.8 (1.5-4.8) K/mcL [place]ooks # (Auto) 1.2 H (0.1-0.9) K/mcL Eos # (Auto) 0.4 (0.0-0.7) K/mcL Baso # (Auto) 0 (0.0-0.3) K/mcL POC PT 33.0 H (11.9-14.5) sec POC INR 2.9 H (0.9-1.2) Sodium 137 (133-145) mmol/L Potassium 4.8 (3.3-5.1) mmol/L Chloride 95 L (96-108) mmol/L Carbon Dioxide 32 H (22-30) mmol/L Anion Gap 10.0 (8-16) BUN 21 H (6-20) mg/dl Creatinine 0.9 (0.7-1.2) mg/dl GFR Calculation 102 Glucose 102 (70-105) mg/dL Calcium 9.1 (8.6-10.4) mg/dl Total Bilirubin 0.4 (0.0-1.0) mg/dL AST 10 (0-37) U/l ALT 7 (0-40) U/l Alkaline Phosphatase 104 (39-117) U/L Total Protein 7.5 (5.9-8.4) gm/dL Albumin 2.9 L (3.2-5.2) gm/dL Globulin 4.6 H (2.2-3.7) gm/dL Albumin/Globulin Ratio 0.6 L (1.0-2.3) Urine Color Urine Appearance Urine pH (5.0-9.0) Ur Specific [place] (1.000-1.035) Urine Protein (NEG) mg/dL Urine Glucose (UA) (NEG) mg/dL Urine Ketones (NEG) mg/dL Urine Occult Blood (<0.03) mg/dL Urine Nitrate (NEG) Urine Bilirubin (NEG) mg/dL Urine Urobilinogen (NEG) mg/dL Ur Leukocyte Esterase (NEG) /uL Urine RBC (0-1) /hpf Urine WBC (0-4) /hpf Ur Squamous Epith Cells (0-4) /hpf Urine Bacteria (0) /hpf Urine Mucus (0) /hpf Ur Culture Indicated? 03/20/17 Range/Units 14:14 WBC (4.5-11.0) K/mcL RBC (4.50-5.90) M/mcL Hgb (13.5-16.5) g/dL Hct (41.0-55.0) % MCV (80.0-100.0) fL MCH (26.0-34.0) pg MCHC (31.0-36.0) g/dL RDW (11.5-14.5) % Plt Count (140-440) K/mcL MPV (7.4-10.4) fL Gran % (38.0-78.0) % Lymph % (Auto) (15.5-49.0) % [place]ook[place] % (Auto) (1.0-12.0) % Eos % (Auto) (0.0-7.0) % Baso % (Auto) (0.0-2.0) % Gran # (1.8-8.0) K/mcL Lymph # (Auto) (1.5-4.8) K/mcL Rooks # (Auto) (0.1-0.9) K/mcL Eos # (Auto) (0.0-0.7) K/mcL Baso # (Auto) (0.0-0.3) K/mcL POC PT (11.9-14.5) sec POC INR (0.9-1.2) Sodium (133-145) mmol/L Potassium (3.3-5.1) mmol/L Chloride (96-108) mmol/L Carbon Dioxide (22-30) mmol/L Anion Gap (8-16) BUN (6-20) mg/dl Creatinine (0.7-1.2) mg/dl GFR Calculation Glucose (70-105) mg/dL Calcium (8.6-10.4) mg/dl Total Bilirubin (0.0-1.0) mg/dL AST (0-37) U/l ALT (0-40) U/l Alkaline Phosphatase (39-117) U/L Total Protein (5.9-8.4) gm/dL Albumin (3.2-5.2) gm/dL Globulin (2.2-3.7) gm/dL Albumin/Globulin Ratio (1.0-2.3) Urine Color Yellow Urine Appearance Clear Urine pH 7.0 (5.0-9.0) Ur Specific [place] 1.012 (1.000-1.035) Urine Protein 30 A (NEG) mg/dL Urine Glucose (UA) Negative (NEG) mg/dL Urine Ketones Neg (NEG) mg/dL Urine Occult Blood 0.03 A (<0.03) mg/dL Urine Nitrate Neg (NEG) Urine Bilirubin Neg (NEG) mg/dL Urine Urobilinogen Neg (NEG) mg/dL Ur Leukocyte Esterase 25 A (NEG) /uL Urine RBC 6 H (0-1) /hpf Urine WBC 13 H (0-4) /hpf Ur Squamous Epith Cells < 1 (0-4) /hpf Urine Bacteria 0 (0) /hpf Urine Mucus Few (0) /hpf Ur Culture Indicated? Yes Disposition Pt seen by PRESCHOOL EDUCATION DIRECTOR/PA only: No Clinical Impression: Weakness, Anemia Disposition: Xfer As Outpt/Obs ([facility]) Condition: Fair Referrals: Ewa Roque MD [Primary Care Provider] -
[2017-03-20 12:58] LABS: Basophils # (Auto) 0 K/mcL (0.0-0.3); Basophils % (Auto) 0.3 % (0.0-2.0); Eosinophils # (Auto) 0.4 K/mcL (0.0-0.7); Eosinophils % (Auto) 3.6 % (0.0-7.0); Granulocytes % (Auto) 69.7 % (38.0-78.0); Lymphocytes # (Auto) 1.8 K/mcL (1.5-4.8); Mean Cell Volume 87.3 fL (80.0-100.0); Mean Corpuscular HGB Conc 33.3 g/dL (31.0-36.0); Mean Corpuscular Hemoglobin 29.1 pg (26.0-34.0); Monocytes # (Auto) 1.2 K/mcL (0.1-0.9); Monocytes % (Auto) 10.4 % (1.0-12.0); Platelet Count 212 K/mcL (140-440); Red Cell Distribution Width 15.8 % (11.5-14.5)
[2017-03-20 13:16] LABS: ALT/SGPT 7 U/l (0-40); Albumin 2.9 gm/dL (3.2-5.2); Albumin/Globulin Ratio 0.6 (1.0-2.3); Alkaline Phosphatase 104 U/L (39-117); Blood Urea Nitrogen 21 mg/dl (6-20)
[2017-03-20] MEDS ORDERED: 0.9 % SODIUM CHLORIDE 1,000 ML IV ONE (14:18)
[2017-03-20 15:04] LABS: Appearance,Urine CLEAR; Bacteria,Urine 0 /hpf (0); Bilirubin,Urine NEG (NEG); Color,Urine YELLOW; Glucose,Urine (UA) NEGATIVE (NEG); Leukocyte Esterase,Urine 25 /uL (NEG); Mucus,Urine FEW /hpf (0); Nitrate,Urine NEG (NEG); Protein,Urine 30 mg/dL (NEG); Specific Gravity,Urine 1.012 (1.000-1.035); Urine Blood 0.03 mg/dL (<0.03); Urine RBC 6 /hpf (0-1); Urine Squamous Epithelial Cell < 1 /hpf (0-4); Urine WBC 13 /hpf (0-4); Urobilinogen,Urine NEG (NEG)
--- NOTE | 2017-03-20 18:16 | Internal Med History&Physical ---
Medical - H&P: HPI Patient information: Note initiated : 03/20/17 at 6:14 pm Patient: Keegan Uribe 46 y/o M admitted on for Decline In Condition. History of present illness: Mr. Uribe is a 46 year old man who was admitted to [facility] on February 07 With severe weakness associated with a retroperitoneal bleed. He subsequently developed acute renal failure and atrial fibrillation. He then went on to develop bilateral lower lobe pneumonia and respiratory failure. He had a very prolonged hospital course, and was severely weakened. At discharge he was sent to [facility] to continue working towards getting back to his baseline. He apparently was just discharged a week ago from [place] and back to stay with his sister. As far as I can tell he has had increasing weakness since he got back to her house, and he is just not strong enough that she can get him to and from the bathroom, etc. in the emergency room he was seen by case management/social work. They apparently have arranged for him to be sent back to rehab, but that cannot be accomplished until tomorrow. His family says they just cannot handle him at home tonight, with this level of disability. He is now admitted for observation and supportive activities of daily living, until tomorrow, when we can try to get him back to rehab to once again work on strengthening and progress towards his baseline. The patient has developmental delay as well as other psychiatric illness. He is an extraordinarily poor historian. He admits only to having chills occasionally. He notes he has pain in the general epigastric area on and off for the last 6 months. He cannot recall if he has had recent fever or chills, headaches or dizziness, new eye or ear symptoms. He denies sore throat or cough , palpitations, shortness of breath, nausea or vomiting, diarrhea or constipation or dysuria. . Medical History Dehydration (Acute) Acute respiratory failure with hypoxia (Acute) Contusion of right hip (Acute) SIRS (systemic inflammatory response syndrome) (Acute) Syncope and collapse (Acute) Medication side effects (Acute) Leukocytosis (Chronic) Ulcer of lower extremity (Chronic) Edema (Chronic) Hypoxemia (Chronic) Anemia (Chronic) Congestive heart failure (Chronic) Atrial fibrillation (Chronic) Mixed bipolar I disorder (Chronic) Hyperlipidemia (Chronic) Diabetes mellitus type 2, uncontrolled (Chronic) Essential hypertension (Chronic) custodial current use of anticoagulant therapy (Chronic) Nocturia (Chronic) Injuries, multiple (Chronic) Local skin infection (Chronic) Polyuria (Chronic) Urinary incontinence (Chronic) Back pain (Chronic) Insomnia (Chronic) Obstructive sleep apnea chronic hypoxia Medications: Trazodone 75 mg p.o. nightly Simvastatin 20 mg nightly Risperdal 4 mg 2 tabs nightly Oxybutynin ER 10 mg daily Percocet 53 25 every 4 hours as needed Metoprolol succinate ER 200 mg twice daily Epinephrine autoinjector 0.3 mg IM as needed Duloxetine 60 mg 2 tabs daily Divalproex ER 500 mg 1000 mg p.o. twice daily Digoxin 0.125 daily Bupropion XL 150 mg daily Warfarin 6 mg daily Humalog sliding scale before meals and at bedtime Heparin 5000 units subcu every 12 hours Diltiazem 180 mg p.o. twice daily Calcium acetate 667 mg 3 times daily Cogentin 0.5 mg twice daily Albuterol nebs every 6 hours plus every 3 hours as needed Tylenol 650 mg every 6 hours as needed albuterol nebs 2.5 mg every 6 hours scheduled, Allergies: Penicillin, sulfa, sulfamethoxazole, trimethoprim Pertinent family history: father with history of CAD, acid [place] at the age of 44. Mother had some sort of cancer. She does not sure what Social history: lives by himself, was likely in a rehabilitation facility or a senior care in the past. He is an active smoker with [id number] history of smoking. Says he's cut down recently because this to hot outside and smoke. Things to 3 beers a week. Smokes marijuana on a regular basis, likely daily. Denies any other recreational drug use. Medical - H&P: Meds Home Medications Medication Instructions Recorded Confirmed Type bupropion HCl XL 150 mg 24 hr 150 mg PO DAILY tab 04/01/15 03/20/17 History tablet, extended release digoxin 125 mcg tablet 125 mcg PO DAILY 04/01/15 03/20/17 History divalproex ER 500 mg 1,000 mg PO BID tab 04/01/15 03/20/17 History tablet,extended release 24 hr duloxetine 60 mg capsule,delayed 120 mg PO QDAY cap 04/01/15 03/20/17 History release epinephrine 0.3 mg/0.3 mL 0.3 mg IM PRN PRN 10/02/15 09/20/17 History injection, auto-injector metoprolol succinate ER 200 mg 200 mg PO BID tab 04/01/15 03/20/17 History tablet,extended release 24 hr risperidone 4 mg tablet 8 mg PO QHS tab 04/01/15 03/20/17 History simvastatin 20 mg tablet 20 mg PO QHS tab 04/01/15 03/20/17 History oxybutynin chloride ER 10 mg 10 mg PO QDAY #30 tab 04/07/15 03/20/17 Rx tablet,extended release 24 hr Benztropine [Cogentin] 0.5 mg PO BID 11/23/15 02/07/17 History Diltiazem HCl [Cartia Xt] 180 mg PO BID 11/23/15 03/20/17 History traZODone HCL [Trazodone HCl] 75 mg PO HS 02/07/17 03/20/17 History 0.9 % Sodium Chloride [Saline 10 ml IV Q8 02/19/17 Rx Flush] Accu-Chek 1 each FS ACHS strip 02/19/17 Rx Acetaminophen [Tylenol] 650 mg PO Q6HP PRN tablet 02/19/17 Rx Albuterol Sulfate [Ventolin] 2.5 mg NEB Q3HP PRN 02/19/17 Rx Albuterol Sulfate [Ventolin] 2.5 mg NEB Q6HRT 02/19/17 Rx Calcium Acetate [Phoslo] 667 mg PO TIDCC capsule 02/19/17 Rx Dextrose [Insta-Glucose] 15 gm PO PRN PRN 02/19/17 Rx Heparin 5,000 unit SQ Q12 vial 02/19/17 03/20/17 Rx Heparin Flush 2 ml IV Q12 02/19/17 Rx Insulin Lispro [Humalog] See Protocol SQ ACHS unit 02/19/17 03/20/17 Rx Warfarin [Coumadin] 6 mg PO DAILY@1400 tablet 02/19/17 03/20/17 Rx metroNIDAZOLE [Flagyl] 500 mg IV Q12H #1 bag 02/19/17 03/20/17 Rx oxyCODONE/APAP [Percocet 5-325 mg] 1 tab PO Q4HP PRN tablet 02/19/17 03/20/17 Rx Allergies Allergy/AdvReac Type Severity Reaction Status Date / Time Penicillins Allergy Severe Anaphylaxis Verified 02/07/17 08:32 Sulfa (Sulfonamide Allergy Severe Anaphylaxis Verified 02/07/17 08:32 Antibiotics) sulfamethoxazole Allergy Severe Anaphylaxis Verified 02/07/17 08:32 [From Bactrim] trimethoprim [From Bactrim] Allergy Severe Anaphylaxis Verified 02/07/17 08:32 Medical - H&P: Exam - Constitutional Vitals: Pulse Resp BP Pulse Ox 62 13 127/91 99 03/20/17 18:01 03/20/17 18:01 03/20/17 18:01 03/20/17 18:01 The patient is an overweight white male, lying in bed, who appears quite comfortable. Because of his developmental issues, he is extraordinarily slow to answer most questions. Head: Normocephalic atraumatic. Eyes: PERRLA, EOMI, anicteric. Ears: TMs and canals are clear. Pharynx: Is clear. Neck: Is supple, without lymphadenopathy, JVD, thyromegaly. Cardiac exam shows somewhat irregularly irregular rhythm. No murmurs rubs or gallops are noted. Lungs: He has a few scattered crackles, but otherwise lungs are clear to auscultation, without rales, rhonchi, wheezes. abdomen is markedly obese, but soft and nontender without obvious masses. Bowel sounds are normoactive. Extremities: He has mild woody edema of the lower legs and feet, with chronic stasis dermatitis changes. Skin: He has numerous pockmarks all over his abdomen and extremities. He does admit to picking at any lesions that develop. There are no obvious signs of active cellulitis at this time. Neurologic exam: Patient clearly has cognitive issues, and psychomotor retardation. Otherwise exam is grossly nonfocal. Medical - H&P: Reslt - Labs CBC & Chem 7: 03/20/17 12:26 03/20/17 12:26 Labs: Short CBC 03/20/17 Range/Units 12:26 WBC 11.3 H (4.5-11.0) K/mcL Hgb 8.7 L (13.5-16.5) g/dL Hct 26.2 L (41.0-55.0) % Plt Count 212 (140-440) K/mcL BMP 03/20/17 12:26 Sodium 137 Potassium 4.8 Chloride 95 L Carbon Dioxide 32 H BUN 21 H Creatinine 0.9 Glucose 102 Calcium 9.1 Liver Function 03/20/17 Range/Units 12:26 Total Bilirubin 0.4 (0.0-1.0) mg/dL AST 10 (0-37) U/l ALT 7 (0-40) U/l Alkaline Phosphatase 104 (39-117) U/L Albumin 2.9 L (3.2-5.2) gm/dL Urine 03/20/17 Range/Units 14:14 Urine Color Yellow Urine Appearance Clear Urine pH 7.0 (5.0-9.0) Ur Specific [place] 1.012 (1.000-1.035) Urine Protein 30 A (NEG) mg/dL Urine Glucose (UA) Negative (NEG) mg/dL Pro time is 33, INR 2.9 next Urinalysis shows 30 mg of protein, negative nitrites, 25 leukocyte esterase, 13 white blood cells. Culture is pending. Chest x-ray shows subsegmental bilateral lower lobe atelectasis and small bilateral pleural effusions. Moderate cardiomegaly is unchanged. Medical - H&P: A/P (1) Weakness generalized Current visit: Yes Status: Acute (2) Leukocytosis Current visit: No Status: Chronic (3) Atrial fibrillation Current visit: No Status: Chronic (4) Mixed bipolar I disorder Current visit: No Status: Chronic (5) Diabetes mellitus type 2, uncontrolled Current visit: No Status: Chronic (6) Essential hypertension Current visit: No Status: Chronic (7) manager terminal current use of anticoagulant therapy Current visit: No Status: Chronic - Narrative A/P Narrative: #1. Weakness. This patient has general deconditioning, related to numerous underlying conditions and recent hospitalization. I believe case management has found a rehab facility for him to transfer to in the morning. If not, we will initiate physical therapy and Occupational Therapy evaluations. 2. Mild leukocytosis. He has no other signs of infection, although his urinalysis is a bit abnormal. This was sent for culture. We will continue to monitor him for any signs of infection. 3. Endocrine. Type 2 diabetes. Monitor with Accu-Cheks and cover with sliding scale as needed. 4. CODE STATUS: Full code. 5. DVT prophylaxis: Patient is on long-term Coumadin therapy, which is therapeutic. 6. Cardiac. Chronic A. fib, therapeutic on Coumadin. Continue metoprolol. Continue digoxin. Continue diltiazem. -History of CHF. Continue Zocor. -History of hypertension. 7. Psychiatric. History of bipolar disorder and developmental delay. Continue trazodone, Risperdal, Cymbalta, divalproex, bupropion. 8. Morbid obesity, with BMI of 40. 9. . Presumed bladder dysfunction. Continue oxybutynin. 10. Chronic pain. Continue as needed Percocet. This visit took approximately 45 minutes, to review old records, review test results, review his case with the ER MD, and interview and examine the patient.
[2017-03-20] MEDS ORDERED: DEXTROSE 50% 50 ML VIAL IV PRN (19:27)
[2017-03-20] MEDS ORDERED: ONDANSETRON 4 MG/2 ML VIAL IV PRN (19:27)
[2017-03-20] MEDS ORDERED: DEXTROSE 31 GM ORAL.SUSP PO PRN (19:27)
[2017-03-20] MEDS ORDERED: ACETAMINOPHEN 325 MG TABLET PO PRN (19:27)
[2017-03-20] MEDS: 0.9 % SODIUM CHLORIDE 10 ML SYRINGE IV SCH (23:23)
[2017-03-20] MEDS: INSULIN LISPRO 1 UNIT/0.01 ML UNIT SQ SCH (23:23)
[2017-03-21] MEDS: 0.9 % SODIUM CHLORIDE 10 ML SYRINGE IV SCH (05:30)
[2017-03-21 06:06] LABS: Mean Cell Volume 87.7 fL (80.0-100.0); Mean Corpuscular HGB Conc 33.5 g/dL (31.0-36.0); Mean Corpuscular Hemoglobin 29.3 pg (26.0-34.0); Platelet Count 210 K/mcL (140-440); RBC 2.86 M/mcL (4.50-5.90); Red Cell Distribution Width 16.1 % (11.5-14.5)
[2017-03-21 06:39] LABS: Anisocytosis 2+ (NONE SEEN); Band Neutrophils % 1 % (0-10); Eosinophils % (Manual) 4 % (0-7); Lymphocytes % 25 % (15-49); Monocytes % (Manual) 9 % (1-12); Ovalocytes FEW (NONE SEEN); Platelet Estimate NORMAL (NORMAL); RBC Morphology ABNORM (NORMAL); Segmented Neutrophils % 61 % (38-78)
[2017-03-21] MEDS: INSULIN LISPRO 1 UNIT/0.01 ML UNIT SQ SCH (08:39)
--- NOTE | 2017-03-21 09:55 | Discharge Summary ---
Medical - DS: Prov Patient information: Note initiated : 03/21/17 at 9:52 am Service Date, if different from initiated Date: [] Patient: Keegan Uribe 46 y/o M admitted on 03/20/17 for Decline In Condition. Chief Complaint: [] Date of admission: 03/20/17 19:00 Discharge date: 03/21/17 Primary care physician: Ewa Roque Admitting clinician: Izabel Suggs Discharging clinician: Doug Graf Medical - DS: Meds - Discharge Medications Prescriptions: Insulin Lispro [Humalog] See Protocol SQ ACHS #1 unit Levofloxacin 500 mg PO DAILY #7 tablet oxyCODONE/APAP [Percocet 5-325 mg] 1 tab PO Q4HP PRN #30 tablet PRN Reason: Pain Active and Home Medications: Home Medications bupropion HCl XL 150 mg 24 hr tablet, extended release 150 mg PO DAILY tab 08/15 [History Confirmed 03/20/17 Last Taken Unknown] digoxin 125 mcg tablet 125 mcg PO QNOON 04/01/15 [History Confirmed 03/21/17 Last Taken Unknown] divalproex ER 500 mg tablet,extended release 24 hr 1,000 mg PO BID tab [History Confirmed 03/20/17 Last Taken Unknown] duloxetine 60 mg capsule,delayed release 120 mg PO QAM cap 04/01/15 [History Confirmed 03/21/17 Last Taken Unknown] epinephrine 0.3 mg/0.3 mL injection, auto-injector 0.3 mg IM PRN PRN 04/01/15 [ History Confirmed 03/20/17 Last Taken Unknown] metoprolol succinate ER 200 mg tablet,extended release 24 hr 200 mg PO BID tab 04/01/15 [History Confirmed 03/20/17 Last Taken Unknown] risperidone 4 mg tablet 3 mg PO QHS tab 04/01/15 [History Confirmed 03/21/17 Last Taken Unknown] simvastatin 20 mg tablet 20 mg PO QHS tab 04/01/15 [History Confirmed 03/20/17 Last Taken Unknown] Benztropine [Cogentin] 0.5 mg PO BID 11/23/15 [History Confirmed 02/07/17 Last Taken Unknown] Diltiazem HCl [Cartia Xt] 180 mg PO QAM 05/25/16 [History Confirmed 03/21/17 Last Taken Unknown] traZODone HCL [Trazodone HCl] 50 mg PO HS 02/07/17 [History Confirmed 03/21/17 Last Taken Unknown] 0.9 % Sodium Chloride [Saline Flush] 10 ml IV Q8 02/19/17 [Rx Last Taken Unknown ] Accu-Chek 1 each FS ACHS strip 02/19/17 [Rx Last Taken Unknown] Acetaminophen [Tylenol] 650 mg PO Q6HP PRN tablet 02/19/17 [Rx Last Taken Unknown] Albuterol Sulfate [Ventolin] 2.5 mg NEB Q3HP PRN 02/19/17 [Rx Last Taken Unknown ] Albuterol Sulfate [Ventolin] 2.5 mg NEB Q6HRT 02/19/17 [Rx Last Taken Unknown] Calcium Acetate [Phoslo] 667 mg PO TIDCC capsule 02/19/17 [Rx Last Taken Unknown] Dextrose [Insta-Glucose] 15 gm PO PRN PRN 02/19/17 [Rx Last Taken Unknown] Heparin 5,000 unit SQ Q12 vial 02/19/17 [Rx Confirmed 03/20/17 Last Taken Unknown] Heparin Flush 2 ml IV Q12 02/19/17 [Rx Last Taken Unknown] Insulin Lispro [Humalog] See Protocol SQ ACHS unit 02/19/17 [Rx Confirmed 03/20 Last Taken Unknown] metroNIDAZOLE [Flagyl] 500 mg IV Q12H #1 bag 02/19/17 [Rx Confirmed 03/20/17 Last Taken Unknown] oxyCODONE/APAP [Percocet 5-325 mg] 1 tab PO Q4HP PRN tablet 02/19/17 [Rx Confirmed 03/20/17 Last Taken Unknown] Oxybutynin Chloride [Oxybutynin Chloride ER] 5 mg PO QHS 03/21/17 [History Confirmed 03/21/17 Last Taken Unknown] Warfarin [Coumadin] 4 mg PO QPM 03/21/17 [History Confirmed 03/21/17 Last Taken Unknown] Medical - DS: Hosp Hospital course: Mr. Uribe is a 46 year old man who was admitted to [facility] on February 07 and was discharged on 02/19/17. He was admitted with severe weakness associated with a retroperitoneal bleed. He subsequently developed acute renal failure and atrial fibrillation. He then went on to develop bilateral lower lobe pneumonia and respiratory failure. He had a very prolonged hospital course, and was severely weakened. At discharge he was sent to [facility] to continue working towards getting back to his baseline. He apparently was just discharged a week ago from [place] and back to stay with his sister. It seems he has had increasing weakness since he got back to his sisters house, and he is just not strong enough that she can get him to and from the bathroom, etc. in the emergency room he was seen by case management/social work. They apparently have arranged for him to be sent back to rehab, but that cannot be accomplished until tomorrow. His family says they just cannot handle him at home tonight, with this level of disability. He is now admitted for observation and supportive activities of daily living, until tomorrow, when we can try to get him back to rehab to once again work on strengthening and progress towards his baseline. His blood work was positive for mild UTI and mildly elevated wbc, WBC count at the time of discharge today is back to normal and patient denies any symptoms suggestive of UTi, none the less he is a male with an abnormal UA and I will treat him with 7 days of antibiotics. At the time of discharge the patient was comfortable, seems back to baseline, on his baseline oxygen need. I have made no changes to his medication list except addition of levofloxacin for 7 days. He will have to have his INR checked in 3 days and follow up with his PCP for further management. Discharge diagnosis: Weakness, UTI - Time Spent with Patient Total time spent providing and/or coordinating discharge services: Less than 30 minutes Medical - DS: Exam - Constitutional Vitals: Vital Signs Temp Pulse Resp BP Pulse Ox 03/21/17 08:00 80 03/21/17 07:39 96.7 F L 22 147/87 97 03/21/17 04:00 97.5 F 78 22 148/105 94 03/20/17 23:48 98.3 F 66 22 156/94 98 03/20/17 19:12 96.5 F L 70 24 H 154/93 99 Intake and Output 03/20/17 03/21/17 03/21/17 21:59 05:59 13:59 Intake Total 500 / 500 Output Total Balance 499 / 499 Intake: Oral 500 / 500 Output: # of times incontinent of urine Other: Weight 268 lb - Head Additional comments: Constitutional; Afebrile, cooperative, alert, not in distress. obese, Eyes- No icterus, , No periorbital swelling Ears- Ext ear normal, hearing normal to conversation. Neck- Midline trachea, supple Respiratory system: Air Entry equal on both sides, No crackles or wheezing, no rhonchi. CVS- Rate normal rhythm irregular, S1,S2 heard, no gallop, no rub. Abdomen- Soft nontender abdomen, no organomegaly, no tenderness, no guarding or rigidity, [employer]- AOOx2, moving all extremities, no gross focal deficit noted. Medical - DS: Data Labs on day of discharge: Labs from last 24 hours 03/21/17 05:15 WBC 9.4 RBC 2.86 L Hgb 8.4 L Hct 25.1 L MCV 87.7 MCH 29.3 MCHC 33.5 RDW 16.1 H Plt Count 210 MPV 6.3 L Total Counted 100 Seg Neutrophils % 61 Band Neutrophils % 1 Lymphocytes % 25 Monocytes % (Manual) 9 Eosinophils % (Manual) 4 Platelet Estimate Normal RBC Morphology Abnorm A Anisocytosis 2+ A Ovalocytes Few A Medical - DS: A/P - Patient/Caregiver Discharge Instructions Activity: as per physical therapy, increase activity as tolerated Diet: Cardiac Additional Instructions: Check INR on Saturday03/25/2017, Follow up the finding with the PCP Dr Candelaria Roque. Follow up with PCP within 7 days OT/ PT/ ST eval and treat. Go to the ER if any worsening symptoms, fever, chest pain shortness of breath or any other concerning symptom. - Follow up Plan Follow up with: Ewa Roque MD [Primary Care Provider] - Disposition: Xfer SNF Prognosis: Fair Rehab Potential: Fair I certify that the patient requires SNF services: Yes Overall status at discharge: patient is progressing back to baseline Medical - DS: Qual - VTE Deep Vein Thrombosis/Pulmonary Embolism Present on Admission: No
== END 2017-03-21 11:30 ==
LOC: MEDSUR 11:38 → ED 11:38 → MEDSUR 19:00
PROVIDERS: ADMIT Internal Medicine; ATTEND Internal Medicine